=== PATIENT | female | born 1950 | race Caucasian/White ===

== ENCOUNTER 2022-05-11 12:45 | Emergency (ER) | payer MEDICARE, SELFPAY ==
[2022-05-11] VITALS (16 sets, daily range): BP systolic 110–145; BP diastolic 77–88; PULSE 68–81; RESP 12–18; TEMP 36.2; O2SAT 96–100
--- NOTE | ~2022-05-11 | XR_ITS ---
EXAMINATION: XR chest 2V Exam Date/Time: 05/11/2022 14:50 CORPORATE INVESTIGATOR HISTORY: cough, sob Comparison: None available. RESULT: Lines, tubes, and devices: None. Lungs and pleura: Biapical pleural scarring. Fibrolinear scarring in the right upper lung, with abdirashid r retraction. Right hemidiaphragm elevation. Cardiomediastinal silhouette: Stable. Other: No acute osseous or upper abdominal finding. IMPRESSION: No acute cardiopulmonary process. Reviewed, dictated and finalized at location K. ORATE INVESTIGATOR
--- NOTE | 2022-05-11 13:11 | ECG_ITS ---
Measurements Intervals [place] Rate: 70 P: 57 GA: 153 QRS: 58 QRSD: 159 T: 2 QT: 451 QTc: 488 Interpretive Statements SINUS RHYTHM RIGHT BUNDLE BRANCH BLOCK BASELINE ARTIFACT- I, II, III, AVR, AVL, AVF ABNORMAL ECG NO PREVIOUS ECG AVAILABLE FOR COMPARISON Electronically Signed On 05-11-2022 13:44:46 GAMING CAGE CASHIER by Dakota Yoon D.O.
[2022-05-11 13:50] LABS: Basophils Percent Auto 0.4 % (0.2-1.2); Eosinophils Absolute Auto 0.1 K/mm3 (0-0.3); Eosinophils Percent Auto 2.3 % (0-4.4); Hematocrit 38.2 % (37.0-47.0); Hemoglobin 12.6 g/dL (12.0-15.0); Immature Granulocyte Absolute 0.03 K/mm3 (0.00-0.031); Immature Granulocyte Percent A 0.5 % (0-0.5); Lymphocytes Absolute Auto 1.28 K/mm3 (0.9-3.2); Lymphocytes Percent Auto 22.6 % (18.3-44.2); Mean Corpuscular Hemoglobin 29.6 pg (26-34); Mean Corpuscular Volume 89.7 fl (80-100); Mean Platelet Volume 9.6 fl (7.4-10.4); Monocytes Absolute Auto 0.5 K/mm3 (0.1-0.6); Monocytes Percent Auto 8.5 % (2.6-8.5); Neutrophils Absolute Auto 3.7 K/mm3 (1.3-6.7); Neutrophils Percent Auto 65.7 % (45.5-73.1); Platelet Count Result 321 k/mm3 (150-375); Red Blood Count 4.26 M/mm3 (4.2-5.4); Red Cell Distribution Width 13.4 % (11.5-14.5); White Blood Count 5.7 K/mm3 (4.5-10.0)
[2022-05-11 13:52] LABS: Alanine Aminotransferase 17 U/L (6-35); Alkaline Phosphatase 131 U/L (38-126); Anion Gap 4 mmol/L (8-16); Aspartate Amino Transferase 22 U/L (14-36); Bilirubin,Total 0.5 mg/dL (0.2-1.3); Blood Urea Nitrogen 13 mg/dL (7-17); Calcium 8.8 mg/dL (8.4-10.2); Carbon Dioxide 26 mmol/L (22-30); Chloride 110 mmol/L (98-107); Estimated CRCL calculation 46 ml/min; Estimated Glomerular Filt Rate 55; Glucose 92 mg/dL (65-110); Potassium 3.8 mmol/L (3.4-5.0); Sodium 140 mmol/L (137-145)
[2022-05-11 14:01] LABS: INR 1.1; Prothrombin Time 13.5 Seconds (11.1-14.7)
[2022-05-11 14:02] LABS: Partial Thromboplastin Time 28.4 SECONDS (22.3-36.8)
[2022-05-11 14:07] LABS: Influenza A QL RT-PCR Negative (Negative); Influenza B QL RT-PCR Negative (Negative); SARS-CoV-2 RNA PCR Negative
--- NOTE | 2022-05-11 14:53 | ED.URI ---
HPI - URI/Sore Throat General Chief Complaint: Upper Respiratory Infection Stated Complaint: cough/sinus drainage/SOB Time Seen by Provider: 05/11/22 12:52 Source: patient, family and RN notes reviewed Mode of arrival: ambulatory Limitations: no limitations History of Present Illness HPI Narrative: This is a 72 year old female who presents for evaluation of URI symptoms for 3 weeks. Patient states she developed sinus pressure, sinus pain and intermittent right ear pain 3 weeks ago. She was prescribed augmentin at the start of her symptoms. She has continued to have symptoms so her primary care provider prescribed antibiotics last week and she is still on them. She reports she has worsening cough, chest congestion for 1 week. She reports shortness of breath with exertion. She denies fever, chills, chest pain. She denies wheezing. Related Data Home Medications Medication Instructions Recorded Confirmed citalopram 40 mg tablet 20 mg PO DAILY 09/29/21 11/03/21 clonazepam 2 mg tablet 2 mg PO DAILY 09/29/21 11/03/21 cyclobenzaprine 10 mg tablet 10 mg PO TID 09/29/21 11/03/21 estradiol 10 mcg vaginal insert 10 mcg vaginal 2XW 09/29/21 11/03/21 (Imvexxy Maintenance Pack) trazodone 50 mg tablet 50 mg PO QHS PRN 09/29/21 11/03/21 hydroxyzine HCl 25 mg tablet 25 mg PO BID PRN 11/03/21 11/03/21 Allergies Allergy/AdvReac Type Severity Reaction Status Date / Time prochlorperazine Allergy Unknown Unknown Unverified 11/03/21 11:37 Review of Systems Constitutional: Constitutional: Denies weakness ENT: Reports nasal congestion and Reports sore throat Cardiovascular: Cardiovascular: Denies syncope, Denies rapid heart rate, Denies irregular heart rhythm, Denies leg edema and Reports dyspnea Respiratory: Respiratory: Reports chest congestion, Reports cough, Denies hemoptysis, Reports excessive phlegm production and Reports dyspnea Gastrointestinal: Gastrointestinal: Denies abdominal pain, Denies hematochezia, Denies diarrhea, Reports nausea and Reports vomiting Genitourinary: Genitourinary: Denies hematuria and Denies dysuria Musculoskeletal: Musculoskeletal: Denies joint swelling, Denies loss of height and Denies muscle weakness Neurologic: Denies syncope, Denies focal weakness and Denies weakness PMFSH Past Medical History Medical History Abdominal cramping Bloating Fecal incontinence Stroke Social History Social History Smoking status: Never smoker Second hand tobacco smoke exposure: No Alcohol intake: never Substance use: never Living arrangements: with family Occupation/Education: other Gender identity (if verbalized by the patient): Female Exam Narrative: GENERAL: well-nourished, and in no acute distress. HEAD: Normocephalic, atraumatic EYES: PERRLA and EOMI, conjunctiva clear without discharge EARS: TM's clear bilaterally without erythema or dullness NOSE: Nares clear, no rhinorrhea or epistaxis THROAT:Mucous membranes moist, Oropharynx normal without erythema, exudate, peritonsillar swelling or fluctuance NECK: Supple, without lymphadenopathy or mass RESPIRATORY: No respiratory distress, Airway patent, Respirations non-labored, Clear to auscultation without rales, rhonchi or wheeze HEART: Regular rate and rhythm. No murmur heard. Normal peripheral pulses. ABDOMEN: Soft, nontender, nondistended, normal active bowel sounds. No masses. No rebound or guarding, No organomegaly. EXTREMITIES: No edema, normal strength with full range of motion. SKIN: Warm, dry, normal color without rash NEURO: Alert and oriented x3. CN 2-12 grossly intact. No focal deficits. PSYCH: Normal mood and affect. Neuro: Speech: No Abnormal speech present Course Reevaluation(s) Reevaluation #1: I Discussed with patient that she is to complete her antibiotics. I will treat for bronchitis with inhaler and
== END 2022-05-11 17:22 | disposition home or self-care (01) ==
PROVIDERS: Emergency Provider General Practice; PCP Internal Medicine
DX: J20.9 Acute bronchitis, unspecified (principal); Z20.822 Contact with and (suspected) exposure to COVID-19; Z86.73 Personal history of transient ischemic attack (TIA), and cerebral infarction without residual deficits; R06.02 Shortness of breath; I45.10 Unspecified right bundle-branch block
CPT/HCPCS: 36415; 71046; 80053; 83605; 85025; 85610; 85730; 87636; 93005; 99283

== ENCOUNTER 2023-03-22 11:34 | Inpatient (IN) | payer MEDICARE, SELFPAY ==
[2023-03-22] VITALS (11 sets, daily range): BP systolic 119–147; BP diastolic 64–86; PULSE 66–83; RESP 14–20; TEMP 36.4; O2SAT 97–100; BMI 27.8
--- NOTE | ~2023-03-22 | XR_ITS ---
XR chest 1V DATE: 03/22/2023 14:53 INDICATION: Rule out pneumonia TECHNIQUE: AP chest COMPARISON: 05/11/2022 2 view chest FINDINGS: Chronic prominent elevation the right leaf of the diaphragm, stable since 05/11/2022. Normal heart size. No hilar or interval mediastinal enlargement is evident. No pulmonary infiltrate or consolidation, pleural effusion or pulmonary vascular congestion or pneumo thorax is detected. Mild upper thoracic levoscoliosis. There is bilateral excretion of contrast material by the kidneys. IMPRESSION: Chronic right diaphragm elevation; no active cardiopulmonary disease or significant coulter e since 05/11/2022 Reviewed, dictated and finalized at location L. R TESTER POLYPHASE IMPRESSION: Chronic right diaphragm elevation; no active cardiopulmonary diseas e or significant change since 05/11/2022
--- NOTE | ~2023-03-22 | CT_ITS ---
EXAMINATION: CTA brain carotid DATE: 03/22/2023 14:47 INDICATION: Ataxia. Confusion. TECHNIQUE: Computed tomographic angiography (CTA) of the head was performed with 100 mL Omnipaque-350 intravenous contrast. CTA of the neck was performed with intravenous contrast. Automated exposure co ntrol and iterative reconstruction technique were employed. The dose-length product was 962.11 mGy-cm . Maximum intensity projection and volume rendered 3D-reconstructions were created by the [employer] t on a separate workstation. COMPARISON: Head CT 03/22/2023 FINDINGS: HEAD CTA: There is no intracranial hemorrhage, acute infarction, or abnormal intracranial mass lesion . There are scattered areas of low attenuation in the cerebral white matter. The ventricles are david l in size. The orbits are normal. There is mild mucosal thickening in the paranasal sinuses. The mast oid air cells are normal. The vertebral arteries are codominant. There is no significant stenosis of basilar artery or the posterior cerebral arteries. There is no significant stenosis of the intracrani al internal carotid arteries or anterior or middle cerebral arteries. Anterior communicating artery i s normal. The posterior communicating arteries are normal. There is no aneurysm. NECK CTA: There is mild scarring at the lung apices. There is a 5 mm nodule left thyroid lobe, likely not clinically significant. There are no pathologically enlarged lymph nodes. There is no significan t stenosis of the vertebral arteries. There is minimal plaque in the proximal internal carotid arteri es. There is 0% stenosis of the proximal right internal carotid artery relative to normal distal mary ry lumen diameter (NASCET criteria). There is 0% stenosis of the proximal left internal carotid arter y relative to normal distal artery lumen diameter. There is moderate cervical spondylosis. IMPRESSION: 1. Mild nonspecific cerebral white matter disease, which likely represents chronic small vessel ische dayton disease. 2. No aneurysm or significant intracranial arterial stenosis. 3. 0% stenosis of the proximal internal carotid arteries relative to normal distal artery lumen diame ters (NASCET criteria). Reviewed, dictated and finalized at location E. ROSE GROWER IMPRESSION: 1. Mild nonspecific cerebral white matter disease, which likely represents chief projectionist michelle small vessel ischemic disease. 2. No aneurysm or significant intracranial arterial stenosis. 3. 0% stenosis of the proximal internal carotid arteries relative to normal dis lexa artery lumen diameters (NASCET criteria).
--- NOTE | ~2023-03-22 | MR_ITS ---
MRI of the brain Clinical History: Confusion Technique: Axial and sagittal T1-weighted images were acquired. These were followed by axial T2-weigh mychal, diffusion weighted, gradient, and FLAIR images. Following intravenous administration of 15 cc Mu ltiHance gadolinium, T1-weighted fat-sat imaging was performed in the axial and coronal planes. Findings: There is no acute infarct, internal hemorrhage, or mass lesion identified. There are mild c hronic microvascular ischemic changes in the periventricular white matter. Ventricles and subarachnoid spaces are mildly dilated. Orbits are unremarkable. Paranasal sinuses and mastoid air cells are clear. Major intracranial flow voids are intact. Sagittal midline structures are intact. No abnormal postcontrast enhancement identified. IMPRESSION: No acute abnormality. Mild chronic white matter ischemic changes and mild to moderate generalized atrophy. Reviewed, dictated and finalized at [facility]. STOS REMOVAL SUPERVISOR IMPRESSION: No acute abnormality. Mild chronic white matter ischemic changes and mild to moderate generalized atr ophy.
--- NOTE | ~2023-03-22 | CT_ITS ---
Non-contrast Head CT History: Dizziness Technique: Axial non-contrast imaging of the brain was performed. Dose reduction technique was used on this scan by utilizing automated exposure control and iterative reconstruction technique. The dose -length product (DLP) was 605.33 mGy-cm. Findings: There is no evidence of intracranial hemorrhage, mass lesion, or acute infarct. Brain par enchyma appears normal. The ventricles and subarachnoid spaces are normal in size. The calvarium ap pears normal. The visualized paranasal sinuses and mastoid air cells are clear. Impression: No significant abnormality seen. Reviewed, dictated and finalized at location . UNITY AMBASSADOR Impression: No significant abnormality seen.
--- NOTE | 2023-03-22 13:13 | ECG_ITS ---
Measurements Intervals [place] Rate: 70 P: 69 UT: 155 QRS: 78 QRSD: 152 T: 3 QT: 468 QTc: 506 Interpretive Statements SINUS RHYTHM RIGHT BUNDLE BRANCH BLOCK BASELINE ARTIFACT- I, II, III, AVR, AVL, AVF ABNORMAL ECG COMPARED TO ECG 05/11/2022 13:30:12 NO SIGNIFICANT CHANGES Electronically Signed On 03-22-2023 13:48:14 DIGITIZER OPERATOR by Dakota Yoon D.O.
--- NOTE | 2023-03-22 13:14 | ED.GENADULT ---
HPI - General Adult General Chief complaint: Neuro Symptoms/Deficit Stated complaint: balance problems/problems with memory Time Seen by Provider: 03/22/23 13:12 History of Present Illness HPI narrative: Patient is a 73-year-old female who presents to the emergency department this afternoon with multiple symptoms. Patient states that since Tuesday she has noticed that she has been more confused, unstable on her feet, and off according to herself, has been and sister. Patient states that she was trying to write something a few days ago and everything that she wrote was gibberish even though she has good hand writing. Patient also states that her memory has been significantly declining within the past few days. The combination of these symptoms although mild were present prior to Tuesday but on Tuesday has been noticed a significant decline. Patient started a sulfa antibiotic at that time for urinary tract infection and not sure if this is due to that. Patient states that she stopped taking the medication. She states that when she was having the dysuria for her urinary tract infection the pain started on her left hand at the tip of her left pointer finger and felt as though it was a shooting nerve pain from her left index finger all the way to her urethra. Patient admits to a history of 2 previous TIAs with no residual deficits. Patient also denies any additional symptoms including chest pain, shortness of breath, nausea, vomiting, abdominal pain, dysuria, hematuria, constipation, diarrhea, melena, hematochezia, fevers or chills. Patient also denies any headaches, room spinning dizziness sensation, lightheadedness, blurry visions, focal weakness, numbness and or tingling. There are no other modifying, alleviating, or precipitating factors at this time. Related Data Home Medications Medication Instructions Recorded Confirmed citalopram 40 mg tablet 20 mg PO DAILY 09/29/21 11/03/21 clonazepam 2 mg tablet 2 mg PO DAILY 09/29/21 11/03/21 cyclobenzaprine 10 mg tablet 10 mg PO TID 09/29/21 11/03/21 estradiol 10 mcg vaginal insert 10 mcg vaginal 2XW 09/29/21 11/03/21 (Imvexxy Maintenance Pack) trazodone 50 mg tablet 50 mg PO QHS PRN 09/29/21 11/03/21 hydroxyzine HCl 25 mg tablet 25 mg PO BID PRN 11/03/21 11/03/21 Allergies Allergy/AdvReac Type Severity Reaction Status Date / Time prochlorperazine Allergy Unknown Unknown Unverified 11/03/21 11:37 Review of Systems Review of Systems: All systems are reviewed and are negative unless stated otherwise in the HPI. [facility] Past Medical History Medical History Abdominal cramping Bloating Fecal incontinence Stroke Social History Social History Smoking status: Never smoker Second hand tobacco smoke exposure: No Alcohol intake: never Substance use: never Living arrangements: with family Occupation/Education: other Gender identity (if verbalized by the patient): Female Exam Narrative: General: Alert, awake, afebrile, in no acute distress. HEENT: PERRL, no rhinorrhea, no post nasal drip, oropharynx clear. Neck: Trachea midline, no JVD, no lymphadenopathy. Cardiovascular: Regular rate and rhythm, no murmurs, rubs or gallops, no peripheral edema. Respiratory: Clear to auscultation bilaterally, no tachypnea, no wheezing, no rhonchi, no rubs, no respiratory distress. Abdomen: Soft, nontender, nondistended, no rebound, no guarding, no peritoneal signs. Musculoskeletal: No joint swelling or deformity, normal muscle tone. Skin: No rashes or petechia, no signs of infection. Psychiatric: Alert and oriented, normal behavior and judgment for situation. Neurological: Alert and oriented to person, place, and time. Follows all commands. 5/5 motor strength in the bilateral upper and lower extremity. Sensation intact in the bilateral upper and lower extremity. Cranial nerves 2-
[2023-03-22 13:30] LABS: Basophils Percent Auto 0.5 % (0.2-1.2); Eosinophils Absolute Auto 0.1 K/mm3 (0-0.3); Eosinophils Percent Auto 3.1 % (0-4.4); Hematocrit 41.3 % (37.0-47.0); Immature Granulocyte Absolute 0.01 K/mm3 (0.00-0.031); Immature Granulocyte Percent A 0.3 % (0-0.5); Lymphocytes Absolute Auto 1.12 K/mm3 (0.9-3.2); Lymphocytes Percent Auto 29.4 % (18.3-44.2); Mean Corpuscular HGB Conc 31.5 g/dl (32-36); Mean Corpuscular Hemoglobin 28.4 pg (26-34); Mean Corpuscular Volume 90.4 fl (80-100); Mean Platelet Volume 9.5 fl (7.4-10.4); Monocytes Absolute Auto 0.3 K/mm3 (0.1-0.6); Monocytes Percent Auto 8.4 % (2.6-8.5); Neutrophils Absolute Auto 2.2 K/mm3 (1.3-6.7); Neutrophils Percent Auto 58.3 % (45.5-73.1); Platelet Count Result 294 k/mm3 (150-375); Red Blood Count 4.57 M/mm3 (4.2-5.4); Red Cell Distribution Width 13.4 % (11.5-14.5); White Blood Count 3.8 K/mm3 (4.5-10.0)
[2023-03-22 13:40] LABS: Alanine Aminotransferase 17 U/L (6-35); Albumin Level 4.2 g/dL (3.5-5.1); Alkaline Phosphatase 102 U/L (38-126); Anion Gap 5 mmol/L (8-16); Aspartate Amino Transferase 23 U/L (14-36); Bilirubin,Total 0.5 mg/dL (0.2-1.3); Blood Urea Nitrogen 16 mg/dL (7-17); Calcium 9.4 mg/dL (8.4-10.2); Carbon Dioxide 27 mmol/L (22-30); Chloride 106 mmol/L (98-107); Estimated CRCL calculation 36 ml/min; Estimated Glomerular Filt Rate 40; Glucose 104 mg/dL (65-110); Potassium 4.3 mmol/L (3.4-5.0); Sodium 138 mmol/L (137-145)
[2023-03-22 14:06] LABS: Appearance Urine Clear (Clear); Bilirubin Urine Negative (Negative); Blood Urine Negative (Negative); Color Urine Yellow (Yellow); Glucose Urine UA Negative (Negative); Ketones Urine Negative (Negative); Leukocyte Esterase Ur Negative LEU/UL (Negative); Nitrate Urine Negative (Negative); Protein Urine Negative (Negative); Specific Grav Ur 1.017 (1.001-1.035)
[2023-03-22 14:12] LABS: Add Urine Microscopic? NO
--- NOTE | 2023-03-22 17:28 | PM.IMHP ---
H&P: HPI History of Present Illness Date/Time: 03/22/23 19:45 Chief Complaint: Confusion and balance problems. Narrative: This is a pleasant 73-year-old female with history of transient ischemic attack, chronic kidney disease, irritable bowel syndrome with constipation, depression, and anxiety who presented to the emergency department from home for evaluation of confusion and balance problems. The patient provides the following history and her provides additional information with the patient's permission. Last Tuesday she developed dysuria and was prescribed Bactrim by her primary care provider though no urinalysis was obtained. She took the antibiotic for 2 days stop taking it on Tuesday as she started to get confused. The patient tells me that it is not necessarily unusual for her to lose track of her thoughts in the middle of a sentence or forget why she went into a room. remarks that she does occasionally stumble on her words though that has been much worse. When he came home on Tuesday he tells me that she was ?unable to put 2 words together.? Sister remarks that she was writing jibberish when trying to make a list the other day. She feels a bit off balance when walking though that does not sound necessarily unusual for her either. She has a history of footdrop which improved after knee replacement but apparently still causes some degree. Of note she had what sounds like a syncopal episode approximately 5 weeks ago while out [place] a casino without prodrome. She was not evaluated for that. She denies headache, vertigo, facial droop, difficulty swallowing, auditory and visual changes, focal weakness, and paresthesias. No falls within the past several weeks. She denies head trauma. No change in medication aside from Bactrim for couple of days last week as detailed above. She denies alcohol and illicit substance use. No known history of dementia. CTA of the head and neck done on arrival to the ED did not show any acute or significant findings. She is being admitted in this setting for close monitoring and neurology consultation. Review of Systems Review of Systems: Twelve systems were reviewed and are negative except for as per HPI. [facility] Past Medical History Medical History (Updated 03/22/23 @ 21:45 by Melonie Chiu PA-C) Chronic constipation Chronic kidney disease Depression with anxiety Transient ischemic attack Surgical History Surgical History (Updated 03/22/23 @ 21:43 by Melonie Chiu PA-C) History of bilateral salpingo-oophorectomy (10/1999) History of knee replacement History of laparoscopy (06/2000) Laparoscopic adhesiolysis or pelvic pain. History of vaginal hysterectomy (1981) Social History Social History (Updated 03/22/23 @ 21:44 by Melonie Chiu PA-C) Social History: Surrogate medical decision maker: Britt Mohr, spouse. Code status: Full code. Smoking status: Never smoker Second hand tobacco smoke exposure: No Alcohol intake: never Substance use: never Do You Feel Safe in your Home?: Yes Lack of Transportation: No Lack of Food: Never True Current Housing: I Have Housing Concerned About Future Housing: No Difficulty Paying Gas/Electric Bills: No Difficulty Paying for Meds: No Currently Unemployed: No Education: Don't Know Difficulty w/ Childcare or Family Care: No Living arrangements: with family Additional living arrangements comments: Lives with spouse and intellectually disabled son. Additional occupation/education comments: Homemaker. Spiritual care concerns: No Meds Home Medications and Allergies Home Medications Medication Instructions Recorded Confirmed Type citalopram 40 mg tablet 40 mg PO QHS 09/29/21 03/22/23 History clonazepam 2 mg tablet 2 mg PO QHS 09/29/21 03/22/23 History cyclobenzaprine 10 mg tablet 10 mg PO QHS 09/29/21 03/22/23 History trazodone 50 mg tablet 25 mg PO QHS Insomnia 09/29/21 03/22/23 History hydroxyzin
--- NOTE | 2023-03-22 18:04 | ADMGEN ---
This patient, Makenzie Mohr, was admitted to Medical Room 252-01. Patient/family oriented to hospital policies and general routines including ID bracelet, bed and alarms, visiting hours, pain management, procedures, bathroom and other care routines, personal items, smoking policy, room service/diet, and visiting hours. Information on how to activate the Rapid Response Team has been discussed. Patient/Family are encouraged to report perceived risks to care and to ask questions if they do not understand what they are told or what they should do.
[2023-03-22] MEDS: clonazePAM (*CRX) 0.5 MG TABLET 2 MG PO (22:37)
[2023-03-22] MEDS: CITALOPRAM HYDROBROMIDE 20 MG TABLET 40 MG PO (22:37)
[2023-03-22 23:19] LABS: Amphetamine Screen Urine Negative (Negative); Barbiturate Screen Urine Negative (Negative); Benzodiazepines Screen Urine Negative (Negative); Cannabinoid Screen Urine Positive (Negative); Cocaine Screen Urine Negative (Negative); Methadone Screen Urine Negative (Negative); Opiate Screen Urine Negative (Negative); Phencyclidine Screen Urine Negative (Negative)
[2023-03-23] VITALS (9 sets, daily range): BP systolic 115–128; BP diastolic 59–68; PULSE 67–79; RESP 16–18; TEMP 36.4–36.8; O2SAT 92–97
--- NOTE | 2023-03-23 | ECHO_ITS ---
Patient Info Name: Makenzie Mohr Age: 73 years : 1950 Gender: Female Ht: 65 in Wt: 172 lbs BSA: 1.91 m2 HR: 72 bpm BP: 115 / 59 mmHg Heart Rhythm: Sinus Rhythm Technical Quality: Good Exam Date: 03/23/2023 1:51 PM Exam Location: Echo Lab Patient Status: Inpatient Admit Date: 03/22/2023 Staff Ordering Physician: Teddy King MD Environmental Health And Safety Manager: Agnieszka Bravo RDCS Attending Provider: Terrence Sandoval MD Exam Type: CA echo doppler color flow Study Info Indications - CVA symptoms R55 - Syncope and collapse Complete two-dimensional, color flow and Doppler transthoracic echocardiogram is performed. Summary 1. Complete two-dimensional, color flow and Doppler transthoracic echocardiogram is performed. 2. Normal left ventricular size with mild concentric hypertrophy. Good systolic function of all segments with ejection fraction of 69%. Normal diastolic function. 3. There is mild tricuspid valve regurgitation. 4. No pulmonary hypertension, estimated pulmonary arterial systolic pressure is 26 mmHg. 5. Thin and hyper mobile atrial septum, with no obvious shunt by color flow. 6. Normal sinus rhythm. Left Ventricle Left ventricular chamber dimension is normal. Left ventricular systolic function is normal, estimated at 65-70%. There is mildly increased left ventricular wall thickness. Left ventricular septal wall motion is normal. The left ventricular diastolic function is normal. Right Ventricle Right ventricular chamber dimension is normal. Right ventricular systolic function is normal. Left Atria Left atrial chamber dimension is normal. Right Atria Right atrial chamber dimension is normal. Aortic Valve The aortic valve is trileaflet. There is mild aortic valve sclerosis. There is no aortic valve stenosis. There is trace aortic valve regurgitation. Pulmonic Valve The pulmonic valve is normal. There is no pulmonic valve stenosis. There is no pulmonic regurgitation. Mitral Valve The mitral valve has normal leaflets. There is no mitral valve stenosis. There is no mitral valve regurgitation. Tricuspid Valve The tricuspid valve leaflets are normal. There is no significant tricuspid valve stenosis. There is mild tricuspid valve regurgitation. No pulmonary hypertension, estimated pulmonary arterial systolic pressure is 26 mmHg. Pericardium/Pleural The pericardium appears normal. There is no pericardial effusion. Inferior Vena Cava Normal inferior vena cava with >50% collapse upon inspiration consistent with Empty right atrial pressure, 10 mmHg. Aorta The aortic root size at the sinus of Valsalva is normal. The prox ascending aorta size is normal. Left Ventricular Outflow Tract Name Value Normal LVOT 2D LVOT Diameter 2.0 cm LVOT Doppler LVOT Peak Gradient 5 mmHg LVOT Mean Gradient 2 mmHg LVOT VTI 18 cm LVOT VTI/AV VTI Ratio 0.9 LVOT Stroke Volume 53 ml LVOT CO 3.9 l/min LVOT CI 2.1 l/min/m2 Pulmonic Valve
[2023-03-23] MEDS: ACETAMINOPHEN 325 MG TABLET 650 MG PO (05:22)
[2023-03-23 05:34] LABS: Hematocrit 40.7 % (37.0-47.0); Hemoglobin 13.3 g/dL (12.0-15.0); Mean Corpuscular HGB Conc 32.7 g/dl (32-36); Mean Corpuscular Volume 88.9 fl (80-100); Mean Platelet Volume 9.4 fl (7.4-10.4); Platelet Count Result 328 k/mm3 (150-375); Red Blood Count 4.58 M/mm3 (4.2-5.4); Red Cell Distribution Width 13.2 % (11.5-14.5); White Blood Count 4.2 K/mm3 (4.5-10.0)
[2023-03-23 05:43] LABS: Anion Gap 7 mmol/L (8-16); Blood Urea Nitrogen 15 mg/dL (7-17); Calcium 9.5 mg/dL (8.4-10.2); Carbon Dioxide 23 mmol/L (22-30); Chloride 108 mmol/L (98-107); Cholesterol 259 mg/dL (0-200); Estimated CRCL calculation 39 ml/min; Estimated Glomerular Filt Rate 44; Glucose 91 mg/dL (65-110); HDL Direct 62 mg/dL; Magnesium 2.1 mg/dL (1.6-2.3); Potassium 4.3 mmol/L (3.4-5.0); Sodium 138 mmol/L (137-145); Triglycerides 123 mg/dL (<150)
[2023-03-23 05:53] LABS: LDL Cholesterol Direct 106 mg/dL
[2023-03-23] MEDS: ASPIRIN 81 MG CHEWABLE TABLET PO (08:47)
[2023-03-23] MEDS: CYCLOBENZAPRINE HCL 10 MG TABLET PO ×2 (09:17→20:32)
--- NOTE | 2023-03-23 11:18 | WPDNEURCNPN ---
Assessment and Plan Assessment and plan (1) Transient cerebral ischemia: Code(s): G45.9 - Transient cerebral ischemic attack, unspecified Status: Acute (2) Depression with anxiety: Code(s): F41.8 - Other specified anxiety disorders Status: Acute (3) Neurological symptoms: Code(s): R29.90 - Unspecified symptoms and signs involving the nervous system Status: Acute Plan Nonspecific neurological symptomatology will obtain the routine EEG, in addition to negative CTA of the brain and cervical area considering the remote possibility of TIA if she has not had an echocardiogram recently will obtain that as well and continue the medication as such Consult date: 03/23/23 HPI: Makenzie Mohr is a 73 year old female she received the antibiotics but she continued to have the increase in cough. Her medication as an outpatient include citalopram 20mg daily, clonazepam 2mg daily, cyclobenzaprine 10mg 3 times a day, trazodone 50mg at night p.r.n., and hydroxyzine 25mg b.i.d. p.r.n., she is allergic to l pro floor [place] and she does have a history of stroke in the past, being never smoker, and no alcohol intake, her initial exam in the emergency room were grossly nonfocal, her vital signs were normal with blood pressure 145/88 CBC were normal, BMP was normal, and routine lab studies were negative in addition to being negative for the influenza a influenza B and COVID chest x-ray was negative EKG without any atrial fibrillation, head and neck CTA in the emergency room was negative for any vascular involvement and the brain MRI is negative. Patient does have ongoing history of chronic renal disease, irritable bowel syndrome, anxiety with depression. She has difficulties in keeping track of her thoughts and occasionally she stumbles on her words but on the day of admission she was unable to put 2 words together she also has a history of footdrop in the past which got better later on Review of Systems Review of Systems: All systems reviewed & are unremarkable except as noted in HPI and below PMFSH Past Medical History Medical History Chronic constipation Chronic kidney disease Depression with anxiety Transient ischemic attack Surgical History Surgical History History of bilateral salpingo-oophorectomy (10/1999) History of knee replacement History of laparoscopy (06/2000) Laparoscopic adhesiolysis or pelvic pain. History of vaginal hysterectomy (1981) Social History Social History Social History: Surrogate medical decision maker: Britt Mohr, spouse. Code status: Full code. Smoking status: Never smoker Second hand tobacco smoke exposure: No Alcohol intake: never Substance use: never Do You Feel Safe in your Home?: Yes Lack of Transportation: No Lack of Food: Never True Current Housing: I Have Housing Concerned About Future Housing: No Difficulty Paying Gas/Electric Bills: No Difficulty Paying for Meds: No Currently Unemployed: No Education: Don't Know Difficulty w/ Childcare or Family Care: No Living arrangements: with family Additional living arrangements comments: Lives with spouse and intellectually disabled son. Additional occupation/education comments: Homemaker. Spiritual care concerns: No Meds Home Medications and Allergies Home Medications Medication Instructions Recorded Confirmed Type citalopram 40 mg tablet 40 mg PO QHS 09/29/21 03/22/23 History clonazepam 2 mg tablet 2 mg PO QHS 09/29/21 03/22/23 History aspirin 81 mg tablet 81 mg PO 3XW 03/22/23 03/22/23 History Allergies Allergy/AdvReac Type Severity Reaction Status Date / Time prochlorperazine Allergy Unknown Unknown Verified 03/22/23 18:39 Vital Signs Vital Signs - 24 hr 03/22/23 11:37 03/22/23 12:32 03/22/23 12:45 Temperat
--- NOTE | 2023-03-23 14:17 | PM.IMPN ---
Progress Note: A&P Assessment and Plan (1) Neurological symptoms: Code(s): R29.90 - Unspecified symptoms and signs involving the nervous system Status: Acute (2) Chronic kidney disease: Code(s): N18.9 - Chronic kidney disease, unspecified Status: Acute (3) Depression with anxiety: Code(s): F41.8 - Other specified anxiety disorders Status: Acute (4) Transient cerebral ischemia: Code(s): G45.9 - Transient cerebral ischemic attack, unspecified Status: Acute (5) Transient global amnesia: Code(s): G45.4 - Transient global amnesia Status: Acute (6) Physical deconditioning: Code(s): R53.81 - Other malaise Status: Acute Plan This is a pleasant 73-year-old female with history of transient ischemic attack, chronic kidney disease, irritable bowel syndrome with constipation, depression, and anxiety who presented to the emergency department from home for evaluation of confusion and balance problems. The patient provides the following history and her provides additional information with the patient's permission. Last Tuesday she developed dysuria and was prescribed Bactrim by her primary care provider though no urinalysis was obtained. She took the antibiotic for 2 days stop taking it on Tuesday as she started to get confused. The patient tells me that it is not necessarily unusual for her to lose track of her thoughts in the middle of a sentence or forget why she went into a room. remarks that she does occasionally stumble on her words though that has been much worse. When he came home on Tuesday he tells me that she was ?unable to put 2 words together.? Sister remarks that she was writing jibberish when trying to make a list the other day. She feels a bit off balance when walking though that does not sound necessarily unusual for her either. She has a history of footdrop which improved after knee replacement but apparently still causes some degree. Of note she had what sounds like a syncopal episode approximately 5 weeks ago while out at a casino without prodrome. She was not evaluated for that. She denies headache, vertigo, facial droop, difficulty swallowing, auditory and visual changes, focal weakness, and paresthesias. No falls within the past several weeks. She denies head trauma. No change in medication aside from Bactrim for couple of days last week as detailed above. She denies alcohol and illicit substance use. No known history of dementia. CTA of the head and neck done on arrival to the ED did not show any acute or significant findings. She is being admitted in this setting for close monitoring and neurology consultation. Neurology consulted: ECHO, EEG Acute and principal conditions 1. Transient intermittent Amnesia Probable TIA MRI+CTA Head and Neck: Unremarkable. Neurology on board 2. Probable TIA 3. Leucopenia. Unknown etiology. Will monitor 4. Physical deconditioning: PT/OT eval and Rx; ambulate TID Chronic and stable conditions 1. CKD3. Avoid nephrotoxins 2. Recurrent severe depression w/Anxiety: Resume Citalopram, Hydroxyzine, Clonazepam 3. Dyslipidemia. Statin held Time Spent With Patient Time with patient: 25 - 35 minutes Subjective Date/time seen: 03/23/23 14:17 Interval history: Seen and examined; Discussed with and patient about their concerns. Reassured and answered all questions. Review of Systems Review of Systems: Twelve systems were reviewed and are negative except for as per HPI. Constitutional: Constitutional: Reports no additional constitutional complaints Eyes: Eyes: Reports no additional eye complaints ENT: Reports system reviewed and no additional complaints, except as documented Cardiovascular: Cardiovascular: Reports no additional cardiovascular complaints Respiratory: Respiratory: Reports no additional respiratory complaints Gastrointestinal: Gastrointestinal: Reports no additional gastrointest
[2023-03-23] MEDS: clonazePAM (*CRX) 0.5 MG TABLET 2 MG PO (20:32)
[2023-03-23] MEDS: CITALOPRAM HYDROBROMIDE 20 MG TABLET 40 MG PO (20:32)
[2023-03-23] MEDS: hydrOXYzine HCL 25 MG TABLET PO (20:32)
[2023-03-24] VITALS: PULSE 73
[2023-03-24] MEDS: ACETAMINOPHEN 325 MG TABLET 650 MG PO (00:45)
[2023-03-24 04:00] VITALS: PULSE 74
[2023-03-24 05:53] LABS: Basophils Percent Auto 0.7 % (0.2-1.2); Eosinophils Absolute Auto 0.1 K/mm3 (0-0.3); Eosinophils Percent Auto 2.8 % (0-4.4); Hematocrit 40.8 % (37.0-47.0); Hemoglobin 12.9 g/dL (12.0-15.0); Immature Granulocyte Absolute 0.05 K/mm3 (0.00-0.031); Immature Granulocyte Percent A 1.1 % (0-0.5); Lymphocytes Percent Auto 32.8 % (18.3-44.2); Mean Corpuscular HGB Conc 31.6 g/dl (32-36); Mean Corpuscular Hemoglobin 28.5 pg (26-34); Mean Corpuscular Volume 90.1 fl (80-100); Mean Platelet Volume 9.8 fl (7.4-10.4); Monocytes Absolute Auto 0.5 K/mm3 (0.1-0.6); Neutrophils Absolute Auto 2.4 K/mm3 (1.3-6.7); Neutrophils Percent Auto 52.6 % (45.5-73.1); Platelet Count Result 303 k/mm3 (150-375); Red Blood Count 4.53 M/mm3 (4.2-5.4); Red Cell Distribution Width 13.2 % (11.5-14.5); White Blood Count 4.6 K/mm3 (4.5-10.0)
[2023-03-24 06:00] VITALS: BP 111/49; PULSE 80; RESP 18; TEMP 36.5; O2SAT 96
[2023-03-24 06:12] LABS: Alanine Aminotransferase 16 U/L (6-35); Albumin Level 3.9 g/dL (3.5-5.1); Alkaline Phosphatase 111 U/L (38-126); Anion Gap 7 mmol/L (8-16); Aspartate Amino Transferase 24 U/L (14-36); Bilirubin,Total 0.5 mg/dL (0.2-1.3); Blood Urea Nitrogen 17 mg/dL (7-17); Calcium 9.5 mg/dL (8.4-10.2); Carbon Dioxide 24 mmol/L (22-30); Chloride 107 mmol/L (98-107); Estimated CRCL calculation 36 ml/min; Estimated Glomerular Filt Rate 40; Glucose 90 mg/dL (65-110); Potassium 4.1 mmol/L (3.4-5.0); Sodium 138 mmol/L (137-145)
--- NOTE | 2023-03-24 08:40 | PCOTNOTE ---
The patient treatment was not able to be completed. Patient getting an EEG. Will plan to continue treatment per plan of care.
--- NOTE | 2023-03-24 09:41 | WPDNEUROPN ---
Progress Note: A&P Assessment and Plan (1) Altered mental status: Code(s): R41.82 - Altered mental status, unspecified Status: Acute (2) B12 deficiency: Code(s): E53.8 - Deficiency of other specified B group vitamins Status: Acute (3) Depression with anxiety: Code(s): F41.8 - Other specified anxiety disorders Status: Acute Plan Ms. Mohr is a 73 year old female with a hsitory of anxiety, depression, CKD, IBS presenting due to transient episode of confusion. There were reports of dysuria raising concern for possible UTI, but UA from this admission looks clean. CT head, CTA brain/carotid, MRI brain and routine EEG all normal. B12 is quite low at 174 which could be contributing to more of her long standing confusion/word finding issues. Other consideration of acute worsening are TIA, although other than confusion she did not really have any focal symptoms. - Start daily aspiirn 81mg daily - LDL is 106, start statin - Check bubble study - Check A1c - Start B12 supplementation 1000mcg daily Subjective Date/time seen: 03/24/23 09:41 Interval history: Ms. Mohr is a 73 year old female with a history of TIA, CKD, IBS, anxiety and depression who presented due to acute confusion and balance issues. Per patient, she has been having issues with word finding and balance for the past year, but it seemed to have worsened about a week ago. Last week, she was complaining of dysuria so she was prescribed Bactrim by her PCP. She took the antibiotic for two days and then stopped it because of pill size. On the day she stopped the medication, she became more confused. She was writing a letter to a friend and noted that her writing did not make sense and was jibberish. Patient's reports that she was unable to put two words together. She feels a bit off balance when walking though that does not sound necessarily unusual for her either. She has a history of footdrop which improved after knee replacement but apparently still causes some degree. Patient presented to [facility] where testing has been mostly unrevealing. UA was clean. CT head and CTA brain/carotid were negative. MRI brain and routine EEG were normal. Patient. eventually improved, it is unclear how long the episode lasted. B12 is low at 174. TSH and folate are normal. In talking to patient, she does feel quite depressed and anxious. She takes Citalopram and Klonopin as needed. Review of Systems Review of Systems: All systems reviewed & are unremarkable except as noted in HPI and below Exam Const: General: comfortable and no acute distress HENMT: Mouth: Yes moist mucous membranes Eyes: Pupils: Equal, round and reactive pupils present EOM: EOMs intact bilaterally Resp: Effort & Inspection: normal respiratory effort Skin: General skin exam: normal color Neuro: Other: AOx3, Pupils equal and reactive bilaterally, EOMI, face symmetric, facial sensation intact, tongue protrudes midline, palate midline. Shoulder shrug normal. Moving all extremities against gravity and resistance, Sensation seems to be symmetric, FNF normal bilaterally. Language comprehension and fluency intact. Gait deferred. Extrem: General: normal to inspection Psych: Mental Status: mental status grossly normal Affect: normal affect Objective Data Vital Signs Vital Signs: Vital Signs - 24 hr 03/23/23 13:19 03/23/23 12:00 03/23/23 14:00 Temperature 36.4 C L Pulse Rate 73 76 Respiratory Rate 16 Blood Pressure 128/59 L Pulse Oximetry 92 Oxygen Delivery Room Air 03/23/23 16:00 03/23/23 19:20 03/23/23 20:00 Temperature 36.8 C Pulse Rate 79 72 72 Respiratory Rate 18 Blood Pressure 117/68 Pulse Oximetry 95 Oxygen Delivery 03/24/23 00:00 03/24/23 04:00 03/24/23 06:00 Temperature 36.5 C Pulse Rate 73 74 80 Respiratory Rate 18 Blood Pressure 111/49 L Pulse Oximetry 96 Oxygen Delivery Intake/Output Intake/Out
--- NOTE | 2023-03-24 10:00 | WPDNEUROLOGY ---
Neurology EEG Report General Information Date of Study: 03/24/23 TEST Routine EEG DIAGNOSIS Unresponsive episode, confusion CONDITION OF RECORDING Awake, drowsy, asleep EEG NUMBER [id number] CLINICAL HISTORY Patient reports she had an episode of losing consciousness, feeling weak and forgetful. EEG DESCRIPTION During the awake state with eyes closed the background consists of 8 Hz posterior dominant rhythm which attenuates appropriately with eye opening. The recording is continuous. There is a well developed anterior-posterior gradient. No significant asymmetries of background activities are noted. With drowsiness there is waxing and waning of the dominant rhythm with eventual replacement by a mixture of beta, alpha, and theta activity. As the patient enters stage II sleep, symmetrical spindles are present. Arousal is unremarkable. There are no epileptiform discharges or seizures during this recording. Hyperventilation and photic stimulation were not performed. IMPRESSION This is a normal routine EEG recorded in awake and asleep states. There are no electrographic seizures identified, nor are there any epileptiform discharges. Please note that a normal EEG cannot exclude a seizure disorder. Clinical correlation is recommended.
[2023-03-24 11:00] VITALS: PULSE 81
[2023-03-24 12:00] VITALS: PULSE 90
--- NOTE | 2023-03-24 12:57 | PM.IMPN ---
Progress Note: A&P Assessment and Plan (1) Neurological symptoms: Code(s): R29.90 - Unspecified symptoms and signs involving the nervous system Status: Acute (2) Chronic kidney disease: Code(s): N18.9 - Chronic kidney disease, unspecified Status: Acute (3) Depression with anxiety: Code(s): F41.8 - Other specified anxiety disorders Status: Acute (4) Transient cerebral ischemia: Code(s): G45.9 - Transient cerebral ischemic attack, unspecified Status: Acute (5) Transient global amnesia: Code(s): G45.4 - Transient global amnesia Status: Acute (6) Physical deconditioning: Code(s): R53.81 - Other malaise Status: Acute Plan This is a pleasant 73-year-old female with history of transient ischemic attack, chronic kidney disease, irritable bowel syndrome with constipation, depression, and anxiety who presented to the emergency department from home for evaluation of confusion and balance problems. The patient provides the following history and her provides additional information with the patient's permission. Last Tuesday she developed dysuria and was prescribed Bactrim by her primary care provider though no urinalysis was obtained. She took the antibiotic for 2 days stop taking it on Tuesday as she started to get confused. The patient tells me that it is not necessarily unusual for her to lose track of her thoughts in the middle of a sentence or forget why she went into a room. remarks that she does occasionally stumble on her words though that has been much worse. When he came home on Tuesday he tells me that she was ?unable to put 2 words together.? Sister remarks that she was writing jibberish when trying to make a list the other day. She feels a bit off balance when walking though that does not sound necessarily unusual for her either. She has a history of footdrop which improved after knee replacement but apparently still causes some degree. Of note she had what sounds like a syncopal episode approximately 5 weeks ago while out at a casino without prodrome. She was not evaluated for that. She denies headache, vertigo, facial droop, difficulty swallowing, auditory and visual changes, focal weakness, and paresthesias. No falls within the past several weeks. She denies head trauma. No change in medication aside from Bactrim for couple of days last week as detailed above. She denies alcohol and illicit substance use. No known history of dementia. CTA of the head and neck done on arrival to the ED did not show any acute or significant findings. She is being admitted in this setting for close monitoring and neurology consultation. UA was clean. CT head and CTA brain/carotid were negative. MRI brain and routine EEG were normal. Patient.? eventually improved, it is unclear how long the episode lasted. B12 is low at 174. TSH and folate are normal. Neurology consulted Acute and principal conditions 1. Transient intermittent Amnesia Probable TIA UA was clean. CT head and CTA brain/carotid were negative. MRI brain and routine EEG were normal. Patient.? eventually improved, it is unclear how long the episode lasted. B12 is low at 174. TSH and folate are normal. MRI+CTA Head and Neck: Unremarkable. Neurology on board 2. Probable TIA 3. Leucopenia. Unknown etiology. Will monitor 4. Physical deconditioning: PT/OT eval and Rx; ambulate TID Chronic and stable conditions 1. CKD3. Avoid nephrotoxins 2. Recurrent severe depression w/Anxiety: Resume Citalopram, Hydroxyzine, Clonazepam 3. Dyslipidemia. Statin held Disposition. Maybe home with [facility] Time Spent With Patient Time with patient: 25 - 35 minutes Subjective Date/time seen: 03/24/23 12:57 Interval history: Ms. Mohr is a 73 year old female with a history of TIA, CKD, IBS, anxiety and depression who presented due to acute confusion and balance issues. Per patient, she has been having issues with word finding and balanc
[2023-03-24 13:36] VITALS: BP 135/76; PULSE 87; RESP 18; TEMP 35.9; O2SAT 99
--- NOTE | 2023-03-24 13:50 | PC.NURSE ---
On 03/24/23, the student, [Belkis Sweeney], provided care and completed [facility] documentation on this patient. I have reviewed the student's documentation and agree with the findings.
--- NOTE | 2023-03-24 15:42 | PC.NURSE ---
Patient refusing home health upon D/C and wants to private pay for a walker to have at home per physical therapy recommendations. Pt educated on the importance of securing the walker RITCHIE as to prevent falls/injury once discharged.
--- NOTE | 2023-03-24 16:05 | PM.DS ---
DS: Admitting Diagnosis Discharge Date 03/24/23 Admitting Diagnosis Stroke-like symptoms Probable TIA DS: Discharge Diagnosis Discharge Diagnosis (1) Neurological symptoms: Code(s): R29.90 - Unspecified symptoms and signs involving the nervous system Status: Acute (2) Chronic kidney disease: Code(s): N18.9 - Chronic kidney disease, unspecified Status: Acute (3) Depression with anxiety: Code(s): F41.8 - Other specified anxiety disorders Status: Acute (4) Transient cerebral ischemia: Code(s): G45.9 - Transient cerebral ischemic attack, unspecified Status: Acute (5) Transient global amnesia: Code(s): G45.4 - Transient global amnesia Status: Acute (6) Physical deconditioning: Code(s): R53.81 - Other malaise Status: Acute Plan This is a pleasant 73-year-old female with history of transient ischemic attack, chronic kidney disease, irritable bowel syndrome with constipation, depression, and anxiety who presented to the emergency department from home for evaluation of confusion and balance problems. The patient provides the following history and her provides additional information with the patient's permission. Last Tuesday she developed dysuria and was prescribed Bactrim by her primary care provider though no urinalysis was obtained. She took the antibiotic for 2 days stop taking it on Tuesday as she started to get confused. The patient tells me that it is not necessarily unusual for her to lose track of her thoughts in the middle of a sentence or forget why she went into a room. remarks that she does occasionally stumble on her words though that has been much worse. When he came home on Tuesday he tells me that she was ?unable to put 2 words together.? Sister remarks that she was writing jibberish when trying to make a list the other day. She feels a bit off balance when walking though that does not sound necessarily unusual for her either. She has a history of footdrop which improved after knee replacement but apparently still causes some degree. Of note she had what sounds like a syncopal episode approximately 5 weeks ago while out at a casino without prodrome. She was not evaluated for that. She denies headache, vertigo, facial droop, difficulty swallowing, auditory and visual changes, focal weakness, and paresthesias. No falls within the past several weeks. She denies head trauma. No change in medication aside from Bactrim for couple of days last week as detailed above. She denies alcohol and illicit substance use. No known history of dementia. CTA of the head and neck done on arrival to the ED did not show any acute or significant findings. She is being admitted in this setting for close monitoring and neurology consultation. UA was clean. CT head and CTA brain/carotid were negative. MRI brain and routine EEG were normal. Patient.? eventually improved, it is unclear how long the episode lasted. B12 is low at 174. TSH and folate are normal. Neurology consulted Acute and principal conditions 1. Transient intermittent Amnesia Probable TIA UA was clean. CT head and CTA brain/carotid were negative. MRI brain and routine EEG were normal. Patient.? eventually improved, it is unclear how long the episode lasted. B12 is low at 174. TSH and folate are normal. MRI+CTA Head and Neck: Unremarkable. Neurology on board 2. Probable TIA 3. Leucopenia. Unknown etiology. Will monitor 4. Physical deconditioning: PT/OT eval and Rx; ambulate TID Chronic and stable conditions 1. CKD3. Avoid nephrotoxins 2. Recurrent severe depression w/Anxiety: Resume Citalopram, Hydroxyzine, Clonazepam 3. Dyslipidemia. Statin held Disposition. Maybe home with [facility] DS: Summary Hospital Course Reason for hospitalization: stroke-like symptoms Probable TIA Hospital Course: This is a pleasant 73-year-old female with history of transient ischemic attack, chronic kidney disease, irritable juliana
== END 2023-03-24 17:30 | disposition home or self-care (01) | DRG 69 ==
LOC: ANHED 15:51 → ANH3MEDSUR 16:59 → ANH2MED 17:02
PROVIDERS: Internal Medicine; Physician Assistant; Admitting Provider Internal Medicine; Emergency Provider Emergency Medicine; PCP Internal Medicine; Visit Provider Internal Medicine
DX: G45.9 Transient cerebral ischemic attack, unspecified (principal); G45.4 Transient global amnesia; E78.5 Hyperlipidemia, unspecified; F41.8 Other specified anxiety disorders; K58.1 Irritable bowel syndrome with constipation; M21.379 Foot drop, unspecified foot; N18.30 Chronic kidney disease, stage 3 unspecified; R53.81 Other malaise; Z79.82 Long term (current) use of aspirin; Z86.73 Personal history of transient ischemic attack (TIA), and cerebral infarction without residual deficits
CPT/HCPCS: 36415; 70450; 70496; 70498; 70553; 71045; 80048; 80053; 80061; 80307; 81003; 82607; 82746; 83735; 84443; 85025; 85027; 92507; 92523; 93005; 93306; 95816; 97161; 97165; 97530; 97535; 99285; A9270; A9577; Q9967

== ENCOUNTER 2023-03-29 10:19 | Outpatient (CLI) | payer MEDICARE, SELFPAY | END 2023-03-29 10:20 | disposition home or self-care (01) | LOC: ANHAUDIO 10:20 | PROVIDERS: PCP Internal Medicine; Visit Provider Internal Medicine | DX: H90.3 Sensorineural hearing loss, bilateral (principal) | CPT/HCPCS: 92557; 92567 ==

== ENCOUNTER 2023-05-16 11:00 | Outpatient (RCR) | payer MEDICARE, SELFPAY | END 2023-05-16 23:59 | disposition home or self-care (01) | LOC: ANHAUDIO 11:00 | PROVIDERS: PCP Internal Medicine; Visit Provider Internal Medicine | DX: Z46.1 Encounter for fitting and adjustment of hearing aid (principal) | CPT/HCPCS: 99199; V5261 ==

== ENCOUNTER 2023-08-07 13:28 | Emergency (ER) | payer MEDICARE, SELFPAY ==
[2023-08-07] VITALS (15 sets, daily range): BP systolic 101–130; BP diastolic 60–98; PULSE 68–94; RESP 13–21; TEMP 36.3; O2SAT 93–99
--- NOTE | ~2023-08-07 | XR_ITS ---
EXAMINATION: XR chest 2V DATE: 08/07/2023 14:14 INDICATION: Dizziness. Chills. TECHNIQUE: Frontal and lateral views of the chest were obtained. COMPARISON: Chest single view 03/22/2023 FINDINGS: There is chronic eventration of right hemidiaphragm. No pneumonia, pleural effusion, or pne umothorax. The heart size is normal. IMPRESSION: 1. No acute cardiopulmonary disease. Reviewed, dictated and finalized at location E.
--- NOTE | 2023-08-07 13:42 | ED.GENADULT ---
HPI - General Adult General Chief complaint: Unspecified Stated complaint: sick for a while Time Seen by Provider: 08/07/23 13:32 History of Present Illness HPI narrative: Pt presents with chills and night sweats for 2 of the last three nights. Pt not aware of having a fever. Pt denies cough or CP or SOB. Pt does have some urinary frequency. Pt never had this prior. Pt having early dementia symptoms and doing some med changes to attempt to address this by PCP. Related Data Home Medications Medication Instructions Recorded Confirmed clonazepam 2 mg tablet 2 mg PO QHS 09/29/21 07/26/23 citalopram 40 mg tablet 20 mg PO DAILY 07/26/23 07/26/23 estradiol 10 mcg vaginal insert 10 mcg vaginal 2XW 07/26/23 07/26/23 (Imvexxy Maintenance Pack) trazodone 50 mg tablet 50 mg PO QHS PRN 07/26/23 07/26/23 Allergies Allergy/AdvReac Type Severity Reaction Status Date / Time prochlorperazine Allergy Unknown Unknown Verified 07/26/23 08:43 Review of Systems Review of Systems: All systems reviewed & are unremarkable except as noted in HPI and below PMFSH Past Medical History Medical History (Updated 08/07/23 @ 16:17 by Dusty Ignacio III, DO) Chronic constipation Chronic kidney disease Dementia of Alzheimer's type, with early onset, with depressed mood Depression with anxiety Transient ischemic attack Surgical History Surgical History History of bilateral salpingo-oophorectomy (10/1999) History of knee replacement History of laparoscopy (06/2000) Laparoscopic adhesiolysis or pelvic pain. History of vaginal hysterectomy (1981) Social History Social History Social History: Surrogate medical decision maker: Britt Mohr, spouse. Code status: Full code. Smoking packs per day: 0 Smoking cigarettes per day: 0.0 Years smoked: 0 Smoking pack-years: 0.00 Smoking status: Never smoker Second hand tobacco smoke exposure: No Alcohol intake: never Substance use: never Do You Feel Safe in your Home?: Yes Lack of Transportation: No Lack of Food: Never True Current Housing: I Have Housing Concerned About Future Housing: No Difficulty Paying Gas/Electric Bills: No Difficulty Paying for Meds: No Currently Unemployed: No Education: Don't Know Difficulty w/ Childcare or Family Care: No Living arrangements: with family Additional living arrangements comments: Lives with spouse and intellectually disabled son. Additional occupation/education comments: Homemaker. Spiritual care concerns: No Exam Const: General: cooperative, healthy appearing and no acute distress Nutritional Appearance: average body habitus Orientation/consciousness: patient oriented x3 Limitations: no limitations HENMT: Throat: posterior oropharynx normal Neck: Neck: normal visual inspection Chest: Chest palpation & inspection: normal inspection of the chest Resp: Effort & Inspection: normal respiratory effort and able to speak in complete sentences Auscultation: clear to auscultation bilaterally Cardio: Rate: regular rate Rhythm: regular rhythm GI: Auscultation: normal bowel sounds Skin: General skin exam: normal color Lesions: no lesions Rashes: no rashes Neuro: General: patient oriented x3, no meningeal signs, no focal motor deficits and CN's II-XI intact bilaterally Extrem: General: normal to inspection, full ROM and no clubbing, cyanosis or edema Psych: Appearance: grossly normal Mental Status: mental status grossly normal Speech and movement: Normal speech and movement present and Clear speech present Affect: normal affect Attitude: cooperative Course Vital Signs Vital signs: Vital Signs Temperature 97.4 F L 08/07/23 13:33 Pulse Rate 94 08/07/23 13:33 Respiratory Rate 13 08/07/23 13:33 Blood Pressure 117/98 H 08/07/23 13:33 Pulse Oximetry 96 08/07/23 13:33
[2023-08-07] MEDS: SODIUM CHLORIDE 0.9% IV 1,000 ML 999 ML IV CONT (14:29)
[2023-08-07 14:37] LABS: Basophils Percent Auto 0.2 % (0.2-1.2); Eosinophils Absolute Auto 0.4 K/mm3 (0-0.3); Eosinophils Percent Auto 10.5 % (0-4.4); Hematocrit 43.2 % (37.0-47.0); Hemoglobin 14.2 g/dL (12.0-15.0); Immature Granulocyte Absolute 0.02 K/mm3 (0.00-0.031); Immature Granulocyte Percent A 0.5 % (0-0.5); Lymphocytes Absolute Auto 1.09 K/mm3 (0.9-3.2); Lymphocytes Percent Auto 27.2 % (18.3-44.2); Mean Corpuscular HGB Conc 32.9 g/dl (32-36); Mean Corpuscular Volume 88.3 fl (80-100); Mean Platelet Volume 10.2 fl (7.4-10.4); Monocytes Absolute Auto 0.7 K/mm3 (0.1-0.6); Monocytes Percent Auto 16.2 % (2.6-8.5); Neutrophils Absolute Auto 1.8 K/mm3 (1.3-6.7); Neutrophils Percent Auto 45.4 % (45.5-73.1); Platelet Count Result 229 k/mm3 (150-375); Red Blood Count 4.89 M/mm3 (4.2-5.4); Red Cell Distribution Width 13.8 % (11.5-14.5)
[2023-08-07 14:46] LABS: INR 1.1; Prothrombin Time 14.2 Seconds (11.1-14.7)
[2023-08-07 14:47] LABS: Partial Thromboplastin Time 28.6 Seconds (22.3-36.8)
[2023-08-07 14:50] LABS: Lactic Acid Reflex 0.9 mmol/L (0.7-2.0)
[2023-08-07 14:52] LABS: Alanine Aminotransferase 21 U/L (6-35); Albumin Level 4.4 g/dL (3.5-5.1); Alkaline Phosphatase 140 U/L (38-126); Anion Gap 7 mmol/L (4-12); Aspartate Amino Transferase 25 U/L (14-36); Bilirubin,Total 0.6 mg/dL (0.2-1.3); Blood Urea Nitrogen 13 mg/dL (7-17); CRP 3.6 mg/dL (<1.0); Calcium 9.1 mg/dL (8.4-10.2); Carbon Dioxide 22 mmol/L (22-30); Chloride 108 mmol/L (98-107); Estimated CRCL calculation 39 ml/min; Estimated Glomerular Filt Rate 44; Glucose 88 mg/dL (65-110); Potassium 4.2 mmol/L (3.4-5.0); Sodium 137 mmol/L (137-145)
[2023-08-07 15:24] LABS: Appearance Urine Clear (Clear); Bilirubin Urine Negative (Negative); Blood Urine Negative (Negative); Color Urine Yellow (Yellow); Glucose Urine UA Negative (Negative); Ketones Urine Negative (Negative); Leukocyte Esterase Ur Negative LEU/UL (Negative); Nitrate Urine Negative (Negative); Protein Urine Negative (Negative); Specific Grav Ur 1.009 (1.001-1.035); Urobilinogen Urine 0.2 mg/dL (<2.0); pH Urine 5.5 (5.0-9.0)
[2023-08-07 15:29] LABS: Add Urine Microscopic? NO
== END 2023-08-07 17:01 | disposition home or self-care (01) ==
PROVIDERS: Emergency Provider Emergency Medicine; PCP Internal Medicine
DX: R68.83 Chills (without fever) (principal); G30.0 Alzheimer's disease with early onset; F02.83 Dementia in other diseases classified elsewhere, unspecified severity, with mood disturbance; N18.9 Chronic kidney disease, unspecified; F32.A Depression, unspecified; F41.9 Anxiety disorder, unspecified; Z86.73 Personal history of transient ischemic attack (TIA), and cerebral infarction without residual deficits
CPT/HCPCS: 36415; 71046; 80053; 81003; 83605; 85025; 85610; 85730; 86140; 87040; 96360; 99283; J7030

== ENCOUNTER 2024-05-24 17:06 | Inpatient (IN) | payer MEDICARE, SELFPAY ==
[2024-05-24] VITALS (42 sets, daily range): BP systolic 91–129; BP diastolic 50–109; PULSE 70–84; RESP 13–28; TEMP 36.4; O2SAT 94–100; BMI 28.1
--- NOTE | ~2024-05-24 | CT_ITS ---
History: Code stroke PROCEDURE: CT head without contrast. COMPARISON: 03/22/2023 TECHNIQUE: Axial imaging of the head performed from the skull base to the vertex without IV contrast. Sagittal a nd coronal reformations obtained. DLP: 605 mGy-cm FINDINGS: The ventricles are normal in size, shape and position. There is no mass, mass effect or midline shift. There is no abnormal extra-axial fluid collection or intracranial hemorrhage. Visualized paranasal sinuses are clear. The mastoid air cells are well aerated. No acute displaced fractures within the overlying cranium. Impression: No acute intracranial hemorrhage or suspicious mass effect. These findings were discussed with Dr. Veras at 5:30 PM on 05/24/2024 Reviewed, dictated and finalized at location A. Impression: No acute intracranial hemorrhage or suspicious mass effect. These findings were discussed with Dr. Veras at 5:30 PM on 05/24/2024
--- NOTE | ~2024-05-24 | CT_ITS ---
CTA brain carotid Ordering provider: Eugene Veras MD History: . Confussion/weaakness . Comparison: 03/22/2023 Technique: CT angiogram head and neck was performed following timed intravenous injection of contrast . Thin slice axial images and reformatted coronal images were obtained. Three dimensional reformatted images of the brain were also obtained using a [employer] workstation. DLP: 1073 mGy-cm FINDINGS: HEAD: --ANTERIOR AND MIDDLE CEREBRAL ARTERIES AND BRANCHES: Normal caliber and contour. --INTERNAL CAROTID ARTERIES: Normal caliber and contour. --BASILAR ARTERY AND BRANCHES: Normal caliber and contour. No atheromatous disease. --POSTERIOR CEREBRAL ARTERIES: Normal caliber and contour --POSTERIOR COMMUNICATING ARTERIES: Not well visualized which is probably related to congenital absen ce or small size. --ANEURYSM: None visualized. --BRAIN: Please refer to report of CT head performed the same day. --BONES AND SUPERFICIAL SOFT TISSUES: Please refer to report of CT head performed the same day. --PARANASAL SINUSES AND MASTOIDS: Please refer to report of CT head done the same day. NECK: --RIGHT CERVICAL CAROTID SYSTEM: Normal caliber and contour. Percent stenosis per NASCET criteria is 0% No carotid dissection. --LEFT CERVICAL CAROTID SYSTEM: Normal caliber and contour. Percent stenosis per NASCET criteria is 0% No carotid dissection. --VERTEBRAL ARTERIES: Normal caliber and contour. --VISUALIZED AORTIC ARCH AND BRANCHING VESSELS: Normal caliber and contour. No significant atheromato us disease. --SOFT TISSUES: Normal. Calcified lymph nodes within the mediastinum suggesting prior granulomatous d isease. --CERVICAL SPINE: Age appropriate degenerative changes. IMPRESSION: 1. Normal CTA head and neck. 2. Percent stenosis per NASCET criteria is 0% Reviewed, dictated and finalized at location A.
--- NOTE | ~2024-05-24 | XR_ITS ---
CHEST RADIOGRAPH CLINICAL HISTORY: AMS/weakness . COMPARISON: 08/07/2023 TECHNIQUE: Single portable view of the chest. FINDINGS Redemonstration of elevation of the right hemidiaphragm, with adjacent compressive atelectasis. The remainder of the lungs are clear. Calcified lymph nodes within the mediastinum suggesting prior granulomatous disease. The remainder of the cardiomediastinal silhouette is otherwise unremarkable. IMPRESSION: No focal infiltrate or effusion. Reviewed, dictated and finalized at location A.
--- OUTSIDE RECORDS SUMMARY | 2024-05-24 17:10 | XMS_ITS | Continuity of Care Document ---
Author Organization [facility] Address [address] [place] [address] [address] [place] [address] Phone Care Team Providers Care Yam Curer Name Role Phone Rosemarie Duncan Unavailable Unavailable Advance Directives Directive Yes / No Effective Date File Name No Information Encounters Encounter Description Practice Location Reason(s) For Visit Diagnoses Date Provider Providers Copied on Encounter [facility], [address], [place], [place], [id number], [place] tel:[phone] [facility] [place] No Information Sep-0 1-200 5 Perla Houston. [address] , [address], [place], [address], [place]. tel:[phone] Family History Family Member Type Diagnosis Age At Onset No Information Payers Payer name Insurance type Covered democrat ID Authoriza tion(s) No Information Social History Type Description Quantity Date Captured Comments Sex Female Smoking Status No Information Chief Complaint And Reason For Visit No Information Reason For Referral Reason For Referral No Information History Of Present Illness Encounter Date Complaint History Of Prese nt Illness No Information Functional Status Date Functional Assessmen t No Information Instructions Date Instruction Additional Infor mation No Information Assessments Type Assessment Date No Information Patient Care Teams Name Effective Dates (start - stop) Status Members No Information
--- OUTSIDE RECORDS SUMMARY | 2024-05-24 17:10 | XMS_ITS | Clinical Summary ---
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 Gender Identity Not on file Sexual Orientation Not on file Plan of Treatment Health Maintenance Due Date Last Done Comments DTAP/TDAP/TD VACCINES (1 - Tdap) 1970 COLORECTAL SCREENING 02/06/1996 Colorectal Cancer Screening 02/06/1996 FIT-DNA Q 3 years 02/06/1996 FIT/FOBT Q 1 year 02/06/1996 Flex Sig/CT Colonography Q 5 years 02/06/1996 PNEUMOCOCCAL VACCINE 50+ YEA RS (1 of 1 - PCV) 2001 ZOSTER VACCINE (1 of 2) 2001 INFLUENZA VACCINE (#1) 2023 0, 12/20/2018, 12/28/2017, Additional history exists COVID-19 Vaccine (2 - 2023-2 5 season) 2023 05/09/2020 BREAST CANCER SCREENING 11/25/2023 11/24/2022 RSV VACCINE (60+ or ) (1 - 1-dose 75+ series) 2026 OSTEOPOROSIS SCREENING Completed 07/14/2020 Procedures Procedure Name Priority Date/Time Associated Diagnosis Comments MAMMO 3D HELIO SCREEN BILAT W OR WO CAD Routine 11/24/2022 1:47 PM CDT Encounter for screening mammogram for malignant neoplasm of breast from Last 3 Months or Most Recently Relevant to Health Maintenance Results * MAMMO SCRN BILAT 3D HELIO W OR WO CAD (11/24/2022 1:47 PM CDT) Anatomical Region Laterality Modality Breast Bilateral Mammography 11/24/2022 1:49 PM CDT Impressions 11/24/2022 2:11 PM CDT : BI-RADS Category 1, negative mammogram. Recommend yearly bilateral screening mammogram. Narrative 11/24/2022 2:11 PM CDT EXAM: MAMMO SCRN BILAT 3D HELIO W OR WO CAD DATE: 11/24/2022 CLINICAL HISTORY: Screening in an asymptomatic patient with no personal or family history of breast cancer TECHNIQUE: Bilateral full field digital mammography and digital tomosynthesis were performed in the CC and MLO projections. Comparison was made to prior mammograms performed performed July 14, 2020 and December 05, 2017. CAD was utilized. FINDINGS: Scattered fibroglandular densities are present. The parenchymal pattern is unchanged compared to the prior exams. There is no new suspicious asymmetry or mass, area of architectural distortion or suspicious microcalcification. Merry Laura PA-C MAMMO ORDERABLES Final R esult from Last 3 Months or Most Recently Relevant to Health Maintenance Insurance [employer] [facility]
--- OUTSIDE RECORDS SUMMARY | 2024-05-24 17:10 | XMS_ITS | CONTINUITY OF CARE DOCUMENT ---
Author Name kisha beard Address Unknown Organization [facility] Address [address] [place] [address] Phone [phone] Care Team Providers Care Electric Organ Checker Name Role Phone kisha beard Unavailable Unavailable INSURANCE PROVIDERS Payer name Policy type / Coverage type [place] red libertarian ID [facility] [id number] 1
--- NOTE | 2024-05-24 17:20 | ECG_ITS ---
Test Date: 2024-05-24 17:49:25 Measurements Intervals [place] Rate: 78 P: 68 IN: 168 QRS: 80 QRSD: 156 T: 20 QT: 458 QTc: 524 Interpretive Statements SINUS RHYTHM RIGHT BUNDLE BRANCH BLOCK No previous ECG available for comparison Electronically Signed On 05-25-2024 18:23:19 CDT by Vannessa Cullen M.D.
[2024-05-24 17:21] LABS: Glucose Point of Care 86 mg/dl (65-105)
--- NOTE | 2024-05-24 17:23 | ED_ITS ---
HPI - Neuro Symptoms/Deficit General Chief Complaint: Suspected CVA Stated Complaint: Sudden weakness in legs-fell legs twisted Time Seen by Provider: 05/24/24 17:19 History of Present Illness HPI Narrative: Patient is a 74-year-old female who presents ER with confusion and weakness. Apparently patient was at lunch with some girlfriends and was too weak to stand up and had a fall. Patient reports left posterior aspect of her head hurts. It is unknown known whether she lost consciousness. Patient is oriented to self and place. She is trying to give her significant other directions on how to find her phone as her trying to contact friends who were at lunch with her which seems to be easier than answering orientation questions. The is unsure when her symptoms began as he was not present, he saw her earlier in the day and a friend took her to lunch. According to a friend who was contacted by telephone the patient was weak and wobbly upon arrival at the restaurant at 12:30 p.m. Patient has history of dementia and so her ability to give history is limited. Patient's symptoms are basically diffuse weakness and her confusion. Chart review shows history of TIA. reports patient has footdrop and she has history of recurrent falls. It is reported the patient fell at between 2:30 and 3:15pm. report patient does get anxious as well. Despite multiple attempts to delineate last known well we you are having a hard time coming down with a time. husbands main concern to bring her here was shallow breathing of the patient. Related Data Home Medications ?Medication ?Instructions ?Recorded ?Confirmed ?Last Taken ?Type clonazepam 2 mg tablet 2 mg PO QHS 09/29/21 07/26/23 Unknown History citalopram 40 mg tablet 20 mg PO DAILY 07/26/23 07/26/23 Unknown History estradiol 10 mcg vaginal insert 10 mcg vaginal 2XW 07/26/23 07/26/23 Unknown History (Imvexxy Maintenance Pack) trazodone 50 mg tablet 50 mg PO QHS PRN 07/26/23 07/26/23 Unknown History Allergies Allergy/AdvReac Type Severity Reaction Status Date / Time prochlorperazine Allergy Unknown Unknown Verified 05/24/24 18:08 Review of Systems 2 Review of Systems: ROS unobtainable: Yes unobtainable due to mental status [facility] Past Medical History Medical History (Updated 05/24/24 @ 22:09 by Eugene Veras MD) Irritable bowel syndrome with alternating bowel habits Dementia of Alzheimer's type, with early onset, with depressed mood Chronic kidney disease Transient ischemic attack Chronic constipation Depression with anxiety Surgical History Surgical History History of knee replacement History of vaginal hysterectomy (1981) History of bilateral salpingo-oophorectomy (10/1999) History of laparoscopy (06/2000) Laparoscopic adhesiolysis or pelvic pain. Social History Social History Social History: Surrogate medical decision maker: Britt Mohr, spouse. Code status: Full code. Smoking packs per day: 0 Smoking cigarettes per day: 0.0 Years smoked: 0 Smoking pack-years: 0.00 Smoking status: Never smoker Second hand tobacco smoke exposure: No Alcohol intake: never Substance use: never Do You Feel Safe in your Home?: Yes Lack of Transportation: No Lack of Food: Never True Current Housing: I Have Housing Concerned About Future Housing: No Difficulty Paying Gas/Electric Bills: No Difficulty Paying for Meds: No Currently Unemployed: No Education: Don't Know Difficulty w/ Childcare or Family Care: No Living arrangements: with family Additional living arrangements comments: Lives with spouse and intellectually disabled son. Additional occupation/education comments: Homemaker. Spiritual care concerns: No Exam 2 Narrative: GENERAL: Anxious-appearing, well-nourished, and in mild distress. HEAD: Normocephalic, atraumatic. EYES: PERRL and EOMI. ENT: Mucous membranes moist CHEST: Clear to auscultation. No respiratory distress. HEART: Regular rate and rhythm. Normal peripheral pulses. ABDOMEN: Soft, nontender, nondistended. EXTREMITIES: Normal range of motion. No edema. SKIN: Warm, dry, no rash. NEURO: See NIH stroke scale documentation. Upper extremity drift. Patient intermittently is lifting her lower extremities with strength and without drift. No facial droop. No expressive aphasia or dysarthria. Alert and oriented x2. Normal heel to mccarthy and finger to nose testing. Course Course Emergency Course: 1809: Patient taken from stroke. To CT and into room 22. I went to evaluate her there and she is much more calm. Patient reports that she has trouble with straight leg raisehowever if she pulls her knee towards her chest she can then extends her heel straight up in the air she can keep her leg up without any issue. She has no drift. NIHSS is 0. 2200: Multiple reassessments of the patient. I have spoken with her and her . She had significant drop on orthostatic vital signs of 20 points when going from sitting to standing. After 1 L IV fluid that has normalized. Patient still walks with a guarded gait to the bathroom and reports she feels like her legs might be a bit weak. She does have restless leg syndrome is currently moving her legs in a marching type movement. She will be admitted for observation the hospitalist service. Vital Signs Vital signs: Vital Signs Temperature 97.6 F 05/24/24 17:46 Pulse Rate 75 05/24/24 17:46 Respiratory Rate 16 05/24/24 17:46 Blood Pressure 122/58 L 05/24/24 17:46 Pulse Oximetry 100 05/24/24 17:46 Oxygen Delivery Room Air 05/24/24 17:46 Temperature 97.6 F 05/24/24 17:46 Pulse Rate 82 05/24/24 21:55 Respiratory Rate 20 05/24/24 18:46 Blood Pressure 118/69 05/24/24 21:55 Pulse Oximetry 98 05/24/24 18:46 Oxygen Delivery Room Air 05/24/24 17:46 MDM - Neuro Symptoms/Deficit Lab Data 05/24/24 17:29 05/24/24 17:31 Labs: Lab Results 05/24/24 05/24/24 05/24/24 Range/Units 17:19 17:29 17:31 WBC 6.7 (4.5-10.0) K/mm3 RBC 4.99 (4.2-5.4) M/mm3 Hgb 14.3 (12.0-15.0) g/dL Hct 44.7 (37.0-47.0) % MCV 89.6 (80-100) fl MCH 28.7 (26-34) pg MCHC 32.0 (32-36) g/dl RDW 13.3 (11.5-14.5) % Plt Count 360 (150-375) k/mm3 MPV 9.6 (7.4-10.4) fl Immature Gran % (Auto) 0.1 (0-0.5) % Neut % (Auto) 64.0 (45.5-73.1) % Lymph % (Auto) 24.4 (18.3-44.2) % [place] % (Auto) 9.6 H (2.6-8.5) % Eos % (Auto) 1.6 (0-4.4) % Baso % (Auto) 0.3 (0.2-1.2) % Lymph # (Auto) 1.63 (0.9-3.2) K/mm3 [place] # (Auto) 0.6 (0.1-0.6) K/mm3 Eos # (Auto) 0.1 (0-0.3) K/mm3 Baso # (Auto) 0.0 (0.0-0.1) K/mm3 Abs Immat Gran (auto) 0.01 (0.00-0.031) K/mm3 Absolute Neuts (auto) 4.3 (1.3-6.7) K/mm3 Absolute Nucleated RBC 0.000 (0.0-0.012) K/mm3 Nucleated RBC % 0.0 (0.0-0.2) % PT 12.9 (11.1-14.7) Seconds INR 0.9 APTT 25.9 (22.3-36.8) Seconds Sodium 139 (137-145) mmol/L Potassium 4.8 (3.4-5.0) mmol/L Chloride 103 (98-107) mmol/L Carbon Dioxide 26 (22-30) mmol/L Anion Gap 10 (4-12) mmol/L BUN 19 H (7-17) mg/dL Creatinine 1.34 H 1.40 H (0.7-1.0) mg/dL Estim Creat Clear Calc Not Reportable Not Reportable Estimated GFR 39 L 37 L (59 - ) Glucose 90 (65-110) mg/dL POC Capillary Glucose 86 (65-105) mg/dl Calcium 9.7 (8.4-10.2) mg/dL Total Bilirubin 0.5 (0.2-1.3) mg/dL AST 28 (14-36) U/L ALT 21 (6-35) U/L Alkaline Phosphatase 133 H (38-126) U/L Troponin I < 0.012 (0.000-0.034) ng/mL Total Protein 8.0 (6.3-8.2) g/dL Albumin 4.9 (3.5-5.1) g/dL Urine Color (Yellow) Urine Appearance (Clear) Urine pH (5.0-9.0) Ur Specific [place] (1.001-1.035) Urine Protein (Negative) mg/dL Urine Glucose (UA) (Negative) mg/dL Urine Ketones (Negative) mg/dL Ur Blood (Man) (Negative) Urine Nitrate (Negative) Urine Bilirubin (Negative) Urine Urobilinogen (<2.0) mg/dL Add Ur Microanalysis Leukocyte Esterase Rfl (Negative) DENISA/UL Urine RBC (0-2) /hpf Urine WBC (0-3) /hpf Ur Squamous Epith Cells (Few) /hpf Urine Bacteria /hpf Urine Casts Urine Yeast (Budding) (None) /hpf Urine Opiates Screen (Negative) Urine Methadone Screen (Negative) Ur Barbiturates Screen (Negative) Ur Phencyclidine Scrn (Negative) Ur Amphetamine Screen (Negative) U Benzodiazepines Scrn (Negative) Urine Cocaine Screen (Negative) U Cannabinoids Screen (Negative) Ethyl Alcohol < 10 (<10) mg/dL //25 Range/Units 18:06 WBC (4.5-10.0) K/mm3 RBC (4.2-5.4) M/mm3 Hgb (12.0-15.0) g/dL Hct (37.0-47.0) % MCV (80-100) fl MCH (26-34) pg MCHC (32-36) g/dl RDW (11.5-14.5) % Plt Count (150-375) k/mm3 MPV (7.4-10.4) fl Immature Gran % (Auto) (0-0.5) % Neut % (Auto) (45.5-73.1) % Lymph % (Auto) (18.3-44.2) % [place] % (Auto) (2.6-8.5) % Eos % (Auto) (0-4.4) % Baso % (Auto) (0.2-1.2) % Lymph # (Auto) (0.9-3.2) K/mm3 [place] # (Auto) (0.1-0.6) K/mm3 Eos # (Auto) (0-0.3) K/mm3 Baso # (Auto) (0.0-0.1) K/mm3 Abs Immat Gran (auto) (0.00-0.031) K/mm3 Absolute Neuts (auto) (1.3-6.7) K/mm3 Absolute Nucleated RBC (0.0-0.012) K/mm3 Nucleated RBC % (0.0-0.2) % PT (11.1-14.7) Seconds INR APTT (22.3-36.8) Seconds Sodium (137-145) mmol/L Potassium (3.4-5.0) mmol/L Chloride (98-107) mmol/L Carbon Dioxide (22-30) mmol/L Anion Gap (4-12) mmol/L BUN (7-17) mg/dL Creatinine (0.7-1.0) mg/dL Estim Creat Clear Calc Estimated GFR (59 - ) Glucose (65-110) mg/dL POC Capillary Glucose (65-105) mg/dl Calcium (8.4-10.2) mg/dL Total Bilirubin (0.2-1.3) mg/dL AST (14-36) U/L ALT (6-35) U/L Alkaline Phosphatase (38-126) U/L Troponin I (0.000-0.034) ng/mL Total Protein (6.3-8.2) g/dL Albumin (3.5-5.1) g/dL Urine Color Yellow (Yellow) Urine Appearance Clear (Clear) Urine pH 6.0 (5.0-9.0) Ur Specific [place] 1.033 (1.001-1.035) Urine Protein Negative (Negative) mg/dL Urine Glucose (UA) Negative (Negative) mg/dL Urine Ketones Negative (Negative) mg/dL Ur Blood (Man) Negative (Negative) Urine Nitrate Negative (Negative) Urine Bilirubin Negative (Negative) Urine Urobilinogen 0.2 (<2.0) mg/dL Add Ur Microanalysis Reviewed Leukocyte Esterase Rfl 2+ H (Negative) DENISA/UL Urine RBC 0-2 (0-2) /hpf Urine WBC 21-50 H (0-3) /hpf Ur Squamous Epith Cells Occasional (Few) /hpf Urine Bacteria None seen /hpf Urine Casts 0-2 Urine Yeast (Budding) Present H (None) /hpf Urine Opiates Screen Negative (Negative) Urine Methadone Screen Negative (Negative) Ur Barbiturates Screen Negative (Negative) Ur Phencyclidine Scrn Negative (Negative) Ur Amphetamine Screen Negative (Negative) U Benzodiazepines Scrn Negative (Negative) Urine Cocaine Screen Negative (Negative) U Cannabinoids Screen Negative (Negative) Ethyl Alcohol (<10) mg/dL Imaging Data Radiologist's impression: ITS Impressions Head CT 05/24/24 17:34 Impression: No acute intracranial hemorrhage or suspicious mass effect. These findings were discussed with Dr. Veras at 5:30 PM on 05/24/2024 Head/Neck CTA 05/24/24 17:56 IMPRESSION: 1. Normal CTA head and neck. 2. Percent stenosis per NASCET criteria is 0% Chest X-Ray 05/24/24 18:29 IMPRESSION: No focal infiltrate or effusion. ECG Data EKG #1: ECG completion date: 05/24/24 ECG completion time: 17:49 EKG Interpretation: normal rate, sinus rhythm, widened QRS, prolonged QT and other (Interventricular conduction delay) Discharge Plan Discharge Clinical Impression: Orthostasis, Weakness Patient Disposition: Still a Patient Condition: Stable Patient Language: Japanese Prescriptions: No Action clonazepam 2 mg tablet 2 mg PO QHS donepezil 5 mg tablet 5 mg .Route .COMPLEX Qty: 90 1RF Rx Instructions: 5 mg ; trazodone 50 mg tablet 50 mg PO QHS PRN citalopram 40 mg tablet 20 mg PO DAILY Imvexxy Maintenance Pack 10 mcg insert 10 mcg vaginal 2XW cyclobenzaprine 10 mg Tablet 10 mg PO QHS Qty: 30 0RF hydroxyzine HCl 25 mg Tablet 25 mg PO QHS Qty: 30 0RF Follow-up/Referrals: Lenora,Casa Gandhi MD [Primary Care Provider] -
[2024-05-24 17:32] LABS: Estimated Glomerular Filt Rate 37
[2024-05-24 17:37] LABS: Basophils Percent Auto 0.3 % (0.2-1.2); Eosinophils Absolute Auto 0.1 K/mm3 (0-0.3); Eosinophils Percent Auto 1.6 % (0-4.4); Hematocrit 44.7 % (37.0-47.0); Hemoglobin 14.3 g/dL (12.0-15.0); Immature Granulocyte Absolute 0.01 K/mm3 (0.00-0.031); Immature Granulocyte Percent A 0.1 % (0-0.5); Lymphocytes Absolute Auto 1.63 K/mm3 (0.9-3.2); Lymphocytes Percent Auto 24.4 % (18.3-44.2); Mean Corpuscular Hemoglobin 28.7 pg (26-34); Mean Corpuscular Volume 89.6 fl (80-100); Mean Platelet Volume 9.6 fl (7.4-10.4); Monocytes Absolute Auto 0.6 K/mm3 (0.1-0.6); Monocytes Percent Auto 9.6 % (2.6-8.5); Neutrophils Absolute Auto 4.3 K/mm3 (1.3-6.7); Platelet Count Result 360 k/mm3 (150-375); Red Blood Count 4.99 M/mm3 (4.2-5.4); Red Cell Distribution Width 13.3 % (11.5-14.5); White Blood Count 6.7 K/mm3 (4.5-10.0)
[2024-05-24 17:48] LABS: Ethanol < 10 mg/dL (<10); INR 0.9; Partial Thromboplastin Time 25.9 Seconds (22.3-36.8); Prothrombin Time 12.9 Seconds (11.1-14.7)
[2024-05-24 17:53] LABS: Alanine Aminotransferase 21 U/L (6-35); Albumin Level 4.9 g/dL (3.5-5.1); Alkaline Phosphatase 133 U/L (38-126); Anion Gap 10 mmol/L (4-12); Aspartate Amino Transferase 28 U/L (14-36); Bilirubin,Total 0.5 mg/dL (0.2-1.3); Blood Urea Nitrogen 19 mg/dL (7-17); Calcium 9.7 mg/dL (8.4-10.2); Carbon Dioxide 26 mmol/L (22-30); Chloride 103 mmol/L (98-107); Estimated Glomerular Filt Rate 39; Glucose 90 mg/dL (65-110); Potassium 4.8 mmol/L (3.4-5.0); Sodium 139 mmol/L (137-145)
[2024-05-24 18:04] LABS: Troponin I < 0.012 ng/mL (0.000-0.034)
[2024-05-24] MEDS: ONDANSETRON INJ 4 MG/2 ML VIAL IV PUSH (18:11)
[2024-05-24] MEDS: ACETAMINOPHEN 500 MG TABLET 1000 MG PO (18:12)
[2024-05-24 18:27] LABS: Add Urine Microscopic? YES; Appearance Urine Clear (Clear); Bacteria Urine None Seen /hpf; Bilirubin Urine Negative (Negative); Blood Urine Negative (Negative); Budding Yeast Urine Present /hpf; Color Urine Yellow (Yellow); Glucose Urine UA Negative (Negative); Ketones Urine Negative (Negative); Leukocyte Esterase Ur 2+ LEU/UL (Negative); Need Manual Microscopic Reviewed; Nitrate Urine Negative (Negative); Non Pathogenic Casts 0-2; Protein Urine Negative (Negative); RBC Urine 0-2 /hpf (0-2); Specific Grav Ur 1.033 (1.001-1.035); Squamous Epithelial Cell Urine Occasional /hpf (Few); Urobilinogen Urine 0.2 mg/dL (<2.0); WBC Urine 21-50 /hpf (0-3)
[2024-05-24 18:33] LABS: Amphetamine Screen Urine Negative (Negative); Barbiturate Screen Urine Negative (Negative); Benzodiazepines Screen Urine Negative (Negative); Cannabinoid Screen Urine Negative (Negative); Cocaine Screen Urine Negative (Negative); Methadone Screen Urine Negative (Negative); Opiate Screen Urine Negative (Negative); Phencyclidine Screen Urine Negative (Negative)
--- OUTSIDE RECORDS SUMMARY | 2024-05-24 18:58 | XMS_ITS | CONTINUITY OF CARE DOCUMENT ---
Author Name kisha beard Address Unknown Organization [facility] Address [address] [place] [address] Phone [phone] Care Team Providers Care Lumber Grader Name Role Phone kisha beard Unavailable Unavailable INSURANCE PROVIDERS Payer name Policy type / Coverage type [place] red democrat ID [facility] [id number] 1
--- OUTSIDE RECORDS SUMMARY | 2024-05-24 18:58 | XMS_ITS | Clinical Summary ---
Author Organization [facility] [address] Address [address] [place] [address] Care Team Providers Care Curatorial Specialist Name Role Phone Casa Cooley MD Primary Care Provider [phone] Allergies Active Allergy Reactions Criticality Noted Date Comments Prochlorperazine Rash Medium 01/14/2020 Levofloxacin Rash Medium 06/15/2017 Medications aspirin 325 mg enteric coated tablet aspirin 325 mg tablet,delayed release Active ofloxacin (OCUFLOX) 0.3 % ophthalmic solution INSTILL 1 DROP IN BOTH EYES EVERY DAY 01/18/20 23 Active Imvexxy Maintenance Pack 10 mcg insert vaginal insert INSERT 1 SUPPOSITORY VAGINALLY 2 TIMES A WEEK 24 each 3 05/23/19 24 Active hydrOXYzine (ATARAX) 25 mg tablet TAKE 1 TABLET TWICE A DAY 180 tablet 2 10/14/19 24 Active cyclobenzaprin e (FLEXERIL) 10 mg tablet TAKE 1 TABLET TWICE DAILY NEEDED FOR MUSCLE SPASMS 180 tablet 3 11/08/19 24 Active cyanocobalamin (Vitamin B-12) 1,000 mcg tabletIndicati ons:Prevention of Vitamin B12 Deficiency Take 1 tablet (1,000 mcg total) by mouth daily Active citalopram (CeleXA) 40 mg tablet Take 1 tablet (40 mg total) by mouth daily 90 tablet 2 02/22/20 24 Active diphenoxylate- atropine (LOMOTIL) 2.5-0.025 mg per tabletIndicati ons:diarrhea Take 1 tablet by mouth 4 (four) times a day as needed for diarrhea 30 tablet 03/05/20 24 Active clonazePAM (KlonoPIN) 2 mg tablet Take 1 tablet (2 mg total) by mouth daily 90 tablet 1 04/25/19 25 025 Active cefuroxime (CEFTIN) 250 mg tablet Take 1 tablet (250 mg total) by mouth 2 (two) times a day 20 tablet 05/11/19 25 Active traZODone (DESYREL) 50 mg tablet TAKE 1 TABLET NIGHTLY 90 tablet 3 05/16/19 25 Active traZODone (DESYREL) 50 mg tablet TAKE 1 TABLET NIGHTLY 90 tablet 1 12/26/19 24 025 Discontinued clonazePAM (KlonoPIN) 2 mg tablet Take 1 tablet (2 mg total) by mouth 2 (two) times a day as needed for seizures 30 tablet 1 02/27/20 24 025 Discontinued(R eorder) amoxicillin 500 mg tablet TAKE 4 TABLETS BY MOUTH 1 HOUR BEFORE PROCEDURE 12/20/19 24 025 Discontinued(A lternate therapy) Active Problems Problem Noted Date Diagnosed Date TMJ (temporomandibular joint syndrome) Assessment & Plan (03/20/2024 11:35 AM VENETIAN BLIND WORKER): Stable. Memory changes 10/11/2023 Assessment & Plan (03/20/2024 11:35 AM VENETIAN BLIND WORKER): Long conversation with patient and her today. She has issues which certainly are exacerbated by her current medications. Unfortunately an attempt to reduce these may have to be done in hospital. This was described to them in the effect that these medications now may be having on her memory. She will seem memory and aging again in 1 month. She has been following with Psychiatry as well. Anxiety and depression 10/11/2023 Assessment & Plan (10/11/2023 11:42 AM CDT): Referred for counseling and psychiatry Insomnia 10/11/2023 Assessment & Plan (10/11/2023 11:42 AM CDT): Recommend sleep medicine referral, she will consider and let us know Restless leg syndrome 10/11/2023 Medication side effects 10/11/2023 Assessment & Plan (10/11/2023 11:43 AM CDT): Work with psychiatry to minimize centrally acting medications Vitamin D deficiency 06/02/2020 Overview (06/02/2020): Check labs Anxiety 06/02/2020 Overview (06/02/2020): Continue medication Assessment & Plan (03/20/2024 11:35 AM VENETIAN BLIND WORKER): Currently not as anxious on medication. She has a ccepted her diagnosis of dementia. We did discuss the need to try to slowly wean off medications Assessment & Plan (08/10/2023 10:34 AM CDT): Certainly a component of polypharmacy here Encouraged to stop the THC use given use of her other medications Will decrease hydroxyzine to 25mg HS x 1 week, then d/c all together RTC visit with Dr. Cooley in September 12 for further medication adjustment Resolved Problems Problem Noted Date Diagnosed Date Resolved Date Sleeping difficulty 10/11/2023 10/11/19 24 Fatigue 06/02/2020 08/10/2023 Overview (06/02/2020): check labs Encounters Date Type Department Care Team Description 05/21/2024 Documentation [facility] [address] Floor [address] [place] [address] Jareth Cisneros 05/10/2024 Orders Only [facility] [address] [place] [address] Casa Cooley MD 05/10/2024 Telephone [facility] [address] [place] [address] Casa Cooley MD symptoms 05/03/2024 11:00 AM VENETIAN BLIND WORKER Office Visit [facility] [address] [facility] [facility] 6th [address] [place] [phone] Homar Knutson NP Hypersomnia (Primary Dx); Chronic insomnia 03/20/2024 11:00 AM VENETIAN BLIND WORKER Office Visit [facility] [address] [place] [phone] Casa Cooley MD Encounter for lipid screening for cardiovascular disease (Primary Dx); Post-menopausal; Visit for screening mammogram; Memory changes; Anxiety; Anxiety and depression; TMJ (temporomandibular joint syndrome); Routine general medical examination at a [facility] care facility 03/15/2024 Orders Only [facility] [address] [place] [phone] Casa Cooley MD 03/09/2024 Telephone [facility] [address] [place] [phone] Marquise Troy MD 03/05/2024 Telephone [facility] [address] [place] [phone] Casa Cooley MD [facility] 03/02/2024 Telephone [facility] Department of Psychiatry [address] [place] [address] Jessica Saldivar NP 02/27/2024 Telephone [facility] [address] [place] [phone] Casa Cooley MD Med Refill 02/27/2024 Orders Only [facility] [address] [place] [phone] Casa Cooley MD 02/27/2024 [facility] [address] [place] [phone] Casa Cooley MD symptoms; Med Dose Change from Last 3 Months Immunizations Immunization Administration Dates Next Due Influenza, Quadrivalent, Hig h Dose, Preservative Free, Intrr 01/28/2020 Influenza, Quadrivalent, Spl it, Preservative Free, Intramuscular 03/15/2017,01/17/2015 Influenza, Trivalent, Adjuvanted, Intramuscular 12/20/2018 Influenza, Trivalent, High D ose, Split, Preservative Free, Intramuscular 12/28/2017,03/31/2016 Influenza, Trivalent, IM (MDV) 12/05/2014,2012 Influenza, Trivalent, Preservative Free, Intramu scular 01/09/2014,12/08/2012 [employer] (J&J) SARS-CoV-2 Vaccination 05/09/2020 [employer] Sars-Cov-2 Bivalent Vaccination (12+ YRS) 12/09/2021 Surgical History Surgery Date Site/Laterality Comments BLADDER REPAIR HYSTERECTOMY KNEE SURGERY Right NASAL SEPTUM SURGERY Medical History Medical History Date Comments Anxiety Depression Arthritis Family History Medical History Relation Name Comments Epilepsy Father Heart failure Father Heart failure Mother Relation Name Status Comments Father Mother Social History Tobacco Use Types Packs/Day Years Used Date Smoking Tobacco: Never Smokeless Tobacco: Never Tobacco Cessation:Counseling Given: Not Answered PHQ-2 Answer Date Recorded PHQ-2 Total Score (If total score is 3 or more points, staff should administer the PHQ-9) 2 03/20/2024 Personal Safety Answer Date Recorded Have you ever been in or are you currently in a harmful physical or emotional relationship or is someone making you feel afraid or unsafe? Denies 09/06/2023 Education Answer Date Recorded What is the highest level of school you have completed or the highest degree you have received? 12th grade 10/11/2023 Comments No Sex and Gender Information Value Date Recorded Sex Assigned at Not on file Legal Sex Female 4:53 PM VENETIAN BLIND WORKER Gender Identity Not on file Sexual Orientation Not on file Occupation Industry Job Start Date Job End Date homemaker Not on file Not on file Not on file Obstetrics History Last Filed Vital Signs Vital Sign Reading Time Taken Comments Blood Pressure 134/83 05/03/2024 10:41 AM VENETIAN BLIND WORKER Pulse 81 05/03/2024 10:41 AM VENETIAN BLIND WORKER Temperature 36.5 C (97.7 F) 05/03/2024 10:41 AM VENETIAN BLIND WORKER Respiratory Rate 19 09/06/2023 2:30 PM CDT Oxygen Saturation 98% 05/03/2024 10:41 AM VENETIAN BLIND WORKER Inhaled Oxygen Concentration - - Weight 77.1 kg (170 lb) 05/03/2024 10:41 AM VENETIAN BLIND WORKER Height 165.1 cm (5' 5 ) 05/03/2024 10:41 AM VENETIAN BLIND WORKER Body Mass Index 28.29 05/03/2024 10:41 AM VENETIAN BLIND WORKER Plan of Treatment Health Maintenance Due Date Last Done Comments Osteoporosis Screening-Bone Density Scan 1950 Hepatitis B Screening 1969 Breast Cancer Screening-Mammogram 11/25/2023 11/24/2022, 11/24/2022 Influenza Vaccine (#1) 2024 , 12/20/2018, 12/28/2017, Additional history exists Postponed from 11/06/2023 (Patient declined, but will receive in the future) Covid-19 Vaccine () 03/20/2025 12/09/2021, 02/18/2021, 05/09/2020 Postponed from 11/06/2023 (Patient declined, but will receive in the future) DTaP/Tdap/Td Vaccine (1 - Tdap) 03/20/2025 Postponed from 1962 (Patient declined, but will receive in the future) Depression Screening 03/20/2025 03/20/2024, 03/11/2023, 12/09/2021 Fall Risk Assessment 03/20/2025 03/20/2024, 03/11/2023, 12/09/2021 Pneumococcal vaccine 65+ (1 of 1 - PCV) 03/20/2025 Postponed from 2001 (Patient declined, but will receive in the future) Well Visit 65+ 03/20/2025 03/20/2024, 07/2023, 12/09/2021 Zoster Vaccine (1 of 2) 03/20/2025 Post poned from 2001 (Patient declined, but will receive in the future) Colon Cancer Screening-Colonoscopy 06/02/2030 06/02/2020 Colon Cancer Screening-CT Colonography Discontinued 06/02/2020 Colon Cancer Screening-DNA Stool Discontinued 06/02/2020 Colon Cancer Screening-FIT Discontinued 06/02/2020 Colon Cancer Screening-Sigmoidoscopy Discontinued 06/02/2020 Hepatitis C Screening Completed 09/06/2023 Procedures Procedure Name Priority Date/Time Associated Diagnosis Comments POCT LIPID PANEL Routine 03/20/2024 11:3 6 AM VENETIAN BLIND WORKER Encounter for lipid screening for cardiovascular disease SCAN - RADIOLOGY/IMAGING 03/15/2024 9:23 AM VENETIAN BLIND WORKER SCAN - LABS 03/15/2024 8:43 AM VENETIAN BLIND WORKER SCAN - LABS 03/15/2024 6:57 AM VENETIAN BLIND WORKER CLOSTRIDIUM DIFFICILE TOXIN/GDH WITH REFLEX TO PCR Routine 03/08/2024 8:29 AM VENETIAN BLIND WORKER Diarrhea, unspecified type HEPATITIS PANEL, ACUTE Routine 09/06/2023 8:07 PM CDT COLONOSCOPY Routine 06/02/2020 from Last 3 Months or Most Recently Relevant to Health Maintenance Results * (ABNORMAL) POCT lipid panel (03/20/2024 11:36 AM VENETIAN BLIND WORKER) Cholesterol, POC 239 mg/dL HDL, POC 58 mg/dL Triglycerides, POC 148 mg/dL LDL Cholesterol POC 152 mg/dL Chol/HDL Ratio, POC 4.2 Non-HDL Cholesterol, POC 182 mg/dL Cholesterol Total, POC 239 mg/dL Capillary blood 03/20/2024 1 1:36 AM VENETIAN BLIND WORKER us Casa Cooley MD POINT OF CARE TEST ORDERABLES Final Result * SCAN - RADIOLOGY/IMAGING (03/15/2024 9:23 AM VENETIAN BLIND WORKER) Anatomical Region Laterality Modality Other us Casa Cooley MD Final Result * SCAN - LABS (03/15/2024 8:43 AM VENETIAN BLIND WORKER) us Casa Cooley MD Final Result * SCAN - LABS (03/15/2024 6:57 AM VENETIAN BLIND WORKER) us Casa Cooley MD Final Result * Clostridium difficile Toxin/GDH with Reflex to PCR Stool (03/08/2024 8:29 AM VENETIAN BLIND WORKER) C difficile Toxins/GDH w/refl to PCR [facility] Comment: CLOSTRIDIUM DIFFICILE TOXIN/GDH W/REFL TO PCR Micro Number: [id number] Test Status: Final Specimen Source: Stool Specimen Quality: Adequate GDH Antigen: Not Detected Toxin A and B: Not Detected COMMENT: No toxigenic C. difficile detected For additional information, please refer to http://Xplornet.[employer]/faq/CFW648 (This link is being provided for informational/educational purposes only.) Stool 03/08/2024 8:29 AM VENETIAN BLIND WORKER 03/09/2024 2:23 AM VENETIAN BLIND WORKER Marquise Troy MD LAB MICROBIOLOGY - GENER AL ORDERABLES Final Result Performing Organization Address City/[facility]/ZIP Co de Phone Number [facility] [address] [place] [address] * Hepatitis panel, acute Blood (09/06/2023 8:07 PM CDT) Hep A IgM Nonreactive Nonreactive Hep B core IgM Nonreactive Nonreactive [facility] Hep C Ab Nonreactive Nonreactive [facility] Comment:Antibodies to HCV no t detected. Does NOT exclude the possibility of recent exposure to HCV. Current interpretive data was last revised on 21 HepBsAg Nonreactive Nonreactive [facility] Blood 09/06/2023 8:07 PM CDT 09/06/2023 8:35 PM CDT Basia Garcia MD LAB MICROBIOLOGY - GENER AL ORDERABLES Final Result [facility] Department [place] [address] * Colonoscopy (06/02/2020) Anatomical Region Laterality Modality Other Narrative 06/02/2020 Pt states she cant have colonoscopy due to many loops Historical Provider ENDOSCOPY PROCEDURES Clara l Result from Last 3 Months or Most Recently Relevant to Health Maintenance Insurance AETNA MEDICARE AETNA MEDICARE Care Teams Curatorial Specialist Relationship Specialty Start Date End Date Casa Cooley MD [address] [address] PCP - General Internal Medicine 01/14/20
--- OUTSIDE RECORDS SUMMARY | 2024-05-24 18:58 | XMS_ITS | Clinical Summary ---
Author Organization [facility] Address [address] [place] [address] Care Team Providers Care Nozzleman Name Role Phone Unavailable Primary Care Provider Unavailabl e Social History Tobacco Use Types Packs/Day Years Used Date Smoking Tobacco: Never Assessed Comments Unknown Sex and Gender Information Value Date Recorded Sex Assigned at Not on file Legal Sex Female 7:30 PM VALET ATTENDANT Gender Identity Not on file Sexual Orientation [...] Recently Relevant to Health Maintenance Insurance AETNA [facility]
--- OUTSIDE RECORDS SUMMARY | 2024-05-24 18:58 | XMS_ITS | Referral Summary ---
Author Organization [facility] [address] Address [address] [place] [address] Care Team Providers Care Cooler Supervisor Name Role Phone Casa Cooley MD Primary Care Provider [phone] Encounters Date Type Department Care Team Description 05/21/2024 Documentation [facility] [facility] First Floor [address] [place] [address] Jareth Cisneros 05/10/2024 Orders Only [facility] [address] [place] [address] Casa Cooley MD 05/10/2024 [facility] [address] [place] [address] Casa Cooley MD symptoms 05/03/2024 11:00 AM GREENHOUSE INSTRUCTOR Office Visit [facility] [address] [facility] 6th [address] [place] [address] Homar Knutson NP Hypersomnia (Primary Dx); Chronic insomnia 03/20/2024 11:00 AM GREENHOUSE INSTRUCTOR Office Visit [facility] [address] [address] [place] [address] Casa Cooley MD Encounter for lipid screening for cardiovascular disease (Primary Dx); Post-menopausal; Visit for screening mammogram; Memory changes; Anxiety; Anxiety and depression; TMJ (temporomandibular joint syndrome); Routine general medical examination at a health care facility 03/15/2024 Orders Only [facility] [address] [place] [address] Casa Cooley MD 03/09/2024 Telephone [facility] [address] [place] [address] Marquise Troy MD 03/05/2024 Telephone [facility] [address] [place] [phone] Casa Cooley MD [facility] 03/02/2024 Telephone [facility] Department of Psychiatry [address] [place] [address] Jessica Saldivar NP 02/27/2024 Telephone [facility] [address] [place] [phone] Casa Cooley MD Med Refill 02/27/2024 Orders Only [facility] [address] [place] [phone] Casa Cooley MD 02/27/2024 [facility] [address] [place] [phone] Casa Cooley MD symptoms; Med Dose Change from Last 3 Months Allergies Active Allergy Reactions Criticality Noted Date [...] syndrome) Assessment & Plan (03/20/2024 11:35 AM GREENHOUSE INSTRUCTOR): Stable. Memory changes 10/11/2023 Assessment & Plan (03/20/2024 11:35 AM GREENHOUSE INSTRUCTOR): Long conversation with patient and her today. [...] medication Assessment & Plan (03/20/2024 11:35 AM GREENHOUSE INSTRUCTOR): Currently not as anxious on medication. She [...] Fatigue 06/02/2020 08/10/2023 Overview (06/02/2020): check labs Immunizations Immunization Administration Dates Next Due Influenza, Quadrivalent, Hig h Dose, Preservative Free, Intrr 01/28/2020 Influenza, Quadrivalent, Spl it, Preservative Free, Intramuscular 03/15/2017,01/17/2015 Influenza, Trivalent, Adjuvanted, Intramuscular 12/20/2018 Influenza, Trivalent, High D ose, Split, Preservative Free, Intramuscular 12/28/2017,03/31/2016 Influenza, Trivalent, IM (MDV) 12/05/2014,2012 Influenza, Trivalent, Preservative Free, Intramu scular 01/09/2014,12/08/2012 [employer] (J[employer]J) SARS-CoV-2 Vaccination 05/09/2020 Pf[employer] Sars-Cov-2 Bivalent Vaccination (12+ YRS) 12/09/2021 Social History Tobacco Use Types Packs/Day Years [...] on file Legal Sex Female 4:53 PM GREENHOUSE INSTRUCTOR Gender Identity Not on file Sexual Orientation Not on file Occupation Industry Job Start Date Job End Date homemaker Not on file Not on file Not on file Last Filed Vital Signs Vital Sign Reading Time Taken Comments Blood Pressure 134/83 05/03/2024 10:41 AM GREENHOUSE INSTRUCTOR Pulse 81 05/03/2024 10:41 AM GREENHOUSE INSTRUCTOR Temperature 36.5 C (97.7 F) 05/03/2024 10:41 AM GREENHOUSE INSTRUCTOR Respiratory Rate 19 09/06/2023 2:30 PM CDT Oxygen Saturation 98% 05/03/2024 10:41 AM GREENHOUSE INSTRUCTOR Inhaled Oxygen Concentration - - Weight 77.1 kg (170 lb) 05/03/2024 10:41 AM GREENHOUSE INSTRUCTOR Height 165.1 cm (5' 5 ) 05/03/2024 10:41 AM GREENHOUSE INSTRUCTOR Body Mass Index 28.29 05/03/2024 10:41 AM GREENHOUSE INSTRUCTOR Plan of Treatment Not on file Procedures Procedure Name Priority Date/Time Associated Diagnosis Comments POCT LIPID PANEL Routine 03/20/2024 11:3 6 AM GREENHOUSE INSTRUCTOR Encounter for lipid screening for cardiovascular disease SCAN - RADIOLOGY/IMAGING 03/15/2024 9:23 AM GREENHOUSE INSTRUCTOR SCAN - LABS 03/15/2024 8:43 AM GREENHOUSE INSTRUCTOR SCAN - LABS 03/15/2024 6:57 AM GREENHOUSE INSTRUCTOR CLOSTRIDIUM DIFFICILE TOXIN/GDH WITH REFLEX TO PCR Routine 03/08/2024 8:29 AM GREENHOUSE INSTRUCTOR Diarrhea, unspecified type HEPATITIS PANEL, ACUTE Routine 09/06/2023 8:07 PM CDT COLONOSCOPY Routine 06/02/2020 from Last 3 Months or Most Recently Relevant to Health Maintenance Results * (ABNORMAL) POCT lipid panel (03/20/2024 11:36 AM GREENHOUSE INSTRUCTOR) Cholesterol, POC 239 mg/dL HDL, POC 58 mg/dL Triglycerides, POC 148 mg/dL LDL Cholesterol POC 152 mg/dL Chol/HDL Ratio, POC 4.2 Non-HDL Cholesterol, POC 182 mg/dL Cholesterol Total, POC 239 mg/dL Capillary blood 03/20/2024 1 1:36 AM GREENHOUSE INSTRUCTOR us Casa Cooley MD POINT OF CARE TEST ORDERABLES Final Result * SCAN - RADIOLOGY/IMAGING (03/15/2024 9:23 AM GREENHOUSE INSTRUCTOR) Anatomical Region Laterality Modality Other us Casa Cooley MD Final Result * SCAN - LABS (03/15/2024 8:43 AM GREENHOUSE INSTRUCTOR) us Casa Cooley MD Final Result * SCAN - LABS (03/15/2024 6:57 AM GREENHOUSE INSTRUCTOR) us Casa Cooley MD Final Result * Clostridium difficile Toxin/GDH with Reflex to PCR Stool (03/08/2024 8:29 AM GREENHOUSE INSTRUCTOR) C difficile Toxins/GDH w/refl to PCR [facility] Comment: CLOSTRIDIUM DIFFICILE TOXIN/GDH W/REFL TO PCR Micro Number: [id number] Test Status: Final Specimen Source: Stool Specimen Quality: Adequate GDH Antigen: Not Detected Toxin A and B: Not Detected COMMENT: No toxigenic C. difficile detected For additional information, please refer to http://education.[employer]/faq/WST262 (This link is being provided for informational/educational purposes only.) Stool 03/08/2024 8:29 AM GREENHOUSE INSTRUCTOR 03/09/2024 2:23 AM GREENHOUSE INSTRUCTOR Marquise Troy MD LAB MICROBIOLOGY - GENER AL ORDERABLES Final Result [facility] [address] [place] [address] * Hepatitis panel, acute Blood (09/06/2023 8:07 PM CDT) Hep A IgM Nonreactive Nonreactive Hep B core IgM Nonreactive Nonreactive [facility] Hep C Ab Nonreactive Nonreactive [facility] Comment:Antibodies to HCV no t detected. Does NOT exclude the possibility of recent exposure to HCV. Current interpretive data was last revised on 21 HepBsAg Nonreactive Nonreactive [facility] Blood 09/06/2023 8:07 PM CDT 09/06/2023 8:35 PM CDT us Basia Garcia MD LAB MICROBIOLOGY - GENER AL ORDERABLES Final Result [facility] Department [place] [address] * Colonoscopy (06/02/2020) Anatomical Region Laterality Modality Other Narrative 06/02/2020 Pt states she cant have colonoscopy due to many loops Historical Provider ENDOSCOPY PROCEDURES Clara l Result from Last 3 Months or Most Recently Relevant to Health Maintenance Insurance Care Teams Cooler Supervisor Relationship Specialty Start Date End Date Casa Coloey MD [address] [address] PCP - General Internal Medicine 01/14/20
--- OUTSIDE RECORDS SUMMARY | 2024-05-24 18:58 | XMS_ITS | Continuity of Care Document ---
Author Organization [facility] Address [id number] [place] [address] [address] [place] [address] Phone Care Team Providers Care Rn Wound Care Name Role Phone Rosemarie Duncan Unavailable Unavailable Advance Directives Directive Yes / No Effective Date File Name No Information Encounters Encounter Description Practice Location Reason(s) For Visit Diagnoses Date Provider Providers Copied on Encounter Formerly [facility], [address], [place], [place], [id number], [place] tel:[phone] [facility] [place] No Information Sep-0 1-200 5 Perla Houston. [address] [facility] , [address], [place], [address], [place]. tel:[phone] Family History Family Member Type Diagnosis Age At Onset No Information Payers Payer name Insurance type Covered green party ID Authoriza tion(s) No Information Social History [...]
[2024-05-24] MEDS: SODIUM CHLORIDE 0.9% IV 1,000 ML 999 ML IV CONT (19:20)
--- NOTE | 2024-05-24 22:15 | PM.IMHP ---
H&P: HPI History of Present Illness Date/Time: 05/24/24 22:15 Chief Complaint: Weakness, fall. Narrative: This is a pleasant 74-year-old female with history of dementia, transient ischemic attack, chronic kidney disease stage 3, irritable bowel syndrome with constipation, depression, and anxiety who presented to the emergency department via private vehicle for evaluation of weakness and a fall. The patient provides the following history. She when out to lunch with her girlfriends today and they sat around chatting for about 3 or 4 hours after eating. When it was time to leave she stood up and immediately felt extremely weak in her legs and lightheaded. She then fell backwards onto her left side, striking her head on the floor. She is unsure if perhaps she briefly lost consciousness prior to the fall. With further questioning she reports having several falls which she blames on poor balance. She has not had any recent change in medications and reports that she is eating and drinking as per usual. She denies vertigo, visual changes, facial droop, difficulty speaking and swallowing, paresthesias, urinary retention, and bowel incontinence. She does not appear to have any focal weakness on exam today. She also denies chest pain, palpitations, and sensations of racing heart. No nausea, vomiting, diarrhea, or dysuria. In the ED: Vital signs were stable on arrival with a blood pressure of 122/58. Orthostatic vital signs were positive with a drop in blood pressure to 91/79 upon standing. Labs showed a creatinine of 1.40 which is close to her baseline; everything else was pretty unremarkable. Urinalysis was positive for 2+ leukocyte esterase and 21 to 50 WBC. Occasional squamous cells, budding yeast, and no bacteria were seen on microscopy. Urine drug screen and alcohol levels were negative. CT of the head and CTA of the brain and neck were unremarkable. EKG showed sinus rhythm. She was given a L normal saline bolus and is being admitted in this setting for further treatment and evaluation. Review of Systems Review of Systems: 12 systems were reviewed and are negative except for as per HPI. [facility] Past Medical History Medical History (Updated 05/25/24 @ 04:35 by Melonie Chiu PA-C) Irritable bowel syndrome with alternating bowel habits Dementia of Alzheimer's type, with early onset, with depressed mood Chronic kidney disease Transient ischemic attack Chronic constipation Depression with anxiety Surgical History Surgical History History of knee replacement History of vaginal hysterectomy (1981) History of bilateral salpingo-oophorectomy (10/1999) History of laparoscopy (06/2000) Laparoscopic adhesiolysis or pelvic pain. Social History Social History Social History: Surrogate medical decision maker: Britt Mohr, spouse. Code status: Full code. Smoking packs per day: 0 Smoking cigarettes per day: 0.0 Years smoked: 0 Smoking pack-years: 0.00 Smoking status: Never smoker Second hand tobacco smoke exposure: No Alcohol intake: never Substance use: never Substance use type: does not use Do You Feel Safe in your Home?: Yes Lack of Transportation: No Lack of Food: Never True Current Housing: I Have Housing Concerned About Future Housing: No Difficulty Paying Gas/Electric Bills: No Difficulty Paying for Meds: No Currently Unemployed: No Education: Don't Know Difficulty w/ Childcare or Family Care: No Living arrangements: with family Additional living arrangements comments: Lives with spouse and intellectually disabled son. Additional occupation/education comments: Homemaker. Spiritual care concerns: No Meds Home Medications and Allergies Home Medications ?Medication ?Instructions ?Recorded ?Confirmed ?Type clonazepam 2 mg tablet 1 mg PO QHS 09/29/21 05/25/24 History cyclobenzaprine 10 mg tablet 10 mg PO QHS #30 tabs 03/24/23 05/25/24 Rx citalopram 40 mg tablet 20 mg PO DAILY 07/26/23 05/25/24 History trazodone 50 mg tablet 50 mg PO QHS PRN insomnia 07/26/23 05/25/24 History hydroxyzine HCl 25 mg tablet 50 mg PO QHS 05/25/24 05/25/24 History Allergies Allergy/AdvReac Type Severity Reaction Status Date / Time prochlorperazine Allergy Unknown Unknown Verified 05/24/24 18:08 Vital Signs Vital Signs - 24 hr 05/24/24 17:46 05/24/24 17:47 05/24/24 17:57 Temperature 97.6 F Pulse Rate 75 80 78 Respiratory Rate 16 17 16 Blood Pressure 122/58 L 122/58 L Pulse Oximetry 100 97 Oxygen Delivery Room Air 05/24/24 18:00 05/24/24 18:01 05/24/24 18:15 Temperature Pulse Rate 77 78 77 Respiratory Rate 24 H 15 22 H Blood Pressure 117/60 Pulse Oximetry 100 100 99 Oxygen Delivery 05/24/24 18:16 05/24/24 18:30 05/24/24 18:31 Temperature Pulse Rate 77 75 74 Respiratory Rate 18 13 13 Blood Pressure 113/67 106/54 L Pulse Oximetry 97 96 98 Oxygen Delivery 05/24/24 18:45 05/24/24 18:46 05/24/24 19:00 Temperature Pulse Rate 75 73 73 Respiratory Rate 20 20 16 Blood Pressure 91/79 L Pulse Oximetry 95 98 94 Oxygen Delivery 05/24/24 19:01 05/24/24 19:07 05/24/24 19:09 Temperature Pulse Rate 73 73 74 Respiratory Rate 16 20 Blood Pressure 114/58 L 111/64 111/64 Pulse Oximetry 96 96 Oxygen Delivery 05/24/24 19:10 05/24/24 19:13 05/24/24 19:15 Temperature Pulse Rate 72 78 76 Respiratory Rate 15 28 H 17 Blood Pressure 119/66 100/68 Pulse Oximetry 97 100 97 Oxygen Delivery 05/24/24 19:16 05/24/24 19:30 05/24/24 19:31 Temperature Pulse Rate 74 71 72 Respiratory Rate 14 15 16 Blood Pressure 110/50 L 107/69 Pulse Oximetry 100 100 100 Oxygen Delivery 05/24/24 19:45 05/24/24 19:47 05/24/24 20:00 Temperature Pulse Rate 74 74 73 Respiratory Rate 15 15 18 Blood Pressure 116/65 Pulse Oximetry 97 99 98 Oxygen Delivery 05/24/24 20:01 05/24/24 20:15 05/24/24 20:16 Temperature Pulse Rate 73 73 72 Respiratory Rate 16 18 14 Blood Pressure 125/64 125/62 Pulse Oximetry 98 98 97 Oxygen Delivery 05/24/24 20:31 05/24/24 20:46 05/24/24 21:00 Temperature Pulse Rate Respiratory Rate 16 16 18 Blood Pressure 119/58 L 116/69 Pulse Oximetry 99 97 100 Oxygen Delivery 05/24/24 21:01 05/24/24 21:30 05/24/24 21:32 Temperature Pulse Rate Respiratory Rate 15 14 Blood Pressure 129/64 111/93 H Pulse Oximetry 100 97 100 Oxygen Delivery 05/24/24 21:39 05/24/24 21:41 05/24/24 21:43 Temperature Pulse Rate Respiratory Rate 17 16 14 Blood Pressure 102/75 120/109 H 118/69 Pulse Oximetry 100 99 99 Oxygen Delivery 05/24/24 21:52 05/24/24 21:54 05/24/24 21:54 Temperature Pulse Rate 72 84 Respiratory Rate Blood Pressure 102/75 120/109 H Pulse Oximetry 100 Oxygen Delivery 05/24/24 21:55 05/24/24 22:00 05/24/24 22:03 Temperature Pulse Rate 82 74 Respiratory Rate 15 Blood Pressure 118/69 Pulse Oximetry 100 100 Oxygen Delivery Exam Narrative: General: A well-developed, nontoxic-appearing female sitting up in bed in no distress. Weight: 76.8 kg. BMI: 20.2. HEENT: Normocephalic, atraumatic. PERRL, EOMI. Sclera anicteric. Oral mucosa moist. Neck: Supple. No carotid bruits. Respiratory: Lungs are clear to auscultation bilaterally. Cardiovascular: Regular rate and rhythm with S1-S2. Gastrointestinal: Abdomen is soft, nontender, and nondistended with positive bowel sounds. Skin: Warm and dry. No rash or lesions on limited exam. Extremities: No cyanosis, clubbing, or edema. Radial and pedal pulses intact. Neurological: Alert and oriented x4. Cranial nerves 2-12 are grossly intact. Speech is clear. No facial asymmetry. Hand line runner and foot pushes are equal bilaterally. Normal [id number]. No pronator drift. Sensation intact throughout. Psychiatric: Pleasant and cooperative with appropriate mood and affect. Seems a bit forgetful. She is in good spirits. H&P: Results Labs Labs: Short CBC 05/24/24 Range/Units 17:29 WBC 6.7 (4.5-10.0) K/mm3 Hgb 14.3 (12.0-15.0) g/dL Hct 44.7 (37.0-47.0) % Plt Count 360 (150-375) k/mm3 [facility] 05/24/24 05/24/24 17:29 17:31 Sodium 139 Potassium 4.8 Chloride 103 Carbon Dioxide 26 BUN 19 H Creatinine 1.34 H 1.40 H Glucose 90 Calcium 9.7 Cardiac Enzymes 05/24/24 Range/Units 17:29 Troponin I < 0.012 (0.000-0.034) ng/mL Liver Function 05/24/24 Range/Units 17:29 Total Bilirubin 0.5 (0.2-1.3) mg/dL AST 28 (14-36) U/L ALT 21 (6-35) U/L Alkaline Phosphatase 133 H (38-126) U/L Albumin 4.9 (3.5-5.1) g/dL Urine 05/24/24 Range/Units 18:06 Urine Color Yellow (Yellow) Urine Appearance Clear (Clear) Urine pH 6.0 (5.0-9.0) Ur Specific [place] 1.033 (1.001-1.035) Urine Protein Negative (Negative) mg/dL Urine Glucose (UA) Negative (Negative) mg/dL Impressions Head CT 05/24/24 17:34 Impression: No acute intracranial hemorrhage or suspicious mass effect. Head/Neck CTA 05/24/24 17:56 IMPRESSION: 1. Normal CTA head and neck. 2. Percent stenosis per NASCET criteria is 0% Chest X-Ray 05/24/24 18:29 IMPRESSION: No focal infiltrate or effusion. Assessment and Plan Assessment and plan (1) Orthostatic hypotension: Code(s): I95.1 - Orthostatic hypotension Status: Acute (2) Weakness: Code(s): R53.1 - Weakness Status: Acute (3) Dementia: Code(s): F03.90 - Unspecified dementia, unspecified severity, without behavioral disturbance, psychotic disturbance, mood disturbance, and anxiety Status: Acute (4) Chronic kidney disease: Code(s): N18.9 - Chronic kidney disease, unspecified Status: Acute Plan The patient presented to the emergency department for evaluation of weakness and a fall as detailed in HPI. Labs, imaging, EKG, and all reports were personally reviewed. Orthostatic vital signs were positive on arrival and I suspect this is why she felt weak and fell upon standing after being seated for at least 3 to 4 hours. The patient thinks that she may have briefly passed out and she will be monitored on telemetry to rule out cardiac dysrhythmia but again this is likely due to a drop in her blood pressure. Echocardiogram has been ordered. PT/OT has been consulted. Renal function is stable on review of previous labs. Her home medications will be reviewed and resumed as appropriate. Findings and treatment plan were discussed with the patient. Questions were solicited and answered to satisfaction. The patient's medical management will be taken over by the hospitalist team in a.m. Quality VTE Prophylaxis VTE prophylaxis: mechanical ordered The patient has been admitted under observation status. Hospitalist MIPS Advance Care Plan I have confirmed that the patient's Advanced Care Plan is present, code status is documented, or surrogate decision maker is listed in patient medical record.: Yes Medication Reconciliation I have utilized all available resources to obtain, update and review the patients current medications (includes all prescriptions, OTC, herbals, cannabis, and nutritional supplements).: Yes
[2024-05-24] MEDS: SODIUM CHLORIDE 0.9% IV 1,000 ML 125 ML IV CONT (22:49)
[2024-05-25] VITALS (10 sets, daily range): BP systolic 114–149; BP diastolic 50–64; PULSE 69–81; RESP 13–16; TEMP 35.5–36.4; O2SAT 94–100
--- NOTE | 2024-05-25 00:15 | ECHO_ITS ---
Patient Info Name: Makenzie Mohr Age: 74 years : 1950 Gender: Female Ht: 65 in Wt: 169 lbs BSA: 1.89 m2 HR: 76 bpm BP: 114 / 53 mmHg Heart Rhythm: Sinus Rhythm Technical Quality: Fair Exam Date: 05/25/2024 1:35 PM Exam Location: Echo Lab Patient Status: Inpatient Admit Date: 05/25/2024 Staff Ordering Physician: Melonie Chiu PA-C Stave Machine Tender: Tiffanie Quevedo RDCS Attending Provider: Gisela Reid MD Referring Physician: Apple FLORES; Exam Type: CA echo doppler color flow Study Info Indications - Near syncope Complete two-dimensional, color flow and Doppler transthoracic echocardiogram is performed. Summary 1. Left ventricular chamber dimension is normal. 2. Left ventricular systolic function is normal, estimated at 65-70%. 3. There is mildly increased left ventricular wall thickness. 4. The left ventricular diastolic function is grade I diastolic dysfunction. 5. Right ventricular systolic function is normal. 6. There is mild tricuspid valve regurgitation. Left Ventricle Left ventricular chamber dimension is normal. Left ventricular systolic function is normal, estimated at 65-70%. There is mildly increased left ventricular wall thickness. The left ventricular diastolic function is grade I diastolic dysfunction. Right Ventricle Right ventricular chamber dimension is normal. Right ventricular systolic function is normal. Left Atria Left atrial chamber dimension is normal. Right Atria Right atrial chamber dimension is normal. Atrial Septum Intact interatrial septum visualized by color flow imaging. Aortic Valve The aortic valve is not well visualized. There is no aortic valve stenosis. There is no aortic valve regurgitation. Pulmonic Valve The pulmonic valve is not well visualized. There is no pulmonic regurgitation. Mitral Valve There is trace mitral valve regurgitation. Tricuspid Valve There is mild tricuspid valve regurgitation. Pericardium/Pleural There is no pericardial effusion. Inferior Vena Cava Inferior vena cava is not well visualized. Aorta The aortic root size at the sinus of Valsalva is normal. Left Ventricular Outflow Tract Name Value Normal LVOT 2D LVOT Diameter 2.0 cm LVOT Doppler LVOT Peak Gradient 3 mmHg LVOT Mean Gradient 1 mmHg LVOT VTI 17 cm LVOT VTI/AV VTI Ratio 0.8 LVOT Stroke Volume 53 ml LVOT CO 4.5 l/min LVOT CI 2.4 l/min/m2 Pulmonic Valve Name Value Normal RVOT Doppler RVOT Peak Gradient 2 mmHg PV Doppler PV Peak Gradient 3 mmHg Mitral Valve Name Value Normal MV Doppler MV Decel Pacific 260 cm/s2 MV PHT 65 ms MV Area (PHT) 3.4 cm2 4.0-5.0 MV Diastolic Function MV E Peak Velocity 58 cm/s MV A Peak Velocity 78 cm/s MV E/A 0.7 MV Decel Time 225 ms MV Annular TDI MV E/e' (Septal) 7.0 <=8.0 MV E/e' (Lateral) 6.4 <=8.0 MV E/e' (Average) 6.7 Tricuspid Valve Name Value Normal TV Regurgitation Doppler TR Peak Velocity 194 cm/s TR Peak Gradient 14 mmHg Aortic Valve Name Value Normal AV Doppler AV Peak Velocity 107 cm/s AV Peak Gradient 5 mmHg AV Mean Gradient 3 mmHg AV VTI 22 cm AV Area (Cont Eq VTI) 2.4 cm2 >=3.0 AV Area (Cont Eq Nathaniel) 2.5 cm2 AV Regurgitation 2D LVOT Area 3.1 cm2 Ventricles Name Value Normal LV Dimensions 2D/MM IVS Diastolic Thickness (2D) 1.0 cm 0.6-1.0 LVID Diastole (2D) 4.2 cm 3.8-5.2 LVIW Diastolic Thickness (2D) 0.9 cm 0.6-0.9 LVID Systole (2D) 3.0 cm 2.2-3.5 LVOT Diameter 2.0 cm LV Mass (2D Cubed) 122.61 g 67.00-162.00 LV Mass Index (2D Cubed) 65 g/m2 43-95 Relative Wall Thickness (2D) 0.44 LV Fractional Shortening/Ejection Fraction 2D/MM LV Fractional Shortening (2D) 28 % 27-45 LV EF (2D Teicholz) 54 % 54-74 LV Diastolic Volume (4C MOD) 96 ml LV EF (4C MOD) 67 % LV Diastolic Volume (2C MOD) 71 ml LV EF (2C MOD) 67 % LV Diastolic Volume (BP MOD) 88 ml 46-106 LV Diastolic Volume Index (BP MOD) 46 ml/m2 29-61 LV Systolic Volume (BP MOD) 31 ml 14-42 LV Systolic Volume Index (BP MOD) 16 ml/m2 8-24 LV EF (BP MOD) 65 % 54-74 LV Diastolic Length (4C) 7.7 cm LV Systolic Length (4C) 5.9 cm LV Stroke Volume (4C MOD) 64 ml Atria Name Value Normal LA Dimensions LA Volume (4C A-L) 39 ml LA Volume (BP A-L) 38 ml RA Dimensions RA Area (4C) 10.9 cm2 <=18.0 Report Signatures
--- NOTE | 2024-05-25 00:23 | ADMGEN ---
This patient, Makenzie Mohr, was admitted to [facility] Surg Room 314-02. Patient/family oriented to hospital policies and general routines including ID bracelet, bed and alarms, visiting hours, pain management, procedures, bathroom and other care routines, personal items, smoking policy, room service/diet, and visiting hours. Information on how to activate the Rapid Response Team has been discussed. Patient/Family are encouraged to report perceived risks to care and to ask questions if they do not understand what they are told or what they should do.
[2024-05-25] MEDS: SODIUM CHLORIDE 0.9% IV 1,000 ML 125 ML IV CONT (00:49)
--- NOTE | 2024-05-25 11:53 | P.PNIM_ITS ---
Progress Note: A&P Assessment and Plan (1) Orthostatic hypotension: Code(s): I95.1 - Orthostatic hypotension Status: Acute (2) Weakness: Code(s): R53.1 - Weakness Status: Acute (3) Dementia: Code(s): F03.90 - Unspecified dementia, unspecified severity, without behavioral disturbance, psychotic disturbance, mood disturbance, and anxiety Status: Acute (4) Chronic kidney disease: Code(s): N18.9 - Chronic kidney disease, unspecified Status: Acute Plan The patient presented to the emergency department for evaluation of weakness and a fall as detailed in HPI. Labs, imaging, EKG, and all reports were personally reviewed. Orthostatic vital signs were positive on arrival and I suspect this is why she felt weak and fell upon standing after being seated for at least 3 to 4 hours. The patient thinks that she may have briefly passed out and she will be monitored on telemetry to rule out cardiac dysrhythmia but again this is likely due to a drop in her blood pressure. Echocardiogram has been ordered. PT/OT has been consulted. Fall and Near-syncope, Patient does not have focal weakness Patient has a general weakness, fell when patient stood up Possible due to physical deconditioning, dehydration, and UTI Continue telemetry monitoring, no significant arrhythmia related to syncope so far Follow orthostatic test, Pending echocardiogram CHAI on CKD, dehydration IV given creatinine ratio above baseline Blood pressure soft Possible due to dehydration and UTI Received fluid resuscitation in the ED, Continue normal saline IV 100 mL/hour UTI UA showed pyuria, urine culture is pending Start ceftriaxone 1 g IV daily Suspecting KENISHA ApneaLink monitor Consult PT OT for evaluation treatment Subjective Date/time seen: 05/25/24 11:53 Interval history: I saw and examined the patient in presents of patient's sister. Patient still has general weakness, with pain, dysuria urinary urgency frequency. Patient feels tired, but denies focal weakness. Patient has poor sleep overnight, and snore overnight. Exam Narrative: GENERAL: Pleasant, in no acute distress. Well-nourished. - EYES: EOMI. Anicteric. - HENT: Moist mucous membranes. - LUNGS: Clear to auscultation bilateral ly, no wheezing, rhonchi, or rales. - CARDIOVASCULAR: Regular rate and rhyth m. No murmur. No JVD. - ABDOMEN: Soft, non-tender and non-dist ended. No palpable masses. - EXTREMITIES: No edema. Peripheral puls es 2+. Non-tender. - NEUROLOGIC: No focal neurological defi cits. CN II-XII grossly intact. General weakness - PSYCHIATRIC: Awake, Alert and oriented x 3. Appropriate mood and affect. - SKIN: No rashes or lesions. Warm. - LYMPH: No cervical lymphadenopathy. Objective Data Vital Signs Vital Signs: Vital Signs - 24 hr 05/24/24 17:46 05/24/24 17:47 05/24/24 17:57 Temperature 97.6 F Pulse Rate 75 80 78 Respiratory Rate 16 17 16 Blood Pressure 122/58 L 122/58 L Pulse Oximetry 100 97 Oxygen Delivery Room Air 05/24/24 18:00 05/24/24 18:01 05/24/24 18:15 Temperature Pulse Rate 77 78 77 Respiratory Rate 24 H 15 22 H Blood Pressure 117/60 Pulse Oximetry 100 100 99 Oxygen Delivery 05/24/24 18:16 05/24/24 18:30 05/24/24 18:31 Temperature Pulse Rate 77 75 74 Respiratory Rate 18 13 13 Blood Pressure 113/67 106/54 L Pulse Oximetry 97 96 98 Oxygen Delivery 05/24/24 18:45 05/24/24 18:46 05/24/24 19:00 Temperature Pulse Rate 75 73 73 Respiratory Rate 20 20 16 Blood Pressure 91/79 L Pulse Oximetry 95 98 94 Oxygen Delivery 05/24/24 19:01 05/24/24 19:07 05/24/24 19:09 Temperature Pulse Rate 73 73 74 Respiratory Rate 16 20 Blood Pressure 114/58 L 111/64 111/64 Pulse Oximetry 96 96 Oxygen Delivery 05/24/24 19:10 05/24/24 19:13 05/24/24 19:15 Temperature Pulse Rate 72 78 76 Respiratory Rate 15 28 H 17 Blood Pressure 119/66 100/68 Pulse Oximetry 97 100 97 Oxygen Delivery 05/24/24 19:16 05/24/24 19:30 05/24/24 19:31 Temperature Pulse Rate 74 71 72 Respiratory Rate 14 15 16 Blood Pressure 110/50 L 107/69 Pulse Oximetry 100 100 100 Oxygen Delivery 05/24/24 19:45 05/24/24 19:47 05/24/24 20:00 Temperature Pulse Rate 74 74 73 Respiratory Rate 15 15 18 Blood Pressure 116/65 Pulse Oximetry 97 99 98 Oxygen Delivery 05/24/24 20:01 05/24/24 20:15 05/24/24 20:16 Temperature Pulse Rate 73 73 72 Respiratory Rate 16 18 14 Blood Pressure 125/64 125/62 Pulse Oximetry 98 98 97 Oxygen Delivery 05/24/24 20:31 05/24/24 20:46 05/24/24 21:00 Temperature Pulse Rate Respiratory Rate 16 16 18 Blood Pressure 119/58 L 116/69 Pulse Oximetry 99 97 100 Oxygen Delivery 05/24/24 21:01 05/24/24 21:30 05/24/24 21:32 Temperature Pulse Rate Respiratory Rate 15 14 Blood Pressure 129/64 111/93 H Pulse Oximetry 100 97 100 Oxygen Delivery 05/24/24 21:39 05/24/24 21:41 05/24/24 21:43 Temperature Pulse Rate Respiratory Rate 17 16 14 Blood Pressure 102/75 120/109 H 118/69 Pulse Oximetry 100 99 99 Oxygen Delivery 05/24/24 21:52 05/24/24 21:54 05/24/24 21:54 Temperature Pulse Rate 72 84 Respiratory Rate Blood Pressure 102/75 120/109 H Pulse Oximetry 100 Oxygen Delivery 05/24/24 21:55 05/24/24 22:00 05/24/24 22:03 Temperature Pulse Rate 82 74 Respiratory Rate 15 Blood Pressure 118/69 Pulse Oximetry 100 100 Oxygen Delivery 05/24/24 23:50 05/25/24 00:37 05/25/24 01:00 Temperature 97.4 F L Pulse Rate 70 69 69 Respiratory Rate 15 16 16 Blood Pressure 132/64 Pulse Oximetry 100 95 95 Oxygen Delivery Room Air 05/25/24 05:29 Temperature 97.3 F L Pulse Rate 76 Respiratory Rate 16 Blood Pressure 114/53 L Pulse Oximetry 94 Oxygen Delivery Intake/Output Intake/Output: Intake & Output 05/22/24 05/23/24 05/24/24 05/25/24 23:59 23:59 23:59 23:59 Intake Total 1000 418 Output Total 100 Balance 900 418 Meds/Results Medications: Active Medications Generic Name Dose Route Start Last Admin Trade Name Freq PRN Reason Stop Dose Admin Acetaminophen 650 mg 05/24/24 22:09 Acetaminophen 325 Mg Tablet PO Q4H PRN Mild Pain (1-3) or Fever Citalopram Hydrobromide 20 mg 05/25/24 09:00 Citalopram Hydrobromide 20 Mg Tablet PO DAILY SRINI Clonazepam 1 mg 05/25/24 21:00 Clonazepam (*Crx) 0.5 Mg Tablet PO QHS SRINI Cyclobenzaprine HCl 10 mg 05/25/24 21:00 Cyclobenzaprine Hcl 10 Mg Tablet PO QHS SRINI Ondansetron HCl 4 mg 05/24/24 22:09 Ondansetron Inj 4 Mg/2 Ml Vial IV PUSH Q4H PRN Nausea Perflutren Lipid Microsphere 0 ml 05/25/24 00:14 Perflutren Lipid Microspheres 1.5 Ml Vial Diluted To 10 Ml Total Volume IV PUSH 05/28/24 00:15 ONCE PRN adequate visualization Protocol Trazodone HCl 50 mg 05/25/24 04:28 Trazodone Hcl 50 Mg Tablet PO QHS PRN insomnia Radiology Results: ITS Impressions Head CT 05/24/24 17:34 Impression: No acute intracranial hemorrhage or suspicious mass effect. These findings were discussed with Dr. Veras at 5:30 PM on 05/24/2024 Head/Neck CTA 05/24/24 17:56 IMPRESSION: 1. Normal CTA head and neck. 2. Percent stenosis per NASCET criteria is 0% Chest X-Ray 05/24/24 18:29 IMPRESSION: No focal infiltrate or effusion. Labs Labs: Laboratory Results - last 24 hr 05/24/24 05/24/24 05/24/24 17:19 17:29 17:31 WBC 6.7 RBC 4.99 Hgb 14.3 Hct 44.7 MCV 89.6 MCH 28.7 MCHC 32.0 RDW 13.3 Plt Count 360 MPV 9.6 Immature Gran % (Auto) 0.1 Neut % (Auto) 64.0 Lymph % (Auto) 24.4 [place] % (Auto) 9.6 H Eos % (Auto) 1.6 Baso % (Auto) 0.3 Lymph # (Auto) 1.63 [place] # (Auto) 0.6 Eos # (Auto) 0.1 Baso # (Auto) 0.0 Abs Immat Gran (auto) 0.01 Absolute Neuts (auto) 4.3 Absolute Nucleated RBC 0.000 Nucleated RBC % 0.0 PT 12.9 INR 0.9 APTT 25.9 Sodium 139 Potassium 4.8 Chloride 103 Carbon Dioxide 26 Anion Gap 10 BUN 19 H Creatinine 1.34 H 1.40 H Estim Creat Clear Calc Not Reportable Not Reportable Estimated GFR 39 L 37 L Glucose 90 POC Capillary Glucose 86 Calcium 9.7 Total Bilirubin 0.5 AST 28 ALT 21 Alkaline Phosphatase 133 H Troponin I < 0.012 Total Protein 8.0 Albumin 4.9 Urine Color Urine Appearance Urine pH Ur Specific [place] Urine Protein Urine Glucose (UA) Urine Ketones Ur Blood (Man) Urine Nitrate Urine Bilirubin Urine Urobilinogen Add Ur Microanalysis Leukocyte Esterase Rfl Urine RBC Urine WBC Ur Squamous Epith Cells Urine Bacteria Urine Casts Urine Yeast (Budding) Urine Opiates Screen Urine Methadone Screen Ur Barbiturates Screen Ur Phencyclidine Scrn Ur Amphetamine Screen U Benzodiazepines Scrn Urine Cocaine Screen U Cannabinoids Screen Ethyl Alcohol < 10 05/24/24 18:06 WBC RBC Hgb Hct MCV MCH MCHC RDW Plt Count MPV Immature Gran % (Auto) Neut % (Auto) Lymph % (Auto) [place] % (Auto) Eos % (Auto) Baso % (Auto) Lymph # (Auto) [place] # (Auto) Eos # (Auto) Baso # (Auto) Abs Immat Gran (auto) Absolute Neuts (auto) Absolute Nucleated RBC Nucleated RBC % PT INR APTT Sodium Potassium Chloride Carbon Dioxide Anion Gap BUN Creatinine Estim Creat Clear Calc Estimated GFR Glucose POC Capillary Glucose Calcium Total Bilirubin AST ALT Alkaline Phosphatase Troponin I Total Protein Albumin Urine Color Yellow Urine Appearance Clear Urine pH 6.0 Ur Specific [place] 1.033 Urine Protein Negative Urine Glucose (UA) Negative Urine Ketones Negative Ur Blood (Man) Negative Urine Nitrate Negative Urine Bilirubin Negative Urine Urobilinogen 0.2 Add Ur Microanalysis Reviewed Leukocyte Esterase Rfl 2+ H Urine RBC 0-2 Urine WBC 21-50 H Ur Squamous Epith Cells Occasional Urine Bacteria None seen Urine Casts 0-2 Urine Yeast (Budding) Present H Urine Opiates Screen Negative Urine Methadone Screen Negative Ur Barbiturates Screen Negative Ur Phencyclidine Scrn Negative Ur Amphetamine Screen Negative U Benzodiazepines Scrn Negative Urine Cocaine Screen Negative U Cannabinoids Screen Negative Ethyl Alcohol
[2024-05-25] MEDS: SODIUM CHLORIDE 0.9% IV 1,000 ML 100 ML IV CONT (12:49)
[2024-05-25] MEDS: ACETAMINOPHEN 325 MG TABLET 650 MG PO (16:51)
[2024-05-26] VITALS (8 sets, daily range): BP systolic 126–146; BP diastolic 63–72; PULSE 72–87; RESP 13–18; TEMP 36.1–36.4; O2SAT 97–100
[2024-05-26] MEDS: SODIUM CHLORIDE 0.9% IV 1,000 ML 100 ML IV CONT ×3 (00:38→21:40)
--- NOTE | 2024-05-26 02:02 | PC.NURSE ---
Patient's , Sammy refused to let take medications for 2100. He stated, Those medications are not correct and she will not be taking those. I will give her home medications instead. I went through each home medication and pharmacy she gets medications from to clarify medications were correct. He was standing very close to me, looking over my shoulder. I moved back a bit because he was in my personal space. He disagreed with how much the pharmacy prescription stated to administer. He wrote on one of her medication bottle what she should take. He assumed twice daily meant to administer medication ex: I give her both at night, I would give one at 1999 then other 2000. I tried to education Sammy on how to read labels for understand of how many times a day medications are given. I explained twice daily is two different times a day. Example given BID, that medication should be given 0800 and next dose 2100 each day, which is usually 12 hours apart. He refused education and stated once again, She will not be taking the medications from here and I will give her the ones from home while taking each bottle out of container. I suggested he talk to my charge nurse to view medications with him again.
[2024-05-26 07:08] LABS: Anion Gap 7 mmol/L (4-12); Blood Urea Nitrogen 16 mg/dL (7-17); Calcium 8.8 mg/dL (8.4-10.2); Carbon Dioxide 19 mmol/L (22-30); Chloride 113 mmol/L (98-107); Estimated CRCL calculation 43 ml/min; Estimated Glomerular Filt Rate 50; Glucose 82 mg/dL (65-110); Magnesium 2.1 mg/dL (1.6-2.3); Potassium 4.3 mmol/L (3.4-5.0); Sodium 139 mmol/L (137-145)
--- NOTE | 2024-05-26 07:21 | PM.EVENT ---
Event Note Event Note Event Note: I met with the patient and her overnight for decent length of time and they expressed concerns that she was not getting the appropriate doses of her medications and we reviewed the list of her prescribed medications and how the patient takes them at home. They have met with a neurology team at [place] and a psychiatrist and there are apparently plans to wean the patient off hydroxyzine, clonazepam, and cyclobenzaprine in a controlled setting. states that when the hydroxyzine was taken away from her that she had a lot of withdrawal symptoms. We discussed my concerns that these medication combined can cause psychomotor and anticholinergic side effects which may very well be contributing to a lot of her problems including poor balance, forgetfulness, falls, orthostatic hypotension, and others. The following discrepancies were noted: How drug is prescribed How patients takes the drug Cyclobenzaprine 10 mg b.i.d Cyclobenzaprine 20 mg HS Trazodone 50 mg HS Trazodone 25 mg HS Hydroxyzine 25 mg b.i.d. Hydroxyzine 50 mg HS After discussions, we have decided to try cyclobenzaprine 10 mg at bedtime only (patient states when she takes it during the day that she is extremely sleepy and out of it). We will continue with trazodone 25 mg at bedtime which she has been taking. I would like to continue holding the hydroxyzine as her orthostasis has improved as well as her weakness. is concerned but is willing to see how she does today although he believes that she will start to have show withdrawal symptoms and will end up needing a dose tonight. The patient and her are eager to help get her weaned off of these medications in a controlled setting which will not be done during this hospitalization and will be deferred to her specialists at [facility] in [place]. All were in agreement and questions were answered to satisfaction.
--- NOTE | 2024-05-26 08:54 | PCOTNOTE ---
Attempted OT evaluation. Patient and family in room refuse at this time due to patient having poor sleep and being too fatigued.
[2024-05-26] MEDS: ASPIRIN 81 MG ENTERIC TABLET PO (09:45)
--- NOTE | 2024-05-26 12:49 | P.PNIM_ITS ---
Progress Note: A&P Assessment and Plan (1) Orthostatic hypotension: Code(s): I95.1 - Orthostatic hypotension Status: Resolved Assessment and Plan: * PT was hydrated and this resolved. * Suspect possible polypharmacy contributing. * Continue Telemetry * ECHO showing EF of 65-70% and Grade 1 diastolic dysfunction. * Check orthostats Qshift. * Continue to monitor labs and VS. (2) Weakness: Code(s): R53.1 - Weakness Status: Acute Assessment and Plan: * Likely multi-factorial with dementia related effects, polypharmacy and generalized deconditioning. * Fall precautions * Normal TSH * See HPI for mentioned changes to medications dosed at HS. * No focal deficits. * Apnea link performed and pt passed in a normal range. (3) Dementia: Code(s): F03.90 - Unspecified dementia, unspecified severity, without behavioral disturbance, psychotic disturbance, mood disturbance, and anxiety Status: Acute Assessment and Plan: * Pt sees Neurology as outpt, but is not taking any novel dementia medications. * Will obtain med recs from [facility] and consult our Neurology here. * Fall precautions for safety. (4) Chronic kidney disease: Code(s): N18.9 - Chronic kidney disease, unspecified Status: Acute Assessment and Plan: * Appears to be at baseline. * Continue to trend and monitor. (5) TMJ (temporomandibular joint disorder): Code(s): M26.609 - Unspecified temporomandibular joint disorder, unspecified side Status: Chronic Assessment and Plan: * Pt with chronic TMJ which was the reason she started taking some of her medications in the first place. * Continue oral appliance at night as ordered. * Would be appropriate to substitute NSAID in place of current medication regimen. Time Spent With Patient Time with patient: Greater than 35 minutes Subjective Date/time seen: 05/26/24 12:49 Interval history: Pt was evaluated by this provider this AM and found to be resting comfortably. Spouse is at the bedside and is attentive and concerned about the aforementioned plan of holding the Hydroxyzine tonight as he believes pt will start to have withdrawl type symptoms. He is reassured that we are monitoring her and will intervene if needed. Pts only complaint at this time is that she is tired because there were constant interruptions all night as she was wearing the apnealink, which data shows she passed. She is still recieving Rocephin for UTI w/culture pending sensitivity. I stayed with pt and her spouse for sometime answering questions that I could. They do ask that if the weakness does not improve with removal of medications, what should they do then and are agreeable to Neurology consulting why she is here. This is placed at this time. I do suspect that there is a great deal of polypharmacy going on as pt's usual night meds and doses as reviewed with them include: Citalopram 40 mg HS, Clonazepam 1 mg HS, Cyclobenzaprine 20 mg HS, Hydroxyzine 50 mg HS and Trazodone 25 mg HS. All of these medications are metabolized in the liver and have additive side effects that could be making pt have increased weakness, fatigue and anticholinergic changes. I agree with the aforementioned plan of continuing her Clonazepam and Trazodone, but decrease her Cyclobenzaprine to 10 mg HS instead of the self dosed 20 mg HS and holding the Hydroxyzine for now. In addition as she has taken her Citalopram at HS for years, will agree with continuing the dosing at of that. Will also obtain records from [facility] and consult Neuro here. Review of Systems Review of Systems: All systems reviewed & are unremarkable except as noted in HPI and below Exam Narrative: GENERAL: Pleasant, in no acute distress. Well-nourished. - EYES: EOMI. Anicteric. - HENT: Moist mucous membranes. - LUNGS: Clear to auscultation bilateral ly, no wheezing, rhonchi, or rales. - CARDIOVASCULAR: Regular rate and rhyth m. No murmur. No JVD. - ABDOMEN: Soft, non-tender and non-dist ended. No palpable masses. - EXTREMITIES: No edema. Peripheral puls es 2+. Non-tender. - NEUROLOGIC: No focal neurological defi cits. CN II-XII grossly intact. General weakness - PSYCHIATRIC: Awake, Alert and oriented x 3. Appropriate mood and affect. - SKIN: No rashes or lesions. Warm. - LYMPH: No cervical lymphadenopathy. Objective Data Vital Signs Vital Signs: Vital Signs - 24 hr 05/25/24 14:00 05/25/24 15:11 05/25/24 15:11 Temperature 96 F L 96 F L 96 F L Pulse Rate 81 79 74 Respiratory Rate 16 16 16 Blood Pressure 149/56 H 139/58 L 120/50 L Pulse Oximetry 98 99 100 Oxygen Delivery 05/25/24 20:00 05/25/24 20:15 05/25/24 21:46 Temperature 97.5 F L Pulse Rate 72 75 Respiratory Rate 13 Blood Pressure 134/59 L 138/57 L Pulse Oximetry 97 97 Oxygen Delivery Room Air 05/25/24 21:46 05/25/24 21:47 05/25/24 23:00 Temperature 97.5 F L Pulse Rate 78 72 Respiratory Rate 13 Blood Pressure 123/54 L 134/59 L Pulse Oximetry 94 97 97 Oxygen Delivery Room Air 05/26/24 05:29 05/26/24 11:23 Temperature 97.1 F L Pulse Rate 78 Respiratory Rate 13 Blood Pressure 143/63 H Pulse Oximetry 97 Oxygen Delivery Room Air Intake/Output Intake/Output: Intake & Output 05/23/24 05/24/24 05/25/24 05/26/24 23:59 23:59 23:59 23:59 Intake Total 1000 1226 2526.7 Output Total 100 Balance 900 1226 2526.7 Meds/Results Medications: Active Medications Generic Name Dose Route Start Last Admin Trade Name Freq PRN Reason Stop Dose Admin Acetaminophen 650 mg 05/24/24 22:09 05/25/24 16:51 Acetaminophen 325 Mg Tablet PO 650 mg Q4H PRN Administration Mild Pain (1-3) or Fever Artificial Tears 1 drop 05/26/24 07:29 Artificial Tears Ophth Soln 15 Ml Bottle EACH EYE QID PRN Dry Eye(s) Aspirin 81 mg 05/26/24 09:00 05/26/24 09:45 Aspirin 81 Mg Enteric Tablet PO 81 mg QAM SRINI Administration Citalopram Hydrobromide 40 mg 05/26/24 09:00 05/26/24 11:32 Citalopram Hydrobromide 20 Mg Tablet PO Not Given QAM SRINI Clonazepam 2 mg 05/26/24 21:00 Clonazepam (*Crx) 0.5 Mg Tablet PO QHS SRINI Cyclobenzaprine HCl 10 mg 05/25/24 21:00 05/26/24 04:50 Cyclobenzaprine Hcl 10 Mg Tablet PO Not Given QHS SRINI Sodium Chloride 1,000 mls @ 100 mls/hr 05/25/24 12:05 05/26/24 11:34 Normal Saline Iv IV CONT 100 mls/hr .Q10H SRINI Administration Ceftriaxone Sodium 1 gm in 50 mls @ 100 mls/hr 05/25/24 12:10 05/26/24 09:36 Rocephin 1 Gm/Ns 50 Ml IVPB 100 mls/hr DAILY SRINI Administration Melatonin 5 mg 05/25/24 21:00 05/26/24 04:51 Melatonin 5 Mg Tablet PO Not Given HS SRINI Ondansetron HCl 4 mg 05/24/24 22:09 Ondansetron Inj 4 Mg/2 Ml Vial IV PUSH Q4H PRN Nausea Perflutren Lipid Microsphere 0 ml 05/25/24 00:14 Perflutren Lipid Microspheres 1.5 Ml Vial Diluted To 10 Ml Total Volume IV PUSH 05/28/24 00:15 ONCE PRN adequate visualization Protocol Trazodone HCl 25 mg 05/26/24 07:28 Trazodone Hcl 25 Mg Tablet PO HS PRN Sleep Radiology Results: ITS Impressions Head CT 05/24/24 17:34 Impression: No acute intracranial hemorrhage or suspicious mass effect. These findings were discussed with Dr. Veras at 5:30 PM on 05/24/2024 Head/Neck CTA 05/24/24 17:56 IMPRESSION: 1. Normal CTA head and neck. 2. Percent stenosis per NASCET criteria is 0% Chest X-Ray 05/24/24 18:29 IMPRESSION: No focal infiltrate or effusion. Labs Labs: Laboratory Results - last 24 hr 05/26/24 05/26/24 06:30 06:31 Sodium 139 Potassium 4.3 Chloride 113 H Carbon Dioxide 19 L Anion Gap 7 BUN 16 Creatinine 1.08 H Estim Creat Clear Calc 43 Estimated GFR 50 L Glucose 82 Calcium 8.8 Magnesium 2.1 TSH (Reflex) 2.500 Quality VTE Prophylaxis VTE prophylaxis: mechanical ordered
--- NOTE | 2024-05-26 17:31 | P.CONNEU_ITS ---
Assessment and Plan Assessment and plan (1) Weakness: Code(s): R53.1 - Weakness Status: Acute Assessment and Plan: The patient apparently has been we can has had a fall because of the postural hypotension which is being addressed by the hospitalist team. Her medications are being adjusted to avoid postural hypotension however the patient's and also the patient herself very concerned that she may have a withdrawal effect from hydroxyzine and clonazepam. I noted the patient is currently on clonazepam 2 mg HS and Flexeril 10 mg HS and melatonin 5 mg at bedtime and trazodone 25 mg p.r.n. at bedtime. Her concerned about hydroxyzine also. (2) Chronic kidney disease: Code(s): N18.9 - Chronic kidney disease, unspecified Status: Acute (3) TMJ (temporomandibular joint disorder): Code(s): M26.609 - Unspecified temporomandibular joint disorder, unspecified side Status: Chronic (4) B12 deficiency: Code(s): E53.8 - Deficiency of other specified B group vitamins Status: Acute (5) Orthostatic hypotension: Code(s): I95.1 - Orthostatic hypotension Status: Resolved (6) Dementia: Code(s): F03.90 - Unspecified dementia, unspecified severity, without behavioral disturbance, psychotic disturbance, mood disturbance, and anxiety Status: Acute Plan I explained to the patient's that today since he has such a strong views about withdrawal from the medications and leading to psychosis and taking a long time to even get better it is indeed very difficult for me to make a definitive judgment about this view. In case of postural hypotension it is normal that I will also be in favor of holding off some of the medications specially sedating or anticholinergic type medications which can aggravate the situation. However no guarantees can be given in view of the psychological dependence on medications for 20 years. The patient follows with a neurologist and manager of distribution in [facility] and hence I would suggest to defer. I do agree that while she is under observation a gentle manipulation of the medication can be done while observing her. her thinks that her memory memory is still a problem of course this of is a long-term issue can be addressed in the office for which she has seen me once in July of 2023. Consult date: 05/26/24 HPI: Makenzie Mohr is a 74 year old female With history of weakness and fall found to have postural hypotension. She also has history of chronic kidney disease with a creatinine of 1.4. she was previously seen by me in July 2023 with regard to memory problem prior to that she was also seen by Dr. Mesa and was in fact doing fairly well. She has had a blood work for dementia specifically ATN profile which did not show evidence for Alzheimer's disease. It should be noted that this of course is a screening test. The current issue is that the patient is being advised to adjust some of the medication on account of the postural hypertension and apparently she has been on 3 medications for TMJ problem for a long time. According to the if she comes off the medications he is going to have withdrawal symptoms. One time she was a can off the medication and she had a very severe withdrawal and even after the medications were put back on it took long time for her to get better. According to my records her serum B12 level was found to be low at 174 at last year which was corrected with medications and she did very well in terms of the B12 levels. Her is very afraid that if she comes off the medication this may lead to severe withdrawal but he is aware of the fact that the blood pressure drop is a concern. Review of Systems 2 Review of Systems: We were unable to discuss anything else outside the above topic it appears that she has been to [facility] where her primary care provider is and she was seen by a neurologist who and there is some discussion or debate about the medications for TMJ problems which she has been on for 20 years. [facility] Past Medical History Medical History (Updated 05/26/24 @ 13:03 by Angelica Parra APN-Domenico) TMJ (temporomandibular joint disorder) Irritable bowel syndrome with alternating bowel habits Dementia of Alzheimer's type, with early onset, with depressed mood Chronic kidney disease Transient ischemic attack Chronic constipation Depression with anxiety Surgical History Surgical History (Reviewed 04/04/24 @ 12:59 by Vinicio Nowak, [facility]) History of knee replacement History of vaginal hysterectomy (1981) History of bilateral salpingo-oophorectomy (10/1999) History of laparoscopy (06/2000) Laparoscopic adhesiolysis or pelvic pain. Social History Social History (Reviewed 04/04/24 @ 12:59 by Vinicio Nowak [facility] Social History: Surrogate medical decision maker: Britt Mohr, spouse. Code status: Full code. Smoking packs per day: 0 Smoking cigarettes per day: 0.0 Years smoked: 0 Smoking pack-years: 0.00 Smoking status: Never smoker Second hand tobacco smoke exposure: No Alcohol intake: never Substance use: never Substance use type: does not use Do You Feel Safe in your Home?: Yes Lack of Transportation: No Lack of Food: Never True Current Housing: I Have Housing Concerned About Future Housing: No Difficulty Paying Gas/Electric Bills: No Difficulty Paying for Meds: No Currently Unemployed: No Education: Don't Know Difficulty w/ Childcare or Family Care: No Living arrangements: with family Additional living arrangements comments: Lives with spouse and intellectually disabled son. Additional occupation/education comments: Homemaker. Spiritual care concerns: No Meds Home Medications and Allergies Home Medications ?Medication ?Instructions ?Recorded ?Confirmed ?Type clonazepam 2 mg tablet 1 mg PO QHS 09/29/21 05/25/24 History cyclobenzaprine 10 mg tablet 10 mg PO QHS #30 tabs 03/24/23 05/25/24 Rx citalopram 40 mg tablet 40 mg PO DAILY 07/26/23 05/25/24 History trazodone 50 mg tablet 25 mg PO QHS insomnia 07/26/23 05/25/24 History hydroxyzine HCl 25 mg tablet 50 mg PO QHS 05/25/24 05/25/24 History Allergies Allergy/AdvReac Type Severity Reaction Status Date / Time prochlorperazine Allergy Unknown Unknown Verified 05/24/24 18:08 Vital Signs Vital Signs - 24 hr 05/25/24 20:00 05/25/24 20:15 05/25/24 21:46 Temperature 97.5 F L Pulse Rate 72 75 Respiratory Rate 13 Blood Pressure 134/59 L 138/57 L Pulse Oximetry 97 97 Oxygen Delivery Room Air 05/25/24 21:46 05/25/24 21:47 05/25/24 23:00 Temperature 97.5 F L Pulse Rate 78 72 Respiratory Rate 13 Blood Pressure 123/54 L 134/59 L Pulse Oximetry 94 97 97 Oxygen Delivery Room Air 05/26/24 05:29 05/26/24 11:23 05/26/24 12:47 Temperature 97.1 F L Pulse Rate 78 Respiratory Rate 13 Blood Pressure 143/63 H Pulse Oximetry 97 Oxygen Delivery Room Air Room Air 05/26/24 13:54 05/26/24 13:54 05/26/24 13:58 Temperature 97.3 F L 97.3 F L 97.5 F L Pulse Rate 85 85 83 Respiratory Rate 16 16 16 Blood Pressure 126/63 126/63 141/64 H Pulse Oximetry 100 100 99 Oxygen Delivery 05/26/24 14:00 Temperature 97.5 F L Pulse Rate 87 Respiratory Rate 18 Blood Pressure 137/72 Pulse Oximetry 100 Oxygen Delivery Exam 2 Narrative: A detailed neurological exam was not performed although the patient appears to be fairly alert and oriented and is able to talk and verbalized her concern regarding medications. Clearly she has no aphasia or dysarthria. There did not appear to be any evidence for external head injuries. She seems to be moving all her extremities. In view of concern by the patient and her regarding the drug issue a detailed examination was deferred for teacher. She has been seen by an by me in my office in the past year. Results Labs 05/24/24 17:29 05/26/24 06:30 Labs: BMP 05/26/24 06:30 Sodium 139 Potassium 4.3 Chloride 113 H Carbon Dioxide 19 L BUN 16 Creatinine 1.08 H Glucose 82 Calcium 8.8
[2024-05-26] MEDS: clonazePAM (*CRX) 0.5 MG TABLET 2 MG PO (21:20)
[2024-05-26] MEDS: CYCLOBENZAPRINE HCL 10 MG TABLET PO (21:21)
[2024-05-26] MEDS: CITALOPRAM HYDROBROMIDE 20 MG TABLET 40 MG PO (22:07)
[2024-05-26] MEDS: traZODone HCL 25 MG TABLET PO (22:07)
[2024-05-27 05:21] VITALS: BP 137/59; PULSE 76; RESP 14; TEMP 36.2; O2SAT 99
[2024-05-27 07:37] LABS: Basophils Percent Auto 0.5 % (0.2-1.2); Eosinophils Absolute Auto 0.2 K/mm3 (0-0.3); Eosinophils Percent Auto 5.2 % (0-4.4); Hematocrit 35.5 % (37.0-47.0); Hemoglobin 11.4 g/dL (12.0-15.0); Lymphocytes Absolute Auto 1.37 K/mm3 (0.9-3.2); Lymphocytes Percent Auto 34.1 % (18.3-44.2); Mean Corpuscular HGB Conc 32.1 g/dl (32-36); Mean Corpuscular Hemoglobin 28.6 pg (26-34); Mean Platelet Volume 9.9 fl (7.4-10.4); Monocytes Absolute Auto 0.4 K/mm3 (0.1-0.6); Neutrophils Absolute Auto 2.1 K/mm3 (1.3-6.7); Neutrophils Percent Auto 51.2 % (45.5-73.1); Platelet Count Result 267 k/mm3 (150-375); Red Blood Count 3.99 M/mm3 (4.2-5.4); Red Cell Distribution Width 13.2 % (11.5-14.5)
[2024-05-27 07:53] LABS: Alanine Aminotransferase 15 U/L (6-35); Albumin Level 3.5 g/dL (3.5-5.1); Alkaline Phosphatase 111 U/L (38-126); Anion Gap 8 mmol/L (4-12); Aspartate Amino Transferase 19 U/L (14-36); Bilirubin,Total 0.4 mg/dL (0.2-1.3); Blood Urea Nitrogen 19 mg/dL (7-17); Calcium 8.9 mg/dL (8.4-10.2); Carbon Dioxide 20 mmol/L (22-30); Chloride 111 mmol/L (98-107); Estimated CRCL calculation 42 ml/min; Estimated Glomerular Filt Rate 48; Glucose 82 mg/dL (65-110); Sodium 139 mmol/L (137-145)
[2024-05-27] MEDS: ARTIFICIAL TEARS OPHTH SOLN 15 ML BOTTLE 1 DROP EACH EYE (09:06)
[2024-05-27] MEDS: ASPIRIN 81 MG ENTERIC TABLET PO (09:06)
[2024-05-27] MEDS: ACETAMINOPHEN 325 MG TABLET 650 MG PO ×2 (09:19→18:48)
[2024-05-27 11:18] VITALS: BP 146/74; PULSE 76; RESP 16; TEMP 36.4; O2SAT 97
[2024-05-27 11:21] VITALS: BP 133/79; PULSE 76; RESP 16; TEMP 36.3; O2SAT 99
[2024-05-27 11:25] VITALS: BP 128/82; PULSE 82; RESP 18; TEMP 36.4; O2SAT 97
--- NOTE | 2024-05-27 13:51 | P.PNIM_ITS ---
Progress Note: A&P Assessment and Plan (1) Orthostatic hypotension: Code(s): I95.1 - Orthostatic hypotension Status: Resolved Assessment and Plan: * PT was hydrated and this resolved. * Suspect possible polypharmacy contributing. * Continue Telemetry * ECHO showing EF of 65-70% and Grade 1 diastolic dysfunction. * Check orthostats Qshift. * Continue to monitor labs and VS. (2) Urinary tract infection: Code(s): N39.0 - Urinary tract infection, site not specified Status: Resolved Assessment and Plan: 05/26/24: * Pt's urine grew out E.coli. * Continue Rocephin * Awaiting Sensitivities 05/27/24: * Sensitivities complete. E.coli with pansensitivity * Discontinue Rocephin * Start po Levaquin. (3) Weakness: Code(s): R53.1 - Weakness Status: Acute Assessment and Plan: * Likely acute on chronic and multi-factorial with dementia related effects, polypharmacy and generalized deconditioning. * Fall precautions * Normal TSH * See HPI for mentioned changes to medications dosed at HS. * No focal deficits. * Apnea link performed and pt passed in a normal range. 05/27/24: * Neurology recommends following up with their own Neurologist as he cannot make a true assessment and recommendation of treatment. * Pt has chosen SNF for continued therapy. * No need for acute/emergent transfer at this time. * Pts spouse will reach out to Neuro in [place] in the morning for appointment as they are the ones that initiated the idea of a controlled withdrawl of medications in a controlled setting in conjunction with her psychiatrist. * Acute causation of weakness is resolved. (4) Dementia: Code(s): F03.90 - Unspecified dementia, unspecified severity, without behavioral distu rbance, psychotic disturbance, mood disturbance, and anxiety Status: Chronic Assessment and Plan: * Pt sees Neurology as outpt, but is not taking any novel dementia medications. * Will obtain med recs from [facility] and consult our Neurology here. * Fall precautions for safety. 05/27/24: * Continue fall precautions * To follow up with her own Neurologist. (5) Chronic kidney disease: Code(s): N18.9 - Chronic kidney disease, unspecified Status: Chronic Assessment and Plan: * Appears to be at baseline. * Continue to trend and monitor. 05/27/24: * No change in baseline. (6) TMJ (temporomandibular joint disorder): Code(s): M26.609 - Unspecified temporomandibular joint disorder, unspecified side Status: Chronic Assessment and Plan: * Pt with chronic TMJ which was the reason she started taking some of her medications in the first place. * Continue oral appliance at night as ordered. * Would be appropriate to substitute NSAID in place of current medication regimen. Plan Currently awaiting placement in SNF. Spouse to make appointment with Neurologist in [place] for follow up. Time Spent With Patient Time with patient: Greater than 35 minutes Subjective Date/time seen: 05/27/24 13:51 Interval history: This pt was examined at the bedside today and her spouse was present for it. The initial admission problems that included Orthostatic Hypotension, Weakness that was believed to be acute on chronic and UTI are now either resolved or able to be treated as outpt. UTI has grown out E.coli with pansensitivity. Her Rocephin is stopped today and she is started on oral Levaquin. In addition, her measurement of Orthostatic VS has now resolved. IVF are discontinued at this time. Pt is stable for a discharge decision at this time. Pt still complains of weakness, but it is believed that this is a chronic in nature issue. Pt has a long hx of multiple medications that she takes at the same time that can have additive effects leading to weakness. Her appearance of weakness here is neither focal or per her what is beyond baseline for this pt as he has noted that she has been more weak as of the past few months. Several conversations have been had by multiple providers, including myself, admitting hospitalist and even Neurology that pt has a pattern of medications at night that makes her more prone to safety issues and probable increased weakness as she has not been taking medications as prescribed with in some instances taking more than what is prescribed. Pt and her spouse know this to be true as they have discussed with a Neurologist and a psychiatrist in [place] regarding the situation and they recommend having the pt admitted to a facility and weaned off of the medications slowly as she has been taking them for 20+ years. Two changes to her medications have been made here with those being correcting the dose of Flexeril that she takes for TMJ at night from her self increased dose of 20 mg HS to the prescribed dose of 10 mg HS. In addition, the Hydroxyzine 25 mg was held for now. Pt still received her Clonazepam 2 mg HS, Citalopram 40 mg HS, trazodone 25 mg HS and Melatonin 5 mg HS along with the Flexeril 10 mg HS. This has made pt and her spouse very nervous and very upset that she is going to have withdrawl. In addition she complains that she still feels very weak. Neurology was consulted who agrees that her acute weakness symptoms have been treated and are no longer an acute concern, and that any remaining weakness is likely due to the polypharmacy, but as noted in Neurology's note, the pt's strong views about changing the medication although it can contribute to the pt's weakness, low BP and degree of unsteady gait, has made it very difficult for a true Neurological evaluation and she is therefore referred back to her own Neurologist for re- evaluation of chronic weakness. At mention of discharge decision vs placement in SNF today, both the pt and the spouse are angered that we are not keeping her here for more therapy. Pt had a PT evaluation and it was recommended that she go to a SNF for continued therapy. Pt and spouse were upset that we were allowing her to discharge since she is so weak. Spouse states he cannot care for her at home right now. I explained that the acute issues that we could address with the orthostatic hypotension and the degree of weakness associated with that as well as the UTI are now outpt management and monitoring and that if she would like to pursue further PT treatment for strengthening, it would need to be done at a SNF. Both pt and her spouse are very difficult to communicate with and are difficult to re-direct as they are focused on her only getting her medications that she is used to taking on time. Care coordination was asked to assist with the issue and pt has agreed to go to SNF. She is here now only in the setting of needing placement. Pt states she had a terrible night. Apparently there was a negative verbal interaction with nursing overnight regarding her medications and the dosing thereof. They also speak of the Neurologist, Dr. Curtis yesterday having a negative attitude with them and supposedly making comments about not getting paid for yesterdays visit being made as well as he supposedly told them that they would not listen and they were going to do what they wanted anyway. These events reportedly led to the pt having a bad night. She denies any new symptoms other than her chronic weakness and her chronic pain and lack of sleep. Review of Systems Review of Systems: All systems reviewed & are unremarkable except as noted in HPI and below Exam Narrative: GENERAL: Angry female pt sitting on the side of the bed at this time in no visible or overt acute distress. Well-nourished. - EYES: EOMI. Anicteric. - HENT: Moist mucous membranes. - LUNGS: Clear to auscultation bilateral ly, no wheezing, rhonchi, or rales. - CARDIOVASCULAR: Regular rate and rhyth m. No murmur. No JVD. - EXTREMITIES: No edema. Peripheral puls es 2+. Non-tender. - NEUROLOGIC: No focal neurological defi cits. CN II-XII grossly intact. General weakness present - PSYCHIATRIC: Awake, Alert and oriented x 3. Argumentative and difficult to re- direct. Interrupts conversation. - SKIN: No rashes or lesions. Warm. Objective Data Vital Signs Vital Signs: Vital Signs - 24 hr 05/26/24 13:54 05/26/24 13:54 05/26/24 13:58 Temperature 97.3 F L 97.3 F L 97.5 F L Pulse Rate 85 85 83 Respiratory Rate 16 16 16 Blood Pressure 126/63 126/63 141/64 H Pulse Oximetry 100 100 99 Oxygen Delivery 05/26/24 14:00 05/26/24 20:00 05/26/24 21:31 Temperature 97.5 F L 96.9 F L Pulse Rate 87 73 72 Respiratory Rate 18 14 Blood Pressure 137/72 144/66 H 141/69 H Pulse Oximetry 100 98 99 Oxygen Delivery 05/26/24 21:32 05/26/24 22:00 05/27/24 05:21 Temperature 96.9 F L 97.1 F L Pulse Rate 75 73 76 Respiratory Rate 14 14 Blood Pressure 146/70 H 144/66 H 137/59 L Pulse Oximetry 97 98 99 Oxygen Delivery 05/27/24 09:05 05/27/24 11:18 05/27/24 11:21 Temperature 97.5 F L 97.4 F L Pulse Rate 76 76 Respiratory Rate 16 16 Blood Pressure 146/74 H 133/79 Pulse Oximetry 97 99 Oxygen Delivery Room Air 03/23/25 11:25 Temperature 97.5 F L Pulse Rate 82 Respiratory Rate 18 Blood Pressure 128/82 Pulse Oximetry 97 Oxygen Delivery Intake/Output Intake/Output: Intake & Output 05/24/24 05/25/24 05/26/24 05/27/24 23:59 23:59 23:59 23:59 Intake Total 1000 1226 3866.7 270 Output Total 100 Balance 900 1226 3866.7 270 Meds/Results Medications: Active Medications Generic Name Dose Route Start Last Admin Trade Name Freq PRN Reason Stop Dose Admin Acetaminophen 650 mg 05/24/24 22:09 05/27/24 09:19 Acetaminophen 325 Mg Tablet PO 650 mg Q4H PRN Administration Mild Pain (1-3) or Fever Artificial Tears 1 drop 05/26/24 07:29 05/27/24 09:06 Artificial Tears Ophth Soln 15 Ml Bottle EACH EYE 1 drop QID PRN Administration Dry Eye(s) Aspirin 81 mg 05/26/24 09:00 05/27/24 09:06 Aspirin 81 Mg Enteric Tablet PO 81 mg QAM SRINI Administration Citalopram Hydrobromide 40 mg 05/27/24 21:00 Citalopram Hydrobromide 20 Mg Tablet PO HS SRINI Clonazepam 2 mg 05/26/24 21:00 05/26/24 21:20 Clonazepam (*Crx) 0.5 Mg Tablet PO 2 mg QHS SRINI Administration Cyclobenzaprine HCl 10 mg 05/25/24 21:00 05/26/24 21:21 Cyclobenzaprine Hcl 10 Mg Tablet PO 10 mg QHS SRINI Administration Melatonin 5 mg 05/25/24 21:00 05/26/24 21:21 Melatonin 5 Mg Tablet PO Not Given HS SRINI Ondansetron HCl 4 mg 05/24/24 22:09 Ondansetron Inj 4 Mg/2 Ml Vial IV PUSH Q4H PRN Nausea Perflutren Lipid Microsphere 0 ml 05/25/24 00:14 Perflutren Lipid Microspheres 1.5 Ml Vial Diluted To 10 Ml Total Volume IV PUSH 05/28/24 00:15 ONCE PRN adequate visualization Protocol Trazodone HCl 25 mg 05/26/24 22:25 05/26/24 22:26 Trazodone Hcl 25 Mg Tablet PO Not Given HS SRINI Radiology Results: ITS Impressions Head CT 05/24/24 17:34 Impression: No acute intracranial hemorrhage or suspicious mass effect. These findings were discussed with Dr. Veras at 5:30 PM on 05/24/2024 Head/Neck CTA 05/24/24 17:56 IMPRESSION: 1. Normal CTA head and neck. 2. Percent stenosis per NASCET criteria is 0% Chest X-Ray 05/24/24 18:29 IMPRESSION: No focal infiltrate or effusion. Labs Labs: Laboratory Results - last 24 hr 05/27/24 07:04 WBC 4.0 L RBC 3.99 L Hgb 11.4 L Hct 35.5 L MCV 89.0 MCH 28.6 MCHC 32.1 RDW 13.2 Plt Count 267 MPV 9.9 Immature Gran % (Auto) 0.0 Neut % (Auto) 51.2 Lymph % (Auto) 34.1 Morrill % (Auto) 9.0 H Eos % (Auto) 5.2 H Baso % (Auto) 0.5 Lymph # (Auto) 1.37 Morrill # (Auto) 0.4 Eos # (Auto) 0.2 Baso # (Auto) 0.0 Abs Immat Gran (auto) 0.00 Absolute Neuts (auto) 2.1 Absolute Nucleated RBC 0.000 Nucleated RBC % 0.0 Sodium 139 Potassium 4.0 Chloride 111 H Carbon Dioxide 20 L Anion Gap 8 BUN 19 H Creatinine 1.11 H Estim Creat Clear Calc 42 Estimated GFR 48 L Glucose 82 Calcium 8.9 Magnesium 2.0 Total Bilirubin 0.4 AST 19 ALT 15 Alkaline Phosphatase 111 Total Protein 6.0 L Albumin 3.5 Quality VTE Prophylaxis VTE prophylaxis: mechanical ordered
[2024-05-27 14:14] VITALS: BP 151/75; PULSE 79; RESP 16; TEMP 36.4; O2SAT 99
[2024-05-27] MEDS: levoFLOXacin 250 MG TABLET PO (16:02)
[2024-05-27] MEDS: FLUCONAZOLE 150 MG TABLET PO (17:03)
[2024-05-27] MEDS: CYCLOBENZAPRINE HCL 10 MG TABLET PO (21:20)
[2024-05-27] MEDS: traZODone HCL 25 MG TABLET PO (21:20)
[2024-05-27] MEDS: CITALOPRAM HYDROBROMIDE 20 MG TABLET 40 MG PO (21:20)
[2024-05-27] MEDS: clonazePAM (*CRX) 0.5 MG TABLET 2 MG PO (21:21)
[2024-05-27 21:23] VITALS: BP 143/77; PULSE 75; RESP 18; TEMP 36.3; O2SAT 100
[2024-05-28 06:00] VITALS: BP 149/71; PULSE 81; RESP 18; TEMP 36.7; O2SAT 96
[2024-05-28] MEDS: ASPIRIN 81 MG ENTERIC TABLET PO (09:06)
[2024-05-28] MEDS: ACETAMINOPHEN 325 MG TABLET 650 MG PO (09:10)
--- NOTE | 2024-05-28 09:43 | PM.IMPN ---
Progress Note: A&P Assessment and Plan (1) Orthostatic hypotension: Code(s): I95.1 - Orthostatic hypotension Status: Resolved (2) Physical deconditioning: Code(s): R53.81 - Other malaise Status: Acute Plan Fall, Near-syncope, orthostatic hypotension Patient does not have focal weakness Patient has a general weakness, fell when patient stood up Possible due to physical deconditioning, dehydration, and UTI Continue telemetry monitoring, no significant arrhythmia related to syncope so far Follow orthostatic test, echocardiogram: EF of 65-70% and Grade 1 diastolic dysfunction. Appreciate neurologist consultation, considering static hypotension related to the medications treating psychiatric issues Today patient has negative orthostatic test CHAI on CKD, dehydration IV given creatinine ratio above baseline Blood pressure soft Possible due to dehydration and UTI Received fluid resuscitation in the ED, Continue normal saline IV 100 mL/hour UTI UA showed pyuria, urine culture is pending Received ceftriaxone 1 g IV daily Suspecting KENISHA ApneaLink monitor Consult PT OT for evaluation treatment Patient has a general weakness, resulting from physical deconditioning. Waiting for placement in a custodial Subjective Date/time seen: 05/28/24 09:44 Interval history: I saw and examined the patient in presents of patient's . Patient feels generally weak, but denies focal weakness. But patient denies lightheadedness when patient student and walking. Patient denies chest pain, shortness of breath, abdomen pain, nausea vomiting Patient afebrile, blood pressure stable, orthostatic test negative today pulse ox 96-100% on room air, labs reviewed, Exam Narrative: GENERAL: Angry female pt sitting on the side of the bed at this time in no visible or overt acute distress. Well-nourished. - EYES: EOMI. Anicteric. - HENT: Moist mucous membranes. - LUNGS: Clear to auscultation bilaterally, no wheezing, rhonchi, or rales. - CARDIOVASCULAR: Regular rate and rhythm. No murmur. No JVD. - EXTREMITIES: No edema. Peripheral pulses 2+. Non-tender. - NEUROLOGIC: No focal neurological deficits. CN II-XII grossly intact. General weakness present - PSYCHIATRIC: Awake, Alert and oriented x 3. Argumentative and difficult to re-direct. Interrupts conversation. - SKIN: No rashes or lesions. Warm. Objective Data Vital Signs Vital Signs: Vital Signs - 24 hr 05/27/24 11:18 05/27/24 11:21 05/27/24 11:25 Temperature 97.5 F L 97.4 F L 97.5 F L Pulse Rate 76 76 82 Respiratory Rate 16 16 18 Blood Pressure 146/74 H 133/79 128/82 Pulse Oximetry 97 99 97 Oxygen Delivery 05/27/24 14:14 05/27/24 21:20 05/27/24 21:23 Temperature 97.6 F 97.3 F L Pulse Rate 79 75 Respiratory Rate 16 18 Blood Pressure 151/75 H 143/77 H Pulse Oximetry 99 100 Oxygen Delivery Room Air 05/28/24 06:00 Temperature 98.0 F Pulse Rate 81 Respiratory Rate 18 Blood Pressure 149/71 H Pulse Oximetry 96 Oxygen Delivery Intake/Output Intake/Output: Intake & Output 05/25/24 05/26/24 05/27/24 05/28/24 23:59 23:59 23:59 23:59 Intake Total 1226 3866.7 1510 200 Balance 1226 3866.7 1510 200 Meds/Results Medications: Active Medications Generic Name Dose Route Start Last Admin Trade Name Freq PRN Reason Stop Dose Admin Acetaminophen 650 mg 05/24/24 22:09 05/28/24 09:10 Acetaminophen 325 Mg Tablet PO 650 mg Q4H PRN Administration Mild Pain (1-3) or Fever Artificial Tears 1 drop 05/26/24 07:29 05/27/24 09:06 Artificial Tears Ophth Soln 15 Ml Bottle EACH EYE 1 drop QID PRN Administration Dry Eye(s) Aspirin 81 mg 05/26/24 09:00 05/28/24 09:06 Aspirin 81 Mg Enteric Tablet PO 81 mg QAM SRINI Administration Citalopram Hydrobromide 40 mg 05/27/24 21:00 05/27/24 21:20 Citalopram Hydrobromide 20 Mg Tablet PO 40 mg HS SRINI Administration Clonazepam 2 mg 05/26/24 21:00 05/27/24 21:21 Clonazepam (*Crx) 0.5 Mg Tablet PO 2 mg QHS SRINI Administration Cyclobenzaprine HCl 10 mg 05/25/24 21:00 05/27/24 21:20 Cyclobenzaprine Hcl 10 Mg Tablet PO 10 mg QHS SRINI Administration Fluconazole 150 mg 05/30/24 16:40 Fluconazole 150 Mg Tablet PO 05/30/24 16:41 ONCE ONE Levofloxacin 250 mg 05/27/24 14:00 05/27/24 16:02 Levofloxacin 250 Mg Tablet PO 250 mg Q24H SRINI Administration Melatonin 5 mg 05/25/24 21:00 05/27/24 21:21 Melatonin 5 Mg Tablet PO Not Given HS SRINI Ondansetron HCl 4 mg 05/24/24 22:09 Ondansetron Inj 4 Mg/2 Ml Vial IV PUSH Q4H PRN Nausea Trazodone HCl 25 mg 05/26/24 22:25 05/27/24 21:20 Trazodone Hcl 25 Mg Tablet PO 25 mg HS SRINI Administration Radiology Results: ITS Impressions Head CT 05/24/24 17:34 Impression: No acute intracranial hemorrhage or suspicious mass effect. These findings were discussed with Dr. Veras at 5:30 PM on 05/24/2024 Head/Neck CTA 05/24/24 17:56 IMPRESSION: 1. Normal CTA head and neck. 2. Percent stenosis per NASCET criteria is 0% Chest X-Ray 05/24/24 18:29 IMPRESSION: No focal infiltrate or effusion.
[2024-05-28] MEDS: levoFLOXacin 250 MG TABLET PO (13:50)
[2024-05-28 14:00] VITALS: BP 148/84; PULSE 82; RESP 18; TEMP 36.6; O2SAT 98
[2024-05-28] MEDS: polyethylene glycoL 3350 17 GM POWD.PACK PO (15:21)
[2024-05-28] MEDS: SENNA/DOCUSATE SODIUM TABLET 1 TAB PO (16:32)
[2024-05-28] MEDS: CYCLOBENZAPRINE HCL 10 MG TABLET PO (20:55)
[2024-05-28] MEDS: clonazePAM (*CRX) 0.5 MG TABLET 2 MG PO (20:55)
[2024-05-28] MEDS: CITALOPRAM HYDROBROMIDE 20 MG TABLET 40 MG PO (20:55)
[2024-05-28] MEDS: traZODone HCL 25 MG TABLET PO (20:55)
[2024-05-28 21:58] VITALS: BP 148/78; PULSE 81; RESP 18; TEMP 36.4; O2SAT 99
[2024-05-29] VITALS (9 sets, daily range): BP systolic 103–136; BP diastolic 57–92; PULSE 72–98; RESP 16–20; TEMP 36.1–36.4; O2SAT 97–100
[2024-05-29] MEDS: SENNA/DOCUSATE SODIUM TABLET 1 TAB PO ×2 (08:22→17:10)
[2024-05-29] MEDS: ASPIRIN 81 MG ENTERIC TABLET PO (08:22)
[2024-05-29] MEDS: polyethylene glycoL 3350 17 GM POWD.PACK PO (08:22)
--- NOTE | 2024-05-29 09:27 | P.PNIM_ITS ---
Progress Note: A&P Assessment and Plan (1) Orthostatic hypotension: Code(s): I95.1 - Orthostatic hypotension Status: Resolved (2) Physical deconditioning: Code(s): R53.81 - Other malaise Status: Acute Plan Fall, Near-syncope, orthostatic hypotension Patient does not have focal weakness Patient has a general weakness, fell when patient stood up Possible due to physical deconditioning, dehydration, and UTI Continue telemetry monitoring, no significant arrhythmia related to syncope so far Follow orthostatic test, echocardiogram: EF of 65-70% and Grade 1 diastolic dysfunction. Appreciate neurologist consultation, considering static hypotension related to the medications treating psychiatric issues Today patient has negative orthostatic test CHAI on CKD, dehydration IV given creatinine ratio above baseline Blood pressure soft Possible due to dehydration and UTI Received fluid resuscitation in the ED, Received normal saline IV 100 mL/hour Corrected UTI UA showed pyuria, urine culture grows E coli, pansensitive Received ceftriaxone 1 g IV daily and changed to Levaquin p.o.05/27 Completed treatment of 5 days antibiotics today Suspecting KENISHA ApneaLink monitor Consult PT OT for evaluation treatment Patient has a general weakness, resulting from physical deconditioning. Waiting for placement in a [facility]. Subjective Date/time seen: 05/29/24 09:27 Interval history: I saw and examined. Patient felt lightheaded in the morning, orthostatic headache was positive. But when I saw exam the patient, patient denied lightheadedness, repeated orthostatic test negative of hypertension Patient denies chest pain, shortness of breath, abdomen pain, nausea vomiting Patient afebrile, blood pressure stable, orthostatic test negative today pulse ox 96-100% on room air, labs reviewed, Exam Narrative: GENERAL: Angry female pt sitting on the side of the bed at this time in no visible or overt acute distress. Well-nourished. - EYES: EOMI. Anicteric. - HENT: Moist mucous membranes. - LUNGS: Clear to auscultation bilateral ly, no wheezing, rhonchi, or rales. - CARDIOVASCULAR: Regular rate and rhyth m. No murmur. No JVD. - EXTREMITIES: No edema. Peripheral puls es 2+. Non-tender. - NEUROLOGIC: No focal neurological defi cits. CN II-XII grossly intact. General weakness present - PSYCHIATRIC: Awake, Alert and oriented x 3. Argumentative and difficult to re- direct. Interrupts conversation. - SKIN: No rashes or lesions. Warm. Objective Data Vital Signs Vital Signs: Vital Signs - 24 hr 05/28/24 14:00 05/28/24 20:55 05/28/24 21:58 Temperature 97.8 F 97.5 F L Pulse Rate 82 81 Respiratory Rate 18 18 Blood Pressure 148/84 H 148/78 H Pulse Oximetry 98 99 Oxygen Delivery Room Air 05/29/24 06:00 Temperature 97.5 F L Pulse Rate 75 Respiratory Rate 18 Blood Pressure 133/75 Pulse Oximetry 98 Oxygen Delivery Intake/Output Intake/Output: Intake & Output 05/26/24 05/27/24 05/28/24 05/29/24 23:59 23:59 23:59 23:59 Intake Total 3866.7 1510 2160 200 Balance 3866.7 1510 2160 200 Meds/Results Medications: Active Medications Generic Name Dose Route Start Last Admin Trade Name Freq PRN Reason Stop Dose Admin Acetaminophen 650 mg 05/24/24 22:09 05/28/24 09:10 Acetaminophen 325 Mg Tablet PO 650 mg Q4H PRN Administration Mild Pain (1-3) or Fever Artificial Tears 1 drop 05/26/24 07:29 05/27/24 09:06 Artificial Tears Ophth Soln 15 Ml Bottle EACH EYE 1 drop QID PRN Administration Dry Eye(s) Aspirin 81 mg 05/26/24 09:00 05/29/24 08:22 Aspirin 81 Mg Enteric Tablet PO 81 mg QAM SRINI Administration Citalopram Hydrobromide 40 mg 05/27/24 21:00 05/28/24 20:55 Citalopram Hydrobromide 20 Mg Tablet PO 40 mg HS SRINI Administration Clonazepam 2 mg 05/26/24 21:00 05/28/24 20:55 Clonazepam (*Crx) 0.5 Mg Tablet PO 2 mg QHS SRINI Administration Cyclobenzaprine HCl 10 mg 05/25/24 21:00 05/28/24 20:55 Cyclobenzaprine Hcl 10 Mg Tablet PO 10 mg QHS SRINI Administration Fluconazole 150 mg 05/30/24 16:40 Fluconazole 150 Mg Tablet PO 05/30/24 16:41 ONCE ONE Levofloxacin 250 mg 05/27/24 14:00 05/28/24 13:50 Levofloxacin 250 Mg Tablet PO 250 mg Q24H SRINI Administration Melatonin 5 mg 05/25/24 21:00 05/28/24 20:48 Melatonin 5 Mg Tablet PO Not Given HS SRINI Ondansetron HCl 4 mg 05/24/24 22:09 Ondansetron Inj 4 Mg/2 Ml Vial IV PUSH Q4H PRN Nausea Polyethylene Glycol 17 gm 05/28/24 14:53 05/29/24 08:22 Polyethylene Glycol 3350 17 Gm Powd.Pack PO 17 gm QAM PRN Administration Constipation Senna/Docusate Sodium 1 tab 05/28/24 17:00 05/29/24 08:22 Senna/Docusate Sodium Tablet PO 1 tab BID SRINI Administration Trazodone HCl 25 mg 05/26/24 22:25 05/28/24 20:55 Trazodone Hcl 25 Mg Tablet PO 25 mg HS SRINI Administration Radiology Results: ITS Impressions Head CT 05/24/24 17:34 Impression: No acute intracranial hemorrhage or suspicious mass effect. These findings were discussed with Dr. Veras at 5:30 PM on 05/24/2024 Head/Neck CTA 05/24/24 17:56 IMPRESSION: 1. Normal CTA head and neck. 2. Percent stenosis per NASCET criteria is 0% Chest X-Ray 05/24/24 18:29 IMPRESSION: No focal infiltrate or effusion.
[2024-05-29 10:01] LABS: Hematocrit 38.4 % (37.0-47.0); Hemoglobin 12.8 g/dL (12.0-15.0); Mean Corpuscular HGB Conc 33.3 g/dl (32-36); Mean Corpuscular Hemoglobin 29.2 pg (26-34); Mean Corpuscular Volume 87.5 fl (80-100); Mean Platelet Volume 9.8 fl (7.4-10.4); Platelet Count Result 299 k/mm3 (150-375); Red Blood Count 4.39 M/mm3 (4.2-5.4); Red Cell Distribution Width 13.3 % (11.5-14.5); White Blood Count 4.2 K/mm3 (4.5-10.0)
[2024-05-29] MEDS: ACETAMINOPHEN 325 MG TABLET 650 MG PO (10:10)
[2024-05-29 10:20] LABS: Anion Gap 9 mmol/L (4-12); Blood Urea Nitrogen 20 mg/dL (7-17); Calcium 9.3 mg/dL (8.4-10.2); Carbon Dioxide 22 mmol/L (22-30); Chloride 107 mmol/L (98-107); Estimated CRCL calculation 37 ml/min; Estimated Glomerular Filt Rate 42; Glucose 112 mg/dL (65-110); Potassium 3.8 mmol/L (3.4-5.0); Sodium 138 mmol/L (137-145)
[2024-05-29] MEDS: MAGNESIUM HYDROXIDE SUSP 30 ML UDC PO (14:38)
[2024-05-29] MEDS: CYCLOBENZAPRINE HCL 10 MG TABLET PO (21:08)
[2024-05-29] MEDS: CITALOPRAM HYDROBROMIDE 20 MG TABLET 40 MG PO (21:08)
[2024-05-29] MEDS: clonazePAM (*CRX) 0.5 MG TABLET 2 MG PO (21:08)
[2024-05-29] MEDS: traZODone HCL 25 MG TABLET PO (21:08)
[2024-05-30 05:44] VITALS: BP 127/71; PULSE 73; RESP 18; TEMP 36.4; O2SAT 100
[2024-05-30] MEDS: polyethylene glycoL 3350 17 GM POWD.PACK PO (09:16)
[2024-05-30] MEDS: ASPIRIN 81 MG ENTERIC TABLET PO (09:16)
[2024-05-30] MEDS: SENNA/DOCUSATE SODIUM TABLET 1 TAB PO ×2 (09:16→16:59)
[2024-05-30] MEDS: FLUCONAZOLE 150 MG TABLET PO (09:16)
[2024-05-30 09:22] LABS: Basophils Percent Auto 0.2 % (0.2-1.2); Eosinophils Absolute Auto 0.2 K/mm3 (0-0.3); Hematocrit 40.1 % (37.0-47.0); Hemoglobin 13.1 g/dL (12.0-15.0); Immature Granulocyte Absolute 0.01 K/mm3 (0.00-0.031); Immature Granulocyte Percent A 0.2 % (0-0.5); Lymphocytes Percent Auto 26.5 % (18.3-44.2); Mean Corpuscular HGB Conc 32.7 g/dl (32-36); Mean Corpuscular Hemoglobin 28.9 pg (26-34); Mean Corpuscular Volume 88.5 fl (80-100); Mean Platelet Volume 9.6 fl (7.4-10.4); Monocytes Absolute Auto 0.5 K/mm3 (0.1-0.6); Monocytes Percent Auto 10.2 % (2.6-8.5); Neutrophils Absolute Auto 2.7 K/mm3 (1.3-6.7); Neutrophils Percent Auto 58.9 % (45.5-73.1); Platelet Count Result 300 k/mm3 (150-375); Red Blood Count 4.53 M/mm3 (4.2-5.4); Red Cell Distribution Width 13.6 % (11.5-14.5); White Blood Count 4.5 K/mm3 (4.5-10.0)
[2024-05-30 09:33] LABS: Alanine Aminotransferase 34 U/L (6-35); Alkaline Phosphatase 126 U/L (38-126); Anion Gap 9 mmol/L (4-12); Aspartate Amino Transferase 32 U/L (14-36); Bilirubin,Total 0.4 mg/dL (0.2-1.3); Blood Urea Nitrogen 23 mg/dL (7-17); Calcium 9.3 mg/dL (8.4-10.2); Carbon Dioxide 25 mmol/L (22-30); Chloride 105 mmol/L (98-107); Estimated CRCL calculation 38 ml/min; Estimated Glomerular Filt Rate 42; Glucose 99 mg/dL (65-110); Magnesium 2.4 mg/dL (1.6-2.3); Potassium 3.9 mmol/L (3.4-5.0); Sodium 139 mmol/L (137-145)
--- NOTE | 2024-05-30 12:17 | P.PNIM_ITS ---
Progress Note: A&P Assessment and Plan (1) Orthostatic hypotension: Code(s): I95.1 - Orthostatic hypotension Status: Resolved Assessment and Plan: * Echocardiogram: EF of 65-70% and Grade 1 diastolic dysfunction. * Appreciate neurologist consultation, considering static hypotension related to the medications treating psychiatric issues. (2) Physical deconditioning: Code(s): R53.81 - Other malaise Status: Acute Assessment and Plan: * PT/OT (3) Irritable bowel syndrome with alternating bowel habits: Code(s): K58.2 - Mixed irritable bowel syndrome Status: Acute Assessment and Plan: * Last bowel movement 8 days ago. * Add Bisacolyl 10 mg suppository to bowel regimen (Docusate/senna 1 tab PO BID and Miralax 17 gram PO daily PRN. Patient drinking apple juice and has prune juice she is going to drink. * Monitor stools. Plan Fall, Near-syncope, orthostatic hypotension Patient does not have focal weakness Patient has a general weakness, fell when patient stood up Possible due to physical deconditioning, dehydration, and UTI Continue telemetry monitoring, no significant arrhythmia related to syncope so far Follow orthostatic test, echocardiogram: EF of 65-70% and Grade 1 diastolic dysfunction. Appreciate neurologist consultation, considering static hypotension related to the medications treating psychiatric issues Today patient has negative orthostatic test CHAI on CKD, dehydration IV given creatinine ratio above baseline Blood pressure soft Possible due to dehydration and UTI Received fluid resuscitation in the ED, Received normal saline IV 100 mL/hour Corrected UTI UA showed pyuria, urine culture grows E coli, pansensitive Received ceftriaxone 1 g IV daily and changed to Levaquin p.o.05/27 Completed treatment of 5 days antibiotics today Suspecting KENISHA ApneaLink monitor Consult PT OT for evaluation treatment Patient has a general weakness, resulting from physical deconditioning. Waiting for placement in a [facility]. Subjective Date/time seen: 05/30/24 12:17 Interval history: Patient sitting up eating lunch. Patient denies chest pain, palpitations, headache, dizziness, nausea, or vomiting. Patient reports that she has not had a bowel movement in 8 days. Patient reports that she is passing gas. Review of Systems Review of Systems: All systems reviewed & are unremarkable except as noted in HPI and below Exam Const: General: comfortable and no acute distress Resp: Effort & Inspection: normal respiratory effort Auscultation: clear to auscultation bilaterally Cardio: Rate: regular rate Rhythm: regular rhythm GI: Inspection: distended GI Palp: Yes Soft to palpation Auscultation: normal bowel sounds Neuro: Speech: normal speech Extrem: General: no pedal edema Psych: Mental Status: mental status grossly normal Affect: normal affect Objective Data Vital Signs Vital Signs: Vital Signs - 24 hr 05/29/24 14:00 05/29/24 20:00 05/29/24 21:43 Temperature 96.9 F L 97.3 F L Pulse Rate 80 83 Respiratory Rate 16 20 Blood Pressure 119/77 124/84 Pulse Oximetry 98 100 Oxygen Delivery Room Air 05/30/24 05:44 Temperature 97.5 F L Pulse Rate 73 Respiratory Rate 18 Blood Pressure 127/71 Pulse Oximetry 100 Oxygen Delivery Intake/Output Intake/Output: Intake & Output 05/27/24 05/28/24 05/29/24 05/30/24 23:59 23:59 23:59 23:59 Intake Total 1510 2160 800 440 Balance 1510 2160 800 440 Meds/Results Medications: Active Medications Generic Name Dose Route Start Last Admin Trade Name Freq PRN Reason Stop Dose Admin Acetaminophen 650 mg 05/24/24 22:09 05/29/24 10:10 Acetaminophen 325 Mg Tablet PO 650 mg Q4H PRN Administration Mild Pain (1-3) or Fever Artificial Tears 1 drop 05/26/24 07:29 05/27/24 09:06 Artificial Tears Ophth Soln 15 Ml Bottle EACH EYE 1 drop QID PRN Administration Dry Eye(s) Aspirin 81 mg 05/26/24 09:00 05/30/24 09:16 Aspirin 81 Mg Enteric Tablet PO 81 mg QAM SRINI Administration Citalopram Hydrobromide 40 mg 05/27/24 21:00 05/29/24 21:08 Citalopram Hydrobromide 20 Mg Tablet PO 40 mg HS SRINI Administration Clonazepam 2 mg 05/26/24 21:00 05/29/24 21:08 Clonazepam (*Crx) 0.5 Mg Tablet PO 2 mg QHS SRINI Administration Cyclobenzaprine HCl 10 mg 05/25/24 21:00 05/29/24 21:08 Cyclobenzaprine Hcl 10 Mg Tablet PO 10 mg QHS SRINI Administration Melatonin 5 mg 05/25/24 21:00 05/29/24 21:08 Melatonin 5 Mg Tablet PO Not Given HS SRINI Ondansetron HCl 4 mg 05/24/24 22:09 Ondansetron Inj 4 Mg/2 Ml Vial IV PUSH Q4H PRN Nausea Polyethylene Glycol 17 gm 05/28/24 14:53 05/30/24 09:16 Polyethylene Glycol 3350 17 Gm Powd.Pack PO 17 gm QAM PRN Administration Constipation Senna/Docusate Sodium 1 tab 05/28/24 17:00 05/30/24 09:16 Senna/Docusate Sodium Tablet PO 1 tab BID SRINI Administration Trazodone HCl 25 mg 05/26/24 22:25 05/29/24 21:08 Trazodone Hcl 25 Mg Tablet PO 25 mg HS SRINI Administration Radiology Results: ITS Impressions Head CT 05/24/24 17:34 Impression: No acute intracranial hemorrhage or suspicious mass effect. These findings were discussed with Dr. Veras at 5:30 PM on 05/24/2024 Head/Neck CTA 05/24/24 17:56 IMPRESSION: 1. Normal CTA head and neck. 2. Percent stenosis per NASCET criteria is 0% Chest X-Ray 05/24/24 18:29 IMPRESSION: No focal infiltrate or effusion. Labs Labs: Laboratory Results - last 24 hr 05/30/24 09:16 WBC 4.5 RBC 4.53 Hgb 13.1 Hct 40.1 MCV 88.5 MCH 28.9 MCHC 32.7 RDW 13.6 Plt Count 300 MPV 9.6 Immature Gran % (Auto) 0.2 Neut % (Auto) 58.9 Lymph % (Auto) 26.5 [place] % (Auto) 10.2 H Eos % (Auto) 4.0 Baso % (Auto) 0.2 Lymph # (Auto) 1.20 [place] # (Auto) 0.5 Eos # (Auto) 0.2 Baso # (Auto) 0.0 Abs Immat Gran (auto) 0.01 Absolute Neuts (auto) 2.7 Absolute Nucleated RBC 0.000 Nucleated RBC % 0.0 Sodium 139 Potassium 3.9 Chloride 105 Carbon Dioxide 25 Anion Gap 9 BUN 23 H Creatinine 1.24 H Estim Creat Clear Calc 38 Estimated GFR 42 L Glucose 99 Calcium 9.3 Magnesium 2.4 H Total Bilirubin 0.4 AST 32 ALT 34 Alkaline Phosphatase 126 Total Protein 7.0 Albumin 4.0 Quality VTE Prophylaxis VTE prophylaxis: mechanical ordered
[2024-05-30 14:00] VITALS: BP 97/62; PULSE 88; RESP 16; TEMP 36.7; O2SAT 96
[2024-05-30] MEDS: BISACODYL 10 MG SUPPOSITORY RECTAL (15:00)
[2024-05-30 20:00] VITALS: BP 118/82; PULSE 78; RESP 14; TEMP 36.1; O2SAT 98
[2024-05-30] MEDS: traZODone HCL 25 MG TABLET PO (20:16)
[2024-05-30] MEDS: CITALOPRAM HYDROBROMIDE 20 MG TABLET 40 MG PO (20:16)
[2024-05-30] MEDS: CYCLOBENZAPRINE HCL 10 MG TABLET PO (20:16)
[2024-05-30] MEDS: clonazePAM (*CRX) 0.5 MG TABLET 2 MG PO (20:17)
[2024-05-30 21:09] VITALS: BP 114/56; BP 118/66; PULSE 78; O2SAT 95; O2SAT 99
[2024-05-30 21:10] VITALS: BP 118/82; PULSE 78; RESP 14; TEMP 36.1; O2SAT 98
[2024-05-31 05:35] VITALS: BP 108/45; PULSE 69; RESP 12; TEMP 36.1; O2SAT 99
[2024-05-31 06:21] LABS: Basophils Percent Auto 0.5 % (0.2-1.2); Eosinophils Absolute Auto 0.3 K/mm3 (0-0.3); Eosinophils Percent Auto 6.4 % (0-4.4); Hematocrit 38.5 % (37.0-47.0); Hemoglobin 12.6 g/dL (12.0-15.0); Immature Granulocyte Absolute 0.02 K/mm3 (0.00-0.031); Immature Granulocyte Percent A 0.5 % (0-0.5); Lymphocytes Absolute Auto 1.38 K/mm3 (0.9-3.2); Lymphocytes Percent Auto 31.7 % (18.3-44.2); Mean Corpuscular HGB Conc 32.7 g/dl (32-36); Mean Corpuscular Hemoglobin 29.2 pg (26-34); Mean Corpuscular Volume 89.1 fl (80-100); Mean Platelet Volume 10.4 fl (7.4-10.4); Monocytes Absolute Auto 0.5 K/mm3 (0.1-0.6); Monocytes Percent Auto 11.5 % (2.6-8.5); Neutrophils Absolute Auto 2.2 K/mm3 (1.3-6.7); Neutrophils Percent Auto 49.4 % (45.5-73.1); Nucleated Red Blood Cells Perc 1.6 % (0.0-0.2); Platelet Count Result 288 k/mm3 (150-375); Red Blood Count 4.32 M/mm3 (4.2-5.4); Red Cell Distribution Width 13.5 % (11.5-14.5); White Blood Count 4.4 K/mm3 (4.5-10.0)
[2024-05-31 07:58] LABS: Alanine Aminotransferase 36 U/L (6-35); Albumin Level 4.2 g/dL (3.5-5.1); Alkaline Phosphatase 138 U/L (38-126); Anion Gap 7 mmol/L (4-12); Aspartate Amino Transferase 29 U/L (14-36); Bilirubin,Total 0.4 mg/dL (0.2-1.3); Blood Urea Nitrogen 21 mg/dL (7-17); Calcium 9.6 mg/dL (8.4-10.2); Carbon Dioxide 25 mmol/L (22-30); Chloride 106 mmol/L (98-107); Estimated CRCL calculation 35 ml/min; Estimated Glomerular Filt Rate 39; Glucose 94 mg/dL (65-110); Magnesium 2.5 mg/dL (1.6-2.3); Potassium 4.9 mmol/L (3.4-5.0); Sodium 138 mmol/L (137-145)
[2024-05-31] MEDS: polyethylene glycoL 3350 17 GM POWD.PACK PO (08:24)
[2024-05-31] MEDS: SENNA/DOCUSATE SODIUM TABLET 1 TAB PO ×2 (08:24→17:14)
[2024-05-31] MEDS: ASPIRIN 81 MG ENTERIC TABLET PO (08:24)
--- NOTE | 2024-05-31 10:05 | PCNWS ---
Weekly nutritional screen. Patient is tolerating current Heart healthy with adequate intake, 90-100%. No weight loss reported. No nutritional needs at this time.
--- NOTE | 2024-05-31 11:59 | P.PNIM_ITS ---
Progress Note: A&P Assessment and Plan (1) Orthostatic hypotension: Code(s): I95.1 - Orthostatic hypotension Status: Resolved Assessment and Plan: * Echocardiogram: EF of 65-70% and Grade 1 diastolic dysfunction. * Appreciate neurologist consultation, considering static hypotension related to the medications treating psychiatric issues. * Orthostatics: Sitting BP 118/66 HR 78, standing BP 114/56 with HR 78, and supine BP 118/82 with HR 78. (2) Physical deconditioning: Code(s): R53.81 - Other malaise Status: Acute Assessment and Plan: * PT/OT (3) Irritable bowel syndrome with alternating bowel habits: Code(s): K58.2 - Mixed irritable bowel syndrome Status: Acute Assessment and Plan: * Last bowel movement yesterday 2 bowel movements. * Bisacodyl 10 mg qam PRN suppository, Docusate/senna 1 tab PO BID, and Miralax 17 gram PO daily PRN. * Monitor stools. Plan Fall, Near-syncope, orthostatic hypotension Patient does not have focal weakness Patient has a general weakness, fell when patient stood up Possible due to physical deconditioning, dehydration, and UTI Continue telemetry monitoring, no significant arrhythmia related to syncope so far Follow orthostatic test, echocardiogram: EF of 65-70% and Grade 1 diastolic dysfunction. Appreciate neurologist consultation, considering static hypotension related to the medications treating psychiatric issues Today patient has negative orthostatic test CHAI on CKD, dehydration IV given creatinine ratio above baseline Blood pressure soft Possible due to dehydration and UTI Received fluid resuscitation in the ED, Received normal saline IV 100 mL/hour Corrected UTI UA showed pyuria, urine culture grows E coli, pansensitive Received ceftriaxone 1 g IV daily and changed to Levaquin p.o.05/27 Completed treatment of 5 days antibiotics today Suspecting KENISHA ApneaLink monitor Consult PT OT for evaluation treatment Patient has a general weakness, resulting from physical deconditioning. Waiting for placement in a custodial. Subjective Date/time seen: 05/31/24 11:59 Interval history: Patient sitting up in chair with at bedside. Patient denies pain, shortness of breath, headache, dizziness, nausea, or vomiting. Patient had 2 bowel movements yesterday. Review of Systems Review of Systems: All systems reviewed & are unremarkable except as noted in HPI and below Exam Const: General: comfortable and no acute distress Resp: Effort & Inspection: normal respiratory effort Auscultation: clear to auscultation bilaterally Cardio: Rate: regular rate Rhythm: regular rhythm GI: GI Palp: Yes Soft to palpation Auscultation: normal bowel sounds Neuro: Speech: normal speech Extrem: General: no pedal edema Psych: Mental Status: mental status grossly normal Affect: normal affect Objective Data Vital Signs Vital Signs: Vital Signs - 24 hr 05/30/24 14:00 05/30/24 20:00 05/30/24 20:00 Temperature 98.0 F 96.9 F L Pulse Rate 88 78 Respiratory Rate 16 14 Blood Pressure 97/62 L 118/82 Pulse Oximetry 96 98 Oxygen Delivery Room Air 05/30/24 21:09 05/30/24 21:09 05/30/24 21:10 Temperature 96.9 F L Pulse Rate 78 78 78 Respiratory Rate 14 Blood Pressure 118/66 114/56 L 118/82 Pulse Oximetry 99 95 98 Oxygen Delivery 05/31/24 05:35 05/31/24 08:00 Temperature 96.9 F L Pulse Rate 69 Respiratory Rate 12 Blood Pressure 108/45 L Pulse Oximetry 99 Oxygen Delivery Room Air Intake/Output Intake/Output: Intake & Output 05/28/24 05/29/24 05/30/24 05/31/24 23:59 23:59 23:59 23:59 Intake Total 2160 800 917 740 Balance 2160 800 917 740 Meds/Results Medications: Active Medications Generic Name Dose Route Start Last Admin Trade Name Freq PRN Reason Stop Dose Admin Acetaminophen 650 mg 05/24/24 22:09 05/29/24 10:10 Acetaminophen 325 Mg Tablet PO 650 mg Q4H PRN Administration Mild Pain (1-3) or Fever Artificial Tears 1 drop 05/26/24 07:29 05/27/24 09:06 Artificial Tears Ophth Soln 15 Ml Bottle EACH EYE 1 drop QID PRN Administration Dry Eye(s) Aspirin 81 mg 05/26/24 09:00 05/31/24 08:24 Aspirin 81 Mg Enteric Tablet PO 81 mg QAM SRINI Administration Bisacodyl 10 mg 05/30/24 12:18 Bisacodyl 10 Mg Suppository RECTAL QAM PRN Constipation Citalopram Hydrobromide 40 mg 05/27/24 21:00 05/30/24 20:16 Citalopram Hydrobromide 20 Mg Tablet PO 40 mg HS SRINI Administration Clonazepam 2 mg 05/26/24 21:00 05/30/24 20:17 Clonazepam (*Crx) 0.5 Mg Tablet PO 2 mg QHS SRINI Administration Cyclobenzaprine HCl 10 mg 05/25/24 21:00 05/30/24 20:16 Cyclobenzaprine Hcl 10 Mg Tablet PO 10 mg QHS SRINI Administration Melatonin 5 mg 05/25/24 21:00 05/30/24 20:25 Melatonin 5 Mg Tablet PO Not Given HS SRINI Ondansetron HCl 4 mg 05/24/24 22:09 Ondansetron Inj 4 Mg/2 Ml Vial IV PUSH Q4H PRN Nausea Polyethylene Glycol 17 gm 05/28/24 14:53 05/31/24 08:24 Polyethylene Glycol 3350 17 Gm Powd.Pack PO 17 gm QAM PRN Administration Constipation Senna/Docusate Sodium 1 tab 05/28/24 17:00 05/31/24 08:24 Senna/Docusate Sodium Tablet PO 1 tab BID SRINI Administration Trazodone HCl 25 mg 05/26/24 22:25 05/30/24 20:16 Trazodone Hcl 25 Mg Tablet PO 25 mg HS SRINI Administration Radiology Results: ITS Impressions Head CT 05/24/24 17:34 Impression: No acute intracranial hemorrhage or suspicious mass effect. These findings were discussed with Dr. Veras at 5:30 PM on 05/24/2024 Head/Neck CTA 05/24/24 17:56 IMPRESSION: 1. Normal CTA head and neck. 2. Percent stenosis per NASCET criteria is 0% Chest X-Ray 05/24/24 18:29 IMPRESSION: No focal infiltrate or effusion. Labs Labs: Laboratory Results - last 24 hr 05/31/24 05/31/24 05:45 07:25 WBC 4.4 L RBC 4.32 Hgb 12.6 Hct 38.5 MCV 89.1 MCH 29.2 MCHC 32.7 RDW 13.5 Plt Count 288 MPV 10.4 Immature Gran % (Auto) 0.5 Neut % (Auto) 49.4 Lymph % (Auto) 31.7 [place] % (Auto) 11.5 H Eos % (Auto) 6.4 H Baso % (Auto) 0.5 Lymph # (Auto) 1.38 [place] # (Auto) 0.5 Eos # (Auto) 0.3 Baso # (Auto) 0.0 Abs Immat Gran (auto) 0.02 Absolute Neuts (auto) 2.2 Absolute Nucleated RBC 0.070 H Nucleated RBC % 1.6 H Sodium 138 Potassium 4.9 Chloride 106 Carbon Dioxide 25 Anion Gap 7 BUN 21 H Creatinine 1.33 H Estim Creat Clear Calc 35 Estimated GFR 39 L Glucose 94 Calcium 9.6 Magnesium 2.5 H Total Bilirubin 0.4 AST 29 ALT 36 H Alkaline Phosphatase 138 H Total Protein 7.0 Albumin 4.2 Quality VTE Prophylaxis VTE prophylaxis: mechanical ordered
[2024-05-31 14:00] VITALS: BP 112/58; PULSE 78; RESP 15; TEMP 36.4; O2SAT 98
[2024-05-31 15:26] LABS: Folic Acid 8.1 ng/mL (2.76->20)
[2024-05-31 17:29] LABS: Vitamin D 25 Hydroxy 20.1 ng/mL
[2024-05-31] MEDS: MELATONIN 5 MG TABLET PO (19:51)
[2024-05-31] MEDS: traZODone HCL 25 MG TABLET PO (19:51)
[2024-05-31] MEDS: clonazePAM (*CRX) 0.5 MG TABLET 2 MG PO (19:51)
[2024-05-31] MEDS: CYCLOBENZAPRINE HCL 10 MG TABLET PO (19:51)
[2024-05-31] MEDS: CITALOPRAM HYDROBROMIDE 20 MG TABLET 40 MG PO (19:51)
[2024-05-31 20:00] VITALS: BP 112/48; PULSE 78; RESP 13; RESP 15; TEMP 36.1; O2SAT 98; O2SAT 99
[2024-05-31 21:10] VITALS: BP 121/69; PULSE 81; O2SAT 97
[2024-05-31 21:11] VITALS: BP 109/60; PULSE 88; O2SAT 98
[2024-05-31 21:12] VITALS: BP 112/48; PULSE 78; RESP 13; TEMP 36.1; O2SAT 99
[2024-06-01 05:27] LABS: Basophils Percent Auto 0.6 % (0.2-1.2); Eosinophils Absolute Auto 0.3 K/mm3 (0-0.3); Hematocrit 39.6 % (37.0-47.0); Hemoglobin 12.7 g/dL (12.0-15.0); Immature Granulocyte Absolute 0.01 K/mm3 (0.00-0.031); Immature Granulocyte Percent A 0.2 % (0-0.5); Lymphocytes Absolute Auto 1.65 K/mm3 (0.9-3.2); Lymphocytes Percent Auto 34.2 % (18.3-44.2); Mean Corpuscular HGB Conc 32.1 g/dl (32-36); Mean Corpuscular Hemoglobin 28.7 pg (26-34); Mean Corpuscular Volume 89.6 fl (80-100); Mean Platelet Volume 9.9 fl (7.4-10.4); Monocytes Absolute Auto 0.5 K/mm3 (0.1-0.6); Monocytes Percent Auto 10.6 % (2.6-8.5); Neutrophils Absolute Auto 2.3 K/mm3 (1.3-6.7); Neutrophils Percent Auto 48.4 % (45.5-73.1); Platelet Count Result 306 k/mm3 (150-375); Red Blood Count 4.42 M/mm3 (4.2-5.4); Red Cell Distribution Width 13.8 % (11.5-14.5); White Blood Count 4.8 K/mm3 (4.5-10.0)
[2024-06-01 05:33] VITALS: BP 122/54; PULSE 79; RESP 14; TEMP 36.2; O2SAT 97
[2024-06-01 05:37] LABS: Alanine Aminotransferase 29 U/L (6-35); Albumin Level 4.1 g/dL (3.5-5.1); Alkaline Phosphatase 133 U/L (38-126); Anion Gap 10 mmol/L (4-12); Aspartate Amino Transferase 24 U/L (14-36); Bilirubin,Total 0.5 mg/dL (0.2-1.3); Blood Urea Nitrogen 25 mg/dL (7-17); Calcium 9.6 mg/dL (8.4-10.2); Carbon Dioxide 24 mmol/L (22-30); Chloride 105 mmol/L (98-107); Estimated CRCL calculation 35 ml/min; Estimated Glomerular Filt Rate 39; Glucose 97 mg/dL (65-110); Magnesium 2.5 mg/dL (1.6-2.3); Potassium 4.6 mmol/L (3.4-5.0); Sodium 139 mmol/L (137-145)
[2024-06-01 08:00] VITALS: BP 110/78; PULSE 85; RESP 18; TEMP 36.5; O2SAT 94
[2024-06-01] MEDS: polyethylene glycoL 3350 17 GM POWD.PACK PO (08:28)
[2024-06-01] MEDS: SENNA/DOCUSATE SODIUM TABLET 1 TAB PO (08:28)
[2024-06-01] MEDS: ASPIRIN 81 MG ENTERIC TABLET PO (08:29)
[2024-06-01] MEDS: CHOLECALCIFEROL 5,000 UNITS TABLET 5000 UNITS PO (08:34)
--- NOTE | 2024-06-01 09:12 | PCNWS ---
Weekly nutritional screen. Patient is tolerating current heart healthy diet with adequate intake 75-100%. No weight loss reported. No nutritional recommendations at this time.
[2024-06-01 09:57] VITALS: BP 117/68; PULSE 88; TEMP 36.5; O2SAT 100
[2024-06-01 09:58] VITALS: BP 110/68; PULSE 87; TEMP 36.5; O2SAT 100
--- NOTE | 2024-06-01 10:56 | P.DS_ITS ---
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 Orthostatic vital signs were positive with a drop in blood pressure to 91/79 upon standing. Labs showed a creatinine of 1.40 which is close to her baseline; everything else was pretty unremarkable. Urinalysis was positive for 2+ leukocyte esterase and 21 to 50 WBC. Occasional squamous cells, budding yeast, and no bacteria were seen on microscopy. Urine drug screen and alcohol levels were negative. CT of the head and CTA of the brain and neck were unremarkable. EKG showed sinus rhythm. Radiology Results: ITS Impressions Head CT 05/24/24 17:34 Impression: No acute intracranial hemorrhage or suspicious mass effect. These findings were discussed with Dr. Veras at 5:30 PM on 05/24/2024 Head/Neck CTA 05/24/24 17:56 IMPRESSION: 1. Normal CTA head and neck. 2. Percent stenosis per NASCET criteria is 0% Chest X-Ray 05/24/24 18:29 IMPRESSION: No focal infiltrate or effusion. Patient completed antibiotic treatment for UTI. Echocardiogram: Summary 1. Left ventricular chamber dimension is normal. 2. Left ventricular systolic function is normal, estimated at 65-70%. 3. There is mildly increased left ventricular wall thickness. 4. The left ventricular diastolic function is grade I diastolic dysfunction. 5. Right ventricular systolic function is normal. 6. There is mild tricuspid valve regurgitation. Neurology saw patient and made medication changes. Hydroxyzine stopped. Patient currently on clonazepam 2 mg HS and Flexeril 10 mg HS and melatonin 5 mg at bedtime and trazodone 25 mg p.r.n. at bedtime. Patient no longer orthostatic. Patient vitamin D deficient and started on Vitamin D 5,000 units daily. PT/OT worked with patient, patient discharged to [facility] bed for treatment. Status at Discharge Functional status at discharge: uses cane/walker Overall status at discharge: patient is not back to baseline Time Spent with Patient Time attestation: Total time spent providing and/or coordinating discharge services: Time spent: Greater than 30 minutes Exam Const: General: comfortable and no acute distress Resp: Effort & Inspection: normal respiratory effort Auscultation: clear to auscultation bilaterally Cardio: Rate: regular rate Rhythm: regular rhythm GI: GI Palp: Yes Soft to palpation Auscultation: normal bowel sounds Extrem: General: no pedal edema Psych: Mental Status: mental status grossly normal Affect: normal affect DS: Data Data Completed and Pending Labs on day of discharge: Labs from last 24 hours 06/01/24 05/31/24 05:18 13:28 WBC 4.8 RBC 4.42 Hgb 12.7 Hct 39.6 MCV 89.6 MCH 28.7 MCHC 32.1 RDW 13.8 Plt Count 306 MPV 9.9 Immature Gran % (Auto) 0.2 Neut % (Auto) 48.4 Lymph % (Auto) 34.2 [place] % (Auto) 10.6 H Eos % (Auto) 6.0 H Baso % (Auto) 0.6 Lymph # (Auto) 1.65 [place] # (Auto) 0.5 Eos # (Auto) 0.3 Baso # (Auto) 0.0 Abs Immat Gran (auto) 0.01 Absolute Neuts (auto) 2.3 Absolute Nucleated RBC 0.000 Nucleated RBC % 0.0 Sodium 139 Potassium 4.6 Chloride 105 Carbon Dioxide 24 Anion Gap 10 BUN 25 H Creatinine 1.34 H Estim Creat Clear Calc 35 Estimated GFR 39 L Glucose 97 Calcium 9.6 Magnesium 2.5 H Total Bilirubin 0.5 AST 24 ALT 29 Alkaline Phosphatase 133 H Total Protein 7.0 Albumin 4.1 Vitamin B12 997.0 H Methylmalonic Acid Pending Vitamin D 25-Hydroxy 20.1 Folate 8.1 Homocysteine Pending Discharge Plan Discharge Attending physician on discharge: Richard Green Consulting providers: Gorge Curtis Discharging Clinician: Anna Greenberg Anticipated Discharge Date/Time: 06/01/24 11:30 Patient Disposition: Hospital Swing Bed Activity: may shower Diet: as tolerated and heart healthy Discharge Instructions: * Follow up with primary within week after discharge from [facility]. * Discuss with doctor getting a sleep study. * Avoid changing positions quickly. * Drink water for hydration and decrease soda intake. * PT/OT at [facility]. Thank you for entrusting [facility] with your healthcare! Patient Instructions: Antibiotic Form, Irritable Bowel Syndrome (DC), Constipation (DC), Fall Prevention for Older Adults (DC), Weakness (DC), Vitamin D Deficiency (GEN), Urinary Tract Infection in Older Adults (DC) Patient Language: Cuban Stand Alone Forms: General Discharge Information Follow-up/Referrals: Lenora,Casa Gandhi MD [Primary Care Provider] - 2 Weeks Discharge Medications: New sennosides-docusate sodium [Senokot-S] 8.6-50 mg Tablet 1 tab-cap PO BID Qty: 14 0RF citalopram [Celexa] 20 mg Tablet 40 mg PO HS Qty: 14 0RF melatonin 5 mg Tablet 5 mg PO HS Qty: 14 0RF cholecalciferol (vitamin D3) 125 mcg (5,000 unit) Tablet 5,000 unit PO DAILY Qty: 30 0RF trazodone 50 mg tablet 25 mg PO HS PRN (Reason: insomnia) Qty: 7 0RF clonazepam [Klonopin] 2 mg tablet 2 mg PO HS Qty: 7 0RF Rx Instructions: administer 30 minutes before bedtime aspirin 81 mg Tablet,Delayed Release (Dr/Ec) 81 mg PO QAM Qty: 14 0RF Continued cyclobenzaprine 10 mg Tablet 10 mg PO QHS Qty: 30 0RF Discontinued clonazepam 2 mg tablet 1 mg PO QHS trazodone 50 mg tablet 25 mg PO QHS citalopram 40 mg tablet 40 mg PO DAILY hydroxyzine HCl 25 mg Tablet 50 mg PO QHS Date of admission: 05/25/24 09:01 Primary Care Provider: Lenora,Casa Gandhi Admitting Provider: Gisela Reid Attending physician on admission: Angelica Parra Condition: Stable Hospitalist MIPS Heart Failure (Exclusion) Patient has history of Heart Transplant or Left Ventricular Assistive Device?: No IF YES, STOP HERE Heart Failure (Qualifier) Patient has current or prior documentation of LVEF less than or equal to 40%, or mod/servere depressed LVSF?: No IF NO, STOP HERE
[2024-06-01 12:33] LABS: Homocysteine 19.3 umol/L (<10.4)
[2024-06-01 13:48] VITALS: BP 126/65; PULSE 85; RESP 18; TEMP 36.2; O2SAT 98
[2024-06-05 16:03] LABS: Methylmalonic Acid 162 nmol/L (69-390)
== END 2024-06-01 13:40 | disposition swing bed (61) | DRG 312 ==
LOC: ANHED 22:09 → ANH3MEDSUR 23:30
PROVIDERS: Hospitalist; Nurse Practitioner Adult Health; Physician Assistant; Psychiatry & Neurology Neurology; Admitting Provider Internal Medicine; Emergency Provider Emergency Medicine; PCP Internal Medicine; Visit Provider Nurse Practitioner Family
DX: I95.1 Orthostatic hypotension (principal); N39.0 Urinary tract infection, site not specified; N17.9 Acute kidney failure, unspecified; N18.30 Chronic kidney disease, stage 3 unspecified; K58.2 Mixed irritable bowel syndrome; R29.6 Repeated falls; M26.609 Unspecified temporomandibular joint disorder, unspecified side; G25.81 Restless legs syndrome; F32.A Depression, unspecified; F41.9 Anxiety disorder, unspecified; F03.90 Unspecified dementia, unspecified severity, without behavioral disturbance, psychotic disturbance, mood disturbance, and anxiety; Z96.659 Presence of unspecified artificial knee joint; Z86.73 Personal history of transient ischemic attack (TIA), and cerebral infarction without residual deficits; Z79.899 Other long term (current) drug therapy
CPT/HCPCS: 36415; 70450; 70496; 70498; 71045; 80048; 80053; 80307; 81001; 82077; 82306; 82607; 82746; 82948; 83090; 83735; 83921; 84443; 84484; 85025; 85027; 85610; 85730; 87086; 87186; 93005; 93306; 94762; 96361; 96374; 96376; 97110; 97116; 97161; 97165; 97530; 97535; 99285; A9270; G0378; J0696; J2405; J7030; Q9967

== ENCOUNTER 2024-06-01 14:23 | Inpatient (IN) | payer MEDICARE, SELFPAY ==
[2024-06-01 14:30] VITALS: BMI 27.8
--- NOTE | 2024-06-01 14:30 | ADMGEN ---
This patient, Makenzie Mohr, was admitted to 2nd Floor Room 206-1 as a skilled swing bed. Patient/family oriented to hospital policies and general routines including ID bracelet, bed and alarms, visiting hours, pain management, procedures, bathroom and other care routines, personal items, smoking policy, room service/diet, and visiting hours. Information on how to activate the Rapid Response Team has been discussed. Patient/Family are encouraged to report perceived risks to care and to ask questions if they do not understand what they are told or what they should do.
--- OUTSIDE RECORDS SUMMARY | 2024-06-01 14:30 | XMS_ITS | Clinical Summary ---
Author Organization [facility] [address] Address [address] [place] [address] Care Team Providers Care Documentation Designer Name Role Phone Casa Cooley MD Primary Care Provider [phone] Allergies Active Allergy Reactions Criticality Noted Date [...] 90 tablet 1 12/26/19 24 025 Discontinued amoxicillin 500 mg tablet TAKE 4 TABLETS BY MOUTH 1 HOUR BEFORE PROCEDURE 12/20/19 24 025 Discontinued(A lternate therapy) Active Problems Problem Noted Date Diagnosed Date TMJ (temporomandibular joint syndrome) Assessment & Plan (03/20/2024 11:35 AM MANAGER OF CHANGE): Stable. Memory changes 10/11/2023 Assessment & Plan (03/20/2024 11:35 AM MANAGER OF CHANGE): Long conversation with patient and her today. [...] medication Assessment & Plan (03/20/2024 11:35 AM MANAGER OF CHANGE): Currently not as anxious on medication. She [...] Encounters Date Type Department Care Team Description 05/29/2024 Telephone [facility] [address] [phone] Casa Cooley MD 05/25/2024 Orders Only [facility] [address] [phone] Casa Cooley MD 05/24/2024 Orders Only [facility] [address] [place] [address] Casa Cooley MD 05/21/2024 Documentation [facility] [address] [facility] [address] Floor [address] [place] [address] Jareth Cisneros 05/10/2024 Orders Only [facility] [address] [phone] Casa Cooley MD 05/10/2024 [facility] [address] [place], [place] [address] [address] Casa Cooley MD symptoms 05/03/2024 11:00 AM MANAGER OF CHANGE Office Visit [facility] [address] [facility] 6th Floor [address] [place] [id number] Homar Knutson NP Hypersomnia (Primary Dx); Chronic insomnia 03/20/2024 11:00 AM MANAGER OF CHANGE Office Visit [facility] [address] [place] [phone] Casa Cooley MD Encounter for lipid screening for cardiovascular disease (Primary Dx); Post-menopausal; Visit for screening mammogram; Memory changes; Anxiety; Anxiety and depression; TMJ (temporomandibular joint syndrome); Routine general medical examination at a health care facility 03/15/2024 Orders Only [facility] [address] [place] [phone] Casa Cooley MD 03/09/2024 [facility] [address] [place] [phone] Marquise Troy MD 03/05/2024 [facility] [address] [place] [phone] Casa Cooley MD Diarrhea from Last 3 Months Immunizations Immunization Administration Dates Next Due Influenza, Quadrivalent, Hig h Dose, Preservative Free, Intrr 01/28/2020 Influenza, Quadrivalent, Spl it, Preservative Free, Intramuscular 03/15/2017,01/17/2015 Influenza, Trivalent, Adjuvanted, Intramuscular 12/20/2018 Influenza, Trivalent, High D ose, Split, Preservative Free, Intramuscular 12/28/2017,03/31/2016 Influenza, Trivalent, IM (MDV) 12/05/2014,2012 Influenza, Trivalent, Preservative Free, Intramu scular 01/09/2014,12/08/2012 [employer] (J&J) SARS-CoV-2 Vaccination 05/09/2020 Pfizer Sars-Cov-2 Bivalent Vaccination (12+ YRS) 12/09/2021 Surgical [...] on file Legal Sex Female 4:53 PM MANAGER OF CHANGE Gender Identity Not on file Sexual Orientation Not on file Occupation Industry Job Start Date Job End Date homemaker Not on file Not on file Not on file Obstetrics History Last Filed Vital Signs Vital Sign Reading Time Taken Comments Blood Pressure 134/83 05/03/2024 10:41 AM MANAGER OF CHANGE Pulse 81 05/03/2024 10:41 AM MANAGER OF CHANGE Temperature 36.5 C (97.7 F) 05/03/2024 10:41 AM MANAGER OF CHANGE Respiratory Rate 19 09/06/2023 2:30 PM CDT Oxygen Saturation 98% 05/03/2024 10:41 AM MANAGER OF CHANGE Inhaled Oxygen Concentration - - Weight 77.1 kg (170 lb) 05/03/2024 10:41 AM MANAGER OF CHANGE Height 165.1 cm (5' 5 ) 05/03/2024 10:41 AM MANAGER OF CHANGE Body Mass Index 28.29 05/03/2024 10:41 AM MANAGER OF CHANGE Plan of Treatment Health Maintenance Due Date Last Done Comments Osteoporosis Screening-Bone Density Scan 1950 Hepatitis B Screening 1969 Breast Cancer Screening-Mammogram 11/25/2023 11/24/2022, 11/24/2022 Influenza Vaccine (#1) 2024 , 12/20/2018, 12/28/2017, Additional history exists Postponed from 11/06/2023 (Patient declined, but will receive in the future) Covid-19 Vaccine ( - season) 2025 12/09/2021, 02/18/2021, 05/09/2020 Postponed from 11/06/2023 (Patient [...] Procedure Name Priority Date/Time Associated Diagnosis Comments CARDIOLOGY DOCUMENT SCAN 05/25/2024 4:50 PM CDT SCAN - LABS 05/24/2024 10:15 PM CDT SCAN - RADIOLOGY/IMAGING 05/24/2024 6:44 PM CDT SCAN - RADIOLOGY/IMAGING 05/24/2024 6:19 PM CDT SCAN - LABS 05/24/2024 6:08 PM CDT SCAN - LABS 05/24/2024 6:08 PM CDT SCAN - RADIOLOGY/IMAGING 05/24/2024 5:44 PM CDT POCT LIPID PANEL Routine 03/20/2024 11:3 6 AM MANAGER OF CHANGE Encounter for lipid screening for cardiovascular disease SCAN - RADIOLOGY/IMAGING 03/15/2024 9:23 AM MANAGER OF CHANGE SCAN - LABS 03/15/2024 8:43 AM MANAGER OF CHANGE SCAN - LABS 03/15/2024 6:57 AM MANAGER OF CHANGE CLOSTRIDIUM DIFFICILE TOXIN/GDH WITH REFLEX TO PCR Routine 03/08/2024 8:29 AM MANAGER OF CHANGE Diarrhea, unspecified type HEPATITIS PANEL, ACUTE Routine 09/06/2023 8:07 PM CDT COLONOSCOPY Routine 06/02/2020 from Last 3 Months or Most Recently Relevant to Health Maintenance Results * Cardiology Document Scan (05/25/2024 4:50 PM CDT) Anatomical Region Laterality Modality Other us Casa Cooley MD CV CARDIAC SERVICES PROCEDURE S Final Result * SCAN - LABS (05/24/2024 10:15 PM CDT) us Casa Cooley MD Final Result * SCAN - RADIOLOGY/IMAGING (05/24/2024 6:44 PM CDT) Anatomical Region Laterality Modality Other us Casa Cooley MD Final Result * SCAN - RADIOLOGY/IMAGING (05/24/2024 6:19 PM CDT) Anatomical Region Laterality Modality Other us Casa Cooley MD Final Result * SCAN - LABS (05/24/2024 6:08 PM CDT) us Casa Cooley MD Final Result * SCAN - LABS (05/24/2024 6:08 PM CDT) us Casa Cooley MD Final Result * SCAN - RADIOLOGY/IMAGING (05/24/2024 5:44 PM CDT) Anatomical Region Laterality Modality Other us Casa Cooley MD Final Result * (ABNORMAL) POCT lipid panel (03/20/2024 11:36 AM MANAGER OF CHANGE) Cholesterol, POC 239 mg/dL HDL, POC 58 mg/dL Triglycerides, POC 148 mg/dL LDL Cholesterol POC 152 mg/dL Chol/HDL Ratio, POC 4.2 Non-HDL Cholesterol, POC 182 mg/dL Cholesterol Total, POC 239 mg/dL Capillary blood 03/20/2024 1 1:36 AM MANAGER OF CHANGE us Casa Cooley MD POINT OF CARE TEST ORDERABLES Final Result * SCAN - RADIOLOGY/IMAGING (03/15/2024 9:23 AM MANAGER OF CHANGE) Anatomical Region Laterality Modality Other us Casa Cooley MD Final Result * SCAN - LABS (03/15/2024 8:43 AM MANAGER OF CHANGE) us Casa Cooley MD Final Result * SCAN - LABS (03/15/2024 6:57 AM MANAGER OF CHANGE) us Casa Cooley MD Final Result * Clostridium difficile Toxin/GDH with Reflex to PCR Stool (03/08/2024 8:29 AM MANAGER OF CHANGE) C difficile Toxins/GDH w/refl to PCR [facility] Comment: CLOSTRIDIUM DIFFICILE TOXIN/GDH W/REFL TO PCR Micro Number: [id number] Test Status: Final Specimen Source: Stool Specimen Quality: Adequate GDH Antigen: Not Detected Toxin A and B: Not Detected COMMENT: No toxigenic C. difficile detected For additional information, please refer to http://education.AgroSavfe/faq/UCI822 (This link is being provided for informational/educational purposes only.) Stool 03/08/2024 8:29 AM MANAGER OF CHANGE 03/09/2024 2:23 AM MANAGER OF CHANGE us Marquise Troy MD LAB MICROBIOLOGY - GENER AL ORDERABLES Final Result [facility] [address] [place] [address] * Hepatitis panel, acute Blood (09/06/2023 8:07 PM CDT) Hep A IgM Nonreactive Nonreactive Hep B core IgM Nonreactive Nonreactive [facility] Hep C Ab Nonreactive Nonreactive [facility] Comment:Antibodies to HCV no t detected. Does NOT exclude the possibility of recent exposure to HCV. Current interpretive data was last revised on 21 HepBsAg Nonreactive Nonreactive [facility] Blood 09/06/2023 8:07 PM CDT 09/06/2023 8:35 PM CDT us Basia Garcia MD LAB MICROBIOLOGY - GENER AL ORDERABLES Final Result Performing Organization Address City[facility] Co de Phone Number [facility] Department [place] [address] * Colonoscopy (06/02/2020) Anatomical Region Laterality Modality Other Narrative 06/02/2020 Pt states she cant have colonoscopy due to many loops Historical Provider ENDOSCOPY PROCEDURES Clara l Result from Last 3 Months or Most Recently Relevant to Health Maintenance Insurance [employer] MEDICARE T MEDICARE T MEDICARE Care Teams Documentation Designer Relationship Specialty Start Date End Date Casa Cooley MD [address] [address] PCP - General Internal Medicine 01/14/20
--- OUTSIDE RECORDS SUMMARY | 2024-06-01 14:30 | XMS_ITS | CONTINUITY OF CARE DOCUMENT ---
Author Name kisha beard Address Unknown Organization [facility] Address [address] [place] [address] Phone [phone] Care Team Providers Care Marketing Research Intern Name Role Phone kisha beard Unavailable Unavailable INSURANCE PROVIDERS Payer name Policy type / Coverage type [place] red alliance party ID [id number] [id number]
--- OUTSIDE RECORDS SUMMARY | 2024-06-01 14:30 | XMS_ITS | Clinical Summary ---
Author Organization [facility] Address [address] [place] [address] Care Team Providers Care Date Night Caregiver Name Role Phone Unavailable Primary Care Provider Unavailabl e Social History Tobacco Use Types Packs/Day Years Used Date Smoking Tobacco: Never Assessed Comments Unknown Sex and Gender Information Value Date Recorded Sex Assigned at Not on file Legal Sex Female 7:30 PM ASSOCIATE PROFESSOR OF ENGLISH Gender Identity Not on file Sexual Orientation [...] season) 2023 05/09/2020 BREAST CANCER SCREENING 11/25/2023 11/25/19 23, 07/14/2020, 07/14/2020, Additional history exists RSV VACCINE (60+ or ) (1 - 1-dose 75+ series) 2026 OSTEOPOROSIS SCREENING Completed 07/14/2020 Procedures Procedure Name Priority Date/Time Associated Diagnosis Comments MAMMO 3D HELIO SCREEN BILAT W OR WO CAD Routine 11/24/2022 1:47 PM CDT Encounter for screening mammogram for malignant neoplasm of breast from Last 3 Months or Most Recently Relevant to Health Maintenance Results * MAMMO SCRN BILAT 3D HEILO W OR WO CAD (11/24/2022 1:47 PM [...] area of architectural distortion or suspicious microcalcification. us Merry Laura PA-C MAMMO ORDERABLES Final R esult from Last 3 Months or Most Recently Relevant to Health Maintenance Insurance AETNA [facility]
--- OUTSIDE RECORDS SUMMARY | 2024-06-01 14:30 | XMS_ITS | Referral Summary ---
Author Organization [facility] [address] Address [address] [place] [address] Care Team Providers Care Cna Instructor Name Role Phone Casa Cooley MD Primary Care Provider [phone] Encounters Date Type Department Care Team Description 05/29/2024 Telephone [facility] [address] [phone] Casa Cooley MD 05/25/2024 Orders Only [facility] [address] [address] Casa Cooley MD 05/24/2024 Orders Only [facility] [address] [address] Casa Cooley MD 05/21/2024 Documentation [facility] [address] [place] [address] [address] [place] [address] Jareth Cisneros 05/10/2024 Orders Only [facility] [address] [place] [address] Casa Cooley MD 05/10/2024 Telephone [facility] [address] [place] [address] Casa Cooley MD symptoms 05/03/2024 11:00 AM WATER RIGHTS SPECIALIST Office Visit [facility] [address] [facility] 6th Floor [address] [place] [address] Homar Knutson NP Hypersomnia (Primary Dx); Chronic insomnia 03/20/2024 11:00 AM WATER RIGHTS SPECIALIST Office Visit [facility] [address] [place] [address] Casa Cooley MD Encounter for lipid screening for cardiovascular disease (Primary Dx); Post-menopausal; Visit for screening mammogram; Memory changes; Anxiety; Anxiety and depression; TMJ (temporomandibular joint syndrome); Routine general medical examination at a health care facility 03/15/2024 Orders Only [facility] [address] [address] Casa Cooley MD 03/09/2024 Telephone [facility] [address] [place] [phone] Marquise Troy MD 03/05/2024 Telephone [facility] [address] [place] [phone] Csaa Cooley MD Diarrhea from Last 3 Months Allergies Active Allergy [...] syndrome) Assessment & Plan (03/20/2024 11:35 AM WATER RIGHTS SPECIALIST): Stable. Memory changes 10/11/2023 Assessment & Plan (03/20/2024 11:35 AM WATER RIGHTS SPECIALIST): Long conversation with patient and her today. [...] medication Assessment & Plan (03/20/2024 11:35 AM WATER RIGHTS SPECIALIST): Currently not as anxious on medication. She [...] Influenza, Trivalent, Preservative Free, Intramu scular 01/09/2014,12/08/2012 Adam (J&J) SARS-CoV-2 Vaccination 05/09/2020 Pfizer Sars-Cov-2 Bivalent [...] on file Legal Sex Female 4:53 PM WATER RIGHTS SPECIALIST Gender Identity Not on file Sexual Orientation Not on file Occupation Industry Job Start Date Job End Date homemaker Not on file Not on file Not on file Last Filed Vital Signs Vital Sign Reading Time Taken Comments Blood Pressure 134/83 05/03/2024 10:41 AM WATER RIGHTS SPECIALIST Pulse 81 05/03/2024 10:41 AM WATER RIGHTS SPECIALIST Temperature 36.5 C (97.7 F) 05/03/2024 10:41 AM WATER RIGHTS SPECIALIST Respiratory Rate 19 09/06/2023 2:30 PM CDT Oxygen Saturation 98% 05/03/2024 10:41 AM WATER RIGHTS SPECIALIST Inhaled Oxygen Concentration - - Weight 77.1 kg (170 lb) 05/03/2024 10:41 AM WATER RIGHTS SPECIALIST Height 165.1 cm (5' 5 ) 05/03/2024 10:41 AM WATER RIGHTS SPECIALIST Body Mass Index 28.29 05/03/2024 10:41 AM WATER RIGHTS SPECIALIST Plan of Treatment Not on file Procedures [...] LIPID PANEL Routine 03/20/2024 11:3 6 AM WATER RIGHTS SPECIALIST Encounter for lipid screening for cardiovascular disease SCAN - RADIOLOGY/IMAGING 03/15/2024 9:23 AM WATER RIGHTS SPECIALIST SCAN - LABS 03/15/2024 8:43 AM WATER RIGHTS SPECIALIST SCAN - LABS 03/15/2024 6:57 AM WATER RIGHTS SPECIALIST CLOSTRIDIUM DIFFICILE TOXIN/GDH WITH REFLEX TO PCR Routine 03/08/2024 8:29 AM WATER RIGHTS SPECIALIST Diarrhea, unspecified type HEPATITIS PANEL, ACUTE Routine [...] (ABNORMAL) POCT lipid panel (03/20/2024 11:36 AM WATER RIGHTS SPECIALIST) Cholesterol, POC 239 mg/dL HDL, POC 58 mg/dL Triglycerides, POC 148 mg/dL LDL Cholesterol POC 152 mg/dL Chol/HDL Ratio, POC 4.2 Non-HDL Cholesterol, POC 182 mg/dL Cholesterol Total, POC 239 mg/dL Capillary blood 03/20/2024 1 1:36 AM WATER RIGHTS SPECIALIST us Casa Cooley MD POINT OF CARE TEST ORDERABLES Final Result * SCAN - RADIOLOGY/IMAGING (03/15/2024 9:23 AM WATER RIGHTS SPECIALIST) Anatomical Region Laterality Modality Other us Casa Cooley MD Final Result * SCAN - LABS (03/15/2024 8:43 AM WATER RIGHTS SPECIALIST) us Casa Cooley MD Final Result * SCAN - LABS (03/15/2024 6:57 AM WATER RIGHTS SPECIALIST) us Casa Cooley MD Final Result * Clostridium difficile Toxin/GDH with Reflex to PCR Stool (03/08/2024 8:29 AM WATER RIGHTS SPECIALIST) C difficile Toxins/GDH w/refl to PCR [facility] Comment: CLOSTRIDIUM DIFFICILE TOXIN/GDH W/REFL TO PCR Micro Number: [id number] Test Status: Final Specimen Source: Stool Specimen Quality: Adequate GDH Antigen: Not Detected Toxin A and B: Not Detected COMMENT: No toxigenic C. difficile detected For additional information, please refer to http://education.Koubachi/faq/VYV533 (This link is being provided for informational/educational purposes only.) Stool 03/08/2024 8:29 AM WATER RIGHTS SPECIALIST 03/09/2024 2:23 AM WATER RIGHTS SPECIALIST Marquise Troy MD LAB MICROBIOLOGY - GENER AL ORDERABLES Final Result [facility] [address] [place] [address] * Hepatitis panel, acute Blood (09/06/2023 8:07 PM CDT) Hep A IgM Nonreactive Nonreactive Hep B core IgM Nonreactive Nonreactive [facility] Hep C Ab Nonreactive Nonreactive [facility] Comment:Antibodies to HCV no t detected. Does NOT exclude the possibility of recent exposure to HCV. Current interpretive data was last revised on 21 HepBsAg Nonreactive Nonreactive [facility] Blood 09/06/2023 8:07 PM CDT 09/06/2023 8:35 PM CDT Basia Garcia MD LAB MICROBIOLOGY - GENER AL ORDERABLES Final Result [facility] Department [place] [address] * Colonoscopy (06/02/2020) Anatomical Region Laterality Modality Other Narrative 06/02/2020 Pt states she cant have colonoscopy due to many loops Historical Provider ENDOSCOPY PROCEDURES Clara l Result from Last 3 Months or Most Recently Relevant to Health Maintenance Insurance AETNA MEDICARE AETNA MEDICARE AETNA MEDICARE Care Teams Cna Instructor Relationship Specialty Start Date End Date Casa Cooley MD [address] [address] PCP - General Internal Medicine 01/14/20
--- OUTSIDE RECORDS SUMMARY | 2024-06-01 14:30 | XMS_ITS | Continuity of Care Document ---
Author Organization [facility] Address [id number] [place] [address] [address] [place] [address] Phone Care Team Providers Care Merchandise For Resale Purchasing Agent Name Role Phone Rosemarie Duncan Unavailable Unavailable Advance Directives Directive Yes / No Effective Date File Name No Information Encounters Encounter Description Practice Location Reason(s) For Visit Diagnoses Date Provider Providers Copied on Encounter [facility], [address], [place], [place], [id number], [place] tel:[phone] [facility] [place] No Information Sep-0 1-200 5 Perla Houston. [address] [facility] , [address], [place], [address], [place]. tel:[phone] Family History Family Member Type Diagnosis Age [...]
[2024-06-01 14:40] VITALS: BP 120/75; PULSE 84; RESP 16; TEMP 35.7; O2SAT 97
--- NOTE | 2024-06-01 14:56 | PC.NURSE ---
Called to inform [employer] PARK ATTENDANT meds are in the system. Left message informing.
[2024-06-01 15:52] VITALS: O2SAT 97
[2024-06-01] MEDS: SENNA/DOCUSATE SODIUM TABLET 1 TAB PO (17:31)
[2024-06-01 19:14] VITALS: PULSE 78; RESP 16; O2SAT 98
[2024-06-01] MEDS: MELATONIN 5 MG TABLET PO (20:54)
[2024-06-01] MEDS: CYCLOBENZAPRINE HCL 10 MG TABLET PO (20:54)
[2024-06-01] MEDS: clonazePAM (*CRX) 0.5 MG TABLET 2 MG PO (20:54)
[2024-06-01] MEDS: CITALOPRAM HYDROBROMIDE 20 MG TABLET 40 MG PO (20:54)
[2024-06-01 23:45] VITALS: BP 120/79; PULSE 70; RESP 18; TEMP 36.5; O2SAT 97
[2024-06-02 07:50] VITALS: BP 125/74; PULSE 76; RESP 16; TEMP 35.9; O2SAT 97
[2024-06-02] MEDS: CHOLECALCIFEROL 5,000 UNITS TABLET 5000 UNITS PO (08:39)
[2024-06-02] MEDS: ASPIRIN 81 MG ENTERIC TABLET PO (08:39)
--- NOTE | 2024-06-02 11:02 | P.HP_ITS ---
H&P: HPI History of Present Illness Date/Time: 06/02/24 11:02 Chief Complaint: REHAB Narrative: Patient is a 74-year-old female who was admitted to [facility] bed for continued physical and occupational therapy after an extended hospitalization at [facility]. patient reports a past medical history of history of dementia, transient ischemic attack, chronic kidney disease stage 3, irritable bowel syndrome with constipation, depression, and anxiety. patient had been hospitalized for further evaluation of near-syncope and orthostatic hypotension likely secondary to patient's current medications have a tendency to cause psychomotor and anticholinergic side effects. Per medical chart patient follows with the neurologist over at [place] and patient's reports they were attempting to slowly wean patient off of her hydroxyzine, trazodone, and Flexeril. other findings during her hospitalization included acute kidney injury which was resolved fluid resuscitation as well as a urinary tract infection of E coli was pansensitive initially treated with IV ceftriaxone and transitioned to Levaquin. patient seen and assessed in no acute distress sitting in recliner denied any chest pain, shortness a breath, nausea, vomiting, difficulties with urination or BMs with good appetite. vitals reviewed and BP stable. patient will continue admission to the swing unit for continued rehabilitation and occupational therapy once her strength and endurance has improved plan is to return at discharge with . Review of Systems Review of Systems: 12 systems were reviewed and are negativ e except for as per HPI. All systems reviewed & are unremarkable except as noted in HPI and below PMFSH Past Medical History Medical History Urinary tract infection TMJ (temporomandibular joint disorder) Irritable bowel syndrome with alternating bowel habits Dementia of Alzheimer's type, with early onset, with depressed mood Chronic kidney disease Transient ischemic attack Chronic constipation Depression with anxiety Surgical History Surgical History History of knee replacement History of vaginal hysterectomy (1981) History of bilateral salpingo-oophorectomy (10/1999) History of laparoscopy (06/2000) Laparoscopic adhesiolysis or pelvic pain. Social History Social History Social History: Surrogate medical decision maker: Britt Mohr, spouse. Code status: Full code. Smoking packs per day: 0 Smoking cigarettes per day: 0.0 Years smoked: 0 Smoking pack-years: 0.00 Smoking status: Never smoker Second hand tobacco smoke exposure: No Alcohol intake: never Substance use: never Substance use type: does not use Do You Feel Safe in your Home?: Yes Lack of Transportation: No Lack of Food: Never True Current Housing: I Have Housing Concerned About Future Housing: No Difficulty Paying Gas/Electric Bills: No Difficulty Paying for Meds: No Currently Unemployed: No Education: High School Diploma/GED Difficulty w/ Childcare or Family Care: No Living arrangements: with family Additional living arrangements comments: Lives with spouse and intellectually disabled son. Additional occupation/education comments: Homemaker. Spiritual care concerns: No Meds Home Medications and Allergies Home Medications ?Medication ?Instructions ?Recorded ?Confirmed ?Type cyclobenzaprine 10 mg tablet 10 mg PO QHS #30 tabs 03/24/23 06/01/24 Rx aspirin 81 mg tablet,delayed 81 mg PO QAM #14 tabs 06/01/24 06/01/24 Rx release cholecalciferol (vitamin D3) 125 5,000 unit PO DAILY #30 tabs 06/01/24 06/01/24 Rx mcg (5,000 unit) tablet citalopram 20 mg tablet (Celexa) 40 mg (2 x 20 mg) PO HS #14 tabs 06/01/24 06/01/24 Rx clonazepam 2 mg tablet (Klonopin) 2 mg PO HS #7 tabs 06/01/24 06/01/24 Rx melatonin 5 mg tablet 5 mg PO HS #14 tabs 06/01/24 06/01/24 Rx sennosides 8.6 mg-docusate sodium 1 tab-cap PO BID #14 tabs 06/01/24 06/01/24 Rx 50 mg tablet (Senokot-S) trazodone 50 mg tablet 25 mg (1/2 x 50 mg) PO HS PRN 06/01/24 06/01/24 Rx insomnia #7 tabs Allergies Allergy/AdvReac Type Severity Reaction Status Date / Time prochlorperazine Allergy Unknown Unknown Verified 05/24/24 18:08 Vital Signs Vital Signs - 24 hr 06/01/24 14:40 06/01/24 14:40 06/01/24 15:52 Temperature 96.3 F L Pulse Rate 84 Respiratory Rate 16 Blood Pressure 120/75 Pulse Oximetry 97 97 97 Oxygen Delivery Room Air Room Air Room Air 06/01/24 19:14 06/01/24 23:45 06/02/24 07:50 Temperature 97.7 F 96.6 F L Pulse Rate 78 70 76 Respiratory Rate 16 18 16 Blood Pressure 120/79 125/74 Pulse Oximetry 98 97 97 Oxygen Delivery Room Air Room Air Room Air Exam Narrative: General: A well-developed, nontoxic-appearing female sitting up in chair HEENT: Normocephalic, atraumatic. PERRL, EOMI. Sclera anicteric. Oral mucosa moist. Neck: Supple. No JVD Respiratory: Lungs are clear to auscultation bilaterally. Cardiovascular: Regular rate and rhythm with S1-S2. Gastrointestinal: Abdomen is soft, nontender, and nondistended with positive bowel sounds. Skin: Warm and dry. No rash or lesions on limited exam. Extremities: No cyanosis, clubbing, or edema. Radial and pedal pulses intact. Neurological: Alert and oriented x4. Speech clear Psychiatric: Pleasant and cooperative with appropriate mood and affect. Seems a bit forgetful. She is in good spirits. H&P: Results Labs Labs: Short CBC 05/24/24 Range/Units 17:29 WBC 6.7 (4.5-10.0) K/mm3 Hgb 14.3 (12.0-15.0) g/dL Hct 44.7 (37.0-47.0) % Plt Count 360 (150-375) k/mm3 BMP 05/24/24 05/24/24 17:29 17:31 Sodium 139 Potassium 4.8 Chloride 103 Carbon Dioxide 26 BUN 19 H Creatinine 1.34 H 1.40 H Glucose 90 Calcium 9.7 Cardiac Enzymes 05/24/24 Range/Units 17:29 Troponin I < 0.012 (0.000-0.034) ng/mL Liver Function 05/24/24 Range/Units 17:29 Total Bilirubin 0.5 (0.2-1.3) mg/dL AST 28 (14-36) U/L ALT 21 (6-35) U/L Alkaline Phosphatase 133 H (38-126) U/L Albumin 4.9 (3.5-5.1) g/dL Urine 05/24/24 Range/Units 18:06 Urine Color Yellow (Yellow) Urine Appearance Clear (Clear) Urine pH 6.0 (5.0-9.0) Ur Specific [place] 1.033 (1.001-1.035) Urine Protein Negative (Negative) mg/dL Urine Glucose (UA) Negative (Negative) mg/dL Impressions Head CT 05/24/24 17:34 Impression: No acute intracranial hemorrhage or suspicious mass effect. Head/Neck CTA 05/24/24 17:56 IMPRESSION: 1. Normal CTA head and neck. 2. Percent stenosis per NASCET criteria is 0% Chest X-Ray 05/24/24 18:29 IMPRESSION: No focal infiltrate or effusion. Assessment and Plan Assessment and plan (1) Weakness: Code(s): R53.1 - Weakness Status: Acute Assessment and Plan: * PT/OT * Up in chair with meals (2) Orthostatic hypotension: Code(s): I95.1 - Orthostatic hypotension Status: Resolved Assessment and Plan: * BP reviewed stable * Medications decreased at her discharge flexeril, trazodone, hydroxyzine discontinued * encouraged compression stockings with activity * rise slowly from lying or sitting position (3) Irritable bowel syndrome with alternating bowel habits: Code(s): K58.2 - Mixed irritable bowel syndrome Status: Acute Assessment and Plan: * Resumed sennosides- Colace (4) Depression with anxiety: Code(s): F41.8 - Other specified anxiety disorders Status: Acute Assessment and Plan: * Celexa resumed * (5) Insomnia: Code(s): G47.00 - Insomnia, unspecified Status: Acute Assessment and Plan: * Trazodone at night reduced to 25mg * melatonin Plan Code status: Full code per patient DVT prophylaxis: NA Stress ulcer prophylaxis: NA PT/OT notes: REHAB SWING Disposition: patient admitted to [facility] rehab will continue with physical and occupational therapy to increase strength and endurance prior to returning home. Quality VTE Prophylaxis VTE prophylaxis: mechanical ordered -Patient's previous records reviewed on admission -ER notes reviewed in detail on admission -discussed all findings and current treatment plan with patient/Family/POA -Consultations reviewed for recommendations -Patient's disposition for safe discharge discussed with binder caser Dictation performed by Flexion direct speech recognition software, therefore traffic signal technician variants and typographical errors may occur. Hospitalist MIPS Advance Care Plan I have confirmed that the patient's Advanced Care Plan is present, code status is documented, or surrogate decision maker is listed in patient medical record.: Yes Medication Reconciliation I have utilized all available resources to obtain, update and review the patients current medications (includes all prescriptions, OTC, herbals, cannabis, and nutritional supplements).: Yes The patient is not eligible for med reconciliation; the patient is in a emergent medical situation where delaying treatment would jeopardize the patients health.: No
[2024-06-02 16:00] VITALS: BP 113/62; PULSE 76; RESP 16; TEMP 35.9; O2SAT 99
[2024-06-02] MEDS: SENNA/DOCUSATE SODIUM TABLET 1 TAB PO (17:01)
[2024-06-02] MEDS: ACETAMINOPHEN 325 MG TABLET 650 MG PO ×2 (17:32→23:43)
[2024-06-02 20:00] VITALS: PULSE 75; RESP 16; O2SAT 96
[2024-06-02] MEDS: clonazePAM (*CRX) 0.5 MG TABLET 2 MG PO (20:30)
[2024-06-02] MEDS: traZODone HCL 25 MG TABLET PO (20:31)
[2024-06-02] MEDS: CITALOPRAM HYDROBROMIDE 20 MG TABLET 40 MG PO (20:31)
[2024-06-02] MEDS: CYCLOBENZAPRINE HCL 10 MG TABLET PO (20:32)
[2024-06-03] VITALS: BP 135/53; PULSE 80; RESP 18; TEMP 35.7; O2SAT 96
[2024-06-03] MEDS: ACETAMINOPHEN 325 MG TABLET 650 MG PO (06:04)
[2024-06-03 08:00] VITALS: BP 138/67; PULSE 80; RESP 16; TEMP 36.2; O2SAT 96
[2024-06-03] MEDS: SENNA/DOCUSATE SODIUM TABLET 1 TAB PO ×2 (08:29→17:23)
[2024-06-03] MEDS: ASPIRIN 81 MG ENTERIC TABLET PO (08:30)
[2024-06-03] MEDS: CHOLECALCIFEROL 5,000 UNITS TABLET 5000 UNITS PO (08:30)
[2024-06-03] MEDS: HYDROcodone/acetaminophen (*CRX) 5-325 MG TABLET 1 TAB PO ×2 (13:44→20:22)
[2024-06-03 16:00] VITALS: BP 117/68; PULSE 78; RESP 16; TEMP 36.1; O2SAT 98
[2024-06-03 20:00] VITALS: PULSE 75; RESP 16; O2SAT 96
[2024-06-03] MEDS: clonazePAM (*CRX) 0.5 MG TABLET 2 MG PO (20:22)
[2024-06-03] MEDS: CYCLOBENZAPRINE HCL 10 MG TABLET PO (20:23)
[2024-06-03] MEDS: CITALOPRAM HYDROBROMIDE 20 MG TABLET 40 MG PO (20:23)
[2024-06-03] MEDS: traZODone HCL 25 MG TABLET PO (20:24)
[2024-06-04] VITALS: BP 127/64; PULSE 76; RESP 16; TEMP 35.7; O2SAT 96
[2024-06-04 08:00] VITALS: BP 111/70; PULSE 81; RESP 20; TEMP 35.7; O2SAT 97
[2024-06-04] MEDS: CHOLECALCIFEROL 5,000 UNITS TABLET 5000 UNITS PO (09:57)
[2024-06-04] MEDS: ASPIRIN 81 MG ENTERIC TABLET PO (09:57)
[2024-06-04] MEDS: SENNA/DOCUSATE SODIUM TABLET 1 TAB PO ×2 (09:57→17:57)
[2024-06-04] MEDS: ACETAMINOPHEN 325 MG TABLET 650 MG PO (09:58)
[2024-06-04 16:00] VITALS: BP 121/67; PULSE 75; RESP 18; TEMP 36; O2SAT 95
[2024-06-04 20:00] VITALS: PULSE 75; RESP 18; O2SAT 95
[2024-06-04] MEDS: traZODone HCL 25 MG TABLET PO (20:29)
[2024-06-04] MEDS: clonazePAM (*CRX) 0.5 MG TABLET 2 MG PO (20:30)
[2024-06-04] MEDS: CYCLOBENZAPRINE HCL 10 MG TABLET PO (20:30)
[2024-06-04] MEDS: CITALOPRAM HYDROBROMIDE 20 MG TABLET 40 MG PO (20:30)
[2024-06-05] VITALS: BP 111/54; PULSE 72; RESP 18; TEMP 36.2; O2SAT 94
[2024-06-05 08:00] VITALS: BP 106/61; PULSE 78; RESP 17; TEMP 35.8; O2SAT 98
[2024-06-05] MEDS: CHOLECALCIFEROL 5,000 UNITS TABLET 5000 UNITS PO (09:19)
[2024-06-05] MEDS: SENNA/DOCUSATE SODIUM TABLET 1 TAB PO (09:19)
[2024-06-05] MEDS: ASPIRIN 81 MG ENTERIC TABLET PO (09:19)
[2024-06-05 16:00] VITALS: BP 107/73; PULSE 79; RESP 16; TEMP 35.6; O2SAT 97
[2024-06-05] MEDS: traZODone HCL 25 MG TABLET PO (20:30)
[2024-06-05] MEDS: clonazePAM (*CRX) 0.5 MG TABLET 2 MG PO (20:30)
[2024-06-05] MEDS: CITALOPRAM HYDROBROMIDE 20 MG TABLET 40 MG PO (20:30)
[2024-06-05] MEDS: CYCLOBENZAPRINE HCL 10 MG TABLET PO (20:30)
[2024-06-05] MEDS: ACETAMINOPHEN 325 MG TABLET 650 MG PO (20:31)
[2024-06-06] VITALS: BP 128/63; PULSE 77; RESP 15; TEMP 36.3; O2SAT 96
[2024-06-06 08:00] VITALS: BP 123/76; PULSE 79; RESP 14; TEMP 36.6; O2SAT 98
[2024-06-06] MEDS: CHOLECALCIFEROL 5,000 UNITS TABLET 5000 UNITS PO (09:20)
[2024-06-06] MEDS: SENNA/DOCUSATE SODIUM TABLET 1 TAB PO (09:21)
[2024-06-06] MEDS: ASPIRIN 81 MG ENTERIC TABLET PO (09:21)
[2024-06-06] MEDS: HYDROcodone/acetaminophen (*CRX) 5-325 MG TABLET 1 TAB PO (10:11)
[2024-06-06 16:00] VITALS: BP 123/74; PULSE 78; RESP 14; TEMP 36.8; O2SAT 98
[2024-06-06 20:00] VITALS: BP 121/71; PULSE 78; RESP 20; TEMP 36.1; O2SAT 98
[2024-06-06] MEDS: clonazePAM (*CRX) 0.5 MG TABLET 2 MG PO (21:00)
[2024-06-06] MEDS: CYCLOBENZAPRINE HCL 10 MG TABLET PO (21:00)
[2024-06-06] MEDS: CITALOPRAM HYDROBROMIDE 20 MG TABLET 40 MG PO (21:00)
--- NOTE | 2024-06-06 22:20 | PC.NURSE ---
pt request bathroom, ambulated with walker and gait belt. call valencia in reach
--- NOTE | 2024-06-06 22:25 | PC.NURSE ---
pt assisted back to bed. call valencia in reach
--- NOTE | 2024-06-06 23:00 | PC.NURSE ---
report to momo patiño
[2024-06-07] VITALS: BP 128/62; PULSE 82; RESP 20; TEMP 36; O2SAT 95
--- NOTE | 2024-06-07 00:15 | PC.NURSE ---
Pt resting quietly in bed and doesnt voice any c/o discomfort.
--- NOTE | 2024-06-07 02:00 | PC.NURSE ---
Pt asleep and no signs of discomfort noted.
--- NOTE | 2024-06-07 04:08 | PC.NURSE ---
Pt asleep and no signs of discomfort noted.
--- NOTE | 2024-06-07 06:34 | PC.NURSE ---
Pt asleep and no signs of discomfort noted.
[2024-06-07 08:00] VITALS: BP 131/77; PULSE 84; RESP 16; TEMP 36; O2SAT 98
[2024-06-07] MEDS: ACETAMINOPHEN 325 MG TABLET 650 MG PO (08:32)
[2024-06-07] MEDS: CHOLECALCIFEROL 5,000 UNITS TABLET 5000 UNITS PO (08:33)
[2024-06-07] MEDS: ASPIRIN 81 MG ENTERIC TABLET PO (08:33)
[2024-06-07] MEDS: SENNA/DOCUSATE SODIUM TABLET 1 TAB PO (08:33)
[2024-06-07] MEDS: HYDROcodone/acetaminophen (*CRX) 5-325 MG TABLET 1 TAB PO (11:43)
[2024-06-07 16:00] VITALS: BP 123/63; PULSE 71; RESP 16; TEMP 35.7; O2SAT 98
--- NOTE | 2024-06-07 18:50 | PC.NURSE ---
ASSUMED CARE. REPORT RECEIVED FROM ADRYAN MARCELO.
[2024-06-07] MEDS: CYCLOBENZAPRINE HCL 10 MG TABLET PO (20:21)
[2024-06-07] MEDS: CITALOPRAM HYDROBROMIDE 20 MG TABLET 40 MG PO (20:22)
[2024-06-07] MEDS: clonazePAM (*CRX) 0.5 MG TABLET 2 MG PO (20:22)
[2024-06-08 00:01] VITALS: BP 125/72; PULSE 75; RESP 14; TEMP 35.7; O2SAT 95
--- NOTE | 2024-06-08 06:55 | PC.NURSE ---
REPORT GIVEN TO ADRYAN MARCELO
[2024-06-08 08:00] VITALS: BP 96/63; PULSE 82; RESP 16; TEMP 35.9; O2SAT 100
[2024-06-08] MEDS: ACETAMINOPHEN 325 MG TABLET 650 MG PO (08:16)
[2024-06-08] MEDS: ASPIRIN 81 MG ENTERIC TABLET PO (08:17)
[2024-06-08] MEDS: CHOLECALCIFEROL 5,000 UNITS TABLET 5000 UNITS PO (08:17)
[2024-06-08] MEDS: HYDROcodone/acetaminophen (*CRX) 5-325 MG TABLET 1 TAB PO (09:04)
--- NOTE | 2024-06-08 09:24 | P.DS_ITS ---
DS: Admitting Diagnosis Discharge Date 06/08/24 Admitting Diagnosis weakness orthostatic hypotension irritable bowel syndrome depression and anxiety insomnia DS: Summary Hospital Course Reason for hospitalization: weakness orthostatic hypotension irritable bowel syndrome depression and anxiety insomnia Hospital Course: this is a 74-year-old female with a significant past medical history of dementia, TIA, chronic kidney disease stage 3, irritable bowel syndrome with constipation, depression, anxiety who presented to [facility] for additional rehab after an extended hospitalization at [facility]. Patient was hospitalized at [facility] for near syncope and orthostatic hypotension. PT and OT have worked with the patient and she has progressed well with the use of wheeled walker. Patient would benefit from the use of a 2 wheeled walker for safety at home due to her gait instability as she has had some balance issues while here at [facility]. she is stable for discharge at this time. She will need to follow up with her primary care doctor in 1 week. final diagnosis: weakness, gait instability Status at Discharge Cognitive/behavioral status at discharge: Alert and oriented x3 Functional status at discharge: uses cane/walker Overall status at discharge: patient is progressing back to baseline Time Spent with Patient Time attestation: Total time spent providing and/or coordinating discharge services: Time spent: Greater than 30 minutes Exam Narrative: General: In no acute distress, well nourished Head: atraumatic, no encephalopathy, reports headache Eyes: PERRLA, sclera clear ENT: moist mucous membranes, nasal passages clear Neck: supple, no JVD, no adenopathy, trachea midline Cardiac: Normal S1 and S2. No murmur, gallops or friction rubs, peripheral pulses intact. Respiratory: Lungs clear to auscultation, no adventitious lung sounds, currently on room air Gastrointestinal: soft, non-distended, non-tender, normoactive bowel sounds. : voiding without difficulty. Extremities: moves all extremities well, no edema Skin: clean, dry, intact. No wounds or lesions. Neuro: Alert and oriented x4, cranial nerves intact, no neuro deficits. Psych: normal mood, normal affect, interactive DS: Data Data Completed and Pending Completed studies during hospitalization: none Pending studies at discharge: none Procedures/Treatments: none Discharge Plan Discharge Attending physician on discharge: Sanford Milian Consulting providers: Radha Dumont Discharging Clinician: Darya Coleman Patient Disposition: Home, Self-Care Activity: as tolerated Diet: as tolerated and regular Discharge Instructions: * you are being prescribed Fioricet for your migraine like headaches. Follow- up with your primary care doctor in 1 week for further evaluation of those symptoms. Patient Instructions: Antibiotic Form, Aspirin (By mouth), Butalbital/Acetaminophen/Caffeine (By mouth) Patient Language: Romansh Stand Alone Forms: General Discharge Information Follow-up/Referrals: Edmar,Casa Gandhi MD [Primary Care Provider] - 1 week Discharge Medications: New fyzdltzwry-ngqykdlukjoiu-lgll [Fioricet] 50-300-40 mg capsule 1 cap PO Q8H PRN (Reason: pain) Qty: 10 0RF No Action sennosides-docusate sodium [Senokot-S] 8.6-50 mg Tablet 1 tab-cap PO BID Qty: 14 0RF citalopram [Celexa] 20 mg Tablet 40 mg PO HS Qty: 14 0RF melatonin 5 mg Tablet 5 mg PO HS Qty: 14 0RF cholecalciferol (vitamin D3) 125 mcg (5,000 unit) Tablet 5,000 unit PO DAILY Qty: 30 0RF trazodone 50 mg tablet 25 mg PO HS PRN (Reason: insomnia) Qty: 7 0RF clonazepam [Klonopin] 2 mg tablet 2 mg PO HS Qty: 7 0RF Rx Instructions: administer 30 minutes before bedtime aspirin 81 mg Tablet,Delayed Release (Dr/Ec) 81 mg PO QAM Qty: 14 0RF cyclobenzaprine 10 mg Tablet 10 mg PO QHS Qty: 30 0RF Date of admission: 06/01/24 14:23 Primary Care Provider: LenoraCasa Admitting Provider: Sanford Milian Attending physician on admission: Darya Coleman Condition: Improved Hospitalist MIPS Heart Failure (Exclusion) Patient has history of Heart Transplant or Left Ventricular Assistive Device?: No IF YES, STOP HERE Heart Failure (Qualifier) Patient has current or prior documentation of LVEF less than or equal to 40%, or mod/servere depressed LVSF?: No IF NO, STOP HERE
--- NOTE | 2024-06-08 13:15 | PC.NURSE ---
Discharge instructions given to patient and patient's . Both voiced understanding. Personal items sent home with patient. Patient left unit in w/c accompanied by patient's and this nurse. Patient left hospital ground in privately owned vehicle.
== END 2024-06-08 13:15 | disposition home or self-care (01) | DRG 948 ==
PROVIDERS: Admitting Provider Internal Medicine; PCP Internal Medicine; Visit Provider Nurse Practitioner Acute Care
DX: R53.1 Weakness (principal); N18.30 Chronic kidney disease, stage 3 unspecified; I95.1 Orthostatic hypotension; K58.1 Irritable bowel syndrome with constipation; F03.90 Unspecified dementia, unspecified severity, without behavioral disturbance, psychotic disturbance, mood disturbance, and anxiety; F32.A Depression, unspecified; F41.9 Anxiety disorder, unspecified; Z96.659 Presence of unspecified artificial knee joint; Z86.73 Personal history of transient ischemic attack (TIA), and cerebral infarction without residual deficits; Z79.82 Long term (current) use of aspirin
CPT/HCPCS: 97110; 97112; 97161; 97165; 97530; 97535; A9270

== ENCOUNTER 2024-10-11 20:32 | Emergency (ER) | payer MEDICARE, SELFPAY ==
--- NOTE | ~2024-10-11 | CT_ITS ---
CT of the Abdomen and Pelvis: Indication: Abdominal pain Technique: 2.5 mm axial scans were obtained through the abdomen and pelvis following intravenous adm inistration of 100 cc of Omnipaque 350. Dose reduction technique was used on this scan by utilizing a utomated exposure control and iterative reconstruction technique. The dose-length product (DLP) was 5 87.79 mGy-cm. COMPARISON: 03/15/2024 Findings: Scans through the lung bases are unremarkable. The liver, spleen, pancreas, gallbladder, adrenals and kidneys are within normal limits. No evidence of aortic aneurysm. No lymphadenopathy. No bowel obstruction or bowel wall thickening. There is no evidence to suggest acute appendicitis. Images through the pelvis were performed. Urinary bladder is unremarkable. No pelvic mass seen. No as cites. Impression: No significant abnormalities seen. Reviewed, dictated and finalized at [facility]. Impression: No significant abnormalities seen.
--- OUTSIDE RECORDS SUMMARY | 2024-10-11 20:35 | XMS_ITS | Continuity of Care Document ---
Author Organization [facility] Address [id number] [place] [address] [address] [place] [address] Phone Care Team Providers Care Diagrammer And Seamer Name Role Phone Rosemarie Duncan Unavailable Unavailable Advance Directives Directive Yes / No Effective Date File Name No Information Encounters Encounter Description Practice Location Reason(s) For Visit Diagnoses Date Provider Providers Copied on Encounter [facility], [address], [place], [place], [id number], [place] tel:[phone] [facility] [place] No Information Sep-0 1-200 5 Perla Houston. [address] [facility] , [address], [place], [address], [place]. tel:[phone] Family History Family Member Type Diagnosis Age At Onset No Information Payers Payer name Insurance type Covered republican ID Authoriza tion(s) No Information Social History [...]
--- OUTSIDE RECORDS SUMMARY | 2024-10-11 20:35 | XMS_ITS | Clinical Summary ---
Author Organization [facility] [address] Address [address] [place] [address] Care Team Providers Care Airline Captain Name Role Phone Casa Cooley MD Primary Care Provider [phone] Allergies Active Allergy Reactions Criticality Noted Date Comments Clindamycin Nausea & Vomiting Low 09/18/2024 Prochlorperazine Rash Medium 01/14/2020 Levofloxacin Rash Medium 06/15/2017 Medications aspirin 325 mg enteric coated tablet aspirin 325 mg tablet,delayed release Active ofloxacin (OCUFLOX) 0.3 % ophthalmic solution INSTILL 1 DROP IN BOTH EYES EVERY DAY 01/18/20 23 Active Imvexxy Maintenance Pack 10 mcg insert vaginal insert INSERT 1 SUPPOSITORY VAGINALLY 2 TIMES A WEEK 24 each 3 05/23/19 24 Active cyanocobalamin (Vitamin B-12) 1,000 mcg tabletIndicati ons:Prevention of Vitamin B12 Deficiency Take 1 tablet (1,000 mcg total) by mouth daily Active diphenoxylate- atropine (LOMOTIL) 2.5-0.025 mg per tabletIndicati ons:diarrhea Take 1 tablet by mouth 4 (four) times a day as needed for diarrhea 30 tablet 03/05/20 24 Active clonazePAM (KlonoPIN) 2 mg tablet Take 1 tablet (2 mg total) by mouth daily 90 tablet 1 04/25/19 25 025 Active traZODone (DESYREL) 50 mg tablet TAKE 1 TABLET NIGHTLY 90 tablet 3 05/16/19 25 Active Linzess 145 mcg capsule Take 1 capsule (145 mcg total) by mouth every morning 08/14/19 25 Active donepeziL (ARICEPT) 5 mg tablet Take 1 tablet (5 mg total) by mouth nightly 30 tablet 4 09/19/19 25 026 Active citalopram (CeleXA) 40 mg tablet TAKE 1 TABLET DAILY 90 tablet 2 09/28/19 25 Active hydrOXYzine (ATARAX) 25 mg tablet TAKE 1 TABLET TWICE A DAY 180 tablet 2 10/14/19 24 025 Discontinued(T herapy completed) cyclobenzaprin e (FLEXERIL) 10 mg tablet TAKE 1 TABLET TWICE DAILY NEEDED FOR MUSCLE SPASMS 180 tablet 3 11/08/19 24 025 Discontinued(T herapy completed) citalopram (CeleXA) 40 mg tablet Take 1 tablet (40 mg total) by mouth daily 90 tablet 2 02/22/20 24 025 Discontinued cefuroxime (CEFTIN) 250 mg tablet Take 1 tablet (250 mg total) by mouth 2 (two) times a day 20 tablet 05/11/19 25 025 Discontinued(T herapy completed) Active Problems Problem Noted Date Diagnosed Date TMJ (temporomandibular joint syndrome) Assessment & Plan (03/20/2024 11:35 AM DESULFURIZER OPERATOR): Stable. Memory changes 10/11/2023 Assessment & Plan (03/20/2024 11:35 AM DESULFURIZER OPERATOR): Long conversation with patient and her today. [...] medication Assessment & Plan (03/20/2024 11:35 AM DESULFURIZER OPERATOR): Currently not as anxious on medication. She [...] Encounters Date Type Department Care Team Description 10/09/2024 Telephone [facility] [address] [place] [address] [address] [place] [id number] Casa Cooley MD UTI 09/18/2024 10:45 AM CDT Office Visit [facility] [address] [place] [address] [address] [place] [address] Casa Cooley MD Anxiety (Primary Dx); Memory changes; Anxiety and depression 08/17/2024 Telephone [facility] [address] [place] [address] [address] [place] [address] Casa Cooley MD PA CYCLOBENZAPRINE 10MG from Last 3 Months Immunizations Immunization Administration Dates Next Due Influenza, Quadrivalent, Hig h Dose, Preservative Free, Intrr 01/28/2020 Influenza, Quadrivalent, Spl it, Preservative Free, Intramuscular 03/15/2017,01/17/2015 Influenza, Trivalent, Adjuvanted, Intramuscular 12/20/2018 Influenza, Trivalent, High D ose, Split, Preservative Free, Intramuscular 12/28/2017,03/31/2016 Influenza, Trivalent, IM (MDV) 12/05/2014,2012 Influenza, Trivalent, Preservative Free, Intramu scular 01/09/2014,12/08/2012 [employer] (J&J) SARS-CoV-2 Vaccination 05/09/2020 Pfizer Sars-Cov-2 Bivalent [...] on file Legal Sex Female 4:53 PM DESULFURIZER OPERATOR Gender Identity Not on file Sexual Orientation Not on file Occupation Industry Job Start Date Job End Date homemaker Not on file Not on file Not on file Obstetrics History Last Filed Vital Signs Vital Sign Reading Time Taken Comments Blood Pressure 135/73 09/18/2024 10:17 AM CDT Pulse 82 09/18/2024 10:17 AM CDT Temperature 36.5 C (97.7 F) 05/03/2024 10:41 AM DESULFURIZER OPERATOR Respiratory Rate 19 09/06/2023 2:30 PM CDT Oxygen Saturation 98% 05/03/2024 10:41 AM DESULFURIZER OPERATOR Inhaled Oxygen Concentration - - Weight 74.8 kg (165 lb) 09/18/2024 10:17 AM CDT Height 165.1 cm (5' 5) 09/18/2024 10:17 AM CDT Body Mass Index 27.46 09/18/2024 10:17 AM CDT Plan of Treatment Health Maintenance Due Date Last Done Comments Osteoporosis Screening-Bone Density Scan 1950 Hepatitis B Screening 1969 Breast Cancer Screening-Mammogram 11/25/2023 11/24/2022, 11/24/2022 Influenza Vaccine (#1) 2024 , 12/20/2018, 12/28/2017, Additional history exists Covid-19 Vaccine ( season) 2025 12/09/2021, 02/18/2021, 05/09/2020 Postponed from 11/06/2023 (Patient declined, but will receive in the future) DTaP/Tdap/Td Vaccine (1 - Tdap) 03/20/2025 Postponed from 1962 (Patient declined, but will receive in the future) Depression Screening 03/20/2025 03/20/2024, 03/11/2023, 12/09/2021 Fall Risk Assessment 03/20/2025 03/20/2024, 03/11/2023, 12/09/2021 Pneumococcal vaccine 65+ (1 of 2 - PCV) 03/20/2025 Postponed from 1970 (Patient declined, but will receive in the [...] Procedure Name Priority Date/Time Associated Diagnosis Comments HEPATITIS PANEL, ACUTE Routine 09/06/2023 8:07 PM CDT COLONOSCOPY Routine 06/02/2020 from Last 3 Months or Most Recently Relevant to Health Maintenance Results * Hepatitis panel, acute Blood (09/06/2023 8:07 PM CDT) Hep A IgM Nonreactive Nonreactive Hep B core IgM Nonreactive Nonreactive [facility] Hep C Ab Nonreactive Nonreactive [facility] Comment:Antibodies to HCV no t detected. Does NOT exclude the possibility of recent exposure to HCV. Current interpretive data was last revised on 21 HepBsAg Nonreactive Nonreactive [facility] Blood 09/06/2023 8:07 PM CDT 09/06/2023 8:35 PM CDT Basia Garcia MD LAB MICROBIOLOGY - GENER AL ORDERABLES Final Result [facility] Department [place] [address] * Colonoscopy (06/02/2020) Anatomical Region Laterality Modality Other Narrative 06/02/2020 Pt states she cant have colonoscopy due to many loops us Historical Provider ENDOSCOPY PROCEDURES Clara l Result from Last 3 Months or Most Recently Relevant to Health Maintenance Insurance AETNA MEDICARE AETNA MEDICARE Care Teams Airline Captain Relationship Specialty Start Date End Date Casa Cooley MD PCP - General Internal Medicine 01/14/20
--- OUTSIDE RECORDS SUMMARY | 2024-10-11 20:35 | XMS_ITS | Clinical Summary ---
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
[2024-10-11 20:42] VITALS: BP 116/69; PULSE 84; RESP 20; TEMP 36.7; O2SAT 95
[2024-10-12] VITALS (45 sets, daily range): BP systolic 94–130; BP diastolic 45–94; PULSE 60–72; RESP 12–21; O2SAT 92–100
--- OUTSIDE RECORDS SUMMARY | 2024-10-12 00:20 | XMS_ITS | Clinical Summary ---
Author Organization [facility] [address] Address [address] [place] [address] Care Team Providers Care Desktop Architect Name Role Phone Casa Cooley MD Primary Care Provider [phone] Allergies Active Allergy Reactions Criticality Noted Date [...] syndrome) Assessment & Plan (03/20/2024 11:35 AM SALON COORDINATOR): Stable. Memory changes 10/11/2023 Assessment & Plan (03/20/2024 11:35 AM SALON COORDINATOR): Long conversation with patient and her today. [...] medication Assessment & Plan (03/20/2024 11:35 AM SALON COORDINATOR): Currently not as anxious on medication. She [...] Type Department Care Team Description 10/09/2024 Telephone [facility] [address] [place] [address] [address] [place] [id number] Casa Cooley MD UTI 09/18/2024 10:45 AM CDT Office Visit [facility] [address] [place] [address] [address] [place] [address] Casa Cooley MD Anxiety (Primary Dx); Memory changes; Anxiety and depression 08/17/2024 Telephone [facility] [address] [place] [address] [address] [place] [address] Casa Cooley MD PA CYCLOBENZAPRINE 10MG from Last 3 Months Immunizations Immunization Administration Dates Next Due Influenza, Quadrivalent, Hig h Dose, Preservative Free, Intrr 01/28/2020 Influenza, Quadrivalent, Spl it, Preservative Free, Intramuscular 03/15/2017,01/17/2015 Influenza, Trivalent, Adjuvanted, Intramuscular 12/20/2018 Influenza, Trivalent, High D ose, Split, Preservative Free, Intramuscular 12/28/2017,03/31/2016 Influenza, Trivalent, IM (MDV) 12/05/2014,2012 Influenza, Trivalent, Preservative Free, Intramu scular 01/09/2014,12/08/2012 [employer] (J&J) SARS-CoV-2 Vaccination 05/09/2020 Pfizer Sars-Cov-2 Bivalent [...] on file Legal Sex Female 4:53 PM SALON COORDINATOR Gender Identity Not on file Sexual Orientation Not on file Occupation Industry Job Start Date Job End Date homemaker Not on file Not on file Not on file Obstetrics History Last Filed Vital Signs Vital Sign Reading Time Taken Comments Blood Pressure 135/73 09/18/2024 10:17 AM CDT Pulse 82 09/18/2024 10:17 AM CDT Temperature 36.5 C (97.7 F) 05/03/2024 10:41 AM SALON COORDINATOR Respiratory Rate 19 09/06/2023 2:30 PM CDT Oxygen Saturation 98% 05/03/2024 10:41 AM SALON COORDINATOR Inhaled Oxygen Concentration - - Weight 74.8 [...] Nonreactive Hep B core IgM Nonreactive Nonreactive [facility] Hep C Ab Nonreactive Nonreactive [facility] Comment:Antibodies to HCV no t detected. Does NOT exclude the possibility of recent exposure to HCV. Current interpretive data was last revised on 21 HepBsAg Nonreactive Nonreactive [facility] Blood 09/06/2023 8:07 PM CDT 09/06/2023 8:35 PM CDT Basia Garcia MD LAB MICROBIOLOGY - GENER AL ORDERABLES Final Result [facility] Department [place] [address] * Colonoscopy (06/02/2020) Anatomical Region Laterality Modality Other Narrative 06/02/2020 Pt states she cant have colonoscopy due to many loops us Historical Provider ENDOSCOPY PROCEDURES Clara l Result from Last 3 Months or Most Recently Relevant to Health Maintenance Insurance AETNA MEDICARE AETNA MEDICARE Care Teams Desktop Architect Relationship Specialty Start Date End Date Casa Cooley MD PCP - General Internal Medicine 01/14/20
--- OUTSIDE RECORDS SUMMARY | 2024-10-12 00:20 | XMS_ITS | Continuity of Care Document ---
Author Organization [facility] Address [id number] [place] [address] [address] [place] [address] Phone Care Team Providers Care Rpg Programmer Analyst Name Role Phone Rosemarie Duncan Unavailable Unavailable Advance Directives Directive Yes / No Effective Date File Name No Information Encounters Encounter Description Practice Location Reason(s) For Visit Diagnoses Date Provider Providers Copied on Encounter [facility], [id number] [place] [address] [address] [place], [place], [id number], [place] tel:[phone] SEC [facility] No Information Sep-0 1-[address]la [place]. [address] [facility] , [address], [place], [address], [place]. tel:[phone] Family History Family Member Type Diagnosis Age [...]
--- OUTSIDE RECORDS SUMMARY | 2024-10-12 00:21 | XMS_ITS | Clinical Summary ---
Author Organization [facility] Address [address] [place] [address] Care Team Providers Care Marine Rigger Name Role Phone Unavailable Primary Care Provider Unavailabl e Social History Tobacco Use Types Packs/Day Years Used Date Smoking Tobacco: Never Assessed Comments Unknown Sex and Gender Information Value Date Recorded Sex Assigned at Not on file Legal Sex Female 7:30 PM SPREADER Gender Identity Not on file Sexual Orientation [...] Recently Relevant to Health Maintenance Insurance AETNA [facility]
[2024-10-12 00:29] LABS: Add Urine Microscopic? YES; Appearance Urine Clear (Clear); Glucose Urine UA Negative (Negative); Leukocyte Esterase Ur Trace LEU/UL (Negative); Need Manual Microscopic Reviewed; Nitrate Urine Negative (Negative); Specific Grav Ur 1.018 (1.001-1.035)
--- NOTE | 2024-10-12 01:31 | ED_ITS ---
HPI - Abdominal Pain General Chief Complaint: Urogenital-Female <Marsha Maier APRN - Last Filed: 10/12/24 03:15> Stated Complaint: UTI getting worse-constipated <Marsha Maier APRN - Last Filed: 10/12/24 03:15> Time Seen by Provider: 10/12/24 00:09 <Marsha Maier APRN - Last Filed: 10/12/24 03:15> History of Present Illness HPI narrative: Patient is a 74-year-old female who presents to the ER with urinary symptoms and abdominal pain. She reports she started experiencing urinary symptoms on Tuesday, 4 days ago, so she was started on Bactrim. Patient reports she continues to experience burning with urination, decreased amounts of urination, back pain and abdominal pain. She reports last Tuesday, 7 days ago, she had a diarrhea so her gave her Imodium. Patient reports she has not had a bowel movement since Tuesday, although she has been taking MiraLax. She reports she has a hospital scientist who advised she take MiraLax every 6 hours. Patient reports she has a history of irritable bowel syndrome, dementia, TMJ. She denies any chest pain, shortness of breath, recent fevers, or lower extremity edema. <Marsha Maier APRN - Last Filed: 10/12/24 03:15> Related Data Allergies/Adverse Reactions: Allergies Allergy/AdvReac Type Severity Reaction Status Date / Time prochlorperazine Allergy Unknown Unknown Verified 10/11/24 20:46 <Marsha Maier APRN - Last Filed: 10/12/24 03:15> [facility] Past Medical History Medical History: Medical History Urinary tract infection TMJ (temporomandibular joint disorder) Irritable bowel syndrome with alternating bowel habits Dementia of Alzheimer's type, with early onset, with depressed mood Chronic kidney disease Transient ischemic attack Chronic constipation Depression with anxiety <Marsha Maier APRN - Last Filed: 10/12/24 03:15> Surgical History Surgical History: Surgical History History of knee replacement History of vaginal hysterectomy (1981) History of bilateral salpingo-oophorectomy (10/1999) History of laparoscopy (06/2000) Laparoscopic adhesiolysis or pelvic pain. <Marsha Maier APRN - Last Filed: 10/12/24 03:15> Social History Social History: Social History Social History: Surrogate medical decision maker: Britt Mohr, spouse. Code status: Full code. Smoking packs per day: 0 Smoking cigarettes per day: 0.0 Years smoked: 0 Smoking pack-years: 0.00 Smoking status: Never smoker Second hand tobacco smoke exposure: No Alcohol intake: never Substance use: never Substance use type: does not use Do You Feel Safe in your Home?: Yes Lack of Transportation: No Lack of Food: Never True Current Housing: I Have Housing Concerned About Future Housing: No Difficulty Paying Gas/Electric Bills: No Difficulty Paying for Meds: No Currently Unemployed: No Education: High School Diploma/GED Difficulty w/ Childcare or Family Care: No Living arrangements: with family Additional living arrangements comments: Lives with spouse and intellectually disabled son. Additional occupation/education comments: Homemaker. Spiritual care concerns: No <Marsha Maier APRN - Last Filed: 10/12/24 03:15> Course Course Emergency Course: Patient signed out to me pending bladder scan and results of CT. \ By report patient has a history of dementia and there was concern for urinary tract infection based on her symptoms. Been self medicating with antibiotics but urine with only trace leukocyte esterase. Sees hospital scientist Dr. Richard Lanier. Last bowel movement was approximately 1 week ago. Had initially had diarrhea followed by Imodium and then constipation for which hospital scientist recommended MiraLax q.6. Creatinine is 1.4 and stable. Postvoid residual was 0. CT as below. Some stool burden. Discussed work up with patient and her at bedside. Patient has otherwise been stable while in the ED; discharged and advised follow up. <Nancy Kellogg MD - Last Filed: 10/13/24 13:48> Vital Signs Vital signs: Vital Signs Temperature 98.1 F 10/11/24 20:42 Pulse Rate 84 10/11/24 20:42 Respiratory Rate 20 10/11/24 20:42 Blood Pressure 116/69 10/11/24 20:42 Pulse Oximetry 95 10/11/24 20:42 Oxygen Delivery Room Air 10/11/24 20:42 Temperature 98.1 F 10/11/24 20:42 Pulse Rate 67 10/12/24 05:16 Respiratory Rate 15 10/12/24 05:16 Blood Pressure 122/51 L 10/12/24 05:16 Pulse Oximetry 98 10/12/24 05:16 Oxygen Delivery Room Air 10/11/24 20:42 <Marsha Maier, REPEATER CHIEF - Last Filed: 10/12/24 03:15> Vital Signs Temperature 98.1 F 10/11/24 20:42 Pulse Rate 84 10/11/24 20:42 Respiratory Rate 20 10/11/24 20:42 Blood Pressure 116/69 10/11/24 20:42 Pulse Oximetry 95 10/11/24 20:42 Oxygen Delivery Room Air 10/11/24 20:42 Temperature 98.1 F 10/11/24 20:42 Pulse Rate 67 10/12/24 05:16 Respiratory Rate 15 10/12/24 05:16 Blood Pressure 122/51 L 10/12/24 05:16 Pulse Oximetry 98 10/12/24 05:16 Oxygen Delivery Room Air 10/11/24 20:42 <Nancy Kellogg MD - Last Filed: 10/13/24 13:48> MDM - Abdominal Pain MDM Narrative Medical decision making narrative: Patient is a 74-year-old female who presents to the ER with urinary symptoms and abdominal pain. She reports she started experiencing urinary symptoms on Tuesday, 4 days ago, so she was started on Bactrim. Patient reports she continues to experience burning with urination, decreased amounts of urination, back pain and abdominal pain. She reports last Tuesday, 7 days ago, she had a diarrhea so her gave her Imodium. Patient reports she has not had a bowel movement since Tuesday, although she has been taking MiraLax. She reports she has a hospital scientist who advised she take MiraLax every 6 hours. Patient reports she has a history of irritable bowel syndrome, dementia, TMJ. She denies any chest pain, shortness of breath, recent fevers, or lower extremity edema. Labs Ordered: CBC, CMP, lipase, UA Imaging Ordered: CT abdomen pelvis Medications Ordered: 1 L normal saline IV bolus Results: Patient's CBC indicates no acute abnormalities. Her CMP indicates a sodium of 131, BUN of 24, creatinine of 1.44, and GFR of 36. Patient's lipase was within normal limits. Her urinalysis did not indicate patient has UTI. 0315- Care signed out to Dr. Kellogg. <Marsha Maier, REPEATER CHIEF - Last Filed: 10/12/24 03:15> Differential Diagnosis Differential diagnosis: Likely abdominal pain, constipation, gastroenteritis, small bowel obstruction and other (Urinary tract infection) <Marsha Maier REPEATER CHIEF - Last Filed: 10/12/24 03:15> Lab Data Attestation: I reviewed the patient's lab results. <Marsha Maier REPEATER CHIEF - Last Filed: 10/12/24 03:15> Result diagrams: 10/12/24 01:34 10/12/24 01:34 <Marsha Maier APRN - Last Filed: 10/12/24 03:15> Labs: Lab Results 10/12/24 10/12/24 Range/Units 00:14 01:34 WBC 5.3 (4.5-10.0) K/mm3 RBC 4.33 (4.2-5.4) M/mm3 Hgb 12.6 (12.0-15.0) g/dL Hct 38.7 (37.0-47.0) % MCV 89.4 (80-100) fl MCH 29.1 (26-34) pg MCHC 32.6 (32-36) g/dl RDW 13.1 (11.5-14.5) % Plt Count 306 (150-375) k/mm3 MPV 10.0 (7.4-10.4) fl Immature Gran % (Auto) 0.2 (0-0.5) % Neut % (Auto) 50.9 (45.5-73.1) % Lymph % (Auto) 34.4 (18.3-44.2) % [place] % (Auto) 10.0 H (2.6-8.5) % Eos % (Auto) 4.1 (0-4.4) % Baso % (Auto) 0.4 (0.2-1.2) % Lymph # (Auto) 1.83 (0.9-3.2) K/mm3 [place] # (Auto) 0.5 (0.1-0.6) K/mm3 Eos # (Auto) 0.2 (0-0.3) K/mm3 Baso # (Auto) 0.0 (0.0-0.1) K/mm3 Abs Immat Gran (auto) 0.01 (0.00-0.031) K/mm3 Absolute Neuts (auto) 2.7 (1.3-6.7) K/mm3 Absolute Nucleated RBC 0.000 (0.0-0.012) K/mm3 Nucleated RBC % 0.0 (0.0-0.2) % Sodium 131 L (137-145) mmol/L Potassium 4.7 (3.4-5.0) mmol/L Chloride 102 (98-107) mmol/L Carbon Dioxide 23 (22-30) mmol/L Anion Gap 6 (4-12) mmol/L BUN 24 H (7-17) mg/dL Creatinine 1.44 H (0.7-1.0) mg/dL Estim Creat Clear Calc 28 ml/min Estimated GFR 36 L (59 - ) Glucose 88 (65-110) mg/dL Calcium 9.6 (8.4-10.2) mg/dL Total Bilirubin 0.4 (0.2-1.3) mg/dL AST 24 (14-36) U/L ALT 15 (6-35) U/L Alkaline Phosphatase 115 (38-126) U/L Total Protein 6.6 (6.3-8.2) g/dL Albumin 4.0 (3.5-5.1) g/dL Lipase 39 (23-300) U/L Urine Color Yellow (Yellow) Urine Appearance Clear (Clear) Urine pH 5.5 (5.0-9.0) Ur Specific [place] 1.018 (1.001-1.035) Urine Protein Negative (Negative) mg/dL Urine Glucose (UA) Negative (Negative) mg/dL Urine Ketones Negative (Negative) mg/dL Ur Blood (Man) Negative (Negative) Urine Nitrate Negative (Negative) Urine Bilirubin Negative (Negative) Urine Urobilinogen 0.2 (<2.0) mg/dL Add Ur Microanalysis Reviewed Leukocyte Esterase Rfl Trace H (Negative) DENISA/UL Urine RBC 0-2 (0-2) /hpf Urine WBC 0-5 (0-3) /hpf Ur Squamous Epith Cells Few (Few) /hpf Urine Bacteria None seen /hpf Urine Casts 6-10 Hyaline Casts Present (None) /lpf <Marsha Oksana Maier, REPEATER CHIEF - Last Filed: 10/12/24 03:15> Lab Results 10/12/24 10/12/24 Range/Units 00:14 01:34 WBC 5.3 (4.5-10.0) K/mm3 RBC 4.33 (4.2-5.4) M/mm3 Hgb 12.6 (12.0-15.0) g/dL Hct 38.7 (37.0-47.0) % MCV 89.4 (80-100) fl MCH 29.1 (26-34) pg MCHC 32.6 (32-36) g/dl RDW 13.1 (11.5-14.5) % Plt Count 306 (150-375) k/mm3 MPV 10.0 (7.4-10.4) fl Immature Gran % (Auto) 0.2 (0-0.5) % Neut % (Auto) 50.9 (45.5-73.1) % Lymph % (Auto) 34.4 (18.3-44.2) % [place] % (Auto) 10.0 H (2.6-8.5) % Eos % (Auto) 4.1 (0-4.4) % Baso % (Auto) 0.4 (0.2-1.2) % Lymph # (Auto) 1.83 (0.9-3.2) K/mm3 [place] # (Auto) 0.5 (0.1-0.6) K/mm3 Eos # (Auto) 0.2 (0-0.3) K/mm3 Baso # (Auto) 0.0 (0.0-0.1) K/mm3 Abs Immat Gran (auto) 0.01 (0.00-0.031) K/mm3 Absolute Neuts (auto) 2.7 (1.3-6.7) K/mm3 Absolute Nucleated RBC 0.000 (0.0-0.012) K/mm3 Nucleated RBC % 0.0 (0.0-0.2) % Sodium 131 L (137-145) mmol/L Potassium 4.7 (3.4-5.0) mmol/L Chloride 102 (98-107) mmol/L Carbon Dioxide 23 (22-30) mmol/L Anion Gap 6 (4-12) mmol/L BUN 24 H (7-17) mg/dL Creatinine 1.44 H (0.7-1.0) mg/dL Estim Creat Clear Calc 28 ml/min Estimated GFR 36 L (59 - ) Glucose 88 (65-110) mg/dL Calcium 9.6 (8.4-10.2) mg/dL Total Bilirubin 0.4 (0.2-1.3) mg/dL AST 24 (14-36) U/L ALT 15 (6-35) U/L Alkaline Phosphatase 115 (38-126) U/L Total Protein 6.6 (6.3-8.2) g/dL Albumin 4.0 (3.5-5.1) g/dL Lipase 39 (23-300) U/L Urine Color Yellow (Yellow) Urine Appearance Clear (Clear) Urine pH 5.5 (5.0-9.0) Ur Specific [place] 1.018 (1.001-1.035) Urine Protein Negative (Negative) mg/dL Urine Glucose (UA) Negative (Negative) mg/dL Urine Ketones Negative (Negative) mg/dL Ur Blood (Man) Negative (Negative) Urine Nitrate Negative (Negative) Urine Bilirubin Negative (Negative) Urine Urobilinogen 0.2 (<2.0) mg/dL Add Ur Microanalysis Reviewed Leukocyte Esterase Rfl Trace H (Negative) DENISA/UL Urine RBC 0-2 (0-2) /hpf Urine WBC 0-5 (0-3) /hpf Ur Squamous Epith Cells Few (Few) /hpf Urine Bacteria None seen /hpf Urine Casts 6-10 Hyaline Casts Present (None) /lpf <Nancy Kellogg MD - Last Filed: 10/13/24 13:48> Imaging Data Attestation: I personally reviewed and interpreted this imaging study as follows: < Nancy Kellogg MD - Last Filed: 10/13/24 13:48> My impression: : Does appear distended in some areas , there are some areas with moderate stool burden on my independent interpretation of CT scan <Nancy Kellogg MD - Last Filed: 10/13/24 13:48> Radiologist's impression: ITS Impressions Abdomen/Pelvis CT 10/12/24 05:43 Impression: No significant abnormalities seen. <Marsha Maier APRN - Last Filed: 10/12/24 03:15> ITS Impressions Abdomen/Pelvis CT 10/12/24 05:43 Impression: No significant abnormalities seen. CT Abd & Pelvis with contrast: No acute findings. <Nancy Kellogg MD - Last Filed: 10/13/24 13:48> Discharge Plan Discharge Clinical Impression: Dysuria, Abdominal pain, Infrequent bowel movements <Marsha Maier APRN - Last Filed: 10/12/24 03:15> Patient Disposition: Home <Marsha Maier APRN - Last Filed: 10/12/24 03:15> Condition: Stable <Marsha Maier APRN - Last Filed: 10/12/24 03:15> Instructions: Antibiotic Form, Constipation (DC), High Fiber Diet (ED), Dysuria (ED), Abdominal Pain (ED) <Marsha Maier APRN - Last Filed: 10/12/24 03:15> Additional Instructions: As we discussed, your urine does not appear infected and you have already been taking antibiotics. The pyridium we gave you can help with the burning sensation you experience but we only gave you a 1 time dose rather than a prescription given that a can discolor your tears with repetitive use and you wear a contact lens/plate. It may turn your urine orange. Because of your symptoms, recommend you follow-up with your hospital scientist. The name of the urologist is listed below. In addition to the MiraLax every 6 hours you are instructed to take, you can supplement with additional fiber/psyllium/Metamucil and, if still not producing a bowel movement, add the laxative magnesium citrate. Drink plenty of fluids and make sure your diet contains fiber. Return to the emergency department with any new or worsening symptoms such as intractable pain, intractable nausea/vomiting, or you stop passing gas (farting). Acetaminophen/Tylenol (maximum 4000 mg per day) is safe to take with NSAIDs (ibuprofen/Motrin) for pain relief. <Marsha Maier APRN - Last Filed: 10/12/24 03:15> Patient Language: [place] <Marsha Maier APRN - Last Filed: 10/12/24 03:15> Prescriptions: New Metamucil 3.4 gram/5.4 gram powder 1 tbsp PO DAILY Qty: 660 0RF Rx Instructions: mix into at least 8 oz of water or juice before administering magnesium citrate Solution 150 ml PO DAILY PRN (Reason: constipation) Qty: 296 0RF ibuprofen 600 mg tablet 600 mg PO TID PRN (Reason: pain) Qty: 30 0RF acetaminophen 500 mg capsule 1,000 mg PO Q6H PRN (Reason: pain) Qty: 30 0RF No Action [id number] [Fioricet] 50-300-40 mg capsule 1 cap PO Q8H PRN (Reason: pain) Qty: 10 0RF dicyclomine 20 mg tablet 20 mg PO TID 30 Days Qty: 90 0RF citalopram [Celexa] 20 mg Tablet 40 mg PO HS Qty: 14 0RF melatonin 5 mg Tablet 5 mg PO HS Qty: 14 0RF cholecalciferol (vitamin D3) 125 mcg (5,000 unit) Tablet 5,000 unit PO DAILY Qty: 30 0RF trazodone 50 mg tablet 25 mg PO HS PRN (Reason: insomnia) Qty: 7 0RF clonazepam [Klonopin] 2 mg tablet 2 mg PO HS Qty: 7 0RF Rx Instructions: administer 30 minutes before bedtime aspirin 81 mg Tablet,Delayed Release (Dr/Ec) 81 mg PO QAM Qty: 14 0RF cyclobenzaprine 10 mg Tablet 10 mg PO QHS Qty: 30 0RF Linzess 145 mcg capsule 145 mcg PO QAM Qty: 90 5RF <Marsha Maier APRN - Last Filed: 10/12/24 03:15> Follow-up/Referrals: Александр Colon MD [Physician] - Lenora,Casa Gandhi MD [Primary Care Provider] - Henry Ron MD [Physician] - <Marsha Maier APRN - Last Filed: 10/12/24 03:15> Time of Disposition: 04:30 <Marsha Maier APRN - Last Filed: 10/12/24 03:15> 04:30 <Nancy Kellogg MD - Last Filed: 10/13/24 13:48>
[2024-10-12 01:39] LABS: Hematocrit 38.7 % (37.0-47.0); Hemoglobin 12.6 g/dL (12.0-15.0); Immature Granulocyte Percent A 0.2 % (0-0.5); Lymphocytes Absolute Auto 1.83 K/mm3 (0.9-3.2); Mean Corpuscular HGB Conc 32.6 g/dl (32-36); Mean Corpuscular Hemoglobin 29.1 pg (26-34); Mean Corpuscular Volume 89.4 fl (80-100); Nucleated Red Blood Cells Absolute Auto 0.000 K/mm3 (0.0-0.012); Nucleated Red Blood Cells Perc 0.0 % (0.0-0.2); Platelet Count Result 306 k/mm3 (150-375); Red Blood Count 4.33 M/mm3 (4.2-5.4); White Blood Count 5.3 K/mm3 (4.5-10.0)
[2024-10-12] MEDS: SODIUM CHLORIDE 0.9% IV 1,000 ML 999 ML IV CONT (01:40)
[2024-10-12 01:49] LABS: Alanine Aminotransferase 15 U/L (6-35); Albumin Level 4.0 g/dL (3.5-5.1); Alkaline Phosphatase 115 U/L (38-126); Anion Gap 6 mmol/L (4-12); Aspartate Amino Transferase 24 U/L (14-36); Bilirubin,Total 0.4 mg/dL (0.2-1.3); Blood Urea Nitrogen 24 mg/dL (7-17); Calcium 9.6 mg/dL (8.4-10.2); Carbon Dioxide 23 mmol/L (22-30); Chloride 102 mmol/L (98-107); Estimated CRCL calculation 28 ml/min; Estimated Glomerular Filt Rate 36; Glucose 88 mg/dL (65-110); Lipase 39 U/L (23-300); Potassium 4.7 mmol/L (3.4-5.0); Sodium 131 mmol/L (137-145); Total Protein 6.6 g/dL (6.3-8.2)
[2024-10-12] MEDS: PHENAZOPYRIDINE HCL 100 MG TABLET PO (05:19)
[2024-10-12] MEDS: PSYLLIUM POWDER PACKET 1 PACKET PO (05:19)
== END 2024-10-12 05:31 | disposition home or self-care (01) ==
PROVIDERS: Registered Nurse; Emergency Provider Student in an Organized Health Care Education/Training Program; PCP Internal Medicine
DX: R30.0 Dysuria (principal); R10.9 Unspecified abdominal pain; K59.00 Constipation, unspecified; K58.2 Mixed irritable bowel syndrome; G30.9 Alzheimer's disease, unspecified; F02.80 Dementia in other diseases classified elsewhere, unspecified severity, without behavioral disturbance, psychotic disturbance, mood disturbance, and anxiety; N18.9 Chronic kidney disease, unspecified; F41.8 Other specified anxiety disorders; Z96.659 Presence of unspecified artificial knee joint; Z90.710 Acquired absence of both cervix and uterus; Z90.722 Acquired absence of ovaries, bilateral; Z90.79 Acquired absence of other genital organ(s)
CPT/HCPCS: 36415; 74177; 80053; 81001; 83690; 85025; 96360; 99284; A9270; J7030; Q9967

== ENCOUNTER 2024-10-25 11:08 | Emergency (ER) | payer MEDICARE, SELFPAY ==
[2024-10-25] VITALS (25 sets, daily range): BP systolic 77–122; BP diastolic 44–89; PULSE 76–91; RESP 14–32; TEMP 36.6; O2SAT 94–100
--- NOTE | ~2024-10-25 | CT_ITS ---
EXAMINATION: CT brain wo con DATE: 10/25/2024 13:02 INDICATION: New headache TECHNIQUE: Computed tomography (CT) of the abdomen and pelvis was performed without intravenous contrast. The dose-length product was 529.67 mGy-cm. COMPARISON: 05/24/2024 FINDINGS: No acute intracranial hemorrhage. No mass effect. No midline shift. No hydrocephalus. There are several low density regions scattered throughout the periventricular and deep white matter which are favored to represent chronic ischemic white matter change. Mild cerebral atrophy appropriate for the patient's age. No skull fracture. Visualized paranasal sinuses and mastoid air cells are clear. IMPRESSION: 1. No acute intracranial hemorrhage. No mass effect. 2. Probable chronic ischemic white matter change. Reviewed, dictated and finalized at location A.
--- NOTE | ~2024-10-25 | XR_ITS ---
EXAMINATION: XR chest 2V 10/25/2024 12:28 INDICATION: Syncopal episode TECHNIQUE:Frontal and lateral images of the chest were obtained. COMPARISON: 05/24/2024 FINDINGS: Moderate elevation of the hemidiaphragm, unchanged. Stable bandlike opacity in the left lower lungs likely atelectasis or scarring. No pneumothorax. No pleural effusion. No free air the diaphragm. No new focal pulmonary consolidation. 6 mm calcified granuloma in the left upper lobe. IMPRESSION: 1: NO ACUTE CARDIOPULMONARY DISEASE. Reviewed, dictated and finalized at location A.
--- NOTE | 2024-10-25 11:28 | ECG_ITS ---
Test Date: 2024-10-25 11:10:47 Measurements Intervals [place] Rate: 90 P: 61 CA: 140 QRS: 79 QRSD: 146 T: 1 QT: 389 QTc: 478 Interpretive Statements SINUS RHYTHM RIGHT BUNDLE BRANCH BLOCK BASELINE ARTIFACT- I, II, III, AVL, AVF ABNORMAL ECG Compared to ECG 05/24/2024 17:49:25 No significant changes Electronically Signed On 10-25-2024 12:55:27 CDT by Dakota Yoon D.O.
[2024-10-25 11:39] LABS: Hematocrit 42.8 % (37.0-47.0); Hemoglobin 14.0 g/dL (12.0-15.0); Immature Granulocyte Percent A 0.6 % (0-0.5); Lymphocytes Absolute Auto 0.54 K/mm3 (0.9-3.2); Mean Corpuscular HGB Conc 32.7 g/dl (32-36); Mean Corpuscular Hemoglobin 29.5 pg (26-34); Mean Corpuscular Volume 90.3 fl (80-100); Nucleated Red Blood Cells Absolute Auto 0.000 K/mm3 (0.0-0.012); Nucleated Red Blood Cells Perc 0.0 % (0.0-0.2); Platelet Count Result 298 k/mm3 (150-375); Red Blood Count 4.74 M/mm3 (4.2-5.4); White Blood Count 6.7 K/mm3 (4.5-10.0)
[2024-10-25 12:02] LABS: Alanine Aminotransferase 44 U/L (6-35); Albumin Level 4.0 g/dL (3.5-5.1); Alkaline Phosphatase 152 U/L (38-126); Anion Gap 8 mmol/L (4-12); Aspartate Amino Transferase 65 U/L (14-36); Bilirubin,Total 0.7 mg/dL (0.2-1.3); Blood Urea Nitrogen 21 mg/dL (7-17); Calcium 9.1 mg/dL (8.4-10.2); Carbon Dioxide 21 mmol/L (22-30); Chloride 101 mmol/L (98-107); Estimated CRCL calculation 39 ml/min; Estimated Glomerular Filt Rate 43; Glucose 102 mg/dL (65-110); Potassium 4.0 mmol/L (3.4-5.0); Sodium 130 mmol/L (137-145); Total Protein 6.9 g/dL (6.3-8.2)
[2024-10-25 12:07] LABS: Influenza A QL RT-PCR Negative (Negative); Influenza B QL RT-PCR Negative (Negative); RSV RNA, RT-PCR Negative (Negative); SARS-CoV-2 RNA PCR Negative (Negative)
--- NOTE | 2024-10-25 12:45 | ED_ITS ---
HPI - Headache General Chief Complaint: Headache Stated Complaint: headache since , unresponsive episode Time Seen by Provider: 10/25/24 12:05 History of Present Illness HPI Narrative: This is a 74-year-old female with history of TMJ, TIA who presents to the ED for headache and body aches. Patient states that for the past few days, she has been having as severe diffuse headache that today became worse. She also began to have diffuse body aches to the point that she was having difficulty walking. she has had subjective fever. Denies neck pain, Abdominal pain, nausea vomiting. Related Data Allergies Allergy/AdvReac Type Severity Reaction Status Date / Time prochlorperazine Allergy Unknown Unknown Verified 10/11/24 20:46 Review of Systems 2 Review of Systems: Gen.: as per HPI Eyes: Denies eye pain or visual change ENT: Denies congestion Respiratory: Denies shortness of breath or cough CV: Denies chest pain or palpitations GI: Denies abdominal pain nausea, emesis or diarrhea denies burning, urgency, frequency or hematuria Musculoskeletal: Denies back pain or muscle pain Neuro: as per HPI Skin: Denies rash Except as documented, all other systems reviewed and negative [facility] Past Medical History Medical History Urinary tract infection TMJ (temporomandibular joint disorder) Irritable bowel syndrome with alternating bowel habits Dementia of Alzheimer's type, with early onset, with depressed mood Chronic kidney disease Transient ischemic attack Chronic constipation Depression with anxiety Surgical History Surgical History History of knee replacement History of vaginal hysterectomy (1981) History of bilateral salpingo-oophorectomy (10/1999) History of laparoscopy (06/2000) Laparoscopic adhesiolysis or pelvic pain. Social History Social History Social History: Surrogate medical decision maker: Britt Mohr, spouse. Code status: Full code. Smoking packs per day: 0 Smoking cigarettes per day: 0.0 Years smoked: 0 Smoking pack-years: 0.00 Smoking status: Never smoker Second hand tobacco smoke exposure: No Alcohol intake: never Substance use: never Substance use type: does not use Do You Feel Safe in your Home?: Yes Lack of Transportation: No Lack of Food: Never True Current Housing: I Have Housing Concerned About Future Housing: No Difficulty Paying Gas/Electric Bills: No Difficulty Paying for Meds: No Currently Unemployed: No Education: High School Diploma/GED Difficulty w/ Childcare or Family Care: No Living arrangements: with family Additional living arrangements comments: Lives with spouse and intellectually disabled son. Additional occupation/education comments: Homemaker. Spiritual care concerns: No Exam 2 Narrative: APPEARANCE: Mild distress, nontoxic, lying in bed with eyes squinted EYES: EOMI HEENT: Normocephalic, atraumatic, OMM RESPIRATORY: No respiratory distress Clear to auscultation bilaterally with no rhonchi wheezing or rales. CARDIOVASCULAR: Regular rate and rhythm without murmurs rubs or gallops. ABDOMINAL: Soft, nontender, nondistended, no rebound or guarding MUSCULOSKELETAl: Moves all extremities. No clubbing, cyanosis or edema. NEURO: Awake and alert. Following commands, speech normal, no focal deficits. NIHSS 0. 5/5 strength to the BUE, 4/5 strength to the BLE. SKIN:: Warm, dry. No rashes lesions or abrasions PSYCHIATRIC: Normal affect/mood, Course Vital Signs Vital signs: Vital Signs Temperature 97.8 F 10/25/24 11:07 Respiratory Rate 17 10/25/24 11:07 Blood Pressure 112/64 10/25/24 11:07 Pulse Oximetry 98 10/25/24 11:07 Temperature 97.8 F 10/25/24 11:07 Pulse Rate 76 10/25/24 16:16 Respiratory Rate 18 10/25/24 16:16 Blood Pressure 108/86 10/25/24 16:01 Pulse Oximetry 95 10/25/24 15:49 MDM - Headache MDM Narrative Medical decision making narrative: 74-year-old female that presented to the ED for headache and diffuse body aches. Initial vital signs stable. Patient was uncomfortable on initial evaluation. She had a nonfocal neuro exam except for some weakness to her bilateral lower extremities. Her lungs were clear. Abdomen soft and nontender. CT head showed no acute process. Labs showed a mild hyponatremia but do not suspect this is the cause of her symptoms. She had significant improvement of her symptoms after Toradol, Reglan, fluids and was able to ambulate through the department without any difficulty. UA did show a possible UTI given her symptoms. She will be given a prescription for Keflex. She was advised to continue to follow- up with her dentist and her PCP as scheduled. Patient and were agreeable to this plan. Given strict return precautions. Differential Diagnosis Differential diagnosis: Likely other ( CVA, migraine, ACS, electrolyte abnormality, viral syndrome) Medical Records Attestation: I reviewed the patient's medical records. Lab Data Attestation: I reviewed the patient's lab results. 10/25/24 11:31 10/25/24 11:31 Labs: Lab Results 10/25/24 10/25/24 10/25/24 Range/Units 11:22 11:31 15:46 WBC 6.7 (4.5-10.0) K/mm3 RBC 4.74 (4.2-5.4) M/mm3 Hgb 14.0 (12.0-15.0) g/dL Hct 42.8 (37.0-47.0) % MCV 90.3 (80-100) fl MCH 29.5 (26-34) pg MCHC 32.7 (32-36) g/dl RDW 13.1 (11.5-14.5) % Plt Count 298 (150-375) k/mm3 MPV 9.3 (7.4-10.4) fl Immature Gran % (Auto) 0.6 H (0-0.5) % Neut % (Auto) 73.3 H (45.5-73.1) % Lymph % (Auto) 8.1 L (18.3-44.2) % [place] % (Auto) 14.6 H (2.6-8.5) % Eos % (Auto) 3.0 (0-4.4) % Baso % (Auto) 0.4 (0.2-1.2) % Lymph # (Auto) 0.54 L (0.9-3.2) K/mm3 Spencer # (Auto) 1.0 H (0.1-0.6) K/mm3 Eos # (Auto) 0.2 (0-0.3) K/mm3 Baso # (Auto) 0.0 (0.0-0.1) K/mm3 Abs Immat Gran (auto) 0.04 H (0.00-0.031) K/mm3 Absolute Neuts (auto) 4.9 (1.3-6.7) K/mm3 Absolute Nucleated RBC 0.000 (0.0-0.012) K/mm3 Nucleated RBC % 0.0 (0.0-0.2) % Sodium 130 L (137-145) mmol/L Potassium 4.0 (3.4-5.0) mmol/L Chloride 101 (98-107) mmol/L Carbon Dioxide 21 L (22-30) mmol/L Anion Gap 8 (4-12) mmol/L BUN 21 H (7-17) mg/dL Creatinine 1.23 H (0.7-1.0) mg/dL Estim Creat Clear Calc 39 ml/min Estimated GFR 43 L (59 - ) Glucose 102 (65-110) mg/dL Calcium 9.1 (8.4-10.2) mg/dL Total Bilirubin 0.7 (0.2-1.3) mg/dL AST 65 H (14-36) U/L ALT 44 H (6-35) U/L Alkaline Phosphatase 152 H (38-126) U/L Total Protein 6.9 (6.3-8.2) g/dL Albumin 4.0 (3.5-5.1) g/dL Urine Color Yellow (Yellow) Urine Appearance Cloudy H (Clear) Urine pH 5.5 (5.0-9.0) Ur Specific [place] 1.015 (1.001-1.035) Urine Protein Negative (Negative) mg/dL Urine Glucose (UA) Negative (Negative) mg/dL Urine Ketones Trace H (Negative) mg/dL Ur Blood (Man) Negative (Negative) Urine Nitrate Negative (Negative) Urine Bilirubin Negative (Negative) Urine Urobilinogen 1.0 (<2.0) mg/dL Leukocyte Esterase Rfl 2+ H (Negative) DENISA/UL Urine RBC 3-5 H (0-2) /hpf Urine WBC 21-50 H (0-3) /hpf Ur Squamous Epith Cells Few (Few) /hpf Urine Bacteria None seen /hpf Urine Casts 3-5 Influenza A (RT-PCR) Negative (Negative) Influenza B (RT-PCR) Negative (Negative) RSV (RT-PCR) Negative (Negative) SARS-CoV-2 RNA (RT-PCR) Negative (Negative) Imaging Data Radiologist's impression: Impressions Chest X-Ray 10/25/24 12:34 IMPRESSION: 1: NO ACUTE CARDIOPULMONARY DISEASE. Head CT 10/25/24 13:20 IMPRESSION: 1. No acute intracranial hemorrhage. No mass effect. 2. Probable chronic ischemic white matter change. ECG Data EKG #1: Attestation: I personally reviewed and interpreted this ECG as follows: ECG completion date: 10/25/24 ECG completion time: 11:10 Prior ECG tracings: not available for review Interpretation: normal sinus rhythm rate of 98, normal axis, right bundle branch block, no acute ST or T-wave ch Discharge Plan Discharge Clinical Impression: Acute UTI, Acute hyponatremia Migraine Qualifiers: Migraine type: unspecified Status migrainosus presence: without status migrainosus Intractability: not intractable Qualified Code(s): G43.909 - Migraine, unspecified, not intractable, without status migrainosus Patient Disposition: Home Condition: Stable Instructions: Antibiotic Form, Urinary Tract Infection in Women (ED), Migraine Headache (ED) Additional Instructions: take Keflex and as prescribed. Do not take ibuprofen while taking Toradol. Continue to follow-up with the PCP and with dentist as scheduled. Return to ED for any new or worsening symptoms. Patient Language: Lebanese Prescriptions: New cephalexin 500 mg capsule 500 mg PO Q12H 7 Days Qty: 14 0RF ketorolac 10 mg tablet 10 mg PO Q8H PRN (Reason: pain) Qty: 9 0RF Rx Instructions: maximum total duration of 5 days from all oral, intranasal, or parenteral formulations No Action [id number] [Fioricet] 50-300-40 mg capsule 1 cap PO Q8H PRN (Reason: pain) Qty: 10 0RF citalopram [Celexa] 20 mg Tablet 40 mg PO HS Qty: 14 0RF melatonin 5 mg Tablet 5 mg PO HS Qty: 14 0RF cholecalciferol (vitamin D3) 125 mcg (5,000 unit) Tablet 5,000 unit PO DAILY Qty: 30 0RF trazodone 50 mg tablet 25 mg PO HS PRN (Reason: insomnia) Qty: 7 0RF clonazepam [Klonopin] 2 mg tablet 2 mg PO HS Qty: 7 0RF Rx Instructions: administer 30 minutes before bedtime aspirin 81 mg Tablet,Delayed Release (Dr/Ec) 81 mg PO QAM Qty: 14 0RF cyclobenzaprine 10 mg Tablet 10 mg PO QHS Qty: 30 0RF Metamucil 3.4 gram/5.4 gram powder 1 tbsp PO DAILY Qty: 660 0RF Rx Instructions: mix into at least 8 oz of water or juice before administering magnesium citrate Solution 150 ml PO DAILY PRN (Reason: constipation) Qty: 296 0RF ibuprofen 600 mg tablet 600 mg PO TID PRN (Reason: pain) Qty: 30 0RF acetaminophen 500 mg capsule 1,000 mg PO Q6H PRN (Reason: pain) Qty: 30 0RF Linzess 145 mcg capsule 145 mcg PO QAM Qty: 90 5RF Follow-up/Referrals: Lenora,Casa Gandhi MD [Primary Care Provider]
[2024-10-25] MEDS: SODIUM CHLORIDE 0.9% IV 1,000 ML 999 ML IV CONT (13:10)
[2024-10-25] MEDS: METOCLOPRAMIDE HCL INJ 10 MG/2 ML VIAL IV PUSH (13:11)
--- OUTSIDE RECORDS SUMMARY | 2024-10-25 13:28 | XMS_ITS | Clinical Summary ---
Author Organization [facility] Address [address] [place] [address] Care Team Providers Care Snuff Maker Name Role Phone Unavailable Primary Care Provider Unavailabl e Social History Tobacco Use Types Packs/Day Years Used Date Smoking Tobacco: Never Assessed Comments Unknown Sex and Gender Information Value Date Recorded Sex Assigned at Not on file Legal Sex Female 7:30 PM [employer]ACH [employer] Gender Identity Not on file Sexual Orientation [...] Recently Relevant to Health Maintenance Insurance [employer] [facility]
--- OUTSIDE RECORDS SUMMARY | 2024-10-25 13:28 | XMS_ITS | Clinical Summary ---
Author Organization [facility] [address] Address [address] [place] [address] Care Team Providers Care General Activities Therapist Name Role Phone Casa Cooley MD Primary Care Provider [phone] Allergies Active Allergy Reactions Criticality Noted Date [...] 24 Active cyanocobalamin (Vitamin B-12) 1,000 mcg tabletIndicatio ns:Prevention of Vitamin B12 Deficiency Take 1 tablet (1,000 mcg total) by mouth daily Active diphenoxylate-a tropine (LOMOTIL) 2.5-0.025 mg per tabletIndicatio ns:diarrhea Take 1 tablet by mouth 4 (four) times a day as needed for diarrhea 30 tablet 03/05/20 24 Active clonazePAM (KlonoPIN) 2 mg tablet Take 1 tablet (2 mg total) by mouth daily 90 tablet 1 04/25/19 25 Active traZODone (DESYREL) 50 mg tablet TAKE 1 TABLET NIGHTLY 90 tablet 3 05/16/19 25 Active Linzess 145 mcg capsule Take 1 capsule (145 mcg total) by mouth every morning 06/09/20 25 Active donepeziL (ARICEPT) 5 mg tablet Take 1 tablet (5 mg total) by mouth nightly 30 tablet 4 09/19/19 25 026 Active citalopram (CeleXA) 40 mg tablet TAKE 1 TABLET DAILY 90 tablet 2 09/28/19 25 Active citalopram (CeleXA) 40 mg tablet Take 1 tablet (40 mg total) by mouth daily 90 tablet 2 02/22/20 24 025 Discontinued Active Problems Problem Noted Date Diagnosed Date TMJ (temporomandibular joint syndrome) Assessment & Plan (03/20/2024 11:35 AM GAUGE CHECKER): Stable. Memory changes 10/11/2023 Assessment & Plan (03/20/2024 11:35 AM GAUGE CHECKER): Long conversation with patient and her today. [...] medication Assessment & Plan (03/20/2024 11:35 AM GAUGE CHECKER): Currently not as anxious on medication. She [...] Encounters Date Type Department Care Team Description 10/12/2024 Orders Only [facility] [address] [place] [phone] Casa Cooley MD 10/09/2024 Telephone [facility] [address] [place] [phone] Casa Cooley MD [facility] 09/18/2024 10:45 AM CDT Office Visit [facility] [address] [place] [phone] Casa Cooley MD Anxiety (Primary Dx); Memory changes; Anxiety and depression 08/17/2024 Telephone [facility] [address] [place] [phone] Casa Cooley MD [place] CYCLOBENZAPRINE 10MG from Last 3 Months Immunizations Immunization Administration Dates Next Due Influenza, Quadrivalent, Hig h Dose, Preservative Free, Intrr 01/28/2020 Influenza, Quadrivalent, Spl it, Preservative Free, Intramuscular 03/15/2017,01/17/2015 Influenza, Trivalent, Adjuvanted, Intramuscular 12/20/2018 Influenza, Trivalent, High D ose, Split, Preservative Free, Intramuscular 12/28/2017,03/31/2016 Influenza, Trivalent, IM (MDV) 12/05/2014,2012 Influenza, Trivalent, Preservative Free, Intramu scular 01/09/2014,12/08/2012 [place] (J&J) SARS-CoV-2 Vaccination 05/09/2020 Pfizer Sars-Cov-2 Bivalent [...] on file Legal Sex Female 4:53 PM GAUGE CHECKER Gender Identity Not on file Sexual Orientation Not on file Occupation Industry Job Start Date Job End Date homemaker Not on file Not on file Not on file Obstetrics History Last Filed Vital Signs Vital Sign Reading Time Taken Comments Blood Pressure 135/73 09/18/2024 10:17 AM CDT Pulse 82 09/18/2024 10:17 AM CDT Temperature 36.5 C (97.7 F) 05/03/2024 10:41 AM GAUGE CHECKER Respiratory Rate 19 09/06/2023 2:30 PM CDT Oxygen Saturation 98% 05/03/2024 10:41 AM GAUGE CHECKER Inhaled Oxygen Concentration - - Weight 74.8 [...] Procedure Name Priority Date/Time Associated Diagnosis Comments SCAN - RADIOLOGY/IMAGING 10/12/2024 5:54 AM CDT SCAN - LABS 10/12/2024 2:11 AM CDT SCAN - LABS 10/12/2024 2:11 AM CDT HEPATITIS PANEL, ACUTE Routine 09/06/2023 8:07 PM CDT COLONOSCOPY Routine 06/02/2020 from Last 3 Months or Most Recently Relevant to Health Maintenance Results * SCAN - RADIOLOGY/IMAGING (10/12/2024 5:54 AM CDT) Anatomical Region Laterality Modality Other us Casa Cooley MD Final Result * SCAN - LABS (10/12/2024 2:11 AM CDT) Casa Cooley MD Final Result * SCAN - LABS (10/12/2024 2:11 AM CDT) Casa Cooley MD Final Result * Hepatitis panel, acute Blood (09/06/2023 8:07 PM CDT) Hep A IgM Nonreactive Nonreactive Hep B core IgM Nonreactive Nonreactive [facility] Hep C Ab Nonreactive Nonreactive [facility] Comment:Antibodies to HCV no t detected. Does NOT exclude the possibility of recent exposure to HCV. Current interpretive data was last revised on 21 HepBsAg Nonreactive Nonreactive [facility] Blood 09/06/2023 8:07 PM CDT 09/06/2023 8:35 PM CDT Basia Garcia MD LAB MICROBIOLOGY - GENER AL ORDERABLES Final Result [facility] Department [place] [address] * Colonoscopy (06/02/2020) Anatomical Region Laterality Modality Other Narrative 06/02/2020 Pt states she cant have colonoscopy due to many loops Gabriel Norwood MD ENDOSCOPY PROCEDURES Clara l Result from Last 3 Months or Most Recently Relevant to Health Maintenance Insurance AETNA MEDICARE AETNA MEDICARE Care Teams General Activities Therapist Relationship Specialty Start Date End Date Casa Cooley MD PCP - General Internal Medicine 01/14/20
[2024-10-25] MEDS: KETOROLAC 30 MG/ML VIAL (*BKC) IV PUSH (14:01)
[2024-10-25 15:55] LABS: Add Urine Microscopic? YES; Appearance Urine Cloudy (Clear); Glucose Urine UA Negative (Negative); Leukocyte Esterase Ur 2+ LEU/UL (Negative); Nitrate Urine Negative (Negative); Specific Grav Ur 1.015 (1.001-1.035)
== END 2024-10-25 16:38 | disposition home or self-care (01) ==
PROVIDERS: Emergency Medicine; Emergency Provider Student in an Organized Health Care Education/Training Program; PCP Internal Medicine
DX: G43.909 Migraine, unspecified, not intractable, without status migrainosus (principal); N39.0 Urinary tract infection, site not specified; E87.1 Hypo-osmolality and hyponatremia; Z20.822 Contact with and (suspected) exposure to COVID-19; G30.0 Alzheimer's disease with early onset; F02.83 Dementia in other diseases classified elsewhere, unspecified severity, with mood disturbance; N18.9 Chronic kidney disease, unspecified; K58.2 Mixed irritable bowel syndrome; F41.8 Other specified anxiety disorders; Z96.659 Presence of unspecified artificial knee joint; Z86.73 Personal history of transient ischemic attack (TIA), and cerebral infarction without residual deficits; Z90.710 Acquired absence of both cervix and uterus; Z90.79 Acquired absence of other genital organ(s); Z90.722 Acquired absence of ovaries, bilateral; Z79.82 Long term (current) use of aspirin; Z79.899 Other long term (current) drug therapy; I45.10 Unspecified right bundle-branch block
CPT/HCPCS: 36415; 70450; 71046; 80053; 81001; 85025; 87086; 87637; 93005; 96361; 96374; 96375; 99284; J1200; J1885; J2765; J7030

== ENCOUNTER 2024-10-25 22:41 | Inpatient (IN) | payer MEDICARE, SELFPAY ==
--- NOTE | ~2024-10-25 | XR_ITS ---
XR chest 2V 10/27/2024 15:39 Indication: Cough with fever Procedure: AP and lateral views of the chest Comparison: Comparison to multiple prior studies sequentially, with oldest reviewed study dated 03/22/2023. Findings: Persistent chronic elevation right diaphragm. There is left basilar atelectasis. There is compressive atelectasis right lung base. No acute focal pneumonia, edema or effusion. No acute osseous abnormality. No pneumothorax. 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 Reviewed, dictated and finalized at location O. Impression: 1: Bibasilar atelectasis with chronic elevation right diaphragm suggesting phre michelle nerve paralysis or eventration.
[2024-10-25 22:35] VITALS: BP 114/54; PULSE 94; RESP 22; TEMP 39; O2SAT 96
--- NOTE | 2024-10-25 22:47 | ECG_ITS ---
Test Date: 2024-10-25 22:49:39 Measurements Intervals [place] Rate: 93 P: 62 VT: 147 QRS: 70 QRSD: 154 T: 13 QT: 418 QTc: 522 Interpretive Statements SINUS RHYTHM RIGHT BUNDLE BRANCH BLOCK BASELINE ARTIFACT- I, II, AVR, AVF ABNORMAL ECG Compared to ECG 10/25/2024 11:10:47 No significant changes Electronically Signed On 10-26-2024 06:28:16 CDT by Dakota Yoon D.O.
--- NOTE | 2024-10-25 23:17 | PC.NURSE ---
ice pack applied to back of neck
[2024-10-25 23:18] VITALS: BP 101/55; PULSE 85; RESP 20; TEMP 37.5; O2SAT 95
[2024-10-25 23:22] LABS: Hematocrit 35.5 % (37.0-47.0); Hemoglobin 12.1 g/dL (12.0-15.0); Immature Granulocyte Percent A 0.7 % (0-0.5); Lymphocytes Absolute Auto 0.28 K/mm3 (0.9-3.2); Mean Corpuscular HGB Conc 34.1 g/dl (32-36); Mean Corpuscular Hemoglobin 30.1 pg (26-34); Mean Corpuscular Volume 88.3 fl (80-100); Nucleated Red Blood Cells Absolute Auto 0.000 K/mm3 (0.0-0.012); Nucleated Red Blood Cells Perc 0.0 % (0.0-0.2); Platelet Count Result 234 k/mm3 (150-375); Red Blood Count 4.02 M/mm3 (4.2-5.4); White Blood Count 5.7 K/mm3 (4.5-10.0)
[2024-10-25 23:34] LABS: Alanine Aminotransferase 53 U/L (6-35); Albumin Level 3.3 g/dL (3.5-5.1); Alkaline Phosphatase 149 U/L (38-126); Anion Gap 7 mmol/L (4-12); Aspartate Amino Transferase 61 U/L (14-36); Bilirubin,Total 0.5 mg/dL (0.2-1.3); Blood Urea Nitrogen 24 mg/dL (7-17); Calcium 8.4 mg/dL (8.4-10.2); Carbon Dioxide 17 mmol/L (22-30); Chloride 106 mmol/L (98-107); Estimated Glomerular Filt Rate 44; Glucose 144 mg/dL (65-110); Magnesium 1.8 mg/dL (1.6-2.3); Potassium 3.5 mmol/L (3.4-5.0); Sodium 130 mmol/L (137-145); Total Protein 5.9 g/dL (6.3-8.2)
[2024-10-25] MEDS: cefTRIAXone 1 GM in SODIUM CHLORIDE 0.9% IV 50 ML 100 ML IVPB (23:54)
[2024-10-25 23:59] LABS: Influenza A QL RT-PCR Negative (Negative); Influenza B QL RT-PCR Negative (Negative); SARS-CoV-2 RNA PCR Negative (Negative)
[2024-10-26] VITALS (10 sets, daily range): BP systolic 98–159; BP diastolic 41–71; PULSE 81–101; RESP 16–18; TEMP 36.1–37.7; O2SAT 94–100; BMI 27.1
--- NOTE | 2024-10-26 00:04 | ED_ITS ---
HPI - Fever General Chief Complaint: Fever Stated Complaint: Fever and generalized not feeling well Time Seen by Provider: 10/25/24 22:49 History of Present Illness HPI Narrative: Patient is a 74-year-old female who presents to the emergency department this evening complaining of fever, generalized weakness and generally feeling unwell. She was seen in the emergency department earlier today and discharged home around 1600 after being diagnosed with a UTI. At that time, patient did not have a fever, was reporting subjective fevers. Blood work revealed no acute process. Patient did have a headache and body aches earlier today and after migraine cocktail, her symptoms resolved and she was discharged. States that when she got home she started to spike fevers again and felt very weak so she decided to come back to the emergency department. Currently denying any active headaches. Patient states that she did take Tylenol prior to arrival to the ED for her fevers. Denies any active body aches at this time. States that she just feels generally unwell /week. Denies any chest pain or shortness of breath. Related Data Allergies Allergy/AdvReac Type Severity Reaction Status Date / Time prochlorperazine Allergy Unknown Unknown Verified 10/11/24 20:46 Review of Systems 2 Review of Systems: All systems are reviewed and are negative unless stated otherwise in the HPI. [facility] Past Medical History Medical History Urinary tract infection TMJ (temporomandibular joint disorder) Irritable bowel syndrome with alternating bowel habits Dementia of Alzheimer's type, with early onset, with depressed mood Chronic kidney disease Transient ischemic attack Chronic constipation Depression with anxiety Surgical History Surgical History History of knee replacement History of vaginal hysterectomy (1981) History of bilateral salpingo-oophorectomy (10/1999) History of laparoscopy (06/2000) Laparoscopic adhesiolysis or pelvic pain. Social History Social History Social History: Surrogate medical decision maker: Britt Morh, spouse. Code status: Full code. Smoking packs per day: 0 Smoking cigarettes per day: 0.0 Years smoked: 0 Smoking pack-years: 0.00 Smoking status: Never smoker Second hand tobacco smoke exposure: No Alcohol intake: never Substance use: never Substance use type: does not use Do You Feel Safe in your Home?: Yes Lack of Transportation: No Lack of Food: Never True Current Housing: I Have Housing Concerned About Future Housing: No Difficulty Paying Gas/Electric Bills: No Difficulty Paying for Meds: No Currently Unemployed: No Education: High School Diploma/GED Difficulty w/ Childcare or Family Care: No Living arrangements: with family Additional living arrangements comments: Lives with spouse and intellectually disabled son. Additional occupation/education comments: Homemaker. Spiritual care concerns: No Exam 2 Narrative: General: Alert, awake, febrile, in no acute distress. HEENT: PERRL, no rhinorrhea, no post nasal drip, oropharynx clear. Neck: Trachea midline, no JVD, no lymphadenopathy. Cardiovascular: Regular rate and rhythm, no murmurs, rubs or gallops, no peripheral edema. Respiratory: Clear to auscultation bilaterally, no tachypnea, no wheezing, no rhonchi, no rubs, no respiratory distress. Abdomen: Soft, nontender, nondistended, no rebound, no guarding, no peritoneal signs. Musculoskeletal: No joint swelling or deformity, normal muscle tone. Skin: No rashes or petechia, no signs of infection. Psychiatric: Alert and oriented, normal behavior and judgment for situation. Neurological: Alert and oriented to person, place, and time. Follows all commands. No focal deficits, speech is clear and fluent. Course Vital Signs Vital signs: Vital Signs Temperature 102.2 F H 10/25/24 22:35 Pulse Rate 94 10/25/24 22:35 Respiratory Rate 22 H 10/25/24 22:35 Blood Pressure 114/54 L 10/25/24 22:35 Pulse Oximetry 96 10/25/24 22:35 Oxygen Delivery Room Air 10/25/24 22:35 Temperature 99.5 F 10/25/24 23:18 Pulse Rate 85 10/25/24 23:18 Respiratory Rate 20 10/25/24 23:18 Blood Pressure 101/55 L 10/25/24 23:18 Pulse Oximetry 95 10/25/24 23:18 Oxygen Delivery Room Air 10/25/24 22:35 MDM - Fever MDM Narrative Medical decision making narrative: The patient was evaluated by myself in the emergency department. History is obtained from patient who is an independent historian and physical exam was performed. External medical records were reviewed at this time. IV was established and pertinent tests were ordered. Patient was administered 1 L IV fluid bolus with normal saline and 1 g of IV Rocephin after blood cultures were obtained given the patient did trigger sepsis based on her vital signs. She will be continued on maintenance fluids at a rate of 100 cc/hour. EKG was obtained and independently interpreted by me revealing a right bundle- branch block rate of my 3 beats per minute, no evidence of acute ischemia. EKG currently pending official cardiology read. Laboratory results obtained revealing transaminitis with an AST of 61 ALT of 53 otherwise unremarkable. Viral swabs negative. Patient's urinalysis from earlier today did reveal urinary tract infection. Differential diagnosis considerations include sepsis secondary to infectious process such as UTI/ pneumonia, dehydration, electrolyte derangements, acute viral syndrome. Comorbidities impacting this visit include none. I have evaluated and discussed social determinants of health with the patient that could potentially impact subsequent diagnosis and treatment plans. On repeat assessment of the patient, reevaluation revealed that the patient is doing well and is in no acute distress. Patient symptoms have improved since she arrived to our emergency department. Repeat vital signs were all reviewed and noted to be stable. Differential diagnosis and treatment plan were discussed with the patient at bedside. Patient agrees with discussion and after shared medical decision making agrees with [admission. All questions were answered to the patient's satisfaction. Case discussed with the on-call hospitalist SABRINA Wheat at [id number] who accepted admission. Critical care time of 47 minutes, exclusive of separately performed procedures, necessary for treating or preventing eminent or life-threatening deterioration of patient's condition of sepsis, focused on patient care provided personally by me and time spent during initial evaluation, physical examination, ordering and performing treatments and interventions, ordering and reviewing laboratory studies, ordering and reviewing radiographic studies, re-evaluation of the patient's condition, evaluation of the patient's response to treatment, and discussion of patient case with admitting provider/ consultants. Lab Data 10/25/24 23:14 10/25/24 23:14 Labs: Lab Results 10/25/24 Range/Units 23:14 WBC 5.7 (4.5-10.0) K/mm3 RBC 4.02 L (4.2-5.4) M/mm3 Hgb 12.1 (12.0-15.0) g/dL Hct 35.5 L (37.0-47.0) % MCV 88.3 (80-100) fl MCH 30.1 (26-34) pg MCHC 34.1 (32-36) g/dl RDW 12.9 (11.5-14.5) % Plt Count 234 (150-375) k/mm3 MPV 9.8 (7.4-10.4) fl Immature Gran % (Auto) 0.7 H (0-0.5) % Neut % (Auto) 79.8 H (45.5-73.1) % Lymph % (Auto) 4.9 L (18.3-44.2) % Imperial % (Auto) 10.6 H (2.6-8.5) % Eos % (Auto) 3.7 (0-4.4) % Baso % (Auto) 0.3 (0.2-1.2) % Lymph # (Auto) 0.28 L (0.9-3.2) K/mm3 Imperial # (Auto) 0.6 (0.1-0.6) K/mm3 Eos # (Auto) 0.2 (0-0.3) K/mm3 Baso # (Auto) 0.0 (0.0-0.1) K/mm3 Abs Immat Gran (auto) 0.04 H (0.00-0.031) K/mm3 Absolute Neuts (auto) 4.6 (1.3-6.7) K/mm3 Absolute Nucleated RBC 0.000 (0.0-0.012) K/mm3 Nucleated RBC % 0.0 (0.0-0.2) % Sodium 130 L (137-145) mmol/L Potassium 3.5 (3.4-5.0) mmol/L Chloride 106 (98-107) mmol/L Carbon Dioxide 17 L (22-30) mmol/L Anion Gap 7 (4-12) mmol/L BUN 24 H (7-17) mg/dL Creatinine 1.20 H (0.7-1.0) mg/dL Estim Creat Clear Calc Not Reportable Estimated GFR 44 L (59 - ) Glucose 144 H (65-110) mg/dL Lactic Acid 1.7 (0.7-2.0) mmol/L Calcium 8.4 (8.4-10.2) mg/dL Magnesium 1.8 (1.6-2.3) mg/dL Total Bilirubin 0.5 (0.2-1.3) mg/dL AST 61 H (14-36) U/L ALT 53 H (6-35) U/L Alkaline Phosphatase 149 H (38-126) U/L Total Protein 5.9 L (6.3-8.2) g/dL Albumin 3.3 L (3.5-5.1) g/dL Influenza A (RT-PCR) Negative (Negative) Influenza B (RT-PCR) Negative (Negative) SARS-CoV-2 RNA (RT-PCR) Negative (Negative) Critical Care Time Critical Care Time Critical Care Time: Yes Total Critical Care Time: 47 ( Please refer to [facility] for attestation.) Discharge Plan Discharge Clinical Impression: Sepsis, Acute UTI Patient Disposition: Still a Patient Condition: Improved Patient Language: Tamazight Prescriptions: No Action [id number] [Fioricet] 50-300-40 mg capsule 1 cap PO Q8H PRN (Reason: pain) Qty: 10 0RF citalopram [Celexa] 20 mg Tablet 40 mg PO HS Qty: 14 0RF melatonin 5 mg Tablet 5 mg PO HS Qty: 14 0RF cholecalciferol (vitamin D3) 125 mcg (5,000 unit) Tablet 5,000 unit PO DAILY Qty: 30 0RF trazodone 50 mg tablet 25 mg PO HS PRN (Reason: insomnia) Qty: 7 0RF clonazepam [Klonopin] 2 mg tablet 2 mg PO HS Qty: 7 0RF Rx Instructions: administer 30 minutes before bedtime aspirin 81 mg Tablet,Delayed Release (Dr/Ec) 81 mg PO QAM Qty: 14 0RF cyclobenzaprine 10 mg Tablet 10 mg PO QHS Qty: 30 0RF Metamucil 3.4 gram/5.4 gram powder 1 tbsp PO DAILY Qty: 660 0RF Rx Instructions: mix into at least 8 oz of water or juice before administering magnesium citrate Solution 150 ml PO DAILY PRN (Reason: constipation) Qty: 296 0RF ibuprofen 600 mg tablet 600 mg PO TID PRN (Reason: pain) Qty: 30 0RF acetaminophen 500 mg capsule 1,000 mg PO Q6H PRN (Reason: pain) Qty: 30 0RF cephalexin 500 mg capsule 500 mg PO Q12H 7 Days Qty: 14 0RF ketorolac 10 mg tablet 10 mg PO Q8H PRN (Reason: pain) Qty: 9 0RF Rx Instructions: maximum total duration of 5 days from all oral, intranasal, or parenteral formulations Linzess 145 mcg capsule 145 mcg PO QAM Qty: 90 5RF Follow-up/Referrals: Edmar,Casa Gandhi MD [Primary Care Provider] Time of Disposition: 00:12
--- NOTE | 2024-10-26 00:13 | P.HP_ITS ---
H&P: HPI History of Present Illness Date/Time: 10/26/24 00:13 Chief Complaint: Fever and generalized weakness Narrative: This very pleasant 74-year-old female patient with past medical history dementia, IBS, depression, anxiety and chronic kidney disease who presents to the emergency room for the 2nd time today with complaints of having fever and weakness. Patient presented to the emergency room earlier with complaints of subjective fevers, headaches and was found have urinary tract infection. She received a migraine cocktail was discharged home with prescription for Keflex. Once getting home patient states she spiked a temperature, felt increasingly weak and tired and did not feel like she was safe to remain at home so she came back to the emergency room. Upon arrival to the emergency room patient is found to be febrile at 102.2. Workup was once again performed in the emergency room that shows an unremarkable CBC, specifically with wbc's of 5.7. Metabolic panel shows mild hyponatremia at 1:30 a.m. patient appears to be at her baseline urine function with creatinine of 1.2 and BUN of 24. Blood cultures x2 and urine cultures are pending. Lactic acid this evening is normal at 1.7. Patient is noted to have a nonspecific, mild transaminitis. Urinalysis from earlier today shows positive for 2+ leukocyte esterase, 3-5 rbc's and 21-50 wbc's. Patient's respiratory panel was negative. In the emergency room this evening patient is given a g of Rocephin and a 1 L bolus of normal saline. She is being admitted in the current setting for treatment of her urinary tract infection and generalized weakness. Review of Systems Review of Systems: All systems reviewed & are unremarkable except as noted in HPI and below PMFSH Past Medical History Medical History (Updated 10/26/24 @ 00:19 by ANA Macias) Hyponatremia Urinary tract infection TMJ (temporomandibular joint disorder) Irritable bowel syndrome with alternating bowel habits Dementia of Alzheimer's type, with early onset, with depressed mood Chronic kidney disease Transient ischemic attack Chronic constipation Depression with anxiety Surgical History Surgical History History of knee replacement History of vaginal hysterectomy (1981) History of bilateral salpingo-oophorectomy (10/1999) History of laparoscopy (06/2000) Laparoscopic adhesiolysis or pelvic pain. Social History Social History Social History: Surrogate medical decision maker: Britt Mohr, spouse. Code status: Full code. Smoking packs per day: 0 Smoking cigarettes per day: 0.0 Years smoked: 0 Smoking pack-years: 0.00 Smoking status: Never smoker Second hand tobacco smoke exposure: No Alcohol intake: never Substance use: never Substance use type: does not use Do You Feel Safe in your Home?: Yes Lack of Transportation: No Lack of Food: Never True Current Housing: I Have Housing Concerned About Future Housing: No Difficulty Paying Gas/Electric Bills: No Difficulty Paying for Meds: No Currently Unemployed: No Education: High School Diploma/GED Difficulty w/ Childcare or Family Care: No Living arrangements: with family Additional living arrangements comments: Lives with spouse and intellectually disabled son. Additional occupation/education comments: Homemaker. Spiritual care concerns: No Meds Home Medications and Allergies Home Medications ?Medication ?Instructions ?Recorded ?Confirmed ?Type cyclobenzaprine 10 mg tablet 10 mg PO QHS #30 tabs 06/01/24 Rx aspirin 81 mg tablet,delayed 81 mg PO QAM #14 tabs 06/01/24 Rx release cholecalciferol (vitamin D3) 125 5,000 unit PO DAILY # 30 tabs 06/01/24 06/01/24 Rx mcg (5,000 unit) tablet citalopram 20 mg tablet (Celexa) 40 mg (2 x 20 mg) PO HS #14 tabs 06/01/24 06/01/24 Rx clonazepam 2 mg tablet (Klonopin) 2 mg PO HS #7 tabs 0 06/01/24 06/01/24 Rx melatonin 5 mg tablet 5 mg PO HS #14 tabs 06/01/24 06/01/24 Rx trazodone 50 mg tablet 25 mg (1/2 x 50 mg) PO HS VT N 06/01/24 06/01/24 Rx insomnia #7 tabs [id number]-mssnbhdklhxix-qifccrnd 1 cap PO Q8H PRN rona n #10 caps 06/07/24 Rx 50 mg-300 mg-40 mg capsule (Fioricet) linaclotide 145 mcg capsule 145 mcg PO QAM #90 caps Rx (Linzess) acetaminophen 500 mg capsule 1,000 mg (2 x 500 mg) PO Q6H PRN 10/12/24 Rx pain #30 caps ibuprofen 600 mg tablet 600 mg PO TID PRN pain #30 t abs 10/12/24 Rx magnesium citrate 150 ml PO DAILY PRN constipa tion 10/12/24 Rx #296 mL psyllium husk 3.4 gram/5.4 gram 1 tbsp PO DAILY #660 g ifrah 10/12/24 Rx oral powder (Metamucil) cephalexin 500 mg capsule 500 mg PO Q12H 7 days #14 ca ps 10/25/24 Rx ketorolac 10 mg tablet 10 mg PO Q8H PRN pain #9 tab s 10/25/24 Rx Allergies Allergy/AdvReac Type Severity Reaction Status Date / Time prochlorperazine Allergy Unknown Unknown Verified 10/11/24 20:46 Vital Signs Vital Signs - 24 hr 10/25/24 22:35 10/25/24 23:18 Temperature 102.2 F H 99.5 F Pulse Rate 94 85 Respiratory Rate 22 H 20 Blood Pressure 114/54 L 101/55 L Pulse Oximetry 96 95 Oxygen Delivery Room Air Exam Const: General: comfortable and no acute distress Other: Appears very tired and fatigued. HENMT: Face/Nose/Sinus: Normal nares present Mouth: Yes moist mucous membranes Eyes: General: appearance normal, both eyes and all related structures EOM: EOMs intact bilaterally Neck: Neck: supple and no JVD Lymphatic: lymphadenopathy not noted Resp: Effort & Inspection: normal respiratory effort Auscultation: clear to auscultation bilaterally Cardio: Rate: regular rate Rhythm: regular rhythm Heart sounds: no gallops, no murmurs and no rubs GI: GI Palp: Yes Soft to palpation and No Tenderness to palpation present (GI) Auscultation: normal bowel sounds Skin: General skin exam: normal color, no rashes or lesions noted and no erythema Lesions: no lesions noted Rashes: no rashes noted Wounds: no wounds Neuro: Speech: normal speech Motor exam (neuro): Abnormal motor strength present (Generalized, non-focal weakness.) Sensory Exam: normal sensation Extrem: General: normal to inspection, no edema and no pedal edema Psych: Mental Status: mental status grossly normal H&P: Results Labs Labs: Short CBC 10/25/24 Range/Units 23:14 WBC 5.7 (4.5-10.0) K/mm3 Hgb 12.1 (12.0-15.0) g/dL Hct 35.5 L (37.0-47.0) % Plt Count 234 (150-375) k/mm3 BMP 10/25/24 23:14 Sodium 130 L Potassium 3.5 Chloride 106 Carbon Dioxide 17 L BUN 24 H Creatinine 1.20 H Glucose 144 H Calcium 8.4 Liver Function 10/25/24 Range/Units 23:14 Total Bilirubin 0.5 (0.2-1.3) mg/dL AST 61 H (14-36) U/L ALT 53 H (6-35) U/L Alkaline Phosphatase 149 H (38-126) U/L Albumin 3.3 L (3.5-5.1) g/dL Assessment and Plan Assessment and plan (1) Sepsis: Code(s): A41.9 - Sepsis, unspecified organism Status: Acute Assessment and Plan: * No longer meeting sepsis criteria but does meet SIRS criteria. * Upon arrival patient febrile to 102.2 meeting sepsis criteria with source acute urinary tract infection. * Blood cultures x2 pending * Urine culture pending * Continue Rocephin 1 g daily * Continue IV hydration of normal saline at 100 mL/hour. Patient received 1 L bolus in ER * P.r.n. Tylenol 650 mg p.o. q.6 hours as needed for fever (2) Acute UTI: Code(s): N39.0 - Urinary tract infection, site not specified Status: Acute Assessment and Plan: * See 1. Above (3) Hyponatremia: Code(s): E87.1 - Hypo-osmolality and hyponatremia Status: Acute Assessment and Plan: * Sodium level noted to be 130. * Continue IV hydration normal saline 100 mL/hour. * Monitor and trend labs and vital signs (4) Weakness: Code(s): R53.1 - Weakness Status: Acute Assessment and Plan: * Most likely secondary to acute infection * PT and OT evaluation * Fall precautions (5) Depression with anxiety: Code(s): F41.8 - Other specified anxiety disorders Status: Chronic Assessment and Plan: * Continue home medications once they have been confirmed and verified (6) Vitamin D deficiency: Code(s): E55.9 - Vitamin D deficiency, unspecified Status: Chronic Assessment and Plan: * Continue home medications once verified and confirmed. (7) Chronic kidney disease: Code(s): N18.9 - Chronic kidney disease, unspecified Status: Chronic Assessment and Plan: * Consistent with patient's current renal function with creatinine of 1.2 and BUN of 24. (8) Dementia of Alzheimer's type, with early onset, with depressed mood: Code(s): G30.0 - Alzheimer's disease with early onset; F02.83 - Dementia in other diseases classified elsewhere, unspecified severity, with mood disturbance Status: Chronic Assessment and Plan: * Provide for safety * Reorient if necessary Plan Full code SCDs Quality VTE Prophylaxis VTE prophylaxis: mechanical ordered Hospitalist MIPS Advance Care Plan I have confirmed that the patient's Advanced Care Plan is present, code status is documented, or surrogate decision maker is listed in patient medical record.: Yes Medication Reconciliation I have utilized all available resources to obtain, update and review the patients current medications (includes all prescriptions, OTC, herbals, cannabis, and nutritional supplements).: Yes
[2024-10-26] MEDS: SODIUM CHLORIDE 0.9% IV 1,000 ML 999 ML IV CONT (00:14)
--- NOTE | 2024-10-26 01:18 | ADMGEN ---
This patient, Makenzie Mohr, was admitted to Medical Room 241-01. Patient/family oriented to hospital policies and general routines including ID bracelet, bed and alarms, visiting hours, pain management, procedures, bathroom and other care routines, personal items, smoking policy, room service/diet, and visiting hours. Information on how to activate the Rapid Response Team has been discussed. Patient/Family are encouraged to report perceived risks to care and to ask questions if they do not understand what they are told or what they should do.
[2024-10-26] MEDS: SODIUM CHLORIDE 0.9% IV 1,000 ML 100 ML IV CONT (02:14)
[2024-10-26 05:02] LABS: Hematocrit 34.5 % (37.0-47.0); Hemoglobin 10.9 g/dL (12.0-15.0); Immature Granulocyte Percent A 1.0 % (0-0.5); Lymphocytes Absolute Auto 0.45 K/mm3 (0.9-3.2); Mean Corpuscular HGB Conc 31.6 g/dl (32-36); Mean Corpuscular Hemoglobin 29.4 pg (26-34); Mean Corpuscular Volume 93.0 fl (80-100); Nucleated Red Blood Cells Absolute Auto 0.000 K/mm3 (0.0-0.012); Nucleated Red Blood Cells Perc 0.0 % (0.0-0.2); Platelet Count Result 216 k/mm3 (150-375); Red Blood Count 3.71 M/mm3 (4.2-5.4); White Blood Count 6.1 K/mm3 (4.5-10.0)
[2024-10-26 05:14] LABS: Alanine Aminotransferase 48 U/L (6-35); Albumin Level 3.0 g/dL (3.5-5.1); Alkaline Phosphatase 129 U/L (38-126); Anion Gap 5 mmol/L (4-12); Aspartate Amino Transferase 54 U/L (14-36); Bilirubin,Total 0.3 mg/dL (0.2-1.3); Blood Urea Nitrogen 21 mg/dL (7-17); Calcium 7.8 mg/dL (8.4-10.2); Carbon Dioxide 18 mmol/L (22-30); Chloride 109 mmol/L (98-107); Estimated CRCL calculation 34 ml/min; Estimated Glomerular Filt Rate 44; Glucose 97 mg/dL (65-110); Magnesium 2.2 mg/dL (1.6-2.3); Potassium 3.7 mmol/L (3.4-5.0); Sodium 132 mmol/L (137-145); Total Protein 5.3 g/dL (6.3-8.2)
--- NOTE | 2024-10-26 06:59 | P.PNIM_ITS ---
Progress Note: A&P Assessment and Plan (1) Sepsis: Code(s): A41.9 - Sepsis, unspecified organism Status: Acute Assessment and Plan: - criteria met on admission with fever, HR>90, RR>20 - lactic acid WNL - source: UTI -Blood cultures x2 pending - Urine culture pending - Continue Rocephin 1 g daily -Continue IV hydration of normal saline at 100 mL/hour. Patient received 1 L bolus in ER -P.r.n. Tylenol 650 mg p.o. q.6 hours as needed for fever (2) Acute UTI: Code(s): N39.0 - Urinary tract infection, site not specified Status: Acute Assessment and Plan: - UA with 2+ LE, 21-50 WBC - last urine culture 05/2024 with pansensitive E coli - continue IV Rocephin (3) Headache: Code(s): R51.9 - Headache, unspecified Status: Acute Assessment and Plan: - has prior history of headaches in setting of TMJ - CT head no acute process - no meningeal signs - continue home Flexeril, Fioricet (4) Hyponatremia: Code(s): E87.1 - Hypo-osmolality and hyponatremia Status: Acute Assessment and Plan: - Sodium 130 on admit. Slowly improving with IV fluids. - Continue IV hydration normal saline 100 mL/hour. - Monitor and trend labs and vital signs (5) Weakness: Code(s): R53.1 - Weakness Status: Acute Assessment and Plan: -Most likely secondary to acute infection -PT and OT evaluation -Fall precautions (6) Depression with anxiety: Code(s): F41.8 - Other specified anxiety disorders Status: Chronic Assessment and Plan: -Continue home medications once they have been confirmed and verified (7) Chronic kidney disease: Code(s): N18.9 - Chronic kidney disease, unspecified Status: Chronic Assessment and Plan: - Cr 03.25, near baseline (8) Dementia of Alzheimer's type, with early onset, with depressed mood: Code(s): G30.0 - Alzheimer's disease with early onset; F02.83 - Dementia in other diseases classified elsewhere, unspecified severity, with mood disturbance Status: Chronic Assessment and Plan: -currently at baseline mental status - delirium precautions Plan DVT prophylaxis: Lovenox Disposition: 2-3 days, TBD pending PT/OT recs, may need SNF Subjective Date/time seen: 10/26/24 06:59 Interval history: 74-year-old female patient with past medical history dementia, IBS, depression, anxiety and chronic kidney disease who presents to the emergency room for the 2nd time today with complaints of having fever and weakness. Patient seen and examined at bedside. Still feeling weak and unwell. Complaining of headache and sinus pressure. Review of Systems Review of Systems: All systems reviewed & are unremarkable except as noted in HPI and below Exam Narrative: General: mildly ill-appearing Eyes: EOMI ENT: neck supple Cardiovascular: Regular rate and rhythm Respiratory: Clear to auscultation, respirations even and unlabored on RA Gastrointestinal: Soft, non tender Genitourinary: no suprapubic tenderness Musculoskeletal: No edema Skin: warm, dry Neuro: Alert. Face symmetric, speech clear. No nuchal rigidity. Strength 4+/5 in BUE and BLEs. Psych: Mood appropriate Objective Data Vital Signs Vital Signs: Vital Signs - 24 hr 10/25/24 22:35 10/25/24 23:18 10/26/24 00:30 Temperature 102.2 F H 99.5 F 98.7 F Pulse Rate 94 85 88 Respiratory Rate 22 H 20 16 Blood Pressure 114/54 L 101/55 L 112/56 L Pulse Oximetry 96 95 95 Oxygen Delivery Room Air 10/26/24 01:52 10/26/24 04:00 Temperature 97 F L 97.4 F L Pulse Rate 81 83 Respiratory Rate 18 18 Blood Pressure 99/46 L 98/46 L Pulse Oximetry 96 94 Oxygen Delivery Intake/Output Intake/Output: Intake & Output 10/23/24 10/24/24 10/25/24 10/26/24 23:59 23:59 23:59 23:59 Intake Total 1100 Output Total 300 Balance 800 Meds/Results Medications: Active Medications Generic Name Dose Route Start Last Admin Trade Name [place] PRN Reason Stop Dose Admin Acetaminophen 650 mg 10/26/24 00:22 Acetaminophen 325 Mg Tablet PO Q6HR PRN Fever Sodium Chloride 1,000 mls @ 100 mls/hr 10/26/24 00:12 10/26/24 02:14 Normal Saline Iv IV CONT 10/26/24 10:11 100 mls/hr .Q10H STA Administration Ceftriaxone Sodium 1 gm/ 50 mls @ 100 mls/hr 10/27/24 00:00 Sodium Chloride IVPB Q24H SRINI Labs Labs: Laboratory Results - last 24 hr 10/25/24 10/26/24 23:14 04:16 WBC 5.7 6.1 RBC 4.02 L 3.71 L Hgb 12.1 10.9 L Hct 35.5 L 34.5 L MCV 88.3 93.0 D MCH 30.1 29.4 MCHC 34.1 31.6 L RDW 12.9 13.0 Plt Count 234 216 MPV 9.8 9.6 Immature Gran % (Auto) 0.7 H 1.0 H Neut % (Auto) 79.8 H 78.0 H Lymph % (Auto) 4.9 L 7.3 L [place] % (Auto) 10.6 H 11.1 H Eos % (Auto) 3.7 2.3 Baso % (Auto) 0.3 0.3 Lymph # (Auto) 0.28 L 0.45 L [place] # (Auto) 0.6 0.7 H Eos # (Auto) 0.2 0.1 Baso # (Auto) 0.0 0.0 Abs Immat Gran (auto) 0.04 H 0.06 H Absolute Neuts (auto) 4.6 4.8 Absolute Nucleated RBC 0.000 0.000 Nucleated RBC % 0.0 0.0 Sodium 130 L 132 L Potassium 3.5 3.7 Chloride 106 109 H Carbon Dioxide 17 L 18 L Anion Gap 7 5 BUN 24 H 21 H Creatinine 1.20 H 1.19 H Estim Creat Clear Calc Not Reportable 34 Estimated GFR 44 L 44 L Glucose 144 H 97 Lactic Acid 1.7 Calcium 8.4 7.8 L Magnesium 1.8 2.2 Total Bilirubin 0.5 0.3 AST 61 H 54 H ALT 53 H 48 H Alkaline Phosphatase 149 H 129 H Total Protein 5.9 L 5.3 L Albumin 3.3 L 3.0 L Influenza A (RT-PCR) Negative Influenza B (RT-PCR) Negative SARS-CoV-2 RNA (RT-PCR) Negative
[2024-10-26] MEDS: LINACLOTIDE 145 MCG CAPSULE PO (13:21)
[2024-10-26] MEDS: ACETAMINOPHEN 325 MG TABLET 650 MG PO ×2 (15:15→23:05)
[2024-10-26] MEDS: CYCLOBENZAPRINE HCL 10 MG TABLET PO (20:43)
[2024-10-26] MEDS: CITALOPRAM HYDROBROMIDE 20 MG TABLET 40 MG PO (20:44)
[2024-10-26] MEDS: clonazePAM (*CRX) 0.5 MG TABLET 2 MG PO (20:45)
[2024-10-26] MEDS: ACETAMINOPHEN/BUTALBITAL/CAFFEINE 325-50-40 MG TABLET (FIORICET) 1 TAB PO (20:47)
[2024-10-26] MEDS: cefTRIAXone 1 GM in SODIUM CHLORIDE 0.9% IV 50 ML 100 ML IVPB (23:08)
[2024-10-27] VITALS (7 sets, daily range): BP systolic 93–139; BP diastolic 42–80; PULSE 70–100; RESP 18; TEMP 36.2–37.4; O2SAT 93–100
[2024-10-27 05:00] LABS: Hematocrit 33.5 % (37.0-47.0); Hemoglobin 10.8 g/dL (12.0-15.0); Immature Granulocyte Percent A 0.7 % (0-0.5); Lymphocytes Absolute Auto 0.42 K/mm3 (0.9-3.2); Mean Corpuscular HGB Conc 32.2 g/dl (32-36); Mean Corpuscular Hemoglobin 29.5 pg (26-34); Mean Corpuscular Volume 91.5 fl (80-100); Nucleated Red Blood Cells Absolute Auto 0.000 K/mm3 (0.0-0.012); Nucleated Red Blood Cells Perc 0.0 % (0.0-0.2); Platelet Count Result 209 k/mm3 (150-375); Red Blood Count 3.66 M/mm3 (4.2-5.4); White Blood Count 6.1 K/mm3 (4.5-10.0)
[2024-10-27 05:14] LABS: Anion Gap 6 mmol/L (4-12); Blood Urea Nitrogen 15 mg/dL (7-17); Calcium 8.4 mg/dL (8.4-10.2); Carbon Dioxide 17 mmol/L (22-30); Chloride 111 mmol/L (98-107); Estimated CRCL calculation 39 ml/min; Estimated Glomerular Filt Rate 53; Glucose 124 mg/dL (65-110); Potassium 3.7 mmol/L (3.4-5.0); Sodium 134 mmol/L (137-145)
[2024-10-27 05:42] LABS: Thyroid Stimulating Hormone Reflex 0.848 uIU/mL (0.465-4.68)
--- NOTE | 2024-10-27 07:02 | P.PNIM_ITS ---
Progress Note: A&P Assessment and Plan (1) Sepsis: Code(s): A41.9 - Sepsis, unspecified organism Status: Acute Assessment and Plan: - criteria met on admission with fever, HR>90, RR>20 - lactic acid WNL - s/p IV fluids - suspected source: UTI vs. viral given history of congestion and body aches -Blood cultures x2 pending - Urine culture with mixed urogenital alfredo in high colony counts - Continue Rocephin 1 g daily as patient is improving and has been afebrile x 24 hours - PRN Tylenol for fever (2) Acute UTI: Code(s): N39.0 - Urinary tract infection, site not specified Status: Acute Assessment and Plan: - UA with 2+ LE, 21-50 WBC - last urine culture 05/2024 with pansensitive E coli - urine culture 10/25 with mixed urogenital alfredo in high colony counts, likely not true UTI, but will continue IV Rocephin and await blood cultures as patient is clinically improving. (3) Headache: Code(s): R51.9 - Headache, unspecified Status: Acute Assessment and Plan: - has prior history of headaches in setting of TMJ - CT head no acute process - no meningeal signs - continue home Nya Wei (4) Hyponatremia: Code(s): E87.1 - Hypo-osmolality and hyponatremia Status: Acute Assessment and Plan: - Sodium 130 on admit. Slowly improved with IV fluids - encourage PO intake - daily BMP (5) Elevated LFTs: Code(s): R79.89 - Other specified abnormal findings of blood chemistry Status: Acute Assessment and Plan: - denied abdominal pain - improving - likely secondary to sepsis - monitor CMP (6) Weakness: Code(s): R53.1 - Weakness Status: Acute Assessment and Plan: -Most likely secondary to acute infection -PT and OT recs HHC -Fall precautions (7) Depression with anxiety: Code(s): F41.8 - Other specified anxiety disorders Status: Chronic Assessment and Plan: -Continue home medications (8) Chronic kidney disease: Code(s): N18.9 - Chronic kidney disease, unspecified Status: Chronic Assessment and Plan: - Cr 1.02 10/27, near baseline (9) Dementia of Alzheimer's type, with early onset, with depressed mood: Code(s): G30.0 - Alzheimer's disease with early onset; F02.83 - Dementia in other diseases classified elsewhere, unspecified severity, with mood disturbance Status: Chronic Assessment and Plan: -currently at baseline mental status - delirium precautions Plan DVT prophylaxis: Lovenox Disposition: 1-2 days, home with [facility] Subjective Date/time seen: 10/27/24 07:02 Interval history: 74-year-old female patient with past medical history dementia, IBS, depression, anxiety and chronic kidney disease who presents to the emergency room for the 2nd time today with complaints of having fever and weakness. Patient seen and examined at bedside. Initially sleeping, awakens easily. Still feeling very weak. Review of Systems Review of Systems: All systems reviewed & are unremarkable except as noted in HPI and below Exam Narrative: General: mildly ill-appearing Eyes: EOMI ENT: neck supple Cardiovascular: Regular rate and rhythm Respiratory: Clear to auscultation, respirations even and unlabored on RA Gastrointestinal: Soft, non tender Genitourinary: no suprapubic tenderness Musculoskeletal: No edema Skin: warm, dry Neuro: Sleeping, awakens easily. Psych: Mood appropriate Objective Data Vital Signs Vital Signs: Vital Signs - 24 hr 10/26/24 09:05 10/26/24 09:15 10/26/24 14:28 Temperature 99.7 F H 99.4 F Pulse Rate 85 87 Respiratory Rate 16 18 Blood Pressure 117/47 L 112/41 L Pulse Oximetry 98 97 Oxygen Delivery Room Air 10/26/24 15:15 10/26/24 16:15 10/26/24 16:47 Temperature 99.9 F H 98.2 F 98.4 F Pulse Rate Respiratory Rate Blood Pressure Pulse Oximetry Oxygen Delivery 10/26/24 20:00 10/26/24 20:00 10/26/24 20:00 Temperature 98.1 F 97.8 F Pulse Rate 81 101 H Respiratory Rate 18 18 Blood Pressure 119/55 L 159/71 H Pulse Oximetry 95 100 Oxygen Delivery Room Air 10/26/24 23:05 10/27/24 00:00 10/27/24 04:00 Temperature 99.4 F 99.4 F 97.1 F L Pulse Rate 100 79 Respiratory Rate 18 18 Blood Pressure 139/56 L 93/45 L Pulse Oximetry 100 93 Oxygen Delivery 10/27/24 06:00 Temperature 97.4 F L Pulse Rate 82 Respiratory Rate 18 Blood Pressure 101/42 L Pulse Oximetry 94 Oxygen Delivery Intake/Output Intake/Output: Intake & Output 10/24/24 10/25/24 10/26/24 10/27/24 23:59 23:59 23:59 23:59 Intake Total 2250 Output Total 1801 Balance 449 Meds/Results Medications: Active Medications Generic Name Dose Route Start Last Admin Trade Name Freq PRN Reason Stop Dose Admin Acetaminophen 650 mg 10/26/24 00:22 10/26/24 23:05 Acetaminophen 325 Mg Tablet PO 650 mg Q6HR PRN Administration Fever Acetaminophen/Butalbital/Caffeine 1 tab 10/26/24 12:05 10/26/24 20:47 Acetaminophen/Butalbital/Caffeine 325-50-40 Mg Tablet (Fioricet) PO 1 tab Q8H PRN Administration Headache Aspirin 81 mg 10/27/24 09:00 Aspirin 81 Mg Enteric Tablet PO QAM SRINI Citalopram Hydrobromide 40 mg 10/26/24 21:00 10/26/24 20:44 Citalopram Hydrobromide 20 Mg Tablet PO 40 mg HS SRINI Administration Clonazepam 2 mg 10/26/24 20:30 10/26/24 20:45 Clonazepam (*Crx) 0.5 Mg Tablet PO 2 mg QHS PRN Administration Anxiety Cyclobenzaprine HCl 10 mg 10/26/24 21:00 10/26/24 20:43 Cyclobenzaprine Hcl 10 Mg Tablet PO 10 mg QHS RSINI Administration Enoxaparin Sodium 40 mg 10/27/24 09:00 Enoxaparin 40 Mg/0.4 Ml Syringe SUB-Q DAILY SRINI Ceftriaxone Sodium 1 gm/ 50 mls @ 100 mls/hr 10/27/24 00:00 10/26/24 23:38 Sodium Chloride IVPB 0 mls/hr Q24H SRINI Infusion Linaclotide 145 mcg 10/26/24 12:20 10/26/24 13:21 Linaclotide 145 Mcg Capsule PO 145 mcg QAM SRINI Administration Trazodone HCl 25 mg 10/26/24 21:00 Trazodone Hcl 25 Mg Tablet PO HS PRN Insomnia Labs Labs: Laboratory Results - last 24 hr 10/27/24 03:57 WBC 6.1 RBC 3.66 L Hgb 10.8 L Hct 33.5 L MCV 91.5 MCH 29.5 MCHC 32.2 RDW 13.2 Plt Count 209 MPV 10.1 Immature Gran % (Auto) 0.7 H Neut % (Auto) 81.9 H Lymph % (Auto) 6.9 L [place] % (Auto) 9.2 H Eos % (Auto) 1.0 Baso % (Auto) 0.3 Lymph # (Auto) 0.42 L [place] # (Auto) 0.6 Eos # (Auto) 0.1 Baso # (Auto) 0.0 Abs Immat Gran (auto) 0.04 H Absolute Neuts (auto) 5.0 Absolute Nucleated RBC 0.000 Nucleated RBC % 0.0 Sodium 134 L Potassium 3.7 Chloride 111 H Carbon Dioxide 17 L Anion Gap 6 BUN 15 D Creatinine 1.02 H Estim Creat Clear Calc 39 Estimated GFR 53 L Glucose 124 H Calcium 8.4 TSH (Reflex) 0.848 Quality VTE Prophylaxis VTE prophylaxis: pharmacologic ordered
[2024-10-27] MEDS: ACETAMINOPHEN 325 MG TABLET 650 MG PO ×2 (09:58→23:30)
[2024-10-27] MEDS: LINACLOTIDE 145 MCG CAPSULE PO (09:58)
[2024-10-27] MEDS: ASPIRIN 81 MG ENTERIC TABLET PO (09:58)
[2024-10-27] MEDS: ENOXAPARIN 40 MG/0.4 ML SYRINGE SUB-Q (10:00)
[2024-10-27 12:09] LABS: Procalcitonin 1.2 ng/mL
[2024-10-27 16:26] LABS: Add Urine Microscopic? NO; Appearance Urine Clear (Clear); Glucose Urine UA Negative (Negative); Leukocyte Esterase Ur Negative LEU/UL (Negative); Nitrate Urine Negative (Negative); Specific Grav Ur 1.008 (1.001-1.035)
[2024-10-27] MEDS: ACETAMINOPHEN/BUTALBITAL/CAFFEINE 325-50-40 MG TABLET (FIORICET) 1 TAB PO (19:31)
[2024-10-27] MEDS: clonazePAM (*CRX) 0.5 MG TABLET 2 MG PO (21:36)
[2024-10-27] MEDS: CITALOPRAM HYDROBROMIDE 20 MG TABLET 40 MG PO (21:36)
[2024-10-27] MEDS: CYCLOBENZAPRINE HCL 10 MG TABLET PO (21:36)
[2024-10-27] MEDS: cefTRIAXone 1 GM in SODIUM CHLORIDE 0.9% IV 50 ML 100 ML IVPB (23:31)
[2024-10-28] VITALS (7 sets, daily range): BP systolic 113–124; BP diastolic 43–89; PULSE 71–87; RESP 16–20; TEMP 36.1–36.9; O2SAT 93–100
[2024-10-28 04:09] LABS: Hematocrit 32.5 % (37.0-47.0); Hemoglobin 10.8 g/dL (12.0-15.0); Immature Granulocyte Percent A 0.4 % (0-0.5); Lymphocytes Absolute Auto 0.98 K/mm3 (0.9-3.2); Mean Corpuscular HGB Conc 33.2 g/dl (32-36); Mean Corpuscular Hemoglobin 29.6 pg (26-34); Mean Corpuscular Volume 89.0 fl (80-100); Nucleated Red Blood Cells Absolute Auto 0.000 K/mm3 (0.0-0.012); Nucleated Red Blood Cells Perc 0.0 % (0.0-0.2); Platelet Count Result 208 k/mm3 (150-375); Red Blood Count 3.65 M/mm3 (4.2-5.4); White Blood Count 5.5 K/mm3 (4.5-10.0)
[2024-10-28 04:33] LABS: Alanine Aminotransferase 47 U/L (6-35); Albumin Level 3.1 g/dL (3.5-5.1); Alkaline Phosphatase 154 U/L (38-126); Anion Gap 5 mmol/L (4-12); Aspartate Amino Transferase 36 U/L (14-36); Bilirubin,Total 0.3 mg/dL (0.2-1.3); Blood Urea Nitrogen 13 mg/dL (7-17); Calcium 8.4 mg/dL (8.4-10.2); Carbon Dioxide 21 mmol/L (22-30); Chloride 108 mmol/L (98-107); Estimated CRCL calculation 39 ml/min; Estimated Glomerular Filt Rate 53; Glucose 94 mg/dL (65-110); Potassium 3.5 mmol/L (3.4-5.0); Sodium 134 mmol/L (137-145); Total Protein 5.6 g/dL (6.3-8.2)
[2024-10-28 04:45] LABS: Procalcitonin 1.1 ng/mL
--- NOTE | 2024-10-28 07:06 | P.PNIM_ITS ---
Progress Note: A&P Assessment and Plan (1) Sepsis: Code(s): A41.9 - Sepsis, unspecified organism Status: Acute Assessment and Plan: - criteria met on admission with fever, HR>90, RR>20 - lactic acid WNL - s/p IV fluids - CXR on admission and 2VW 10/27 with no acute process - Urine culture with mixed urogenital alfredo in high colony counts. Repeat UA negative. No urinary symptoms. - COVID/flu negative. Respiratory panel pending. - suspect viral illness given headache, body aches, congestion, fever, dry cough. May have sinusitis given sinus pressure and drainage. - stop IV Rocephin. Start doxycycline PO for possible sinusitis. - PRN Tylenol for fever (2) Headache: Code(s): R51.9 - Headache, unspecified Status: Acute Assessment and Plan: - has prior history of headaches in setting of TMJ - CT head no acute process - no meningeal signs - continue home FlexerilChanioricet (3) Abnormal urinalysis: Code(s): R82.90 - Unspecified abnormal findings in urine Status: Acute Assessment and Plan: - admit UA with 2+ LE, 21-50 WBC - urine culture 10/25 with mixed urogenital alfredo in high colony counts, UA was repeated with a catheterized specimen and negative for infection - stop IV Rocephin (4) Hyponatremia: Code(s): E87.1 - Hypo-osmolality and hyponatremia Status: Acute Assessment and Plan: - Sodium 130 on admit. Slowly improved with IV fluids - encourage PO intake - daily BMP (5) Elevated LFTs: Code(s): R79.89 - Other specified abnormal findings of blood chemistry Status: Acute Assessment and Plan: - denied abdominal pain - improving - likely secondary to sepsis - monitor CMP (6) Weakness: Code(s): R53.1 - Weakness Status: Acute Assessment and Plan: -Most likely secondary to acute infection -PT and OT recs HHC -Fall precautions (7) Depression with anxiety: Code(s): F41.8 - Other specified anxiety disorders Status: Chronic Assessment and Plan: -Continue home medications (8) Chronic kidney disease: Code(s): N18.9 - Chronic kidney disease, unspecified Status: Chronic Assessment and Plan: - Cr 1.02 10/27, near baseline (9) Dementia of Alzheimer's type, with early onset, with depressed mood: Code(s): G30.0 - Alzheimer's disease with early onset; F02.83 - Dementia in other diseases classified elsewhere, unspecified severity, with mood disturbance Status: Chronic Assessment and Plan: -currently at baseline mental status - delirium precautions Plan DVT prophylaxis: Lovenox Disposition: 1-2 days, home with [facility] Subjective Date/time seen: 10/28/24 07:06 Interval history: 74-year-old female patient with past medical history dementia, IBS, depression, anxiety and chronic kidney disease who presents to the emergency room for the 2nd time today with complaints of having fever and weakness. Patient seen and examined at bedside. Having jaw and ear pain this AM. Review of Systems Review of Systems: All systems reviewed & are unremarkable except as noted in HPI and below Exam Narrative: General: NAD Eyes: EOMI HENT: neck supple, jaw tenderness with palpation, no swelling. L TM with small serous effusion, no purulence or bulging noted. Cardiovascular: Regular rate and rhythm Respiratory: Clear to auscultation, respirations even and unlabored on RA Gastrointestinal: Soft, non tender Genitourinary: no suprapubic tenderness Musculoskeletal: No edema Skin: warm, dry Neuro: Sleeping, awakens easily. Psych: Mood appropriate Objective Data Vital Signs Vital Signs: Vital Signs - 24 hr 10/27/24 09:15 10/27/24 09:28 10/27/24 10:08 Temperature Pulse Rate Respiratory Rate Blood Pressure Pulse Oximetry Oxygen Delivery Room Air Room Air Room Air 10/27/24 11:44 10/27/24 17:00 10/27/24 20:00 Temperature 97.8 F 97.7 F Pulse Rate 75 70 Respiratory Rate 18 18 Blood Pressure 118/55 L 130/55 L Pulse Oximetry 98 95 Oxygen Delivery Room Air 10/27/24 21:01 10/27/24 22:00 10/28/24 02:08 Temperature 97.2 F L 98.0 F Pulse Rate 79 85 Respiratory Rate 18 16 Blood Pressure 132/80 116/48 L Pulse Oximetry 98 97 94 Oxygen Delivery Room Air Intake/Output Intake/Output: Intake & Output 10/25/24 10/26/24 10/27/24 10/28/24 23:59 23:59 23:59 23:59 Intake Total 2250 600 0 Output Total 1801 800 Balance 449 -200 0 Meds/Results Medications: Active Medications Generic Name Dose Route Start Last Admin Trade Name Freq PRN Reason Stop Dose Admin Acetaminophen 650 mg 10/26/24 00:22 10/27/24 23:30 Acetaminophen 325 Mg Tablet PO 650 mg Q6HR PRN Administration Fever Acetaminophen/Butalbital/Caffeine 1 tab 10/26/24 12:05 10/27/24 19:31 Acetaminophen/Butalbital/Caffeine 325-50-40 Mg Tablet (Fioricet) PO 1 tab Q8H PRN Administration Headache Aspirin 81 mg 10/27/24 09:00 10/27/24 09:58 Aspirin 81 Mg Enteric Tablet PO 81 mg QAM SRINI Administration Citalopram Hydrobromide 40 mg 10/26/24 21:00 10/27/24 21:36 Citalopram Hydrobromide 20 Mg Tablet PO 40 mg HS SRINI Administration Clonazepam 2 mg 10/26/24 20:30 10/27/24 21:36 Clonazepam (*Crx) 0.5 Mg Tablet PO 2 mg QHS PRN Administration Anxiety Cyclobenzaprine HCl 10 mg 10/26/24 21:00 10/27/24 21:36 Cyclobenzaprine Hcl 10 Mg Tablet PO 10 mg QHS SRINI Administration Enoxaparin Sodium 40 mg 10/27/24 09:00 10/27/24 10:00 Enoxaparin 40 Mg/0.4 Ml Syringe SUB-Q 40 mg DAILY SRINI Administration Ceftriaxone Sodium 1 gm/ 50 mls @ 100 mls/hr 10/27/24 00:00 10/28/24 00:01 Sodium Chloride IVPB Infused Q24H SRINI Infusion Linaclotide 145 mcg 10/26/24 12:20 10/27/24 09:58 Linaclotide 145 Mcg Capsule PO 145 mcg QAM SRINI Administration Trazodone HCl 25 mg 10/26/24 21:00 10/27/24 23:30 Trazodone Hcl 25 Mg Tablet PO 25 mg HS PRN Administration Insomnia Radiology Results: ITS Impressions Chest X-Ray 10/27/24 15:45 Impression: 1: Bibasilar atelectasis with chronic elevation right diaphragm suggesting phrenic nerve paralysis or eventration. Labs Labs: Laboratory Results - last 24 hr 10/27/24 10/27/24 10/28/24 03:57 16:02 03:43 WBC 5.5 RBC 3.65 L Hgb 10.8 L Hct 32.5 L MCV 89.0 MCH 29.6 MCHC 33.2 RDW 13.3 Plt Count 208 MPV 10.2 Immature Gran % (Auto) 0.4 Neut % (Auto) 60.3 Lymph % (Auto) 17.8 L [place] % (Auto) 16.9 H Eos % (Auto) 4.2 Baso % (Auto) 0.4 Lymph # (Auto) 0.98 [place] # (Auto) 0.9 H Eos # (Auto) 0.2 Baso # (Auto) 0.0 Abs Immat Gran (auto) 0.02 Absolute Neuts (auto) 3.3 Absolute Nucleated RBC 0.000 Nucleated RBC % 0.0 Sodium 134 L Potassium 3.5 Chloride 108 H Carbon Dioxide 21 L Anion Gap 5 BUN 13 Creatinine 1.02 H Estim Creat Clear Calc 39 Estimated GFR 53 L Glucose 94 Calcium 8.4 Total Bilirubin 0.3 AST 36 ALT 47 H Alkaline Phosphatase 154 H Total Protein 5.6 L Albumin 3.1 L Procalcitonin 1.2 1.1 Urine Color Yellow Urine Appearance Clear Urine pH 5.5 Ur Specific [place] 1.008 Urine Protein Negative Urine Glucose (UA) Negative Urine Ketones Negative Ur Blood (Man) Negative Urine Nitrate Negative Urine Bilirubin Negative Urine Urobilinogen 0.2 Ur Leukocyte Esterase Negative Quality VTE Prophylaxis VTE prophylaxis: pharmacologic ordered
[2024-10-28] MEDS: ACETAMINOPHEN/BUTALBITAL/CAFFEINE 325-50-40 MG TABLET (FIORICET) 1 TAB PO ×2 (09:23→17:54)
[2024-10-28] MEDS: LINACLOTIDE 145 MCG CAPSULE PO (09:23)
[2024-10-28] MEDS: CYCLOBENZAPRINE HCL 5 MG TABLET PO (09:23)
[2024-10-28] MEDS: ASPIRIN 81 MG ENTERIC TABLET PO (09:23)
[2024-10-28] MEDS: DOXYCYCLINE HYCLATE 100 MG TABLET PO ×2 (09:23→20:28)
[2024-10-28] MEDS: ENOXAPARIN 40 MG/0.4 ML SYRINGE SUB-Q (09:24)
[2024-10-28] MEDS: CYCLOBENZAPRINE HCL 10 MG TABLET PO (20:28)
[2024-10-28] MEDS: CITALOPRAM HYDROBROMIDE 20 MG TABLET 40 MG PO (20:28)
[2024-10-28] MEDS: clonazePAM (*CRX) 0.5 MG TABLET 2 MG PO (20:29)
[2024-10-29 03:28] VITALS: BP 122/46; PULSE 80; RESP 17; TEMP 36.7; O2SAT 97
[2024-10-29 05:03] LABS: Hematocrit 34.2 % (37.0-47.0); Hemoglobin 11.1 g/dL (12.0-15.0); Immature Granulocyte Percent A 0.6 % (0-0.5); Lymphocytes Absolute Auto 1.27 K/mm3 (0.9-3.2); Mean Corpuscular HGB Conc 32.5 g/dl (32-36); Mean Corpuscular Hemoglobin 29.3 pg (26-34); Mean Corpuscular Volume 90.2 fl (80-100); Nucleated Red Blood Cells Absolute Auto 0.000 K/mm3 (0.0-0.012); Nucleated Red Blood Cells Perc 0.0 % (0.0-0.2); Platelet Count Result 241 k/mm3 (150-375); Red Blood Count 3.79 M/mm3 (4.2-5.4); White Blood Count 4.7 K/mm3 (4.5-10.0)
[2024-10-29 05:20] LABS: Alanine Aminotransferase 37 U/L (6-35); Albumin Level 3.0 g/dL (3.5-5.1); Alkaline Phosphatase 149 U/L (38-126); Anion Gap 6 mmol/L (4-12); Aspartate Amino Transferase 29 U/L (14-36); Bilirubin,Total 0.4 mg/dL (0.2-1.3); Blood Urea Nitrogen 12 mg/dL (7-17); Calcium 8.5 mg/dL (8.4-10.2); Carbon Dioxide 18 mmol/L (22-30); Chloride 111 mmol/L (98-107); Estimated CRCL calculation 43 ml/min; Estimated Glomerular Filt Rate 60; Glucose 78 mg/dL (65-110); Potassium 3.6 mmol/L (3.4-5.0); Sodium 135 mmol/L (137-145); Total Protein 5.7 g/dL (6.3-8.2)
[2024-10-29 05:34] LABS: Procalcitonin 0.6 ng/mL
[2024-10-29 08:00] VITALS: BP 102/49; PULSE 84; RESP 18; TEMP 36.2; O2SAT 93
[2024-10-29] MEDS: ASPIRIN 81 MG ENTERIC TABLET PO (08:06)
[2024-10-29] MEDS: LINACLOTIDE 145 MCG CAPSULE PO (08:06)
[2024-10-29] MEDS: DOXYCYCLINE HYCLATE 100 MG TABLET PO ×2 (08:06→20:38)
[2024-10-29] MEDS: ENOXAPARIN 40 MG/0.4 ML SYRINGE SUB-Q (08:07)
[2024-10-29 12:00] VITALS: BP 111/57; PULSE 74; RESP 18; TEMP 36.6; O2SAT 98
--- NOTE | 2024-10-29 13:37 | P.PNIM_ITS ---
Progress Note: A&P Assessment and Plan (1) Sepsis: Code(s): A41.9 - Sepsis, unspecified organism Status: Acute Assessment and Plan: - criteria met on admission with fever, HR>90, RR>20 - lactic acid WNL - s/p IV fluids - CXR on admission and 2VW 10/27 with no acute process - Urine culture with mixed urogenital alfredo in high colony counts. Repeat UA negative. No urinary symptoms. - COVID/flu negative. Respiratory panel pending. - blood cultures NGTD - suspect viral illness given headache, body aches, congestion, fever, dry cough. May have sinusitis given sinus pressure and drainage. - stop IV Rocephin. Start doxycycline PO for possible sinusitis. - PRN Tylenol for fever (2) Headache: Code(s): R51.9 - Headache, unspecified Status: Acute Assessment and Plan: - has prior history of headaches in setting of TMJ - CT head no acute process - no meningeal signs - continue home [facility] (3) Abnormal urinalysis: Code(s): R82.90 - Unspecified abnormal findings in urine Status: Acute Assessment and Plan: - admit UA with 2+ LE, 21-50 WBC - urine culture 10/25 with mixed urogenital alfredo in high colony counts, UA was repeated with a catheterized specimen and negative for infection - stop IV Rocephin (4) Hyponatremia: Code(s): E87.1 - Hypo-osmolality and hyponatremia Status: Acute Assessment and Plan: - Sodium 130 on admit. Slowly improved with IV fluids - encourage PO intake - daily BMP (5) Elevated LFTs: Code(s): R79.89 - Other specified abnormal findings of blood chemistry Status: Acute Assessment and Plan: - denied abdominal pain - improving - likely secondary to sepsis - monitor CMP (6) Weakness: Code(s): R53.1 - Weakness Status: Acute Assessment and Plan: -Most likely secondary to acute infection -PT and OT recs HHC -Fall precautions (7) Depression with anxiety: Code(s): F41.8 - Other specified anxiety disorders Status: Chronic Assessment and Plan: -Continue home medications (8) Chronic kidney disease: Code(s): N18.9 - Chronic kidney disease, unspecified Status: Chronic Assessment and Plan: - Cr 1.02 10/27, near baseline (9) Dementia of Alzheimer's type, with early onset, with depressed mood: Code(s): G30.0 - Alzheimer's disease with early onset; F02.83 - Dementia in other diseases classified elsewhere, unspecified severity, with mood disturbance Status: Chronic Assessment and Plan: -currently at baseline mental status - delirium precautions Plan DVT prophylaxis: Lovenox Disposition: home tomorrow, home with [facility] Subjective Date/time seen: 10/29/24 13:37 Interval history: Patient seen and examined at bedside. patient doing much better today. Ambulated independently this AM. requested patient remain in the hospital one more night to ensure patient is strong enough for him to care for her at home and to ensure her headache does not return. Review of Systems Review of Systems: All systems reviewed & are unremarkable except as noted in HPI and below Exam Narrative: General: NAD Eyes: EOMI HENT: neck supple Cardiovascular: Regular rate and rhythm Respiratory: Clear to auscultation, respirations even and unlabored on RA Gastrointestinal: Soft, non tender Genitourinary: no suprapubic tenderness Musculoskeletal: No edema Skin: warm, dry Neuro: Sleeping, awakens easily. Psych: Mood appropriate Objective Data Vital Signs Vital Signs: Vital Signs - 24 hr 10/28/24 15:29 10/28/24 19:46 10/28/24 20:00 Temperature 97.0 F L 98.2 F Pulse Rate 76 75 Respiratory Rate 18 16 Blood Pressure 117/56 L 113/89 Pulse Oximetry 100 97 Oxygen Delivery Room Air Fraction of Inspired Oxygen 10/28/24 21:17 10/28/24 23:29 10/29/24 03:28 Temperature 97.8 F 98.1 F Pulse Rate 75 71 80 Respiratory Rate 20 17 17 Blood Pressure 117/43 L 122/46 L Pulse Oximetry 97 98 97 Oxygen Delivery Room Air Fraction of Inspired Oxygen 21 10/29/24 08:00 10/29/24 08:10 10/29/24 12:00 Temperature 97.1 F L 97.8 F Pulse Rate 84 74 Respiratory Rate 18 18 Blood Pressure 102/49 L 111/57 L Pulse Oximetry 93 98 Oxygen Delivery Room Air Fraction of Inspired Oxygen Intake/Output Intake/Output: Intake & Output 10/26/24 10/27/24 10/28/24 10/29/24 23:59 23:59 23:59 23:59 Intake Total 2250 600 800 340 Output Total 1801 800 600 400 Balance 449 -200 200 -60 Meds/Results Medications: Active Medications Generic Name Dose Route Start Last Admin Trade Name Freq PRN Reason Stop Dose Admin Acetaminophen 650 mg 10/26/24 00:22 10/27/24 23:30 Acetaminophen 325 Mg Tablet PO 650 mg Q6HR PRN Administration Fever Acetaminophen/Butalbital/Caffeine 1 tab 10/26/24 12:05 10/28/24 17:54 Acetaminophen/Butalbital/Caffeine 325-50-40 Mg Tablet (Fioricet) PO 1 tab Q8H PRN Administration Headache Aspirin 81 mg 10/27/24 09:00 10/29/24 08:06 Aspirin 81 Mg Enteric Tablet PO 81 mg QAM SRINI Administration Citalopram Hydrobromide 40 mg 10/26/24 21:00 10/28/24 20:28 Citalopram Hydrobromide 20 Mg Tablet PO 40 mg HS SRINI Administration Clonazepam 2 mg 10/26/24 20:30 10/28/24 20:29 Clonazepam (*Crx) 0.5 Mg Tablet PO 2 mg QHS PRN Administration Anxiety Cyclobenzaprine HCl 10 mg 10/26/24 21:00 10/28/24 20:28 Cyclobenzaprine Hcl 10 Mg Tablet PO 10 mg QHS SRINI Administration Doxycycline Hyclate 100 mg 10/28/24 09:00 10/29/24 08:06 Doxycycline Hyclate 100 Mg Tablet PO 100 mg Q12HR SRINI Administration Enoxaparin Sodium 40 mg 10/27/24 09:00 10/29/24 08:07 Enoxaparin 40 Mg/0.4 Ml Syringe SUB-Q 40 mg DAILY SRINI Administration Linaclotide 145 mcg 10/26/24 12:20 10/29/24 08:06 Linaclotide 145 Mcg Capsule PO 145 mcg QAM SRINI Administration Trazodone HCl 25 mg 10/26/24 21:00 10/28/24 20:28 Trazodone Hcl 25 Mg Tablet PO 25 mg HS PRN Administration Insomnia Radiology Results: ITS Impressions Chest X-Ray 10/27/24 15:45 Impression: 1: Bibasilar atelectasis with chronic elevation right diaphragm suggesting phrenic nerve paralysis or eventration. Labs Labs: Laboratory Results - last 24 hr 10/29/24 04:13 WBC 4.7 RBC 3.79 L Hgb 11.1 L Hct 34.2 L MCV 90.2 MCH 29.3 MCHC 32.5 RDW 13.4 Plt Count 241 MPV 10.0 Immature Gran % (Auto) 0.6 H Neut % (Auto) 51.6 Lymph % (Auto) 26.8 [place] % (Auto) 14.1 H Eos % (Auto) 6.3 H Baso % (Auto) 0.6 Lymph # (Auto) 1.27 [place] # (Auto) 0.7 H Eos # (Auto) 0.3 Baso # (Auto) 0.0 Abs Immat Gran (auto) 0.03 Absolute Neuts (auto) 2.4 Absolute Nucleated RBC 0.000 Nucleated RBC % 0.0 Sodium 135 L Potassium 3.6 Chloride 111 H Carbon Dioxide 18 L Anion Gap 6 BUN 12 Creatinine 0.92 Estim Creat Clear Calc 43 Estimated GFR 60 Glucose 78 Calcium 8.5 Total Bilirubin 0.4 AST 29 ALT 37 H Alkaline Phosphatase 149 H Total Protein 5.7 L Albumin 3.0 L Procalcitonin 0.6 Quality VTE Prophylaxis VTE prophylaxis: pharmacologic ordered
[2024-10-29 16:00] VITALS: BP 115/59; PULSE 78; RESP 18; TEMP 36.1; O2SAT 98
[2024-10-29 20:00] VITALS: BP 122/35; PULSE 68; RESP 18; TEMP 36.2; O2SAT 93
[2024-10-29] MEDS: CITALOPRAM HYDROBROMIDE 20 MG TABLET 40 MG PO (20:37)
[2024-10-29] MEDS: CYCLOBENZAPRINE HCL 10 MG TABLET PO (20:38)
[2024-10-29] MEDS: clonazePAM (*CRX) 0.5 MG TABLET 2 MG PO (20:38)
[2024-10-30] VITALS: BP 133/55; PULSE 81; RESP 18; TEMP 37.2; O2SAT 93
[2024-10-30 04:00] VITALS: BP 127/71; PULSE 78; RESP 18; TEMP 36.2; O2SAT 92
[2024-10-30 06:07] VITALS: BP 131/64; PULSE 78; RESP 18; TEMP 36.6; O2SAT 97
--- NOTE | 2024-10-30 06:58 | PM.DS ---
DS: Admitting Diagnosis Discharge Date 10/30/24 Admitting Diagnosis - fever - abnormal urinalysis - hyponatermia DS: Discharge Diagnosis Discharge Diagnosis (1) Sepsis: Code(s): A41.9 - Sepsis, unspecified organism Status: Acute (2) Headache: Code(s): R51.9 - Headache, unspecified Status: Acute (3) Abnormal urinalysis: Code(s): R82.90 - Unspecified abnormal findings in urine Status: Acute (4) Hyponatremia: Code(s): E87.1 - Hypo-osmolality and hyponatremia Status: Acute (5) Elevated LFTs: Code(s): R79.89 - Other specified abnormal findings of blood chemistry Status: Acute (6) Weakness: Code(s): R53.1 - Weakness Status: Acute (7) Depression with anxiety: Code(s): F41.8 - Other specified anxiety disorders Status: Chronic (8) Chronic kidney disease: Code(s): N18.9 - Chronic kidney disease, unspecified Status: Chronic (9) Dementia of Alzheimer's type, with early onset, with depressed mood: Code(s): G30.0 - Alzheimer's disease with early onset; F02.83 - Dementia in other diseases classified elsewhere, unspecified severity, with mood disturbance Status: Chronic DS: Summary Hospital Course Reason for hospitalization: - fever - abnormal urinalysis - hyponatermia Hospital Course: Patient is a 74-year-old female patient with past medical history dementia, IBS, depression, anxiety and chronic kidney disease who presented to the emergency room with complaints of having fever and weakness. In ED work-up showed unremarkable CBC, specifically with wbc's of 5.7. Metabolic panel shows mild hyponatremia at 1:30 a.m. patient appears to be at her baseline urine function with creatinine of 1.2 and BUN of 24. Blood cultures x2 and urine cultures are pending. Lactic acid normal at 1.7. Patient is noted to have a nonspecific, mild transaminitis. Urinalysis shows positive for 2+ leukocyte esterase, 3-5 rbc's and 21-50 wbc's. Flu/COVID negative. CXR with bibasilar atelectasis. CT head no acute process. Patient was meeting sepsis criteria with fever, tachycardia, tachypnea. Patient received IV fluids and was started on IV Rocephin for suspected UTI. Admitted for further management. Patient's original urine culture resulted with urogenital alfredo. Repeat UA with catheterized specimen was negative for infection and patient denied urinary sypmptoms. Repeat two view chest x-ray with no consolidation. Blood cultures x2 NGTD. Patient's fever resolved and weakness improved. Suspect viral infection given constellation of symptoms including headache, sinus pressure, dry cough and fever. Full respiratory viral panel is pending on discharge. Patient continued to complain of sinus pressure and drainage. She was started on doxycycline for sinusitis for which she will complete a 5-day course on discharge. She was also prescribed nasal sprays and Sudafed and instructed to follow-up with her primary care doctor. Patient reports chronic sinus issues and was instructed to re-establish with ENT as outpatient. Patient worked with PT/OT and home healthcare was recommended. Home healthcare was arranged on discharge. On day of discharge, she was seen ambulating independently with a walker, near her baseline. She will discharge home with her who is very attentive to her care. Strict return precautions discussed. Patient in stable condition on discharge. Time Spent with Patient Time attestation: Total time spent providing and/or coordinating discharge services: Time spent: Greater than 30 minutes Exam Narrative: General: NAD, well-appearing Eyes: EOMI HENT: neck supple, frontal sinus TTP Cardiovascular: Regular rate and rhythm Respiratory: Clear to auscultation, respirations even and unlabored on RA Gastrointestinal: Soft, non tender Genitourinary: no suprapubic tenderness Musculoskeletal: No edema Skin: warm, dry Neuro: alert and oriented. Psych: Mood appropriate DS: Data Data Completed and Pending Completed studies during hospitalization: ITS Impressions Chest X-Ray 10/27/24 15:45 Impression: 1: Bibasilar atelectasis with chronic elevation right diaphragm suggesting phrenic nerve paralysis or eventration. Labs on day of discharge: Preliminary micro results at discharge 10/25/24 23:14 Blood Culture - Preliminary Blood 10/25/24 23:16 Blood Culture - Preliminary Blood Discharge Plan Discharge Attending physician on discharge: Gisela Reid Consulting providers: Odalys Aguilar Discharging Clinician: Odalys Aguilar Anticipated Discharge Date/Time: 10/30/24 14:47 Patient Disposition: Home with Home Health Service Activity: as tolerated Diet: as tolerated and regular Discharge Instructions: Take all medications as prescribed. Finish antibiotics if prescribed, even if you are feeling better. Follow-up with your primary care provider in 5-7 days. Do not use Afrin (oxymetazoline) for more than 3 days. Okay to use humidification to help clear sinus pressure. Return to the emergency department if you develop chest pain, shortness of breath, persistent fever >100.4, confusion, loss of consciousness, severe weakness. Home Health Agency listed as [facility] Phone number: [phone] Patient Instructions: Antibiotic Form, Rhinosinusitis (DC) Patient Language: Portuguese Stand Alone Forms: General Discharge Information Follow-up/Referrals: Nathan Little MD [Physician, Ear, Nose, Throat] Referral Note: sinusitis Lenora,Casa Gandhi MD [Primary Care Provider] - Call for Appointment Referral Note: 5-7 days Discharge Medications: New fluticasone propionate [Flonase Allergy Relief] 50 mcg/actuation spray,suspension 2 spray intranasal DAILY Qty: 16 0RF Rx Instructions: administer into each nostril Nasal Decongestant (pseudoeph) 30 mg capsule (abuse-resistant) 30 mg PO Q4-6H PRN (Reason: nasal congestion) Qty: 30 0RF Rx Instructions: DNExceed 4 doses/24h Afrin (oxymetazoline) 0.05 % mist 2 spray intranasal Q12H PRN (Reason: nasal congestion) 3 Days Qty: 15 0RF Rx Instructions: DO NOT USE FOR LONGER THAN 3 DAYS. doxycycline hyclate 100 mg capsule 100 mg PO BID Qty: 6 0RF Continued [id number]-[id number] [Fioricet] 50-300-40 mg capsule 1 cap PO Q8H PRN (Reason: pain) Qty: 10 0RF citalopram [Celexa] 20 mg Tablet 40 mg PO HS Qty: 14 0RF trazodone 50 mg tablet 25 mg PO HS PRN (Reason: insomnia) Qty: 7 0RF clonazepam [Klonopin] 2 mg tablet 2 mg PO HS Qty: 7 0RF Rx Instructions: administer 30 minutes before bedtime aspirin 81 mg Tablet,Delayed Release (Dr/Ec) 81 mg PO QAM Qty: 14 0RF cyclobenzaprine 10 mg Tablet 10 mg PO QHS Qty: 30 0RF acetaminophen 500 mg capsule 1,000 mg PO Q6H PRN (Reason: pain) Qty: 30 0RF Linzess 145 mcg capsule 145 mcg PO QAM Qty: 90 5RF Discontinued azithromycin 250 mg tablet 250 mg PO DAILY Patient Comments: DAY 3 ON TUESDAY ibuprofen 600 mg tablet 600 mg PO TID PRN (Reason: pain) Qty: 30 0RF cephalexin 500 mg capsule 500 mg PO Q12H 7 Days Qty: 14 0RF Date of admission: 10/26/24 00:20 Primary Care Provider: Lenora,Casa Gandhi Admitting Provider: Castro Newsome Attending physician on admission: Castro Newsome Condition: Stable
[2024-10-30 08:00] VITALS: BP 119/66; PULSE 70; RESP 18; TEMP 36.8; O2SAT 96
[2024-10-30] MEDS: ASPIRIN 81 MG ENTERIC TABLET PO (08:05)
[2024-10-30] MEDS: DOXYCYCLINE HYCLATE 100 MG TABLET PO (08:05)
[2024-10-30] MEDS: ACETAMINOPHEN 325 MG TABLET 650 MG PO (08:05)
[2024-10-30] MEDS: LINACLOTIDE 145 MCG CAPSULE PO (08:05)
[2024-10-30] MEDS: ENOXAPARIN 40 MG/0.4 ML SYRINGE SUB-Q (08:06)
[2024-10-30] MEDS: PSEUDOEPHEDRINE HCL 30 MG TABLET PO (10:59)
[2024-10-30] MEDS: FLUTICASONE PROPIONATE 0.05% NA SPR 16 GM BTL (*BKC) 1 SPRAY NASAL (11:00)
[2024-10-30] MEDS: OXYMETAZOLINE HCL 0.05% NAS 15 ML BTL (*BKC) 1 SPRAY NASAL (11:00)
[2024-10-30 12:00] VITALS: BP 126/54; PULSE 72; RESP 18; TEMP 36.5; O2SAT 98
== END 2024-10-30 15:30 | disposition home health service (06) | DRG 872 ==
LOC: ANHED 10-26 00:13 → ANH2MED 10-26 06:53
PROVIDERS: Nurse Practitioner Adult Health; Admitting Provider Family Medicine; Emergency Provider Emergency Medicine; PCP Internal Medicine; Visit Provider Physician Assistant
DX: A41.89 Other specified sepsis (principal); E87.1 Hypo-osmolality and hyponatremia; F02.83 Dementia in other diseases classified elsewhere, unspecified severity, with mood disturbance; B34.9 Viral infection, unspecified; N18.9 Chronic kidney disease, unspecified; E55.9 Vitamin D deficiency, unspecified; K58.2 Mixed irritable bowel syndrome; G30.0 Alzheimer's disease with early onset; R82.90 Unspecified abnormal findings in urine; M26.609 Unspecified temporomandibular joint disorder, unspecified side; F32.A Depression, unspecified; F41.9 Anxiety disorder, unspecified; Z20.822 Contact with and (suspected) exposure to COVID-19; Z96.659 Presence of unspecified artificial knee joint; Z86.73 Personal history of transient ischemic attack (TIA), and cerebral infarction without residual deficits; Z79.82 Long term (current) use of aspirin
CPT/HCPCS: 36415; 70450; 71046; 80048; 80053; 81001; 81003; 83605; 83735; 84145; 84443; 85025; 87040; 87086; 87636; 87637; 93005; 96361; 96365; 96374; 96375; 97161; 97165; 97530; 97535; 99285; A9270; J0696; J1200; J1650; J1885; J2765; J7030

== ENCOUNTER 2025-01-01 12:42 | Outpatient (CLI) | payer MEDICARE, SELFPAY ==
--- NOTE | ~2025-01-01 | XR_ITS ---
Examination: XR chest 2V Clinical History: Cough Comparison: X-rays 10/27/2024 Technique: PA and Lateral Findings: Cardiomediastinal silhouette normal size and configuration. Chronic elevation right hemidiaphragm. Mild left basilar atelectasis. Small calcified granulomata left upper lobe. No focal airspace consolidation or pleural effusion. No acute bony abnormality. IMPRESSION: 1. No significant acute cardiopulmonary findings. Reviewed, dictated and finalized at location R.
== END 2025-01-01 12:43 | disposition home or self-care (01) ==
LOC: MICIMG 12:44
PROVIDERS: PCP Internal Medicine; Visit Provider Internal Medicine
DX: R05.9 Cough, unspecified (principal)
CPT/HCPCS: 71046

== ENCOUNTER 2025-01-04 13:21 | Emergency (ER) | payer MEDICARE, SELFPAY ==
--- NOTE | 2025-01-04 13:23 | ED.URI ---
HPI - URI/Sore Throat General Chief Complaint: Upper Respiratory Infection Stated Complaint: DRAINAGE/SINUS/COUGH Time Seen by Provider: 01/04/25 13:22 Source: patient Mode of arrival: ambulatory Limitations: no limitations History of Present Illness HPI Narrative: Makenzie is a 74 year old female patient presenting to the clinic today with c/o sinus drainage, sinus pressure, and cough x1 week. She reports she is coughing up and blowing out yellowish-green phlegm. Denies any known fevers, chills, body aches. Does feel short of breath. Had chest x-ray done on January 01 and was negative for any acute cardiopulmonary process. Her PCP a [facility] in prescription for doxycycline. She is currently taking doxycycline and does not feel as though her symptoms are improving. Denies any chest pain. Related Data Home Medications ?Medication ?Instructions ?Recorded ?Confirmed ?Last Taken ?Type doxycycline hyclate 100 mg capsule mg 01/04/25 Unknown History Allergies Allergy/AdvReac Type Severity Reaction Status Date / Time Penicillins Allergy Unknown Hives Verified 12/04/24 13:34 prochlorperazine Allergy Unknown Unknown Verified 12/04/24 13:34 Review of Systems Review of Systems: Pertinent positives per HPI. Patient denies any fever, chills, rash, visual changes, dizziness, chest pain, palpitations, nausea, vomiting, diarrhea, constipation, abdominal pain, or any urinary issues. [facility]LY [facility] Past Medical History Medical History Hyponatremia Urinary tract infection TMJ (temporomandibular joint disorder) Irritable bowel syndrome with alternating bowel habits Dementia of Alzheimer's type, with early onset, with depressed mood Chronic kidney disease Transient ischemic attack Chronic constipation Depression with anxiety Surgical History Surgical History History of knee replacement History of vaginal hysterectomy (1981) History of bilateral salpingo-oophorectomy (10/1999) History of laparoscopy (06/2000) Laparoscopic adhesiolysis or pelvic pain. Family History Family History Father Acute myocardial infarction Cerebrovascular accident Parkinsons disease Mother Congestive heart failure Sibling Hypertension Social History Social History Social History: Surrogate medical decision maker: Britt Mohr, spouse. Code status: Full code. Smoking packs per day: 0 Smoking cigarettes per day: 0.0 Years smoked: 0 Smoking pack-years: 0.00 Smoking status: Former smoker Second hand tobacco smoke exposure: No Alcohol intake: never Substance use: never Substance use type: does not use Do You Feel Safe in your Home?: Yes Lack of Transportation: No Lack of Food: Never True Current Housing: I Have Housing Concerned About Future Housing: No Difficulty Paying Gas/Electric Bills: No Difficulty Paying for Meds: No Currently Unemployed: No Education: High School Diploma/GED Difficulty w/ Childcare or Family Care: No Living arrangements: with family Additional living arrangements comments: Lives with spouse and intellectually disabled son. Additional occupation/education comments: Homemaker. Spiritual care concerns: No Comments At the time of my signature, I reviewed and agree with the nursing past medical, surgical, social, and family history. There is no relevant family history pertinent to the patient complaint. Exam Narrative: General: Well-developed, well nourished, in no apparent distress Head: Normocephalic, atraumatic Eyes: Pupils equally round and reactive to light bilaterally, EOM intact, sclera and conjunctive clear, no discharge, lids normal Ears: TMs intact and congested, ear canals clear, no drainage, grossly hearing normal. Nose: Nares patent, yellow nasal discharge, moderate to severe inflammation, maxillary and frontal sinus tenderness. Mouth: Oral pharynx red without lesions or masses, good dentition, MMM. Postnasal drip Neck: Supple, trachea midline, no enlargement of anterior or posterior cervical nodes, no thyroid masses or goiter palpable. Cardio: Regular rate and rhythm, s1 and s2 normal, no murmur appreciated. Resp: Clear to auscultation bilaterally, no rhonchi, rales, wheezing or rubs Course Course Emergency Course: Portions of this record may have been created with voice recognition software. Level of Care: Express Care Visit Vital Signs Vital signs: Vital Signs Temperature 36.0 C L 01/04/25 13:31 Pulse Rate 75 01/04/25 13:31 Respiratory Rate 16 01/04/25 13:31 Blood Pressure 111/87 01/04/25 13:31 Pulse Oximetry 100 01/04/25 13:31 Temperature 36.0 C L 01/04/25 13:31 Pulse Rate 75 01/04/25 13:31 Respiratory Rate 16 01/04/25 13:31 Blood Pressure 111/87 01/04/25 13:31 Pulse Oximetry 100 01/04/25 13:31 Vital signs reviewed MDM - URI/Sore Throat MDM Narrative Medical decision making narrative: At the time of visit patient is resting comfortably on the exam table. Patient appears to be nontoxic. C/o sinus drainage, sinus pressure, and cough x1 week. She reports she is coughing up and blowing out yellowish-green phlegm. Denies any known fevers, chills, body aches. Does feel short of breath. Had chest x-ray done on January 01 and was negative for any acute cardiopulmonary process. Her PCP a [facility] in prescription for doxycycline. She is currently taking doxycycline and does not feel as though her symptoms are improving. Denies any chest pain. On exam patient has bilateral TMs congestion, nasal drainage with moderate to severe anterior turbinate inflammation, tenderness to palpation over the maxillary and frontal sinuses, oral pharynx mildly red with postnasal drip, heart rates regular rate and rhythm, lung sounds are clear at this time. Diagnostics: Reviewed chest x-ray results from 01/01 with the patient-no acute cardiopulmonary process-lung sounds are clear in the clinic today Plan: I suspect patient has rhinosinusitis. Will have her continue the doxycycline but add prednisone to her regimen. Will also send in prescription for albuterol inhaler as needed for cough, shortness breath, or wheezing. Supportive measures were discussed with the patient and they voiced understanding discharge instructions and agrees to treatment plan. Return precautions reviewed Differential Diagnosis Differential diagnosis: Likely upper respiratory infection, otitis media, sinusitis, viral infection, bronchitis, influenza, pharyngitis and other (COVID) Discharge Plan Discharge Clinical Impression: Acute rhinosinusitis Patient Disposition: Home Condition: Stable Instructions: Antibiotic Form, Rhinosinusitis (ED) Additional Instructions: Take prescription medications only as prescribed-prednisone and albuterol inhaler May continue taking doxycycline as prescribed Increase fluids and stay well hydrated May take Tylenol or motrin as directed on bottle for pain/fever May use Flonase 1 spray in each nare daily May take OTC antihistamines such as Zyrtec or Claritin daily as directed on bottle May apply Vicks vapor rub to chest to open sinuses Sinus rinses for congestion Cepacol spray, cough drops, throat lozenges, warm tea with honey/lemon, gargle salt water to soothe throat BRAT diet for diarrhea Clear liquids x 24 hours then advance as tolerated for nausea/vomiting Go to the ED if you develop a worsening in your condition- high fever not controlled by Tylenol or Motrin, dehydration, weakness, lethargy, shortness of breath, or chest pain. Follow up with your PCP in 3-5 days if symptoms persist. Patient Language: Spanish Prescriptions: New prednisone 20 mg tablet 40 mg PO DAILY 5 Days Qty: 10 0RF albuterol sulfate 90 mcg/actuation HFA aerosol inhaler 2 puff inhalation Q4-6H PRN (Reason: shortness of breath or wheezing) 30 Days Qty: 8.5 0RF No Action [id number] [Fioricet] 50-300-40 mg capsule 1 cap PO Q8H PRN (Reason: pain) Qty: 10 0RF doxycycline hyclate 100 mg capsule citalopram [Celexa] 20 mg Tablet 40 mg PO HS Qty: 14 0RF trazodone 50 mg tablet 25 mg PO HS PRN (Reason: insomnia) Qty: 7 0RF clonazepam [Klonopin] 2 mg tablet 2 mg PO HS Qty: 7 0RF Rx Instructions: administer 30 minutes before bedtime aspirin 81 mg Tablet,Delayed Release (Dr/Ec) 81 mg PO QAM Qty: 14 0RF fluticasone propionate [Flonase Allergy Relief] 50 mcg/actuation spray,suspension 2 spray intranasal DAILY Qty: 16 0RF Rx Instructions: administer into each nostril Afrin (oxymetazoline) 0.05 % mist 2 spray intranasal Q12H PRN (Reason: nasal congestion) 3 Days Qty: 15 0RF Rx Instructions: DO NOT USE FOR LONGER THAN 3 DAYS. cyclobenzaprine 10 mg Tablet 10 mg PO QHS Qty: 30 0RF acetaminophen 500 mg capsule 1,000 mg PO Q6H PRN (Reason: pain) Qty: 30 0RF Linzess 145 mcg capsule 145 mcg PO QAM Qty: 90 5RF Follow-up/Referrals: Lenora,Casa Gandhi MD [Primary Care Provider] Time of Disposition: 13:43 Quality NIHSS Nursing Documentation ED NIHSS nursing documentation: reviewed/agree
[2025-01-04 13:31] VITALS: BP 111/87; PULSE 75; RESP 16; TEMP 36; O2SAT 100
== END 2025-01-04 13:49 | disposition home or self-care (01) ==
PROVIDERS: Emergency Provider Nurse Practitioner Family; PCP Internal Medicine
DX: J01.90 Acute sinusitis, unspecified (principal); G30.0 Alzheimer's disease with early onset; F02.83 Dementia in other diseases classified elsewhere, unspecified severity, with mood disturbance; N18.9 Chronic kidney disease, unspecified; F41.8 Other specified anxiety disorders; Z86.73 Personal history of transient ischemic attack (TIA), and cerebral infarction without residual deficits
CPT/HCPCS: 99213; G0463